=== PATIENT | male | born 1950 | race Caucasian/White ===

== ENCOUNTER 2016-10-30 07:31 | Inpatient (IN) | payer MEDICARE ==
[2016-10-30] MEDS ORDERED: SODIUM CHLORIDE 0.9% 1,000 ML IV ONE (08:00)
[2016-10-30] MEDS ORDERED: DIPH,PERTUS(ACELL)TETVAC-LF 0.5 ML VIAL IM ONE (08:04)
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
[2016-10-30 08:09] LABS: Basophils % (A) 0 %; CHCM 33.7; Eosinophils # (A) 0.1 k/uL (0-0.7); Eosinophils % (A) 0 %; HCT 40.6 % (39.0-53.0); HDW 2.44; HGB 13.4 gm/dL (13.0-17.5); Luc # (Auto) 0.26; Luc % (Auto) 2; Lymphocytes # (A) 1.8 k/uL (1.0-4.8); Lymphocytes % (A) 10 %; MCH 32.6 pg (25.0-35.0); MCHC 33.1 g/dL (31.0-37.0); MCV 98.5 fL (80.0-100.0); Mean Platelet Volume 7.2; Monocytes # (A) 0.9 k/uL (0-1.0); Monocytes % (A) 5 %; Neutrophils # (A) 14.2 k/uL (1.3-7.7); Neutrophils % (A) 82 %; RBC 4.12 m/uL (4.30-5.90); RDW 12.7 % (11.5-15.5); WBC 17.3 k/uL (3.8-10.6); WBC (Perox) 18.35
[2016-10-30 08:17] LABS: INR 1.1 (<1.1); Partial Thromboplastin Time 23.3 sec (22.0-30.0); Prothrombin Time 10.9 sec (9.0-12.0)
[2016-10-30 08:19] LABS: ALT 43 U/L (21-72); AST 49 U/L (17-59); Alkaline Phosphatase 74 U/L (38-126); Anion Gap 19 mmol/L; Blood Urea Nitrogen 24 mg/dL (9-20); Calcium 9.9 mg/dL (8.4-10.2); Carbon Dioxide 18 mmol/L (22-30); Chloride 98 mmol/L (98-107); Glucose 131 mg/dL (74-99); Magnesium 1.9 mg/dL (1.6-2.3); Non-African American GFR(MDRD) >60 (>60 ml/min/1.73 sqM); Potassium 4.3 mmol/L (3.5-5.1); Sodium 135 mmol/L (137-145); Total Bilirubin 0.7 mg/dL (0.2-1.3); Total Protein 8.5 g/dL (6.3-8.2)
[2016-10-30 08:29] LABS: Creatine Kinase 248 U/L (55-170)
[2016-10-30 08:42] LABS: Troponin I <0.012 ng/mL (0.000-0.034)
[2016-10-30 08:44] LABS: Creatine Kinase MB 2.5 ng/mL (0.0-2.4)
--- NOTE | 2016-10-30 08:47 | XR ---
EXAMINATION TYPE: XR chest 2V DATE OF EXAM: 10/30/2016 8:35 AM COMPARISON: Prior chest x-ray 09 October 2014 HISTORY: Altered mental status, difficulty breathing TECHNIQUE: Frontal and lateral views of the chest are obtained. FINDINGS: Intracardiac defibrillator leads are stable. Patchy basilar density is noted, suspect ther e are coronary artery calcifications. Cardiomediastinal silhouette, pulmonary vascularity and lexy ar e stable accounting for differences in technique. No evident pneumothorax or pleural effusion. Patien t is rotated and there are overlying cardiac leads. IMPRESSION: Rotated expiratory exam, basilar atelectasis, follow-up as indicated.
--- NOTE | 2016-10-30 08:57 | CT ---
EXAMINATION TYPE: CT brain wo con DATE OF EXAM: 10/30/2016 8:43 AM COMPARISON: Prior brain CT 29 April 2015 HISTORY: altered mental status CT DLP: 1041.8 mGycm Automated exposure control for dose reduction was used. FINDINGS: No interval change. Evidence of previous infarctions are noted bilaterally. No hemorrhage or hydrocep halus. Cerebral vascular calcifications are present. There is cortical atrophy. White matter demyelin ation again noted, suspect changes of Wallerian degeneration within the left joaquin. Postop changes are noted to the anterior maxillary sinus lawrence as on previous. Calvarium is intact. IMPRESSION: Evidence of previous bilateral cerebral vascular accidents. Age-related atrophy, chronic small vessel ischemic changes. Follow-up as indicated.
[2016-10-30] MEDS ORDERED: PHENYTOIN SODIUM INJ 1,000 MG in SODIUM CHLORIDE 0.9% 100 ML IVPB STA (09:41)
[2016-10-30] MEDS ORDERED: NALOXONE 0.4 MG/ML 1 ML VIAL IV PRN (09:42)
[2016-10-30] MEDS: HYDROcodone/APAP 5-325MG 1 EACH TAB PO PRN ×2 (13:06→18:58)
[2016-10-30] MEDS: SODIUM CHLORIDE 0.9% 1,000 ML IV SCH (13:08)
--- NOTE | 2016-10-30 13:51 | XR ---
Lumbar spine HISTORY: Low back pain 3 views of the lumbar spine Lumbar vertebral bodies show preserved height and alignment. Bone mineralization is mildly reduced. T here is a levoscoliosis centered at the mid lumbar spine. Multilevel spondylosis is present, there is associated loss of disc height especially at L4-5 and L5-S1. Sclerosis present in the posterior ione ents. There are overlying cardiac leads. Vascular calcifications present within the pelvis. IMPRESSION: Scoliosis, degenerative disc disease and facet arthropathy.
[2016-10-30] MEDS ORDERED: ONDANSETRON 4 MG/2 ML VIAL IVP PRN (14:23)
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
[2016-10-30] MEDS ORDERED: Magnesium Replacement Protocol 1 EACH MISC MISCELLANE PRN (15:08)
[2016-10-30] MEDS ORDERED: Potassium Replacement Protocol 1 EACH MISC MISCELLANE PRN (15:08)
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
[2016-10-30] MEDS: PHENYTOIN SODIUM EXTENDED 100 MG CAP PO SCH (18:58)
[2016-10-30] MEDS: CARVEDILOL 3.125 MG TAB PO SCH (18:59)
[2016-10-30] MEDS: HEPARIN SODIUM,PORCINE 5,000 UNIT/ML 1 ML VIAL SQ SCH (21:33)
[2016-10-30] MEDS: ALPRAZolam 0.25 MG TAB PO SCH (21:33)
[2016-10-30] MEDS: ATORVASTATIN 10 MG TAB PO SCH (21:33)
[2016-10-30 23:54] LABS: Appearance,Urine Clear (Clear); Bilirubin,Urine Negative (Negative); Glucose,Urine (UA) Negative (Negative); Ketones,Urine 1+ (Negative); Leukocyte Esterase,Urine Negative (Negative); Nitrite,Urine Negative (Negative); PH, Urine 5.5 (5.0-8.0); Protein,Urine Negative (Negative); Specific Gravity,Urine 1.012 (1.001-1.035); UA Billing (MACRO vs. MICRO) CHEM; Urobilinogen,Urine <2.0 mg/dL (<2.0)
[2016-10-31] MEDS: HYDROcodone/APAP 5-325MG 1 EACH TAB PO PRN ×4 (01:29→20:10)
[2016-10-31] MEDS: PHENYTOIN SODIUM EXTENDED 100 MG CAP PO SCH ×4 (01:29→20:12)
[2016-10-31 06:27] LABS: Basophils % (A) 0 %; CH 32.7; CHCM 33.9; Eosinophils % (A) 0 %; HCT 38.4 % (39.0-53.0); HDW 2.46; HGB 12.9 gm/dL (13.0-17.5); Luc # (Auto) 0.25; Luc % (Auto) 3; Lymphocytes # (A) 1.6 k/uL (1.0-4.8); Lymphocytes % (A) 16 %; MCH 32.6 pg (25.0-35.0); MCHC 33.6 g/dL (31.0-37.0); MCV 97.1 fL (80.0-100.0); Monocytes # (A) 0.9 k/uL (0-1.0); Monocytes % (A) 9 %; Neutrophils # (A) 7.3 k/uL (1.3-7.7); Neutrophils % (A) 72 %; RBC 3.96 m/uL (4.30-5.90); RDW 12.9 % (11.5-15.5); WBC 10.1 k/uL (3.8-10.6); WBC (Perox) 10.06
[2016-10-31 06:49] LABS: Anion Gap 13 mmol/L; Blood Urea Nitrogen 16 mg/dL (9-20); Calcium 9.8 mg/dL (8.4-10.2); Carbon Dioxide 24 mmol/L (22-30); Chloride 98 mmol/L (98-107); Glucose 99 mg/dL (74-99); Magnesium 1.6 mg/dL (1.6-2.3); Non-African American GFR(MDRD) >60 (>60 ml/min/1.73 sqM); Potassium 4.2 mmol/L (3.5-5.1); Sodium 135 mmol/L (137-145)
[2016-10-31] MEDS: CARVEDILOL 3.125 MG TAB PO SCH ×2 (06:55→16:42)
[2016-10-31] MEDS: HEPARIN SODIUM,PORCINE 5,000 UNIT/ML 1 ML VIAL SQ SCH ×2 (08:02→20:12)
[2016-10-31] MEDS: MULTIVITAMINS, THERA 1 EACH TAB PO SCH (08:04)
[2016-10-31] MEDS: CLOPIDOGREL 75 MG TAB PO SCH (08:04)
[2016-10-31] MEDS: LISINOPRIL 5 MG TAB PO SCH (08:05)
[2016-10-31] MEDS: ALPRAZolam 0.25 MG TAB PO SCH ×2 (08:05→20:10)
[2016-10-31] MEDS: SODIUM CHLORIDE 0.9% 1,000 ML IV SCH (09:32)
[2016-10-31] MEDS ORDERED: LACTULOSE 20 GM/30 ML CUP PO ONE (11:42)
[2016-10-31] MEDS ORDERED: DOCUSATE 100 MG CAP PO PRN (11:43)
--- NOTE | 2016-10-31 12:44 | P.PN ---
Subjective Principal diagnosis: Seizure episode Patient is doing fairly well today. He is complaining of constipation. No seizure activity since admission. Objective - Vital Signs Vital signs: Vital Signs Temp 98.9 F 10/31/16 08:00 Pulse 66 10/31/16 11:41 Resp 18 10/31/16 11:41 BP 113/65 10/31/16 11:41 Pulse Ox 96 10/31/16 11:41 Intake & Output 10/30/16 10/31/16 10/31/16 18:59 06:59 18:59 Intake Total 320 180 120 Output Total 300 Balance 320 180 -180 Weight 54.431 kg Intake: IV 180 Sodium Chloride 0.9% 1, 180 000 ml @ 20 mls/hr IV . Q24H [facility] Rx#:[id number] Intake, IV Titration 100 Amount Phenytoin Sodium Inj 1, 100 000 mg In Sodium Chloride 0.9% 100 ml @ 200 mls/hr IVPB ONCE STA Rx#: [id number] Oral 220 120 Output: Urine 300 Other: Voiding Method Urinal # Voids 1 0 1 - Exam General: The patient is awake and alert, in no distress Eye: there is normal conjunctiva bilaterally. Neck: The neck is supple, there is no JVD. Cardiovascular: Normal S1-S2, no S3-S4, no murmurs. Respiratory: Lungs clear to auscultation bilaterally Gastrointestinal: Abdomen is soft, nontender Musculoskeletal: There is no pedal edema. Neurological:. Speech is normal. Skin: Skin is warm and dry - Labs CBC & Chem 7: 10/31/16 06:12 10/31/16 06:12 Labs: Abnormal Lab Results - Last 24 Hours (Table) 10/30/16 10/31/16 10/31/16 Range/Units 23:50 06:12 06:12 RBC 3.96 L (4.30-5.90) m/uL Hgb 12.9 L (13.0-17.5) gm/dL Hct 38.4 L (39.0-53.0) % Sodium 135 L (137-145) mmol/L Urine Ketones 1+ H (Negative) Urine Opiates Screen Detected H (NotDetected) Ur Barbiturates Screen Detected H (NotDetected) U Benzodiazepines Scrn Detected H (NotDetected) Assessment and Plan Plan: 1. Seizure episode: Computed tomography scan of the brain showed chronic findings with no acute intracranial process. Patient was seen and evaluated by neurology. EEG ordered. Patient was started on phenytoin 3 times a day. We will continue seizure precautions. 2. History of CVA: With chronic bilateral changes noted on computed tomography scan of the brain and chronic expressive aphasia 3. Ischemic cardiomyopathy with chronic systolic dysfunction and normal ejection fraction of 25%, now compensated with no exacerbation 4. Paroxysmal internal carotid artery stenosis 5. Essential hypertension: Blood pressure well-controlled 6. Leukocytosis: Now resolved. No source of infection identified. May be reactive.
--- NOTE | 2016-10-31 12:49 | P.PN ---
Subjective Principal diagnosis: Patient is a pleasant 66-year-old male who is being followed by the neurology service for status epilepticus. Reportedly, patient had witnessed seizure at home. Seizures were described as tonic-clonic in nature. Reportedly seizures were continuous lasting up to 15 minutes each. Patient is very poor historian and there is no family or visitors that have been in to confirm history. Patient does state he has had seizure disorder in the past but is not on any antiepileptic drug currently. CT of the brain on admission showed evidence of previous bilateral cerebrovascular accidents. CT also shows age-related atrophy, and chronic small vessel ischemic disease. Nursing staff reports patient has not had any seizure activity since admission. Patient does complain of low back pain for which lumbar spine x-ray was done and reveals scoliosis, degenerative disc disease and facet arthropathy. I'm of my evaluation, patient is resting comfortably in bed and appears to be in no acute distress. Objective - Vital Signs Vital signs: Vital Signs Temp 98.9 F 10/31/16 08:00 Pulse 66 10/31/16 11:41 Resp 18 10/31/16 11:41 BP 113/65 10/31/16 11:41 Pulse Ox 96 10/31/16 11:41 Intake & Output 10/30/16 10/31/16 10/31/16 18:59 06:59 18:59 Intake Total 320 180 120 Output Total 300 Balance 320 180 -180 Weight 54.431 kg Intake: IV 180 Sodium Chloride 0.9% 1, 180 000 ml @ 20 mls/hr IV . Q24H [facility] Rx#:[id number] Intake, IV Titration 100 Amount Phenytoin Sodium Inj 1, 100 000 mg In Sodium Chloride 0.9% 100 ml @ 200 mls/hr IVPB ONCE STA Rx#: [id number] Oral 220 120 Output: Urine 300 Other: Voiding Method Urinal # Voids 1 0 1 - Exam PHYSICAL EXAM: GENERAL APPEARANCE: Patient is a thin male who appears to be in no acute distress. HEENT: Normocephalic, atraumatic, no facial asymmetry is seen. Neck is supple with no masses felt. CARDIOVASCULAR: Regular rate and rhythm. ABDOMEN: Nontender, nondistended. EXTREMITIES: Show no edema or clubbing. NEUROLOGICAL EXAM: Patient is awake, alert, and oriented 2. Patient is unclear of what year it is. Speech is slowed and garbled at times. Language is normal. Strength is full in all 4 extremities. Sensory exam to light touch is normal in all 4 extremities. No obvious facial asymmetry seen on cranial nerve testing. No seizures or tremors noted. - Labs CBC & Chem 7: 10/31/16 06:12 10/31/16 06:12 Labs: Abnormal Lab Results - Last 24 Hours (Table) 10/30/16 10/31/16 10/31/16 Range/Units 23:50 06:12 06:12 RBC 3.96 L (4.30-5.90) m/uL Hgb 12.9 L (13.0-17.5) gm/dL Hct 38.4 L (39.0-53.0) % Sodium 135 L (137-145) mmol/L Urine Ketones 1+ H (Negative) Urine Opiates Screen Detected H (NotDetected) Ur Barbiturates Screen Detected H (NotDetected) U Benzodiazepines Scrn Detected H (NotDetected) Assessment and Plan Plan: Impression: 1. Seizure disorder 2. Coronary artery disease 3. Chronic back pain 4. 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 5. Hypertension 6. History of memory difficulty Recommendations: It is believed patient had witnessed seizure activity. Patient was loaded with Dilantin in the emergency room and has had no further seizure activity since. It appears patient may be unable to have MRI with and without contrast due to metal hardware in the skull. I recommend continuing Dilantin at 100 mg 3 times a day. I will check a Dilantin level. EEG was ordered but has not been performed yet. Continue seizure precautions. Any neurological changes, I will order a stat CT. Continue neurological checks. I recommend a speech consult for cognitive evaluation. I will continue to follow with you. Further recommendations to follow. I performed an examination of the patient and discussed the management with the ENVELOPE MAKER. I have reviewed the ENVELOPE MAKER notes and agree with the findings and plan of care.
[2016-10-31] MEDS: ATORVASTATIN 10 MG TAB PO SCH (20:12)
[2016-11-01] MEDS: MULTIVITAMINS, THERA 1 EACH TAB PO SCH (09:58)
[2016-11-01] MEDS: CLOPIDOGREL 75 MG TAB PO SCH (09:58)
[2016-11-01] MEDS: CARVEDILOL 3.125 MG TAB PO SCH ×2 (09:58→16:23)
[2016-11-01] MEDS: SODIUM CHLORIDE 0.9% 1,000 ML IV SCH (09:58)
[2016-11-01] MEDS: HEPARIN SODIUM,PORCINE 5,000 UNIT/ML 1 ML VIAL SQ SCH ×2 (09:58→20:51)
[2016-11-01] MEDS: PHENYTOIN SODIUM EXTENDED 100 MG CAP PO SCH ×3 (09:58→20:50)
[2016-11-01] MEDS: LISINOPRIL 5 MG TAB PO SCH (09:58)
[2016-11-01] MEDS: HYDROcodone/APAP 5-325MG 1 EACH TAB PO PRN ×2 (10:02→18:49)
[2016-11-01] MEDS: ALPRAZolam 0.25 MG TAB PO SCH ×2 (10:03→20:50)
--- NOTE | 2016-11-01 10:59 | P.PN ---
Subjective Seizure episode Patient had EEG done this morning. Nursing reports no seizure activity through the night. Patient followed by neurology. They recommended a speech therapy consult. Patient lying in bed comfortably. Difficult to obtain review of systems due to his expressive aphasia. Objective - Vital Signs Vital signs: Vital Signs Temp 98.7 F 11/01/16 07:00 Pulse 77 11/01/16 07:00 Resp 20 11/01/16 07:00 BP 128/77 11/01/16 07:00 Pulse Ox 96 11/01/16 07:00 Intake & Output 10/31/16 11/01/16 11/01/16 18:59 06:59 18:59 Intake Total 970 200 Output Total 300 400 Balance 670 -200 Intake: IV 0 Sodium Chloride 0.9% 1, 0 000 ml @ 20 mls/hr IV . Q24H [facility] Rx#:[id number] Oral 970 200 Output: Urine 300 400 Other: Voiding Method Urinal # Voids 1 1 # Bowel Movements 0 0 - Exam Head normocephalic Neck supple Lungs clear to auscultation bilaterally no wheezing or crackles Heart regular rate and rhythm S1-S2, no rub or gallop Abdomen is soft nontender nondistended positive bowel sounds no hepatosplenomegaly Extremities no edema Neuro alert and orientated to 3. Expressive aphasia. Hand prescriptionist equal bilaterally. Lower extremity strength equal bilaterally. Patient does have some difficulty following simple commands. - Labs CBC & Chem 7: 10/31/16 06:12 10/31/16 06:12 Assessment and Plan Plan: 1. Seizure episode: Computed tomography scan of the brain showed evidence of previous bilateral CVA. Age-related atrophy, chronic small vessel ischemic changes. No acute intracranial process. Patient was seen and evaluated by neurology. EEG completed this morning. Results pending.. Patient was started on phenytoin 3 times a day. We will continue seizure precautions. 2. History of CVA: With chronic bilateral changes noted on computed tomography scan of the brain and chronic expressive aphasia 3. Ischemic cardiomyopathy with chronic systolic dysfunction and normal ejection fraction of 25%, now compensated with no exacerbation 4. History of internal carotid artery stenosis 5. Essential hypertension: Blood pressure well-controlled 6. Leukocytosis: Now resolved. No source of infection identified. May be reactive. 7. Constipation change Colace to 100 mg twice a day. Add MiraLAX and give 1 dose of lactulose Awaiting speech therapy and PT OT consult DVT prophylaxis subcu heparin
[2016-11-01] MEDS ORDERED: LACTULOSE 20 GM/30 ML CUP PO ONE (12:00)
[2016-11-01 12:03] LABS: Basophils % (A) 0 %; CH 33.7; CHCM 35.7; Eosinophils % (A) 0 %; HCT 41.7 % (39.0-53.0); HGB 14.5 gm/dL (13.0-17.5); Luc # (Auto) 0.35; Luc % (Auto) 3; Lymphocytes # (A) 1.8 k/uL (1.0-4.8); Lymphocytes % (A) 15 %; MCH 33.1 pg (25.0-35.0); MCHC 34.8 g/dL (31.0-37.0); Mean Platelet Volume 7.9; Monocytes # (A) 1.1 k/uL (0-1.0); Monocytes % (A) 9 %; Neutrophils # (A) 9.2 k/uL (1.3-7.7); Neutrophils % (A) 74 %; RBC 4.39 m/uL (4.30-5.90); RDW 12.6 % (11.5-15.5); WBC 12.4 k/uL (3.8-10.6); WBC (Perox) 12.37
[2016-11-01 12:06] LABS: Anion Gap 14 mmol/L; Blood Urea Nitrogen 20 mg/dL (9-20); Calcium 10.2 mg/dL (8.4-10.2); Carbon Dioxide 23 mmol/L (22-30); Chloride 101 mmol/L (98-107); Glucose 150 mg/dL (74-99); Magnesium 1.6 mg/dL (1.6-2.3); Non-African American GFR(MDRD) >60 (>60 ml/min/1.73 sqM); Potassium 4.3 mmol/L (3.5-5.1); Sodium 138 mmol/L (137-145)
--- NOTE | 2016-11-01 17:31 | P.PN ---
Subjective Principal diagnosis: Patient is a pleasant 66-year-old male who is being followed by the neurology service for status epilepticus. Reportedly, patient had witnessed seizure at home. Seizures were described as tonic-clonic in nature. Reportedly seizures were continuous lasting up to 15 minutes each. Patient is very poor historian and there are no family or visitors that have been in to confirm history. Patient does state he has had seizure disorder in the past but is not on any antiepileptic drug currently. CT of the brain on admission showed evidence of previous bilateral cerebrovascular accidents. CT also shows age-related atrophy, and chronic small vessel ischemic disease. Patient does have history of chronic expressive aphasia. Nursing staff reports patient has not had any seizure activity since admission. Patient does complain of low back pain for which lumbar spine x-ray was done and reveals scoliosis, degenerative disc disease and facet arthropathy. At the time of my evaluation, patient is resting comfortably in bed and appears to be in no acute distress. Objective - Vital Signs Vital signs: Vital Signs Temp 98.8 F 11/01/16 15:00 Pulse 84 11/01/16 15:00 Resp 19 11/01/16 15:00 BP 143/87 11/01/16 15:00 Pulse Ox 95 11/01/16 15:00 Intake & Output 10/31/16 11/01/16 11/01/16 18:59 06:59 18:59 Intake Total 970 200 Output Total 300 400 Balance 670 -200 Intake: IV 0 Sodium Chloride 0.9% 1, 0 000 ml @ 20 mls/hr IV . Q24H [facility] Rx#:[id number] Oral 970 200 Output: Urine 300 400 Other: Voiding Method Urinal # Voids 1 1 2 # Bowel Movements 0 0 - Exam PHYSICAL EXAM: GENERAL APPEARANCE: Patient is a thin male who appears to be in no acute distress. HEENT: Normocephalic, atraumatic, no facial asymmetry is seen. Neck is supple with no masses felt. CARDIOVASCULAR: Regular rate and rhythm. ABDOMEN: Nontender, nondistended. EXTREMITIES: Show no edema or clubbing. NEUROLOGICAL EXAM: Patient is awake, alert, and oriented 2. Patient is unclear of what year it is. Speech is slowed and garbled at times. This is chronic since head injury. Language is normal. Strength is full in all 4 extremities. Sensory exam to light touch is normal in all 4 extremities. No obvious facial asymmetry seen on cranial nerve testing. No seizures or tremors noted. - Labs CBC & Chem 7: 11/01/16 11:11 11/01/16 11:11 Labs: Abnormal Lab Results - Last 24 Hours (Table) 11/01/16 11/01/16 Range/Units 11:11 11:11 WBC 12.4 H (3.8-10.6) k/uL Plt Count 147 L (150-450) k/uL Neutrophils # 9.2 H (1.3-7.7) k/uL Monocytes # 1.1 H (0-1.0) k/uL Glucose 150 H (74-99) mg/dL Assessment and Plan Plan: Impression: 1. Seizure disorder 2. Coronary artery disease 3. Chronic back pain 4. 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 5. Hypertension 6. History of memory difficulty Recommendations: It is believed patient had witnessed seizure activity. Patient was loaded with Dilantin in the emergency room and has had no further seizure activity since. It appears patient may be unable to have MRI with and without contrast due to metal hardware in the skull. CT of the brain showed evidence of previous bilateral cerebrovascular accidents. Age-related atrophy, chronic small vessel ischemic changes. I recommend continuing Dilantin at 100 mg 3 times a day. Dilantin level is within normal limits. EEG was ordered and showed occasional sharp waves consistent with reduced seizure threshold. Continue seizure precautions. Any neurological changes, I will order a stat CT. Continue neurological checks. I recommend a speech consult for cognitive evaluation. Patient can follow up in the office in the outpatient setting for follow-up seizures as well as low back pain. Nursing staff reports patient is unsteady on his feet. Patient may benefit from short-term inpatient rehab. Patient is stable for discharge from a neurology standpoint. I will continue to follow with you on an as-needed basis. Please reconsult if any neurological changes. I performed an examination of the patient and discussed the management with the CABLE SWAGER. I have reviewed the CABLE SWAGER notes and agree with the findings and plan of care.
[2016-11-01] MEDS: DOCUSATE 100 MG CAP PO SCH (20:50)
[2016-11-01] MEDS: ATORVASTATIN 10 MG TAB PO SCH (20:51)
[2016-11-01] MEDS: POLYETHYLENE GLYCOL 3350 17 GM POWD.PACK PO SCH (20:51)
--- NOTE | 2016-11-01 23:18 | EEG ---
DATE OF SERVICE: 11/01/2016 REASON FOR TESTING: Seizures. DESCRIPTION OF THE PROCEDURE: This EEG was performed using a 21-channel digital electroencephalograph, following international 10-20 system. DESCRIPTION OF THE RECORDING: From the beginning of the tracing, and with the patient's eyes closed, the background rhythm was mostly consisting of 9 Hz alpha frequency in the posterior occipital leads. No obvious asymmetry is seen. Frequent movement and muscle artifacts are seen. Photic stimulation was performed with a minimal driving response seen. No pathological waves were elicited. Occasional sharp wave activity is noticed, more frequently in the right frontal temporal region. Hyperventilation was not performed. The patient remains awake throughout the tracing. No generalized epileptiform discharges were seen. His EKG lead showed a regular rate and rhythm. INTERPRETATION: This awake EEG is abnormal due to the presence of occasional sharp wave activity. This is consistent with a reduced seizure threshold. No generalized epileptiform discharges were seen. Clinical correlation is recommended.
[2016-11-02] MEDS: HEPARIN SODIUM,PORCINE 5,000 UNIT/ML 1 ML VIAL SQ SCH ×2 (08:54→22:11)
[2016-11-02] MEDS: CLOPIDOGREL 75 MG TAB PO SCH (08:54)
[2016-11-02] MEDS: CARVEDILOL 3.125 MG TAB PO SCH ×2 (08:54→17:08)
[2016-11-02] MEDS: PHENYTOIN SODIUM EXTENDED 100 MG CAP PO SCH ×3 (08:54→22:11)
[2016-11-02] MEDS: LISINOPRIL 5 MG TAB PO SCH (08:54)
[2016-11-02] MEDS: DOCUSATE 100 MG CAP PO SCH ×2 (08:55→22:11)
[2016-11-02] MEDS: MULTIVITAMINS, THERA 1 EACH TAB PO SCH (08:55)
[2016-11-02] MEDS: ALPRAZolam 0.25 MG TAB PO SCH ×2 (08:57→22:09)
[2016-11-02 09:11] LABS: Basophils # (A) 0.1 k/uL (0-0.2); Basophils % (A) 0 %; CH 33.7; CHCM 35.7; Eosinophils % (A) 0 %; HDW 2.58; HGB 14.6 gm/dL (13.0-17.5); Luc # (Auto) 0.41; Luc % (Auto) 3; Lymphocytes % (A) 15 %; MCH 33.1 pg (25.0-35.0); MCHC 34.8 g/dL (31.0-37.0); Mean Platelet Volume 7.6; Monocytes % (A) 7 %; Neutrophils # (A) 10.4 k/uL (1.3-7.7); Neutrophils % (A) 75 %; RBC 4.42 m/uL (4.30-5.90); RDW 12.5 % (11.5-15.5); WBC 13.9 k/uL (3.8-10.6); WBC (Perox) 13.28
[2016-11-02] MEDS: HYDROcodone/APAP 5-325MG 1 EACH TAB PO PRN ×3 (09:24→22:11)
[2016-11-02 09:43] LABS: Anion Gap 10 mmol/L; Blood Urea Nitrogen 27 mg/dL (9-20); Calcium 10.2 mg/dL (8.4-10.2); Carbon Dioxide 28 mmol/L (22-30); Chloride 101 mmol/L (98-107); Glucose 144 mg/dL (74-99); Magnesium 1.6 mg/dL (1.6-2.3); Non-African American GFR(MDRD) >60 (>60 ml/min/1.73 sqM); Potassium 3.9 mmol/L (3.5-5.1); Sodium 139 mmol/L (137-145)
[2016-11-02] MEDS: SODIUM CHLORIDE 0.9% 1,000 ML IV SCH (10:59)
[2016-11-02 13:26] VITALS: BMI 20.3
[2016-11-02 14:56] LABS: Amylase 71 U/L (30-110)
--- NOTE | 2016-11-02 15:41 | XR ---
2 view abdomen HISTORY: Abdominal pain 2 views of the abdomen submitted and correlated to prior exam October Lung bases are remarkable for some minimal atelectatic changes or scarring. Intracardiac defibrillato r leads are present. No pneumoperitoneum or bowel obstruction is evident. Degenerative disc changes i n the visualized spine, there is mild spinal curvature. There are vascular calcifications within the pelvis. IMPRESSION: Nonspecific findings described above. No abnormality evident to account for patient's sym ptoms.
[2016-11-02] MEDS ORDERED: RX INFO: IV CONTRAST WAS GIVEN 1 EACH MISC MISCELLANE PRN (17:39)
--- NOTE | 2016-11-02 17:39 | P.PN ---
Subjective Principal diagnosis: Seizure activity Patient is a 66-year-old male who had a witnessed seizure as outpatient, he was brought into emergency room and was admitted to medical floor he was evaluated by neurology he was started on IV Dilantin, level is therapeutic at this time. Patient has known history of stroke, he has expressive aphasia. Objective - Vital Signs Vital signs: Vital Signs Temp 99 F 11/02/16 15:00 Pulse 79 11/02/16 15:00 Resp 20 11/02/16 15:00 BP 115/74 11/02/16 15:00 Pulse Ox 93 L 11/02/16 15:00 Intake & Output 11/01/16 11/02/16 11/02/16 18:59 06:59 18:59 Weight 59 kg 59 kg Other: Voiding Method Urinal # Voids 2 1 1 - Exam In general patient is alert and oriented speech is difficult to understand HEENT without any acute abnormality Neck is supple no JVD no goiter no lymphadenopathy Chest is clear to auscultation no wheezing Cardiac exam reveals regular heart sounds no gallops no murmurs Abdomen is soft nontender no organomegaly Extremity exam reveals no edema no cyanosis or clubbing - Labs CBC & Chem 7: 11/02/16 08:14 11/02/16 08:14 Labs: Abnormal Lab Results - Last 24 Hours (Table) 11/02/16 11/02/16 Range/Units 08:14 08:14 WBC 13.9 H (3.8-10.6) k/uL Plt Count 149 L (150-450) k/uL Neutrophils # 10.4 H (1.3-7.7) k/uL BUN 27 H (9-20) mg/dL Glucose 144 H (74-99) mg/dL Assessment and Plan Plan: 1. Seizure episode: Computed tomography scan of the brain showed evidence of previous bilateral CVA. Age-related atrophy, chronic small vessel ischemic changes. No acute intracranial process. Patient was seen and evaluated by neurology. EEG completed this morning. Results pending.. Patient was started on phenytoin 3 times a day. We will continue seizure precautions. 2. History of CVA: With chronic bilateral changes noted on computed tomography scan of the brain and chronic expressive aphasia 3. Ischemic cardiomyopathy with chronic systolic dysfunction and normal ejection fraction of 25%, now compensated with no exacerbation 4. History of internal carotid artery stenosis 5. Essential hypertension: Blood pressure well-controlled 6. Leukocytosis: Now resolved. No source of infection identified. May be reactive. 7. Abdominal pain with Constipation change Colace to 100 mg twice a day. Add MiraLAX and give 1 dose of lactulose, at this time will check abdomen x-ray, will check amylase and lipase 8. Leukocytosis no clear site of infection may be reactive Will monitor closely
[2016-11-02] MEDS: IOHEXOL 350 MG/ML 25 ML BOTTLE (ORAL USE) PO PRN ×2 (18:35→19:55)
--- NOTE | 2016-11-02 21:02 | CT ---
EXAMINATION TYPE: CT abdomen pelvis w con DATE OF EXAM: 11/02/2016 8:46 PM COMPARISON: NONE HISTORY: Abdominal pain with constipation and leukocytosis. CT DLP: 426.90 mGycm Automated exposure control for dose reduction was used. TECHNIQUE: Helical acquisition of images was performed from the lung bases through the pelvis. CONTRAST: Performed with Oral Contrast and with IV Contrast, patient injected with 100 mL of Omnipaque 300. FINDINGS: There is patchy infiltrate and atelectasis at the left posterior lung base. There is no pleural effus ion. There is no pericardial effusion. Liver spleen pancreas gallbladder appear normal. Bile ducts are not dilated. There is no adrenal mass. Kidneys show satisfactory contrast opacification. There is no hydronephrosi s. There is no retroperitoneal adenopathy. Abdominal aorta is atheromatous. There are a few sigmoid d iverticula. Bladder distends smoothly. There are spondylotic changes in the lumbar spine. There is no sign of a pelvic mass. Appendix is not seen. There is no sign of appendicitis. IMPRESSION: THERE IS PATCHY INFILTRATE AND ATELECTASIS IN THE LEFT LOWER LOBE. THERE IS MINIMAL PERINEPHRIC EDEMA ON THE LEFT SIDE BUT NO EVIDENCE OF RENAL OBSTRUCTION. THERE IS NO RMAL CONTRAST OPACIFICATION OF THE RENAL CORTEX. THIS COULD RELATE TO ATYPICAL PYELONEPHRITIS. THERE IS NO RENAL MASS SEEN. THERE IS MILD SIGMOID DIVERTICULOSIS WITHOUT SIGN OF DIVERTICULITIS. ATHEROSCLEROTIC VASCULAR DISEASE. 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
[2016-11-02] MEDS: POLYETHYLENE GLYCOL 3350 17 GM POWD.PACK PO SCH (22:11)
[2016-11-02] MEDS: ATORVASTATIN 10 MG TAB PO SCH (22:11)
[2016-11-03] MEDS: HYDROcodone/APAP 5-325MG 1 EACH TAB PO PRN ×4 (06:01→23:21)
[2016-11-03 09:23] LABS: Basophils % (A) 0 %; CH 32.9; CHCM 33.9; Eosinophils % (A) 0 %; HCT 39.6 % (39.0-53.0); HDW 2.52; HGB 13.3 gm/dL (13.0-17.5); Luc # (Auto) 0.36; Luc % (Auto) 4; Lymphocytes # (A) 2.3 k/uL (1.0-4.8); Lymphocytes % (A) 22 %; MCH 32.9 pg (25.0-35.0); MCHC 33.7 g/dL (31.0-37.0); MCV 97.4 fL (80.0-100.0); Mean Platelet Volume 7.2; Monocytes # (A) 0.6 k/uL (0-1.0); Monocytes % (A) 5 %; Neutrophils # (A) 7.2 k/uL (1.3-7.7); Neutrophils % (A) 68 %; RBC 4.06 m/uL (4.30-5.90); RDW 12.6 % (11.5-15.5); WBC 10.5 k/uL (3.8-10.6); WBC (Perox) 10.62
[2016-11-03 09:39] LABS: ALT 38 U/L (21-72); AST 78 U/L (17-59); Alkaline Phosphatase 68 U/L (38-126); Anion Gap 13 mmol/L; Blood Urea Nitrogen 29 mg/dL (9-20); Calcium 9.6 mg/dL (8.4-10.2); Carbon Dioxide 24 mmol/L (22-30); Chloride 99 mmol/L (98-107); Glucose 174 mg/dL (74-99); Magnesium 1.4 mg/dL (1.6-2.3); Non-African American GFR(MDRD) >60 (>60 ml/min/1.73 sqM); Potassium 3.9 mmol/L (3.5-5.1); Sodium 136 mmol/L (137-145); Total Bilirubin 0.7 mg/dL (0.2-1.3); Total Protein 7.5 g/dL (6.3-8.2)
[2016-11-03] MEDS: ALPRAZolam 0.25 MG TAB PO SCH ×2 (09:48→21:57)
[2016-11-03] MEDS: PHENYTOIN SODIUM EXTENDED 100 MG CAP PO SCH ×3 (09:48→21:58)
[2016-11-03] MEDS: CARVEDILOL 3.125 MG TAB PO SCH ×2 (09:48→17:18)
[2016-11-03] MEDS: MULTIVITAMINS, THERA 1 EACH TAB PO SCH (09:49)
[2016-11-03] MEDS: HEPARIN SODIUM,PORCINE 5,000 UNIT/ML 1 ML VIAL SQ SCH ×2 (09:49→21:57)
[2016-11-03] MEDS: DOCUSATE 100 MG CAP PO SCH ×2 (09:49→21:57)
[2016-11-03] MEDS: CLOPIDOGREL 75 MG TAB PO SCH (09:49)
[2016-11-03] MEDS: LISINOPRIL 5 MG TAB PO SCH (09:49)
[2016-11-03] MEDS: SODIUM CHLORIDE 0.9% 1,000 ML IV SCH (09:56)
[2016-11-03] MEDS: PANTOPRAZOLE 40 MG TABLET PO SCH (17:18)
--- NOTE | 2016-11-03 18:40 | P.PN ---
Subjective Principal diagnosis: Seizure activity Patient is a 66-year-old male who had a witnessed seizure as outpatient, he was brought into emergency room and was admitted to medical floor he was evaluated by neurology he was started on IV Dilantin, level is therapeutic at this time. Patient has known history of stroke, he has expressive aphasia. Objective - Vital Signs Vital signs: Vital Signs Temp 98.8 F 11/03/16 15:00 Pulse 81 11/03/16 15:00 Resp 19 11/03/16 15:00 BP 96/62 11/03/16 15:00 Pulse Ox 96 11/03/16 15:00 Intake & Output 11/02/16 11/03/16 11/03/16 18:59 06:59 18:59 Output Total 700 175 Balance -700 -175 Weight 59 kg 60.5 kg Output: Urine 700 175 Other: Voiding Method Urinal # Voids 1 1 1 # Bowel Movements 1 - Exam In general patient is alert and oriented speech is difficult to understand HEENT without any acute abnormality Neck is supple no JVD no goiter no lymphadenopathy Chest is clear to auscultation no wheezing Cardiac exam reveals regular heart sounds no gallops no murmurs Abdomen is soft nontender no organomegaly Extremity exam reveals no edema no cyanosis or clubbing - Labs CBC & Chem 7: 11/03/16 08:44 11/03/16 08:44 Labs: Abnormal Lab Results - Last 24 Hours (Table) 11/03/16 11/03/16 Range/Units 08:44 08:44 RBC 4.06 L (4.30-5.90) m/uL Sodium 136 L (137-145) mmol/L BUN 29 H (9-20) mg/dL Glucose 174 H (74-99) mg/dL Magnesium 1.4 L (1.6-2.3) mg/dL AST 78 H (17-59) U/L Assessment and Plan Plan: 1. Seizure episode: Computed tomography scan of the brain showed evidence of previous bilateral CVA. Age-related atrophy, chronic small vessel ischemic changes. No acute intracranial process. Patient was seen and evaluated by neurology. EEG completed this morning. Results pending.. Patient was started on phenytoin 3 times a day. We will continue seizure precautions. 2. History of CVA: With chronic bilateral changes noted on computed tomography scan of the brain and chronic expressive aphasia 3. Ischemic cardiomyopathy with chronic systolic dysfunction and normal ejection fraction of 25%, now compensated with no exacerbation 4. History of internal carotid artery stenosis 5. Essential hypertension: Blood pressure well-controlled 6. Leukocytosis: Now resolved. No source of infection identified. May be reactive. 7. Abdominal pain with Constipation change Colace to 100 mg twice a day. Add MiraLAX and give 1 dose of lactulose, at this time will check abdomen x-ray, will check amylase and lipase, patient continues to have abdominal pain computed tomography scan of the abdomen and pelvis was done Will consult gastroenterology Protonix 40 mg twice daily was added 8. Leukocytosis no clear site of infection may be reactive Will monitor closely
--- NOTE | 2016-11-03 21:47 | CONS ---
DATE OF CONSULTATION: 11/03/2016 REASON FOR CONSULTATION: Abdominal pain. HISTORY OF PRESENT ILLNESS: The patient is a 66-year-old white male with a history of seizure disorder who was admitted to the hospital after having a witnessed seizure by his friend with whom he lives. He was brought into the emergency room and subsequently admitted to the hospital for further evaluation. He is presently being seen by Neurology, had a CT of the head done that was unremarkable. Since being in the hospital the patient has been complaining of abdominal pain, and hence we are consulted. He states the pain is mostly in the epigastric and periumbilical area for the last 2 months' duration. He states that the pain happens every time he takes his pills in the morning and sometimes the pain can last all day. He has some nausea but no emesis. Apparently in the hospital he threw up twice this morning. He denies any heartburn, reports no prior history of peptic ulcer disease or recent NSAID use, has normal bowel movements. No rectal bleeding or melena. He does not recall ever having an EGD or colonoscopy in the past. His past medical history significant for: 1. Coronary artery disease. 2. Congestive heart failure. 3. CVA 2 years ago. 4. Hypertension. 5. Hyperlipidemia. 6. Coronary artery disease. 7. Seizure disorder. 8. Degenerative joint disease. 9. Severe ischemic cardiomyopathy with an ejection fraction less than 20. PAST SURGICAL HISTORY: 1. AICD placement. 2. History of appendectomy. 3. Right knee surgery. Medications at home include: 1. Coreg. 2. Prinivil. 3. Zocor. 4. Multivitamin. 5. Nitrostat. 6. Xanax. ALLERGIES: NONE. SOCIAL HISTORY: Chronic smoker. No alcohol use. FAMILY HISTORY: Father and mother are . REVIEW OF SYSTEMS: CARDIOPULMONARY: No chest pain or shortness of breath. GENITOURINARY: No dysuria or hematuria. MUSCULOSKELETAL: Unremarkable. SKIN: Unremarkable. ENDOCRINE: Unremarkable. PSYCHIATRIC: Unremarkable. NEUROLOGY: History of seizure disorder. GI: As mentioned above. ENDOCRINE: Unremarkable. HEMATOLOGY: Unremarkable. CONSTITUTIONAL: No recent weight loss. No fevers, chills, night sweats. On physical examination, he appears comfortable in no apparent distress. Vital signs are stable. Blood pressure is 106/66, pulse rate 74, temperature 99.3. HEENT EXAMINATION: Unremarkable. Conjunctivae pink. Sclerae anicteric. Oral cavity with no lesions. NECK: No JVD or lymph node enlargement. Chest was clear to auscultation. HEART: Regular rate and rhythm. ABDOMEN: Soft. Slightly distended but it was very soft. There was mild diffuse tenderness but no rebound or rigidity. Bowel sounds are positive. No organomegaly. EXTREMITIES: No pedal edema. SKIN: No rashes. NEURO: Alert and oriented x3. No focal deficits. LABS: WBC 10.1, hemoglobin 12.9. Platelets are normal. Basic metabolic panel is within normal limits. Amylase and lipase are normal ALT, AST, bilirubin and alkaline phosphatase are normal. CT of the abdomen and pelvis done yesterday showed minimal perinephric edema on the left side but no evidence of renal obstruction; mild sigmoid diverticulosis but no evidence of diverticulitis; and arthritis of the lumbar spine. IMPRESSION: 1. Seizure disorder. At present Neurology is following the patient closely. 2. Chronic abdominal pain of 2 months' duration. He describes the pain diffusely all over the abdomen, mostly in the epigastric and periumbilical areas, worse with eating and certain foods. No recent NSAID use. No prior history of peptic ulcer disease. No significant change in his bowel habits, rectal bleeding or melena. CT of the abdomen was unremarkable. Possibly we are dealing with gastritis, peptic ulcer disease at this time. RECOMMENDATIONS: 1. Start him on Protonix. Start him on PPI one tablet twice daily. 2. If no symptomatic improvement in a couple of days, will consider an upper endoscopy during this hospital stay. 3. Anti-reflux measures. 4. Will follow him closely during his hospital stay. Thank you for this consultation.
[2016-11-03] MEDS: POLYETHYLENE GLYCOL 3350 17 GM POWD.PACK PO SCH (21:57)
[2016-11-03] MEDS: ATORVASTATIN 10 MG TAB PO SCH (21:57)
[2016-11-04] MEDS: HYDROcodone/APAP 5-325MG 1 EACH TAB PO PRN ×4 (05:28→23:12)
[2016-11-04] MEDS: PANTOPRAZOLE 40 MG TABLET PO SCH ×2 (08:38→18:10)
[2016-11-04] MEDS: CARVEDILOL 3.125 MG TAB PO SCH ×2 (08:38→18:10)
[2016-11-04] MEDS: DOCUSATE 100 MG CAP PO SCH ×2 (08:39→20:44)
[2016-11-04] MEDS: LISINOPRIL 5 MG TAB PO SCH (08:39)
[2016-11-04] MEDS: HEPARIN SODIUM,PORCINE 5,000 UNIT/ML 1 ML VIAL SQ SCH ×2 (08:39→20:43)
[2016-11-04] MEDS: PHENYTOIN SODIUM EXTENDED 100 MG CAP PO SCH ×3 (08:39→21:04)
[2016-11-04] MEDS: MULTIVITAMINS, THERA 1 EACH TAB PO SCH (08:39)
[2016-11-04] MEDS: CLOPIDOGREL 75 MG TAB PO SCH (08:39)
[2016-11-04] MEDS: SODIUM CHLORIDE 0.9% 1,000 ML IV SCH (08:40)
[2016-11-04] MEDS: ALPRAZolam 0.25 MG TAB PO SCH ×2 (08:53→20:43)
[2016-11-04 09:13] LABS: Basophils % (A) 0 %; CH 32.7; CHCM 32.9; Eosinophils # (A) 0.1 k/uL (0-0.7); Eosinophils % (A) 1 %; HCT 39.9 % (39.0-53.0); HDW 2.38; HGB 12.9 gm/dL (13.0-17.5); Luc # (Auto) 0.27; Luc % (Auto) 3; Lymphocytes # (A) 2.1 k/uL (1.0-4.8); Lymphocytes % (A) 23 %; MCH 32.2 pg (25.0-35.0); MCHC 32.3 g/dL (31.0-37.0); MCV 99.7 fL (80.0-100.0); Mean Platelet Volume 7.1; Monocytes # (A) 0.5 k/uL (0-1.0); Monocytes % (A) 6 %; Neutrophils # (A) 6.3 k/uL (1.3-7.7); Neutrophils % (A) 67 %; RDW 13.1 % (11.5-15.5); WBC 9.3 k/uL (3.8-10.6)
[2016-11-04 09:24] LABS: ALT 42 U/L (21-72); AST 75 U/L (17-59); Alkaline Phosphatase 67 U/L (38-126); Anion Gap 12 mmol/L; Blood Urea Nitrogen 31 mg/dL (9-20); Calcium 9.6 mg/dL (8.4-10.2); Carbon Dioxide 24 mmol/L (22-30); Chloride 102 mmol/L (98-107); Glucose 131 mg/dL (74-99); Magnesium 1.5 mg/dL (1.6-2.3); Non-African American GFR(MDRD) >60 (>60 ml/min/1.73 sqM); Potassium 3.8 mmol/L (3.5-5.1); Sodium 138 mmol/L (137-145); Total Bilirubin 0.6 mg/dL (0.2-1.3); Total Protein 7.8 g/dL (6.3-8.2)
--- NOTE | 2016-11-04 11:26 | P.PN ---
Subjective Principal diagnosis: Epigastric pain 66-year-old male with a history of seizure disorder admitted with seizure as well as epigastric pain 2 months. Patient states his pain increases with medications. no history of peptic ulcer disease. Denies hematemesis hematochezia melena. tolerated breakfast this morning with minimal abdominal discomfort. CT abdomen and pelvis with contrast history reported atelectasis patchy infiltrate left lower lobe. sigmoid diverticulosis. white count 9.3. Hemoglobin 12.9. BUN 31 creatinine 0.7. Objective - Vital Signs Vital signs: Vital Signs Temp 97.4 F L 11/04/16 07:00 Pulse 73 11/04/16 07:00 Resp 19 11/04/16 07:00 BP 130/74 11/04/16 07:00 Pulse Ox 95 11/04/16 07:00 Intake & Output 11/03/16 11/04/16 11/04/16 18:59 06:59 18:59 Output Total 175 150 Balance -175 -150 Weight 60 kg Output: Urine 175 150 Other: Voiding Method Toilet Urinal # Voids 1 200 # Bowel Movements 1 - Exam General appearance: The patient is alert, oriented, in no acute distress. HET: Head is normocephalic and atraumatic. Pupils are equal and reactive. Oropharynx is clear without lesions. Neck: Supple without lymphadenopathy. Trachea midline. Heart: S1 S2. Regular rate and rhythm. Lungs: No crackles or wheezes are heard. Abdomen: Soft, nontender, nondistended with bowel sounds. No peritoneal signs. No palpable organomegaly or masses. Extremities: Normal skin color and turgor. No cyanosis, rash, ulceration, clubbing, or edema. Radial and pedal pulses are 2/4 bilaterally. Neurological: No focal deficits. Strength and sensation are grossly intact. - Labs CBC & Chem 7: 11/04/16 08:52 11/04/16 08:52 Labs: Abnormal Lab Results - Last 24 Hours (Table) 11/04/16 11/04/16 Range/Units 08:52 08:52 RBC 4.00 L (4.30-5.90) m/uL Hgb 12.9 L (13.0-17.5) gm/dL Plt Count 135 L (150-450) k/uL BUN 31 H (9-20) mg/dL Glucose 131 H (74-99) mg/dL Magnesium 1.5 L (1.6-2.3) mg/dL AST 75 H (17-59) U/L Assessment and Plan (1) Epigastric abdominal pain Narrative/Plan: Epigastric pain x 2 months duration possible gastritis possible esophagitis possible peptic ulcer disease. Status: Acute (2) Status epilepticus Status: Acute Plan: 1. Protonix 40 mg twice daily. 2. EGD evaluation tomorrow afternoon with Dr. Robledo. The um rn has discussed the risks, benefits and alternative therapies for the above-mentioned procedure and for both sedation/analgesia as well as necessary blood product administration, if indicated, as they pertain to this patient. The patient has indicated understanding and acceptance of the risks and procedures discussed. Assessment and plan of care discussed with Meena Valdivia.
[2016-11-04] MEDS ORDERED: MAGNESIUM SULFATE-D5W PMX 1 GM in DEXTROSE/WATER 1 100ML.BAG IVPB ONE (12:01)
--- NOTE | 2016-11-04 12:05 | P.PN ---
Subjective Seizure episode Nursing reports no seizure activity through the night. Patient followed by neurology. Patient had been complaining of abdominal pain. Has been seen by GI service the planning to proceed with EGD tomorrow. Patient denies any chest pain or shortness of breath. Denies any vomiting. Did have bowel movement. Complaining of some epigastric abdominal pain with nausea. Objective - Vital Signs Vital signs: Vital Signs Temp 97.4 F L 11/04/16 07:00 Pulse 73 11/04/16 07:00 Resp 19 11/04/16 07:00 BP 130/74 11/04/16 07:00 Pulse Ox 95 11/04/16 07:00 Intake & Output 11/03/16 11/04/16 11/04/16 18:59 06:59 18:59 Output Total 175 150 Balance -175 -150 Weight 60 kg Output: Urine 175 150 Other: Voiding Method Toilet Urinal # Voids 1 200 # Bowel Movements 1 - Exam Head normocephalic Neck supple Lungs clear to auscultation bilaterally no wheezing or crackles Heart regular rate and rhythm S1-S2, no rub or gallop Abdomen epigastric tenderness Extremities no edema Neuro alert and orientated to 3. Expressive aphasia. - Labs CBC & Chem 7: 11/04/16 08:52 11/04/16 08:52 Labs: Abnormal Lab Results - Last 24 Hours (Table) 11/04/16 11/04/16 Range/Units 08:52 08:52 RBC 4.00 L (4.30-5.90) m/uL Hgb 12.9 L (13.0-17.5) gm/dL Plt Count 135 L (150-450) k/uL BUN 31 H (9-20) mg/dL Glucose 131 H (74-99) mg/dL Magnesium 1.5 L (1.6-2.3) mg/dL AST 75 H (17-59) U/L Assessment and Plan Plan: 1. Seizure episode: Computed tomography scan of the brain showed evidence of previous bilateral CVA. Age-related atrophy, chronic small vessel ischemic changes. No acute intracranial process. Patient was seen and evaluated by neurology. EEG completed . Patient was started on phenytoin 3 times a day. We will continue seizure precautions. 2. History of CVA: With chronic bilateral changes noted on computed tomography scan of the brain and chronic expressive aphasia 3. Ischemic cardiomyopathy with chronic systolic dysfunction and normal ejection fraction of 25%, now compensated with no exacerbation 4. History of internal carotid artery stenosis 5. Essential hypertension: Blood pressure well-controlled 6. Possible pneumonitis: Computed tomography scan abdomen has showed possible pneumonitis. Patient did have leukocytosis on admission. Continue Rocephin. Check chest x-ray. Also add incentive spirometer. 7. Constipation change Colace to 100 mg twice a day. Add MiraLAX and give 1 dose of lactulose 8. Epigastric abdominal pain: Continue Protonix. Patient scheduled for EGD tomorrow. GI service following. DVT prophylaxis subcu heparin
--- NOTE | 2016-11-04 14:46 | XR ---
EXAMINATION TYPE: XR chest 2V DATE OF EXAM: 11/04/2016 1:41 PM COMPARISON: Prior chest x-ray 30 October 2016 HISTORY: Pneumonitis TECHNIQUE: Frontal and lateral views of the chest are obtained. FINDINGS: Intracardiac defibrillator leads are stable, there are coronary artery calcifications and prominent lung volumes. Midthoracic vertebral body shows compression deformity as on prior exam. Ther e is no pneumothorax or pleural effusion. Patient is rotated. Posterior left fourth rib fracture note d and thought to be chronic. Patchy basilar density in the left may reflect atelectasis or scar. IMPRESSION: Coronary artery disease, correlate for COPD.
[2016-11-04] MEDS: POLYETHYLENE GLYCOL 3350 17 GM POWD.PACK PO SCH (20:44)
[2016-11-04] MEDS: ATORVASTATIN 10 MG TAB PO SCH (20:44)
[2016-11-05] MEDS: HYDROcodone/APAP 5-325MG 1 EACH TAB PO PRN ×4 (04:56→23:37)
[2016-11-05] MEDS: CLOPIDOGREL 75 MG TAB PO SCH (08:10)
[2016-11-05] MEDS: DOCUSATE 100 MG CAP PO SCH ×2 (08:10→21:12)
[2016-11-05] MEDS: CARVEDILOL 3.125 MG TAB PO SCH ×2 (08:10→17:27)
[2016-11-05] MEDS: ALPRAZolam 0.25 MG TAB PO SCH ×2 (08:10→21:11)
[2016-11-05] MEDS: PANTOPRAZOLE 40 MG TABLET PO SCH ×2 (08:10→17:27)
[2016-11-05] MEDS: MULTIVITAMINS, THERA 1 EACH TAB PO SCH (08:11)
[2016-11-05] MEDS: HEPARIN SODIUM,PORCINE 5,000 UNIT/ML 1 ML VIAL SQ SCH ×2 (08:11→21:11)
[2016-11-05] MEDS: LISINOPRIL 5 MG TAB PO SCH (08:11)
[2016-11-05] MEDS: PHENYTOIN SODIUM EXTENDED 100 MG CAP PO SCH ×3 (08:11→22:07)
[2016-11-05] MEDS: SODIUM CHLORIDE 0.9% 1,000 ML IV SCH (08:12)
[2016-11-05 09:12] LABS: Basophils % (A) 1 %; CH 32.6; CHCM 33.9; Eosinophils # (A) 0.1 k/uL (0-0.7); Eosinophils % (A) 1 %; HCT 36.6 % (39.0-53.0); HGB 12.6 gm/dL (13.0-17.5); Luc # (Auto) 0.34; Luc % (Auto) 4; Lymphocytes % (A) 24 %; MCH 33.1 pg (25.0-35.0); MCHC 34.3 g/dL (31.0-37.0); MCV 96.6 fL (80.0-100.0); Mean Platelet Volume 6.7; Monocytes # (A) 0.6 k/uL (0-1.0); Monocytes % (A) 7 %; Neutrophils # (A) 5.2 k/uL (1.3-7.7); Neutrophils % (A) 64 %; RBC 3.79 m/uL (4.30-5.90); RDW 12.4 % (11.5-15.5); WBC 8.2 k/uL (3.8-10.6); WBC (Perox) 8.17
[2016-11-05 09:26] LABS: ALT 56 U/L (21-72); AST 75 U/L (17-59); Alkaline Phosphatase 84 U/L (38-126); Anion Gap 9 mmol/L; Blood Urea Nitrogen 21 mg/dL (9-20); Carbon Dioxide 24 mmol/L (22-30); Chloride 102 mmol/L (98-107); Glucose 119 mg/dL (74-99); Magnesium 1.6 mg/dL (1.6-2.3); Non-African American GFR(MDRD) >60 (>60 ml/min/1.73 sqM); Potassium 3.8 mmol/L (3.5-5.1); Sodium 135 mmol/L (137-145); Total Bilirubin 0.5 mg/dL (0.2-1.3); Total Protein 7.2 g/dL (6.3-8.2)
--- NOTE | 2016-11-05 13:52 | P.PN ---
Subjective Principal diagnosis: Seizure activity Patient is a 66-year-old male who had a witnessed seizure as outpatient, he was brought into emergency room and was admitted to medical floor he was evaluated by neurology he was started on IV Dilantin, level is therapeutic at this time. Patient has known history of stroke, he has expressive aphasia. Patient is still complaining of abdominal pain abdomen ultrasound and abdomen computed tomography scan are not showing significant abnormality to account for patient's symptoms he was seen by gastroenterology and is scheduled for EGD this afternoon. Objective - Vital Signs Vital signs: Vital Signs Temp 98.3 F 11/05/16 07:00 Pulse 74 11/05/16 07:00 Resp 19 11/05/16 07:00 BP 128/71 11/05/16 07:00 Pulse Ox 97 11/05/16 07:00 Intake & Output 11/04/16 11/05/16 11/05/16 18:59 06:59 18:59 Output Total 300 Balance -300 Weight 59.5 kg Output: Urine 300 Other: Voiding Method Toilet Toilet Toilet Urinal Urinal Urinal # Voids 2 1 # Bowel Movements 1 1 - Exam In general patient is alert and oriented speech is difficult to understand HEENT without any acute abnormality Neck is supple no JVD no goiter no lymphadenopathy Chest is clear to auscultation no wheezing Cardiac exam reveals regular heart sounds no gallops no murmurs Abdomen is soft with mild diffuse tenderness no organomegaly Extremity exam reveals no edema no cyanosis or clubbing - Labs CBC & Chem 7: 11/05/16 08:53 11/05/16 08:53 Labs: Abnormal Lab Results - Last 24 Hours (Table) 11/05/16 11/05/16 Range/Units 08:53 08:53 RBC 3.79 L (4.30-5.90) m/uL Hgb 12.6 L (13.0-17.5) gm/dL Hct 36.6 L (39.0-53.0) % Plt Count 123 L (150-450) k/uL Sodium 135 L (137-145) mmol/L BUN 21 H (9-20) mg/dL Glucose 119 H (74-99) mg/dL AST 75 H (17-59) U/L Assessment and Plan Plan: 1. Seizure episode: Computed tomography scan of the brain showed evidence of previous bilateral CVA. Age-related atrophy, chronic small vessel ischemic changes. No acute intracranial process. Patient was seen and evaluated by neurology. EEG completed this morning. Results pending.. Patient was started on phenytoin 3 times a day. We will continue seizure precautions. 2. History of CVA: With chronic bilateral changes noted on computed tomography scan of the brain and chronic expressive aphasia 3. Ischemic cardiomyopathy with chronic systolic dysfunction and normal ejection fraction of 25%, now compensated with no exacerbation 4. History of internal carotid artery stenosis 5. Essential hypertension: Blood pressure well-controlled 6. Leukocytosis: Now resolved. No source of infection identified. May be reactive. 7. Abdominal pain with Constipation change Colace to 100 mg twice a day. Add MiraLAX and give 1 dose of lactulose, at this time will check abdomen x-ray, will check amylase and lipase, patient continues to have abdominal pain computed tomography scan of the abdomen and pelvis was done, Protonix 40 mg twice daily was added, patient was seen by gastroenterology and is scheduled for EGD this afternoon 8. Leukocytosis no clear site of infection may be reactive Will monitor closely
[2016-11-05] MEDS ORDERED: IV FLUID CONTINUATION 1,000 ML IV ONE (14:56)
[2016-11-05] MEDS ORDERED: PROPOFOL 10 MG/ML 20 ML VIAL IV ONE (15:16)
--- NOTE | 2016-11-05 15:52 | P.PCN ---
Date of Procedure: 11/05/16 Procedure(s) Performed: Procedure: Esophagogastroduodenoscopy Preoperative diagnosis: Unexplained epigastric pain. Postoperative diagnosis: Mild diffuse gastritis with no bleeding, ulcers, gastric outlet obstruction or other pathology. Preparation and sedation: Was provided by anesthesia. Brief clinical history: The patient is a 66-year-old male with history of seizure disorder who was admitted to the hospital after a witnessed seizure. The patient reported after admission symptoms consisting of abdominal pain mostly in the epigastric area that he has been experiencing for the last 2 months or so. This usually occurs after he takes his medications and could stay all day. Occasional nausea and vomiting but no bleeding or other symptoms. Computed tomography scan was not revealing. The patient was empirically started on PPI, however, because of his continued symptoms, this evaluation is scheduled to rule out peptic ulcer disease or other pathology. The details are summarized in the history and physical and dictated consultation. Procedure: With the patient on his left lateral decubitus position and after informed consent and adequate sedation, I passed the Olympus-GIF 160 video upper endoscope through the cricopharyngeus down the esophagus. GE junction was around 40 cm from the incisors and there was no definite hiatal hernia. The esophagus did not show any erosions, ulcers, strictures or Barker's esophagus. The endoscope was then passed into the stomach which was insufflated with air and inspected in detail including the retroflex view in the cardia. There was diffuse, mild, mottling and erythema but no ulcers, erosions or bleeding. Pyloric channel, duodenal bulb, post bulbar area and descending duodenum appeared within normal limits. No biopsies were indicated today. The endoscope was withdrawn and the patient appears to have tolerated the procedure well. Plan: The patient was reassured. Will allow regular diet and continue his PPI for now. Further plans based on his course. Will continue to follow with you closely.
[2016-11-05] MEDS: ATORVASTATIN 10 MG TAB PO SCH (21:11)
[2016-11-05] MEDS: POLYETHYLENE GLYCOL 3350 17 GM POWD.PACK PO SCH (21:12)
[2016-11-06] MEDS: HYDROcodone/APAP 5-325MG 1 EACH TAB PO PRN ×4 (05:29→23:03)
[2016-11-06] MEDS ORDERED: LACTATED RINGERS 1,000 ML IV SCH (07:24)
[2016-11-06] MEDS: HEPARIN SODIUM,PORCINE 5,000 UNIT/ML 1 ML VIAL SQ SCH ×2 (08:11→20:47)
[2016-11-06] MEDS: PANTOPRAZOLE 40 MG TABLET PO SCH ×2 (08:11→17:08)
[2016-11-06] MEDS: DOCUSATE 100 MG CAP PO SCH ×2 (08:12→20:47)
[2016-11-06] MEDS: PHENYTOIN SODIUM EXTENDED 100 MG CAP PO SCH ×3 (08:12→20:47)
[2016-11-06] MEDS: CARVEDILOL 3.125 MG TAB PO SCH ×2 (08:12→17:08)
[2016-11-06] MEDS: MULTIVITAMINS, THERA 1 EACH TAB PO SCH (08:12)
[2016-11-06] MEDS: CLOPIDOGREL 75 MG TAB PO SCH (08:12)
[2016-11-06] MEDS: LISINOPRIL 5 MG TAB PO SCH (08:12)
[2016-11-06] MEDS: ALPRAZolam 0.25 MG TAB PO SCH ×2 (08:19→20:40)
[2016-11-06 08:47] LABS: Basophils # (A) 0.1 k/uL (0-0.2); Basophils % (A) 1 %; CH 32.6; CHCM 32.5; Eosinophils # (A) 0.1 k/uL (0-0.7); Eosinophils % (A) 1 %; HDW 2.36; HGB 12.8 gm/dL (13.0-17.5); Luc # (Auto) 0.28; Luc % (Auto) 3; Lymphocytes # (A) 2.3 k/uL (1.0-4.8); Lymphocytes % (A) 25 %; MCH 32.1 pg (25.0-35.0); MCHC 31.9 g/dL (31.0-37.0); MCV 100.6 fL (80.0-100.0); Monocytes # (A) 0.6 k/uL (0-1.0); Monocytes % (A) 7 %; Neutrophils % (A) 64 %; RBC 3.98 m/uL (4.30-5.90); RDW 12.6 % (11.5-15.5); WBC 9.3 k/uL (3.8-10.6); WBC (Perox) 9.54
[2016-11-06 09:06] LABS: ALT 63 U/L (21-72); AST 68 U/L (17-59); Alkaline Phosphatase 106 U/L (38-126); Anion Gap 11 mmol/L; Blood Urea Nitrogen 17 mg/dL (9-20); Calcium 9.6 mg/dL (8.4-10.2); Carbon Dioxide 24 mmol/L (22-30); Chloride 103 mmol/L (98-107); Glucose 105 mg/dL (74-99); Non-African American GFR(MDRD) >60 (>60 ml/min/1.73 sqM); Potassium 4.2 mmol/L (3.5-5.1); Sodium 138 mmol/L (137-145); Total Bilirubin 0.6 mg/dL (0.2-1.3); Total Protein 7.7 g/dL (6.3-8.2)
[2016-11-06] MEDS: SODIUM CHLORIDE 0.9% 1,000 ML IV SCH (11:07)
--- NOTE | 2016-11-06 12:42 | P.PN ---
Subjective Principal diagnosis: Seizure activity Patient is a 66-year-old male who had a witnessed seizure as outpatient, he was brought into emergency room and was admitted to medical floor he was evaluated by neurology he was started on IV Dilantin, level is therapeutic at this time. Patient has known history of stroke, he has expressive aphasia. Patient is still complaining of abdominal pain abdomen ultrasound and abdomen computed tomography scan are not showing significant abnormality to account for patient's symptoms he was seen by gastroenterology and is scheduled for EGD this afternoon. Objective - Vital Signs Vital signs: Vital Signs Temp 96.5 F L 11/06/16 07:00 Pulse 94 11/06/16 07:00 Resp 16 11/06/16 08:00 BP 119/61 11/06/16 07:00 Pulse Ox 97 11/06/16 07:00 Intake & Output 11/05/16 11/06/16 11/06/16 18:59 06:59 18:59 Intake Total 25 Output Total 700 Balance 25 -700 Weight 60 kg Intake: IV 25 Output: Urine 700 Other: Voiding Method Toilet Toilet Urinal Urinal # Voids 3 1 1 # Bowel Movements 1 - Exam In general patient is alert and oriented speech is difficult to understand HEENT without any acute abnormality Neck is supple no JVD no goiter no lymphadenopathy Chest is clear to auscultation no wheezing Cardiac exam reveals regular heart sounds no gallops no murmurs Abdomen is soft with mild diffuse tenderness no organomegaly Extremity exam reveals no edema no cyanosis or clubbing - Labs CBC & Chem 7: 11/06/16 07:50 11/06/16 07:50 Labs: Abnormal Lab Results - Last 24 Hours (Table) 11/06/16 11/06/16 Range/Units 07:50 07:50 RBC 3.98 L (4.30-5.90) m/uL Hgb 12.8 L (13.0-17.5) gm/dL MCV 100.6 H (80.0-100.0) fL Plt Count 147 L (150-450) k/uL Glucose 105 H (74-99) mg/dL AST 68 H (17-59) U/L Assessment and Plan Plan: 1. Seizure episode: Computed tomography scan of the brain showed evidence of previous bilateral CVA. Age-related atrophy, chronic small vessel ischemic changes. No acute intracranial process. Patient was seen and evaluated by neurology. EEG completed this morning. Results pending.. Patient was started on phenytoin 3 times a day. We will continue seizure precautions. 2. History of CVA: With chronic bilateral changes noted on computed tomography scan of the brain and chronic expressive aphasia 3. Ischemic cardiomyopathy with chronic systolic dysfunction and normal ejection fraction of 25%, now compensated with no exacerbation 4. History of internal carotid artery stenosis 5. Essential hypertension: Blood pressure well-controlled 6. Leukocytosis: Now resolved. No source of infection identified. May be reactive. 7. Abdominal pain with Constipation change Colace to 100 mg twice a day. Add MiraLAX and give 1 dose of lactulose, at this time will check abdomen x-ray, will check amylase and lipase, patient continues to have abdominal pain computed tomography scan of the abdomen and pelvis was done, Protonix 40 mg twice daily was added, patient was seen by gastroenterology and had an EGD yesterday that showed gastritis, he is maintained on Protonix will continue
[2016-11-06] MEDS: ATORVASTATIN 10 MG TAB PO SCH (20:40)
[2016-11-06] MEDS: POLYETHYLENE GLYCOL 3350 17 GM POWD.PACK PO SCH (20:47)
[2016-11-07] MEDS: HYDROcodone/APAP 5-325MG 1 EACH TAB PO PRN ×4 (04:53→23:01)
[2016-11-07 07:44] VITALS: RESP 16
[2016-11-07] MEDS: CARVEDILOL 3.125 MG TAB PO SCH ×2 (08:51→17:02)
[2016-11-07] MEDS: PHENYTOIN SODIUM EXTENDED 100 MG CAP PO SCH ×3 (08:51→20:23)
[2016-11-07] MEDS: PANTOPRAZOLE 40 MG TABLET PO SCH ×2 (08:51→17:02)
[2016-11-07] MEDS: ALPRAZolam 0.25 MG TAB PO SCH ×2 (08:51→20:22)
[2016-11-07] MEDS: MULTIVITAMINS, THERA 1 EACH TAB PO SCH (08:51)
[2016-11-07] MEDS: LISINOPRIL 5 MG TAB PO SCH (08:51)
[2016-11-07] MEDS: HEPARIN SODIUM,PORCINE 5,000 UNIT/ML 1 ML VIAL SQ SCH ×2 (08:52→20:24)
[2016-11-07] MEDS: DOCUSATE 100 MG CAP PO SCH ×2 (08:52→20:23)
[2016-11-07] MEDS: CLOPIDOGREL 75 MG TAB PO SCH (08:52)
[2016-11-07 08:58] LABS: Basophils # (A) 0.1 k/uL (0-0.2); Basophils % (A) 1 %; CH 32.8; CHCM 33.3; Eosinophils # (A) 0.1 k/uL (0-0.7); Eosinophils % (A) 1 %; HCT 37.6 % (39.0-53.0); HDW 2.33; HGB 12.3 gm/dL (13.0-17.5); Luc # (Auto) 0.39; Luc % (Auto) 4; Lymphocytes # (A) 2.3 k/uL (1.0-4.8); Lymphocytes % (A) 23 %; MCH 32.5 pg (25.0-35.0); MCHC 32.9 g/dL (31.0-37.0); MCV 98.8 fL (80.0-100.0); Monocytes # (A) 0.7 k/uL (0-1.0); Monocytes % (A) 7 %; Neutrophils # (A) 6.4 k/uL (1.3-7.7); Neutrophils % (A) 65 %; RDW 12.8 % (11.5-15.5); WBC 9.9 k/uL (3.8-10.6); WBC (Perox) 10.87
[2016-11-07 09:11] LABS: ALT 64 U/L (21-72); AST 59 U/L (17-59); Alkaline Phosphatase 103 U/L (38-126); Anion Gap 10 mmol/L; Blood Urea Nitrogen 22 mg/dL (9-20); Calcium 9.4 mg/dL (8.4-10.2); Carbon Dioxide 25 mmol/L (22-30); Chloride 101 mmol/L (98-107); Glucose 106 mg/dL (74-99); Non-African American GFR(MDRD) >60 (>60 ml/min/1.73 sqM); Potassium 4.1 mmol/L (3.5-5.1); Sodium 136 mmol/L (137-145); Total Bilirubin 0.5 mg/dL (0.2-1.3); Total Protein 7.4 g/dL (6.3-8.2)
[2016-11-07] MEDS: SODIUM CHLORIDE 0.9% 1,000 ML IV SCH (11:01)
--- NOTE | 2016-11-07 12:35 | P.PN ---
Subjective Principal diagnosis: Seizure activity Patient is a 66-year-old male who had a witnessed seizure as outpatient, he was brought into emergency room and was admitted to medical floor he was evaluated by neurology he was started on IV Dilantin, level is therapeutic at this time. Patient has known history of stroke, he has expressive aphasia. Patient is still complaining of abdominal pain abdomen ultrasound and abdomen computed tomography scan are not showing significant abnormality to account for patient's symptoms he was seen by gastroenterology and is scheduled for EGD this afternoon. Objective - Vital Signs Vital signs: Vital Signs Temp 96.6 F L 11/07/16 07:00 Pulse 80 11/07/16 07:00 Resp 16 11/07/16 08:00 BP 137/76 11/07/16 07:00 Pulse Ox 96 11/07/16 07:00 Intake & Output 11/06/16 11/07/16 11/07/16 18:59 06:59 18:59 Intake Total 300 Output Total 125 Balance 300 -125 Weight 62 kg Intake: Oral 300 Output: Urine 125 Other: Voiding Method Toilet Toilet Urinal Urinal # Voids 1 3 1 # Bowel Movements 1 1 - Exam In general patient is alert and oriented speech is difficult to understand HEENT without any acute abnormality Neck is supple no JVD no goiter no lymphadenopathy Chest is clear to auscultation no wheezing Cardiac exam reveals regular heart sounds no gallops no murmurs Abdomen is soft with mild diffuse tenderness no organomegaly Extremity exam reveals no edema no cyanosis or clubbing - Labs CBC & Chem 7: 11/07/16 07:52 11/07/16 07:52 Labs: Abnormal Lab Results - Last 24 Hours (Table) 11/07/16 11/07/16 Range/Units 07:52 07:52 RBC 3.80 L (4.30-5.90) m/uL Hgb 12.3 L (13.0-17.5) gm/dL Hct 37.6 L (39.0-53.0) % Sodium 136 L (137-145) mmol/L BUN 22 H (9-20) mg/dL Glucose 106 H (74-99) mg/dL Assessment and Plan Plan: 1. Seizure episode: Computed tomography scan of the brain showed evidence of previous bilateral CVA. Age-related atrophy, chronic small vessel ischemic changes. No acute intracranial process. Patient was seen and evaluated by neurology. EEG completed this morning. Results pending.. Patient was started on phenytoin 3 times a day. We will continue seizure precautions. 2. History of CVA: With chronic bilateral changes noted on computed tomography scan of the brain and chronic expressive aphasia 3. Ischemic cardiomyopathy with chronic systolic dysfunction and normal ejection fraction of 25%, now compensated with no exacerbation 4. History of internal carotid artery stenosis 5. Essential hypertension: Blood pressure well-controlled 6. Leukocytosis: Now resolved. No source of infection identified. May be reactive. 7. Abdominal pain with Constipation change Colace to 100 mg twice a day. Add MiraLAX and give 1 dose of lactulose, at this time will check abdomen x-ray, will check amylase and lipase, patient continues to have abdominal pain computed tomography scan of the abdomen and pelvis was done, Protonix 40 mg twice daily was added, patient was seen by gastroenterology and had an EGD yesterday that showed gastritis, he is maintained on Protonix will continue Continue was current management possible discharge tomorrow, will reassess patient needs for 24 hour care
[2016-11-07] MEDS: ATORVASTATIN 10 MG TAB PO SCH (20:23)
[2016-11-07] MEDS: POLYETHYLENE GLYCOL 3350 17 GM POWD.PACK PO SCH (20:24)
[2016-11-08] MEDS: HYDROcodone/APAP 5-325MG 1 EACH TAB PO PRN ×2 (04:59→11:12)
[2016-11-08 07:25] VITALS: BP 120/70; PULSE 76; TEMP 96.7
[2016-11-08] MEDS: CARVEDILOL 3.125 MG TAB PO SCH (08:24)
[2016-11-08] MEDS: ALPRAZolam 0.25 MG TAB PO SCH (08:24)
[2016-11-08] MEDS: PANTOPRAZOLE 40 MG TABLET PO SCH (08:24)
[2016-11-08] MEDS: HEPARIN SODIUM,PORCINE 5,000 UNIT/ML 1 ML VIAL SQ SCH (08:25)
[2016-11-08] MEDS: DOCUSATE 100 MG CAP PO SCH (08:25)
[2016-11-08] MEDS: CLOPIDOGREL 75 MG TAB PO SCH (08:25)
[2016-11-08] MEDS: LISINOPRIL 5 MG TAB PO SCH (08:25)
[2016-11-08] MEDS: SODIUM CHLORIDE 0.9% 1,000 ML IV SCH (08:26)
[2016-11-08] MEDS: MULTIVITAMINS, THERA 1 EACH TAB PO SCH (08:26)
[2016-11-08] MEDS: PHENYTOIN SODIUM EXTENDED 100 MG CAP PO SCH (08:26)
[2016-11-08 08:49] LABS: Basophils # (A) 0.1 k/uL (0-0.2); Basophils % (A) 1 %; CH 32.6; CHCM 32.8; Eosinophils # (A) 0.1 k/uL (0-0.7); Eosinophils % (A) 1 %; HCT 38.5 % (39.0-53.0); HDW 2.33; HGB 12.4 gm/dL (13.0-17.5); Luc # (Auto) 0.28; Luc % (Auto) 3; Lymphocytes # (A) 2.2 k/uL (1.0-4.8); Lymphocytes % (A) 25 %; MCH 32.3 pg (25.0-35.0); MCHC 32.3 g/dL (31.0-37.0); Mean Platelet Volume 6.7; Monocytes # (A) 0.5 k/uL (0-1.0); Monocytes % (A) 6 %; Neutrophils # (A) 5.6 k/uL (1.3-7.7); Neutrophils % (A) 64 %; RBC 3.85 m/uL (4.30-5.90); RDW 12.8 % (11.5-15.5); WBC 8.7 k/uL (3.8-10.6); WBC (Perox) 8.96
[2016-11-08 09:03] LABS: ALT 60 U/L (21-72); AST 53 U/L (17-59); Alkaline Phosphatase 106 U/L (38-126); Anion Gap 12 mmol/L; Blood Urea Nitrogen 23 mg/dL (9-20); Calcium 9.4 mg/dL (8.4-10.2); Carbon Dioxide 23 mmol/L (22-30); Chloride 101 mmol/L (98-107); Glucose 135 mg/dL (74-99); Non-African American GFR(MDRD) >60 (>60 ml/min/1.73 sqM); Potassium 4.1 mmol/L (3.5-5.1); Sodium 136 mmol/L (137-145); Total Bilirubin 0.5 mg/dL (0.2-1.3); Total Protein 7.5 g/dL (6.3-8.2)
--- NOTE | 2016-11-08 12:32 | P.DS ---
Providers Date of admission: 10/30/16 09:42 Expected date of discharge: 11/08/16 Attending physician: Berta Mirza Consults: Dr. Neville Robledo Primary care physician: Reyes Eugene [facility] Course: Discharge diagnosis 1. Seizure disorder: Computed tomography scan of the brain showed evidence of previous bilateral CVA. Age-related atrophy, chronic small vessel ischemic changes. No acute intracranial process. Patient was seen and evaluated by neurology. EEG is abnormal due to presence of occasional sharp wave activity. This is consistent with a reduced seizure threshold. . Patient was started on phenytoin 3 times a day by neurology. Follow-up with neurology outpatient 2. History of CVA: With chronic bilateral changes noted on computed tomography scan of the brain and chronic expressive aphasia 3. Ischemic cardiomyopathy with chronic systolic dysfunction and normal ejection fraction of 25%, now compensated with no exacerbation 4. History of internal carotid artery stenosis 5. Essential hypertension: Blood pressure well-controlled 6. Leukocytosis: Now resolved. Possibly related to pneumonitis. Patient did complete 6 days of Rocephin. Patient had no significant cough. 7. Abdominal pain likely related to gastritis as well as constipation. Now improved. Had EGD during this admission. Hospital course Patient is a 66-year-old male who had a witnessed seizure as outpatient, he was brought into emergency room and was admitted to medical floor he was evaluated by neurology he was started on IV Dilantin, level is therapeutic at this time. Patient had EEG completed is abnormal due to presence of occasional sharp wave activity. This is consistent with a reduced seizure threshold. Computed tomography scan of the brain showed evidence of previous bilateral CVA. Age- related atrophy, chronic small vessel ischemic changes. No acute intracranial process. His rash over to oral Dilantin 100 mg 3 times a day. He's had no further seizure activity. He'll follow-up with neurology in the outpatient setting. Also during this admission he had complained of abdominal pain. There were concerns of constipation. This did improve with stool softeners and laxatives. He had a computed tomography scan of the abdomen that did not reveal any significant abdominal abnormality. There was a patchy infiltrate and atelectasis in the left lower lobe. He was started on Rocephin. And he completed antibiotic treatment for a possible pneumonia. Patient really did not have any significant cough. Patient also had an EGD completed which had revealed mild diffuse gastritis. And he was started on Protonix. His abdominal discomfort did show some improvement. He tolerated advancement of diet. Patient will continue the Protonix for his gastritis and mild abdominal discomfort. He'll continue with the Dilantin for his new seizure diagnosis. And will have him follow up with neurology in the outpatient setting. Patient be discharged to [facility] for further rehabilitation. Dr. Mirza we'll follow him at [facility]. Patient is medically stable for discharge. Please refer to chart for any further details. Patient Condition at Discharge: Stable Plan - Discharge Summary New Discharge Prescriptions: ALPRAZolam [Xanax] 0.25 mg PO QAM #30 tab ALPRAZolam [Xanax] 0.5 mg PO HS #30 tab HYDROcodone/APAP 5-325MG [[place] 5-325] 1 each PO Q6HR PRN #40 tab PRN Reason: Pain Discharge Medication List Carvedilol [Coreg] 3.125 mg PO BID 07/02/14 [History] Lisinopril [Prinivil] 5 mg PO DAILY 07/02/14 [History] Simvastatin [Zocor] 20 mg PO HS 07/02/14 [History] Multivitamins, Thera [Multivitamin (formulary)] 1 tab PO DAILY 04/28/15 [History ] Nitroglycerin Sl Tabs [Nitrostat] 0.4 mg SUBLINGUAL Q5M PRN 04/28/15 [History] Clopidogrel [Plavix] 75 mg PO DAILY #90 tab 05/01/15 [Rx] ALPRAZolam [Xanax] 0.25 mg PO QAM #30 tab 11/08/16 [Rx] ALPRAZolam [Xanax] 0.5 mg PO HS #30 tab 11/08/16 [Rx] Docusate [Colace] 100 mg PO BID cap 11/08/16 [Rx] HYDROcodone/APAP 5-325MG [[place] 5-325] 1 each PO Q6HR PRN #40 tab 11/08/16 [Rx] Pantoprazole [Protonix] 40 mg PO AC-BID tablet. 11/08/16 [Rx] Phenytoin Sodium Extended [Dilantin] 100 mg PO TID #0 cap 11/08/16 [Rx] Polyethylene Glycol 3350 [Miralax] 17 gm PO HS powd.pack 11/08/16 [Rx] Follow up Appointment(s)/Referral(s): Magui Lozada MD [STAFF PHYSICIAN] - 1 Week Reyes Knight MD [Primary Care Provider] - 1 Week Activity/Diet/Wound Care/Special Instructions: Diet: cardiac Activity: as tolerated Okay to discharge to [facility]. Dr. Mirza to follow at [facility] Discharge Disposition: TRANSFER TO SNF/ECF
== END 2016-11-08 14:10 | DRG 101 ==
LOC: EC 07:31 → 6SEL 09:42 → 4MS4W 10-31 12:56
PROVIDERS: ADMIT Internal Medicine; ATTEND Internal Medicine
PROC: 0DJ08ZZ Inspection of Upper Intestinal Tract, Via Natural or Artificial Opening Endoscopic (ICD-10-PCS; principal; 2016-11-05 14:25)
DX: G40.909 Epilepsy, unspecified, not intractable, without status epilepticus (principal); I11.0 Hypertensive heart disease with heart failure; I50.9 Heart failure, unspecified; E78.5 Hyperlipidemia, unspecified; D72.829 Elevated white blood cell count, unspecified; F17.210 Nicotine dependence, cigarettes, uncomplicated; G89.29 Other chronic pain; I25.10 Atherosclerotic heart disease of native coronary artery without angina pectoris; I25.2 Old myocardial infarction; I25.5 Ischemic cardiomyopathy; I69.320 Aphasia following cerebral infarction; I73.9 Peripheral vascular disease, unspecified; K29.70 Gastritis, unspecified, without bleeding; K57.30 Diverticulosis of large intestine without perforation or abscess without bleeding; K59.00 Constipation, unspecified; M19.90 Unspecified osteoarthritis, unspecified site; M41.9 Scoliosis, unspecified; M46.90 Unspecified inflammatory spondylopathy, site unspecified; M51.36 Other intervertebral disc degeneration, lumbar region; Z79.02 Long term (current) use of antithrombotics/antiplatelets; Z79.899 Other long term (current) drug therapy; Z95.810 Presence of automatic (implantable) cardiac defibrillator
CPT/HCPCS: 36415; 43235; 70450; 71020; 72100; 74020; 74177; 80048; 80053; 80185; 80306; 81003; 82150; 82550; 82553; 83690; 83735; 84484; 85025; 85610; 85730; 90471; 90715; 93005; 95816; 96360; 96361; 99291

== ENCOUNTER 2016-11-22 12:39 | Emergency (ER) | payer MEDICARE ==
[2016-11-22 13:00] VITALS: RESP 18
[2016-11-22] MEDS ORDERED: NITROGLYCERIN OINT 1 INCH/GM PACKET TOPICAL STA (13:05)
[2016-11-22] MEDS ORDERED: ASPIRIN 81 MG CHEW PO STA (13:05)
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
[2016-11-22 13:21] LABS: Basophils % (A) 1 %; CH 33.6; Eosinophils # (A) 0.1 k/uL (0-0.7); Eosinophils % (A) 1 %; HDW 2.51; Luc # (Auto) 0.25; Luc % (Auto) 4; Lymphocytes # (A) 1.9 k/uL (1.0-4.8); Lymphocytes % (A) 31 %; MCH 33.9 pg (25.0-35.0); MCHC 34.2 g/dL (31.0-37.0); MCV 99.2 fL (80.0-100.0); Mean Platelet Volume 6.6; Monocytes # (A) 0.5 k/uL (0-1.0); Monocytes % (A) 8 %; Neutrophils # (A) 3.5 k/uL (1.3-7.7); Neutrophils % (A) 56 %; RBC 3.83 m/uL (4.30-5.90); RDW 13.6 % (11.5-15.5); WBC 6.2 k/uL (3.8-10.6); WBC (Perox) 6.09
--- NOTE | 2016-11-22 13:21 | XR ---
EXAMINATION TYPE: XR chest 2V DATE OF EXAM: 11/22/2016 1:14 PM COMPARISON: 11/04/2016 TECHNIQUE: PA and lateral views submitted. HISTORY: Chest pain FINDINGS: Cardiac device is seen. Hyperinflation suggests COPD. Severe compression deformity midthoracic spine is noted and appears chronic. No pleural effusion or pneumothorax. IMPRESSION: 1. Correlate for COPD.
[2016-11-22 13:29] LABS: Partial Thromboplastin Time 22.7 sec (22.0-30.0); Prothrombin Time 10.5 sec (9.0-12.0)
[2016-11-22 13:31] LABS: ALT 65 U/L (21-72); AST 38 U/L (17-59); Alkaline Phosphatase 154 U/L (38-126); Anion Gap 12 mmol/L; Blood Urea Nitrogen 18 mg/dL (9-20); Calcium 9.2 mg/dL (8.4-10.2); Carbon Dioxide 24 mmol/L (22-30); Chloride 104 mmol/L (98-107); Glucose 94 mg/dL (74-99); Magnesium 1.6 mg/dL (1.6-2.3); Non-African American GFR(MDRD) >60 (>60 ml/min/1.73 sqM); Sodium 140 mmol/L (137-145); Total Bilirubin 0.4 mg/dL (0.2-1.3); Total Protein 7.2 g/dL (6.3-8.2)
[2016-11-22 13:37] LABS: Creatine Kinase 43 U/L (55-170)
[2016-11-22 13:51] LABS: Creatine Kinase MB 1.1 ng/mL (0.0-2.4); Troponin I <0.012 ng/mL (0.000-0.034)
[2016-11-22 14:22] VITALS: BP 105/64; PULSE 66; TEMP 97.9
== END 2016-11-22 14:22 | disposition home or self-care (01) ==
LOC: EC 12:39
DX: R07.89 Other chest pain (principal); I25.10 Atherosclerotic heart disease of native coronary artery without angina pectoris; I11.0 Hypertensive heart disease with heart failure; I50.9 Heart failure, unspecified; E78.5 Hyperlipidemia, unspecified; I25.2 Old myocardial infarction; Z87.891 Personal history of nicotine dependence; Z79.899 Other long term (current) drug therapy; Z95.818 Presence of other cardiac implants and grafts
CPT/HCPCS: 36415; 71020; 80053; 82550; 82553; 83735; 84484; 85025; 85610; 85730; 93005; 99285

== ENCOUNTER 2018-03-23 18:39 | Observation (INO) | payer MEDICARE ==
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
[2018-03-23 19:14] LABS: Basophils % (A) 0 %; Eosinophils # (A) 0.2 k/uL (0-0.7); Eosinophils % (A) 3 %; HCT 39.9 % (39.0-53.0); Lymphocytes # (A) 2.5 k/uL (1.0-4.8); Lymphocytes % (A) 30 %; MCH 31.3 pg (25.0-35.0); MCHC 32.6 g/dL (31.0-37.0); Mean Platelet Volume 7.2; Monocytes # (A) 0.6 k/uL (0-1.0); Monocytes % (A) 8 %; Neutrophils # (A) 4.6 k/uL (1.3-7.7); Neutrophils % (A) 57 %; Platelet Count 117 k/uL (150-450); RBC 4.16 m/uL (4.30-5.90); RDW 13.1 % (11.5-15.5); WBC 8.1 k/uL (3.8-10.6)
[2018-03-23 19:22] LABS: Anion Gap 12 mmol/L; Blood Urea Nitrogen 26 mg/dL (9-20); Calcium 9.2 mg/dL (8.4-10.2); Carbon Dioxide 22 mmol/L (22-30); Chloride 103 mmol/L (98-107); Glucose 114 mg/dL (74-99); Magnesium 1.7 mg/dL (1.6-2.3); Potassium 4.3 mmol/L (3.5-5.1); Sodium 137 mmol/L (137-145)
--- NOTE | 2018-03-23 19:51 | XR ---
EXAMINATION TYPE: XR soft tissue neck - 2 views DATE OF EXAM: 03/23/2018 COMPARISON: NONE HISTORY: Choked on pork chop, unable to breathe normally TECHNIQUE: Soft tissue technique AP and lateral views FINDINGS: The airways negative as seen. No radiopaque foreign bodies. No extraluminal gas collection. Bilateral carotid calcifications are incidentally noted, greater on the left. Cardiac pacemaker. No other incidental findings. IMPRESSION: Negative examination.
[2018-03-23] MEDS ORDERED: NALOXONE 0.4 MG/ML 1 ML VIAL IV PRN (23:19)
[2018-03-24] MEDS ORDERED: NITROGLYCERIN SL TABS 0.4 MG TAB SUBLINGUAL PRN (01:33)
[2018-03-24] MEDS: ALPRAZolam 0.25 MG TAB PO SCH ×3 (01:49→19:37)
[2018-03-24] MEDS: ASPIRIN 325 MG TAB PO SCH (10:58)
[2018-03-24] MEDS: LISINOPRIL 5 MG TAB PO SCH (10:59)
[2018-03-24] MEDS: MULTIVITAMINS, THERA 1 EACH TAB PO SCH (10:59)
[2018-03-24] MEDS: CLOPIDOGREL 75 MG TAB PO SCH (10:59)
[2018-03-24] MEDS: CARVEDILOL 3.125 MG TAB PO SCH ×2 (10:59→18:18)
[2018-03-24] MEDS: NICOTINE 7MG/24HR PATCH TRANSDERM SCH (11:00)
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
[2018-03-24 14:08] VITALS: BMI 21.1
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
[2018-03-24] MEDS: SODIUM CHLORIDE 0.9% 1,000 ML IV SCH (18:22)
[2018-03-24] MEDS: FAMOTIDINE 20 MG TAB PO SCH (18:23)
[2018-03-24] MEDS ORDERED: ATORVASTATIN 10 MG TAB PO SCH (21:00)
[2018-03-25] MEDS: SODIUM CHLORIDE 0.9% 1,000 ML IV SCH (05:05)
[2018-03-25 07:10] LABS: Basophils % (A) 0 %; Eosinophils # (A) 0.1 k/uL (0-0.7); Eosinophils % (A) 1 %; HCT 34.2 % (39.0-53.0); HGB 11.4 gm/dL (13.0-17.5); Lymphocytes # (A) 1.5 k/uL (1.0-4.8); Lymphocytes % (A) 23 %; MCH 31.7 pg (25.0-35.0); MCHC 33.4 g/dL (31.0-37.0); Mean Platelet Volume 7.5; Monocytes # (A) 0.5 k/uL (0-1.0); Monocytes % (A) 7 %; Neutrophils # (A) 4.1 k/uL (1.3-7.7); Neutrophils % (A) 65 %; Platelet Count 109 k/uL (150-450); RDW 12.9 % (11.5-15.5); WBC 6.4 k/uL (3.8-10.6)
[2018-03-25 07:29] LABS: ALT 34 U/L (21-72); AST 26 U/L (17-59); Albumin 3.1 g/dL (3.5-5.0); Alkaline Phosphatase 62 U/L (38-126); Anion Gap 6 mmol/L; Blood Urea Nitrogen 23 mg/dL (9-20); Calcium 8.6 mg/dL (8.4-10.2); Carbon Dioxide 24 mmol/L (22-30); Chloride 111 mmol/L (98-107); Glucose 87 mg/dL (74-99); Potassium 3.9 mmol/L (3.5-5.1); Sodium 141 mmol/L (137-145); Total Bilirubin 0.2 mg/dL (0.2-1.3)
[2018-03-25] MEDS: MULTIVITAMINS, THERA 1 EACH TAB PO SCH (08:09)
[2018-03-25] MEDS: ALPRAZolam 0.25 MG TAB PO SCH (08:09)
[2018-03-25] MEDS: ASPIRIN 325 MG TAB PO SCH (08:09)
[2018-03-25] MEDS: CLOPIDOGREL 75 MG TAB PO SCH (08:09)
[2018-03-25] MEDS: CARVEDILOL 3.125 MG TAB PO SCH (08:10)
[2018-03-25] MEDS: NICOTINE 7MG/24HR PATCH TRANSDERM SCH (08:10)
[2018-03-25] MEDS: FAMOTIDINE 20 MG TAB PO SCH (08:10)
[2018-03-25] MEDS: LISINOPRIL 5 MG TAB PO SCH (12:34)
--- NOTE | 2018-03-25 16:04 | P.DS ---
Providers Date of admission: 03/23/18 23:24 Expected date of discharge: 03/25/18 Attending physician: Reyes Knight Consults: 03/23/18 21:20 Consult Physician Routine Consulting Provider: Mayte Ross Consult Reason/Comments: esophageal foreign body Do you want consulting provider notified?: Yes Primary care physician: Reyes Eugene [facility] Course: Diagnosis on discharge 1. Dysphagia with choking on a piece of pork chop. Patient was able to tolerate bedside swallow evaluation and evaluation by speech therapy. Diet advanced to dysphagia level III: Chopped diet. Patient evaluated by GI service. There is no plan for EGD at this time. Patient's symptoms have resolved. If patient tolerates diet plan for discharge home tomorrow. Patient had EGD October 2016 no evidence of esophageal strictures 2. History of CVA and expressive aphasia 3. History of closed head injury 4. History of seizures continue Keppra 5. Nicotine dependence continue nicotine patch 6. Generalized anxiety disorder continue Xanax 7. Concerns about possible bedbugs and poor living conditions social work consulted Hospital course This is a 67-year-old male with a known history of CVA with expressive aphasia, hseizure disorder, cardiomyopathy with EF 25%, hypertension, coronary artery disease with cardiac stents and myocardial infarction, closed head injury, generalized anxiety disorder. He presents to the emergency room after a choking episode. He had been home eating with friends and began choking on a piece of pork chop. He started to have severe coughing fit. EMS was called. Patient was transferred to the emergency department. Per ER report in Route patient felt that the piece of food had passed. Soft tissue neck x-ray negative. GI service was consulted. Patient's symptoms have improved. At this time they were not planning for EGD. Patient was evaluated by speech therapy underwent swallow evaluation there is no sign of aspiration. They recommended dysphagia level III chopped diet. If patient tolerates diet plans discharge home tomorrow. Patient was evaluated by gastroenterology no plans for EGD at this time he was evaluated by speech pathology diet was adjusted to chopped diet patient was doing well he was unable to swallow without difficulty he was discharged home on 03/25/2018 he will follow-up in the office within one week Plan - Discharge Summary New Discharge Prescriptions: New Famotidine [Pepcid] 20 mg PO DAILY tab Continue Simvastatin [Zocor] 20 mg PO HS Lisinopril [Prinivil] 5 mg PO DAILY Nitroglycerin Sl Tabs [Nitrostat] 0.4 mg SUBLINGUAL Q5M PRN PRN Reason: Angina Multivitamins, Thera [Multivitamin (formulary)] 1 tab PO DAILY Clopidogrel [Plavix] 75 mg PO DAILY #90 tab levETIRAcetam [Keppra] 750 mg PO Q12HR tab Nicotine 7Mg/24Hr Patch [Habitrol] 1 patch TRANSDERM DAILY patch ALPRAZolam [Xanax] 0.5 mg PO HS #30 tab ALPRAZolam [Xanax] 0.25 mg PO QAM #30 tab Carvedilol [Coreg] 3.125 mg PO BID Aspirin 325 mg PO DAILY Discharge Medication List Lisinopril [Prinivil] 5 mg PO DAILY 07/02/14 [History] Simvastatin [Zocor] 20 mg PO HS 07/02/14 [History] Multivitamins, Thera [Multivitamin (formulary)] 1 tab PO DAILY 04/28/15 [History ] Nitroglycerin Sl Tabs [Nitrostat] 0.4 mg SUBLINGUAL Q5M PRN 04/28/15 [History] Clopidogrel [Plavix] 75 mg PO DAILY #90 tab 05/01/15 [Rx] ALPRAZolam [Xanax] 0.25 mg PO QAM #30 tab 05/12/17 [Rx] ALPRAZolam [Xanax] 0.5 mg PO HS #30 tab 05/12/17 [Rx] Nicotine 7Mg/24Hr Patch [Habitrol] 1 patch TRANSDERM DAILY patch 05/12/17 [Rx] levETIRAcetam [Keppra] 750 mg PO Q12HR tab 05/12/17 [Rx] Aspirin 325 mg PO DAILY 03/24/18 [History] Carvedilol [Coreg] 3.125 mg PO BID 03/24/18 [History] Famotidine [Pepcid] 20 mg PO DAILY tab 03/25/18 [Rx] Follow up Appointment(s)/Referral(s): Reyes Knight MD [Primary Care Provider] - 1-2 days Patient Instructions/Handouts: Chronic Dysphagia ([place])
[2018-03-25 16:08] VITALS: BP 112/68; PULSE 52; RESP 16; TEMP 97.7
== END 2018-03-25 16:50 | disposition home or self-care (01) ==
LOC: EC 18:39 → 3OBS 23:24
PROVIDERS: ADMIT Internal Medicine; ATTEND Internal Medicine
DX: T18.128A Food in esophagus causing other injury, initial encounter (principal); X58.XXXA Exposure to other specified factors, initial encounter; Y93.89 Activity, other specified; Y92.009 Unspecified place in unspecified non-institutional (private) residence as the place of occurrence of the external cause; I69.322 Dysarthria following cerebral infarction; I69.320 Aphasia following cerebral infarction; F41.1 Generalized anxiety disorder; G40.909 Epilepsy, unspecified, not intractable, without status epilepticus; I25.10 Atherosclerotic heart disease of native coronary artery without angina pectoris; R32 Unspecified urinary incontinence; R41.3 Other amnesia; I25.2 Old myocardial infarction; I50.9 Heart failure, unspecified; I11.0 Hypertensive heart disease with heart failure; E78.5 Hyperlipidemia, unspecified; M19.90 Unspecified osteoarthritis, unspecified site; I73.9 Peripheral vascular disease, unspecified; I25.5 Ischemic cardiomyopathy; F17.210 Nicotine dependence, cigarettes, uncomplicated; Z95.810 Presence of automatic (implantable) cardiac defibrillator; Z87.828 Personal history of other (healed) physical injury and trauma; Z95.5 Presence of coronary angioplasty implant and graft; Z86.19 Personal history of other infectious and parasitic diseases; Z87.01 Personal history of pneumonia (recurrent); Z84.1 Family history of disorders of kidney and ureter; Z79.02 Long term (current) use of antithrombotics/antiplatelets; Z79.899 Other long term (current) drug therapy; Z79.82 Long term (current) use of aspirin
CPT/HCPCS: 99285 ×2; 36415; 93005; 92610; 80053; 80048; 83605; 83735; 84484; 85025 ×2; 70360; G0378 ×3; S4990 ×2

== ENCOUNTER 2019-02-13 12:21 | Inpatient (IN) | payer MEDICARE ==
[2019-02-13 12:44] LABS: Glucose,Whole Blood 86 mg/dL (75-99)
[2019-02-13] MEDS ORDERED: SODIUM CHLORIDE 0.9% 1,000 ML IV STA (12:44)
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
[2019-02-13 13:32] LABS: ALT 17 U/L (21-72); AST 36 U/L (17-59); African American GFR (CKD) >90 (>60 ml/min/1.73 sqM); Albumin 4.7 g/dL (3.5-5.0); Alcohol <10 mg/dL; Alkaline Phosphatase 62 U/L (38-126); Anion Gap 10 mmol/L; Blood Urea Nitrogen 31 mg/dL (9-20); Calcium 10.1 mg/dL (8.4-10.2); Carbon Dioxide 25 mmol/L (22-30); Chloride 107 mmol/L (98-107); Glucose 82 mg/dL (74-99); Lactic Acid, Venous 1.7 mmol/L (0.7-2.0); Magnesium 1.6 mg/dL (1.6-2.3); Potassium 4.2 mmol/L (3.5-5.1); Sodium 142 mmol/L (137-145); Total Bilirubin 0.8 mg/dL (0.2-1.3); Total Protein 8.4 g/dL (6.3-8.2)
[2019-02-13 13:34] LABS: Basophils % (A) 1 %; Eosinophils # (A) 0.2 k/uL (0-0.7); Eosinophils % (A) 3 %; HCT 41.3 % (39.0-53.0); HGB 13.6 gm/dL (13.0-17.5); Lymphocytes # (A) 2.1 k/uL (1.0-4.8); Lymphocytes % (A) 31 %; MCHC 32.9 g/dL (31.0-37.0); MCV 97.2 fL (80.0-100.0); Mean Platelet Volume 7.5; Monocytes # (A) 0.5 k/uL (0-1.0); Monocytes % (A) 8 %; Neutrophils # (A) 3.7 k/uL (1.3-7.7); Neutrophils % (A) 55 %; Platelet Count 146 k/uL (150-450); RBC 4.25 m/uL (4.30-5.90); RDW 14.2 % (11.5-15.5); WBC 6.7 k/uL (3.8-10.6)
[2019-02-13 13:35] LABS: INR 1.1 (<1.2); Prothrombin Time 11.4 sec (9.0-12.0)
--- NOTE | 2019-02-13 14:10 | XR ---
EXAMINATION TYPE: XR chest 1V portable DATE OF EXAM: 02/13/2019 COMPARISON: 05/05/2017 HISTORY: Pain TECHNIQUE: Single frontal view of the chest is obtained. FINDINGS: There is no focal air space opacity, pleural effusion, or pneumothorax seen. The cardiac silhouette size is within normal limits. The osseous structures are intact. Cardiac device is noted . Atherosclerotic change aorta and hyperinflation suggestive COPD. Chronic rib deformities are involv ing the left upper rib cage. IMPRESSION: 1. COPD.
--- NOTE | 2019-02-13 14:11 | XR ---
EXAMINATION TYPE: XR pelvis AP view DATE OF EXAM: 02/13/2019 COMPARISON: NONE HISTORY: Pain The osseous structures are intact and the joint spaces are preserved. No acute fracture is seen. Vi sualized bowel gas pattern is nonspecific. Hypertrophic and degenerative change spine. Arthropathy o f the hips. IMPRESSION: 1. No acute fracture.
--- NOTE | 2019-02-13 14:28 | CT ---
EXAMINATION TYPE: CT brain cspine wo con DATE OF EXAM: 02/13/2019 COMPARISON: Prior CT brain and cervical spine 05/05/2017 HISTORY: Weakness and pain CT DLP: 1285.7 mGycm Automated exposure control for dose reduction was used. TECHNIQUE: CT scan of the head and cervical spine are performed without contrast. FINDINGS: There is no acute intracranial hemorrhage, mass effect, or midline shift identified. Ther e is been interval development of low attenuation along the inferior left temporal occipital region w ith loss of alexander-white differentiation. Cerebral vascular calcifications are again seen. There is aga in noted cortical atrophy. There are areas of encephalomalacia as on prior involving the posterior oc cipital lobe on the right, the left frontal lobe. The globes are intact and the visualized sinuses ar e clear. Cervical spine is visualized in its entirety from C1 through upper thoracic levels and demonstrates s atisfactory alignment without evidence of acute fracture or dislocation. Prevertebral soft tissue ap pears within normal limits. The C1-C2 articulation is unremarkable. IMPRESSION: 1. There is no acute fracture or dislocation evident in the cervical spine. 2. Subacute infarct. Underlying chronic small vessel ischemia with areas of multiple prior infarction .
[2019-02-13] MEDS ORDERED: NALOXONE 0.4 MG/ML 1 ML VIAL IV PRN (18:58)
[2019-02-13] MEDS: SODIUM CHLORIDE 0.9% 1,000 ML IV SCH (19:09)
[2019-02-13] MEDS ORDERED: ACETAMINOPHEN TAB 325 MG TAB PO STA (20:08)
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
[2019-02-13] MEDS: ATORVASTATIN 10 MG TAB PO SCH (22:44)
[2019-02-13] MEDS: ALPRAZolam 0.5 MG TAB PO SCH (22:44)
[2019-02-13] MEDS: CARVEDILOL 3.125 MG TAB PO SCH (22:44)
[2019-02-14] MEDS: CLOPIDOGREL 75 MG TAB PO SCH (07:36)
[2019-02-14] MEDS: LISINOPRIL 5 MG TAB PO SCH (07:36)
[2019-02-14] MEDS: CARVEDILOL 3.125 MG TAB PO SCH ×2 (07:36→17:28)
[2019-02-14] MEDS: ALPRAZolam 0.25 MG TAB PO SCH ×2 (07:37→09:28)
[2019-02-14 09:34] LABS: Basophils % (A) 0 %; Eosinophils # (A) 0.2 k/uL (0-0.7); Eosinophils % (A) 3 %; HCT 40.7 % (39.0-53.0); HGB 13.1 gm/dL (13.0-17.5); Lymphocytes # (A) 1.5 k/uL (1.0-4.8); Lymphocytes % (A) 24 %; MCH 31.1 pg (25.0-35.0); MCHC 32.1 g/dL (31.0-37.0); MCV 96.8 fL (80.0-100.0); Mean Platelet Volume 7.1; Monocytes # (A) 0.4 k/uL (0-1.0); Monocytes % (A) 6 %; Neutrophils # (A) 4.1 k/uL (1.3-7.7); Neutrophils % (A) 64 %; Platelet Count 130 k/uL (150-450); RBC 4.21 m/uL (4.30-5.90); RDW 12.9 % (11.5-15.5); WBC 6.4 k/uL (3.8-10.6)
[2019-02-14 09:46] LABS: ALT 20 U/L (21-72); AST 29 U/L (17-59); African American GFR (CKD) >90 (>60 ml/min/1.73 sqM); Albumin 4.1 g/dL (3.5-5.0); Alkaline Phosphatase 58 U/L (38-126); Anion Gap 9 mmol/L; Blood Urea Nitrogen 24 mg/dL (9-20); Calcium 9.2 mg/dL (8.4-10.2); Carbon Dioxide 25 mmol/L (22-30); Chloride 108 mmol/L (98-107); Glucose 113 mg/dL (74-99); Sodium 142 mmol/L (137-145); Total Bilirubin 0.6 mg/dL (0.2-1.3); Total Protein 7.5 g/dL (6.3-8.2)
--- NOTE | 2019-02-14 10:03 | EEG ---
ELECTROENCEPHALOGRAM REPORT DATE OF SERVICE: 02/14/2019 CLINICAL PROBLEM: History of stroke and seizure disorder, brought in by EMS after a witnessed fall. EEG was requested to rule out epileptiform activity. MEDICATIONS: Levetiracetam, clopidogrel, Coreg, atorvastatin, Xanax, Tylenol, lisinopril. TYPE OF RECORDING: Bedside tracing using the 10-20 international electrode placement system. No sedation was given prior to the beginning of this recording. FINDINGS: The background tracing is seen with a symmetric posterior alpha rhythm of 8-9 hertz that attenuates on eye opening and returns upon eye closure. Photic stimulation elicits a symmetric driving response. Hyperventilation is not performed in this recording. Definitive sleep architecture is not seen. There is no background asymmetry, ictal, or interictal patterns appreciated. IMPRESSION: This is a normal awake electroencephalogram without background asymmetry or epileptiform discharges. Clinical correlation is advised. JOSE ALFREDO / SANTOS: [id number] / MTDD
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
--- NOTE | 2019-02-14 12:37 | CT ---
EXAMINATION TYPE: CT angio head neck DATE OF EXAM: 02/14/2019 COMPARISON: None HISTORY: 68-year-old male unclear speech, possible CVA TECHNIQUE: Contiguous axial scanning of the head and neck performed with IV Contrast, patient injecte d with 15 mL of Isovue 370. Coronal/sagittal MIP reconstructions performed. 3-D reconstructions gener ated on a dedicated independent workstation. CT DLP: 243.0 mGycm Automated exposure control for dose reduction was used. FINDINGS: NECK: Left-sided pacemaker generator. Mild upper lung emphysema. Moderate atherosclerotic arch calcifications. Conventional arch vessel branching anatomy. The right common carotid artery is patent. Mild atherosclerotic change at the right carotid bifurcation. The right internal carotid artery remains patent. Scattered mild atherosclerotic change up or left common carotid artery. There is moderate to severe atherosclerotic change with circumferential plaque and thrombus narrowing the proximal carotid bulb down to 2.3 mm. The upper cervical ICA has a caliber of 3.5 mm. Tortuous upper left cervical ICA. The right vertebral artery is dominant. Moderate focal atherosclerotic narrowing at the origin of the diminutive left vertebral artery. Heterogeneously enhancing nodule right thyroid lobe measuring 1.6 cm. HEAD: Segmental moderate to severe narrowing of the V4 segment left vertebral artery. The basilar artery is patent. Mild atherosclerotic calcifications within the carotid siphons. Patent posterior circulations are otherwise patent. No aneurysmal change is seen. IMPRESSION: NECK: 1. Prominent atherosclerotic change at the left bifurcation resulting in well over 50% narrowing of t he left carotid bulb but calculated at only 40% by NASCET criteria. 2. Moderate atherosclerotic narrowing at the origin of the nondominant left vertebral artery. HEAD: 1. The nondominant left vertebral artery shows moderate to severe segmental narrowing of the V4, intr acranial segment. 2. Otherwise, no large vessel intracranial arterial occlusion or aneurysmal change is seen.
--- NOTE | 2019-02-14 12:43 | ECHOF ---
Referral Reason:cva MEASUREMENTS -------- HEIGHT: 157.5 cm WEIGHT: 44.9 kg BP: 94/60 RVIDd: 1.9 cm (< 3.3) IVSd: 1.2 cm (0.6 - 1.1) LVIDd: 4.5 cm (3.9 - 5.3) LVPWd: 1.3 cm (0.6 - 1.1) IVSs: 1.1 cm LVIDs: 4.1 cm LVPWs: 1.7 cm LA Diam: 3.0 cm (2.7 - 3.8) LAESV Index (A-L): 38.79 ml/m Ao Diam: 3.4 cm (2.0 - 3.7) AV Cusp: 2.3 cm (1.5 - 2.6) MV EXCURSION: 13.341 mm (> 18.000) MV EF SLOPE: 64 mm/s (70 - 150) EPSS: 1.9 cm MV E Abdirahman: 0.37 m/s MV DecT: 541 ms MV A Abdirahman: 0.57 m/s MV E/A Ratio: 0.65 RAP: 5.00 mmHg RVSP: 23.58 mmHg FINDINGS -------- Resting bradycardia (HR<60bpm). This was a technically adequate study. The left ventricle is mildly dilated. There is mild concentric left ventricular hypertrophy. Over all left ventricular systolic function is severely impaired with, an EF between 20 - 25 %. Global h ypokinesis The right ventricle is normal in size. LA is moderately dilated 34-39 ml/m2 The right atrium is normal in size. Interatrial and interventricular septum intact. There is mild aortic valve sclerosis. Trace to mild aortic regurgitation. The mitral valve is normal. Mild tricuspid regurgitation present. Right ventricular systolic pressure is normal at < 35 mmHg. Trace/mild (physiologic) pulmonic regurgitation. The aortic root size is normal. Normal inferior vena cava with normal inspiratory collapse consistent with estimated right atrial pre ssure of 5 mmHg. There is no pericardial effusion. CONCLUSIONS -------- 1. Resting bradycardia (HR<60bpm). 2. This was a technically adequate study. 3. The left ventricle is mildly dilated. 4. There is mild concentric left ventricular hypertrophy. 5. Overall left ventricular systolic function is severely impaired with, an EF between 20 - 25 %. 6. Global hypokinesis 7. The right ventricle is normal in size. 8. LA is moderately dilated 34-39 ml/m2 9. The right atrium is normal in size. 10. Interatrial and interventricular septum intact. 11. There is mild aortic valve sclerosis. 12. Trace to mild aortic regurgitation. 13. The mitral valve is normal. 14. Mild tricuspid regurgitation present. 15. Right ventricular systolic pressure is normal at < 35 mmHg. 16. Trace/mild (physiologic) pulmonic regurgitation. 17. The aortic root size is normal. 18. Normal inferior vena cava with normal inspiratory collapse consistent with estimated right atrial pressure of 5 mmHg. 19. There is no pericardial effusion. MEDICAL OFFICE PROFESSIONAL INSTRUCTOR: Lizbeth Hendricks RDCS
[2019-02-14] MEDS: NICOTINE 21MG/24HR PATCH TRANSDERM SCH (17:28)
[2019-02-14] MEDS: SODIUM CHLORIDE 0.9% 1,000 ML IV SCH (17:29)
--- NOTE | 2019-02-14 18:15 | P.PN ---
Subjective Progress Note Date: 02/14/19 Principal diagnosis: Fall CVA Seizure disorder No seizure. No acute events O/N. CTA. TTE. EEG. Patient has no new neuro c/o. Objective - Vital Signs Vital signs: Vital Signs Temp 97.5 F L 02/14/19 13:42 Pulse 54 L 02/14/19 13:42 Resp 16 02/14/19 13:42 BP 124/80 02/14/19 13:42 Pulse Ox 100 02/14/19 13:42 Intake & Output 02/13/19 02/14/19 02/14/19 18:59 06:59 18:59 Intake Total 1259 640 Balance 1259 640 Weight 45.042 kg 45.042 kg Intake: IV 160 Sodium Chloride 0.9% 1, 160 000 ml @ 20 mls/hr IV . Q24H JULIANA Rx#:[id number] Intake, IV Titration 1159 Amount Sodium Chloride 0.9% 1, 160 000 ml @ 20 mls/hr IV . Q24H JULIANA Rx#:[id number] Sodium Chloride 0.9% 1, 999 000 ml @ 999 mls/hr IV . Q1H1M STA Rx#:[id number] Oral 100 480 Other: # Voids 1 3 # Bowel Movements 0 - Exam Gen NAD Pleasant and cooperative MS A+Ox2 Expressive aphasia but able to follow all commands CN II-XII grossly intact no nystagmus Motor Normal bulk/tone No pronator drift No tremors Strength 5/5 sym throughout Sens Intact to LT x4 No neglect Coord No dysmetria on FTN bilaterally DTRs 2+/4 sym throughout Gait Deferred NIHSS 1b19.2=3 - Labs CBC & Chem 7: 02/14/19 09:02 02/14/19 09:02 Labs: Abnormal Lab Results - Last 24 Hours (Table) 02/14/19 02/14/19 Range/Units 09:02 09:02 RBC 4.21 L (4.30-5.90) m/uL Plt Count 130 L (150-450) k/uL Chloride 108 H (98-107) mmol/L BUN 24 H (9-20) mg/dL Glucose 113 H (74-99) mg/dL ALT 20 L (21-72) U/L - Imaging and Cardiology CT Head wo cont 02/13/19. There is interval development of low attenuation along the inferior left temporal occipital area with loss of alexander right differentiation. There is again noted cortical atrophy and areas of encephalomalacia in the posterior occipital lobe on the right and frontal lobe on the left. No ICH. CT C-spine wo cont 02/13/19. No acute fracture in the cervical spine. CTA Head/Neck 02/14/19. There is moderate to severe atherosclerotic change with circumferential plaque and thrombus narrowing the proximal carotid bulbs down to 2.3 mm. Upper cervical ICA has a caliber with 3.5 mm. Tortuous appearing upper left cervical ICA. Moderate focal atherosclerotic stenosis at the origin of the left vertebral artery. In summary there is over 50% stenosis of the left carotid bulb on the left. There is no intra-or extracranial large vessel occlusion or other stenosis. TTE 02/14/19. Left ventricle mildly dilated. Mild concentric left ventricular hypertrophy. Ejection fraction between 20-25% with global hypokinesis. The r ight ventricle was normal in size. Left atrium is moderately dilated. Interatrial and intrventricular septum are intact. I have reviewed neuroimages myself. Assessment and Plan Assessment: Multiple CVAs in bilateral anterior and posterior circulations, with concerns of cardioembolic phenomenon Seizure disorder Plan: -Cannot obtain MRI due to AICD -CTA Head/Neck shows some LICA stenosis, but at 50% management is medical. Pat ient already on clopidogrel and statin -TTE shows unchanged EF 20-25% with global hypokinesis -Given the appearance of his bilateral anterior and posterior circulation strokes with concerns for proximal embolic phenomenon, would recommend cardiology consult for an opinion to see if there is a role in anticoagulation with his cardiac picture. Also, he has moderate left atrial enlargement, and PAF should be ruled out -Continue clopidogrel 75mg/day -Fasting lipids in am goal LDL <70. Continue atorvastatin 10mg po qhs -LEV level sent and pending -EEG unrevealing -PT/OT/SP -DVT prophylaxis Thank you again for this consultation. Please call with ?. Time with Patient: Less than 30 (Time spent in direct patient care, greater than 50% of which was spent in [id number] counseling and coordination of care: 25 minutes)
[2019-02-14 18:25] LABS: Appearance,Urine Cloudy (Clear); Bacteria,Urine Occasional /hpf; Bilirubin,Urine Negative (Negative); Blood,Urine Negative (Negative); Color,Urine Yellow; Glucose,Urine (UA) Negative (Negative); Ketones,Urine Negative (Negative); Leukocyte Esterase,Urine Moderate (Negative); Nitrite,Urine Negative (Negative); PH, Urine 6.5 (5.0-8.0); Protein,Urine Negative (Negative); RBC,Urine 2 /hpf (0-5); Specific Gravity,Urine 1.038 (1.001-1.035); Squamous Epithelial Cell,Urine <1 /hpf (0-4); Urobilinogen,Urine <2.0 mg/dL (<2.0)
[2019-02-14] MEDS: ATORVASTATIN 10 MG TAB PO SCH (20:37)
[2019-02-14] MEDS: ACETAMINOPHEN TAB 325 MG TAB PO PRN (20:38)
[2019-02-14] MEDS: ALPRAZolam 0.5 MG TAB PO SCH (20:38)
[2019-02-14] MEDS: HEPARIN SODIUM,PORCINE 5,000 UNIT/ML 1 ML VIAL SQ SCH (20:38)
[2019-02-15] MEDS: ACETAMINOPHEN TAB 325 MG TAB PO PRN ×3 (04:42→20:06)
[2019-02-15] MEDS: CLOPIDOGREL 75 MG TAB PO SCH (07:22)
[2019-02-15] MEDS: LISINOPRIL 5 MG TAB PO SCH (07:22)
[2019-02-15] MEDS: CARVEDILOL 3.125 MG TAB PO SCH (07:23)
[2019-02-15] MEDS: FAMOTIDINE 20 MG TAB PO SCH (07:23)
[2019-02-15] MEDS: HEPARIN SODIUM,PORCINE 5,000 UNIT/ML 1 ML VIAL SQ SCH ×2 (07:23→20:05)
[2019-02-15] MEDS: NICOTINE 21MG/24HR PATCH TRANSDERM SCH (07:23)
[2019-02-15] MEDS: ALPRAZolam 0.25 MG TAB PO SCH (07:23)
[2019-02-15 09:09] LABS: Basophils % (A) 0 %; Eosinophils # (A) 0.1 k/uL (0-0.7); Eosinophils % (A) 2 %; HCT 42.8 % (39.0-53.0); HGB 13.4 gm/dL (13.0-17.5); Lymphocytes # (A) 1.3 k/uL (1.0-4.8); Lymphocytes % (A) 28 %; MCH 31.2 pg (25.0-35.0); MCHC 31.4 g/dL (31.0-37.0); MCV 99.3 fL (80.0-100.0); Mean Platelet Volume 7.7; Monocytes # (A) 0.3 k/uL (0-1.0); Monocytes % (A) 6 %; Neutrophils # (A) 2.9 k/uL (1.3-7.7); Neutrophils % (A) 61 %; Platelet Count 136 k/uL (150-450); RBC 4.31 m/uL (4.30-5.90); RDW 13.5 % (11.5-15.5); WBC 4.8 k/uL (3.8-10.6)
[2019-02-15 09:20] LABS: ALT 15 U/L (21-72); AST 35 U/L (17-59); African American GFR (CKD) >90 (>60 ml/min/1.73 sqM); Albumin 4.2 g/dL (3.5-5.0); Alkaline Phosphatase 46 U/L (38-126); Anion Gap 9 mmol/L; Blood Urea Nitrogen 22 mg/dL (9-20); Calcium 9.4 mg/dL (8.4-10.2); Carbon Dioxide 26 mmol/L (22-30); Chloride 106 mmol/L (98-107); Cholesterol 204 mg/dL (<200); Glucose 103 mg/dL (74-99); HDL Cholesterol 35 mg/dL (40-60); LDL Cholesterol,Calculated 152 mg/dL (0-99); Sodium 141 mmol/L (137-145); Total Bilirubin 0.7 mg/dL (0.2-1.3); Total Protein 7.6 g/dL (6.3-8.2); Triglycerides 84 mg/dL (<150)
[2019-02-15 09:31] LABS: Potassium 4.4 mmol/L (3.5-5.1)
--- NOTE | 2019-02-15 10:13 | P.PN ---
Subjective Progress Note Date: 02/15/19 This is a 68-year-old male patient who presented with complaints of fall and slurred speech. Patient is a poor historian. According to ER report patient was crossing the street when a bystander witnessed him fall to his knees. Patient was brought to the ER for further evaluation. Patient does have a significant past medical history for CVA, seizure disorder, heart failure, previous IV drug abuser, coronary artery disease, hyperlipidemia, hypertension, myocardial infections, osteoporosis, pneumonia, AICD and ex-smoker. CT of head and cervical spine completed showing no acute fracture or dislocation evident in the cervical spine. Showed subacute infarct. Underlying chronic small vessel ischemia with areas multiple prior infarction. Pelvis x-ray completed showing no acute fracture. Chest x-ray completed using COPD. EKG completed showing normal sinus rhythm, left axis. Incomplete left bundle branch block. This time patient is resting comfortably in bed. Difficult to obtain history of ovarian due to patient's known baseline of slurred speech per PCP. At this time patient denies any chest pain or shortness of breath. Patient denies nausea vomiting or diarrhea. Patient denies any urinary burning or frequency. Neurology services have been consulted. On 02/15/2019 patient is currently resting comfortably in bed. Patient is awake and alert. UA positive for urinary tract infection patient started on Rocephin urine culture ordered. Neurology recommending cardiology consult to address possible embolic phenomenon causing strokes. At this time patient is complaining of bilateral knee discomfort. X-rays will be ordered. Patient denies chest pain or shortness breath. Patient denies nausea vomiting diarrhea. Social work is on consult possible guardianship in process Objective - Vital Signs Vital signs: Vital Signs Temp 97.7 F 02/15/19 04:40 Pulse 68 02/15/19 04:40 Resp 16 02/15/19 04:40 BP 127/85 02/15/19 04:40 Pulse Ox 98 02/15/19 04:40 Intake & Output 02/14/19 02/15/19 02/15/19 18:59 06:59 18:59 Intake Total 1180 Balance 1180 Weight 45.042 kg Intake: IV 160 Sodium Chloride 0.9% 1, 160 000 ml @ 20 mls/hr IV . Q24H JULIANA Rx#:[id number] Oral 1020 Other: # Voids 2 1 # Bowel Movements 0 - Exam Head normocephalic Neck supple Lungs clear to auscultation bilaterally no wheezing or crackles Heart regular rate and rhythm S1-S2, no rub or gallop Abdomen is soft nontender nondistended positive bowel sounds no hepatosplenomegaly Extremities no edema Neuro slurred speech. Poor historian. Alert and oriented 2. Able to follow commands - Labs CBC & Chem 7: 02/15/19 08:25 02/15/19 08:25 Labs: Abnormal Lab Results - Last 24 Hours (Table) 02/13/19 02/15/19 02/15/19 Range/Units 17:54 08:25 08:25 Plt Count 136 L (150-450) k/uL BUN 22 H (9-20) mg/dL Glucose 103 H (74-99) mg/dL ALT 15 L (21-72) U/L Cholesterol 204 H (<200) mg/dL LDL Cholesterol, Calc 152 H (0-99) mg/dL HDL Cholesterol 35 L (40-60) mg/dL Ur Specific [place] 1.038 H (1.001-1.035) Ur Leukocyte Esterase Moderate H (Negative) Urine WBC 31 H (0-5) /hpf Urine Bacteria Occasional H (None) /hpf Microbiology - Last 24 Hours (Table) 02/13/19 17:54 Urine Culture - Preliminary Urine,Voided Assessment and Plan Assessment: 1. Fall with altered mental status related to multiple CVAs in bilateral anterior and posterior circulations. Head and cervical spine CT completed showing no acute fracture-dislocation evident in the cervical spine. Subacute infarct. Underlying chronic small vessel ischemia with areas multiple prior infarction. Neurology services have been consulted. MRI cannot be obtained due to AICD. CTA completed showing the nondominant left retrievable artery shows moderate to severe segmental narrowing of the V4 intracranial segment otherwise no large vessel intracranial arterial occlusion or aneurysmal changes seen. 2-D echo completed showing an EF between 20 and 25%. EKG completed showing normal awake EEG without background asymmetry or epileptiform discharges. Neurology recommending cardiology consult for concerns of cardioembolic phenomenon. 2. History of previous CVA with residual expressive aphasia. Maintain on Plavix 3. History of coronary artery disease 4. History of closed head injury 5. History of seizures. Continue Keppra Keppra level ordered 6. Generalized anxiety disorder continue Xanax 7. History of a AICD for cardiomyopathy 8. History of previous IV drug abuse 9. History of hepatitis B 10. History of hyperlipidemia maintained on statin 11. History of essential hypertension 12. History of closed head injury 13. Urinary tract infection. Patient started on Rocephin urine culture ordered 14. Bilateral knee pain. X-ray of bilateral knees ordered DVT prophylaxis heparin. GI prophylaxis Pepcid Cardiology and neurology services consulted Social work consult placed for DC planning. Patient may require guardianship to be obtained. Possible ECF at discharge I performed an examination of the patient and discussed their management with the Nurse Practitioner. I have reviewed the Nurse Practitioner's notes and agree with the documented findings and plan of care
--- NOTE | 2019-02-15 10:26 | P.PN ---
Subjective Progress Note Date: 02/15/19 Principal diagnosis: Fall CVA Seizure disorder No seizure. No acute events O/N. c/o bilateral knee pain pointing at surgical scars. Patient has no new neuro c/o. Objective - Vital Signs Vital signs: Vital Signs Temp 97.7 F 02/15/19 04:40 Pulse 68 02/15/19 04:40 Resp 16 02/15/19 04:40 BP 127/85 02/15/19 04:40 Pulse Ox 98 02/15/19 04:40 Intake & Output 02/14/19 02/15/19 02/15/19 18:59 06:59 18:59 Intake Total 1180 Balance 1180 Weight 45.042 kg Intake: IV 160 Sodium Chloride 0.9% 1, 160 000 ml @ 20 mls/hr IV . Q24H JULIANA Rx#:[id number] Oral 1020 Other: # Voids 2 1 # Bowel Movements 0 - Exam Gen NAD Pleasant and cooperative MS A+Ox2 Expressive aphasia but able to follow all commands CN II-XII grossly intact no nystagmus Motor Normal bulk/tone No pronator drift No tremors Strength 5/5 sym throughout Sens Intact to LT x4 No neglect Coord No dysmetria on FTN bilaterally DTRs 2+/4 sym throughout Gait Deferred NIHSS 1b19.2=3 - Labs CBC & Chem 7: 02/15/19 08:25 02/15/19 08:25 Labs: Abnormal Lab Results - Last 24 Hours (Table) 02/13/19 02/15/19 02/15/19 Range/Units 17:54 08:25 08:25 Plt Count 136 L (150-450) k/uL BUN 22 H (9-20) mg/dL Glucose 103 H (74-99) mg/dL ALT 15 L (21-72) U/L Cholesterol 204 H (<200) mg/dL LDL Cholesterol, Calc 152 H (0-99) mg/dL HDL Cholesterol 35 L (40-60) mg/dL Ur Specific [employer] 1.038 H (1.001-1.035) Ur Leukocyte Esterase Moderate H (Negative) Urine WBC 31 H (0-5) /hpf Urine Bacteria Occasional H (None) /hpf Microbiology - Last 24 Hours (Table) 02/13/19 17:54 Urine Culture - Preliminary Urine,Voided LEV 20.8 Assessment and Plan Assessment: Multiple CVAs in bilateral anterior and posterior circulations, with concerns of cardioembolic phenomenon Seizure disorder Plan: -Cannot obtain MRI due to AICD -CTA Head/Neck shows some LICA stenosis, but at 50% management is medical. Patient already on clopidogrel and statin -TTE shows unchanged EF 20-25% with global hypokinesis -Given the appearance of his bilateral anterior and posterior circulation strokes with concerns for proximal embolic phenomenon, would recommend cardiology consult for an opinion to see if there is a role in anticoagulation with his cardiac picture. Also, he has moderate left atrial enlargement, and PAF should be ruled out -Continue clopidogrel 75mg/day -LDL 152 goal <70. Increase atorvastatin to 40mg po qhs -LEV level within reference range. Continue 750mg po q12h. He has not had any seizure in-house. EEG also unrevealing -PT/OT/SP -DVT prophylaxis Thank you again for this consultation. Please call with ?. Time with Patient: Less than 30 (Time spent in direct patient care, greater than 50% of which was spent in [id number] counseling and coordination of care: 25 minutes)
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
--- NOTE | 2019-02-15 13:59 | XR ---
Bilateral knees HISTORY: Bilateral knee pain 3 views of each knee submitted on a total 6 images There is marked remodeling of the joint spaces bilaterally. Joint space loss greatest in the lateral compartment of the left knee as well as the patellofemoral joints. Alignment is maintained. Bone mine ralization thought to be normal. There is marginal spurring tricompartmentally. There are possibly sm all joint effusions. Vascular calcifications are noted incidentally. Hypertrophic changes are extensi ve patellofemoral joints. Question chondrocalcinosis. IMPRESSION: Consider crystal deposition arthropathy, osteoarthritis.
[2019-02-15] MEDS: CARVEDILOL 6.25 MG TAB PO SCH (17:10)
[2019-02-15] MEDS: ATORVASTATIN 80 MG TAB PO SCH (20:05)
[2019-02-15] MEDS: ALPRAZolam 0.5 MG TAB PO SCH (20:05)
[2019-02-15] MEDS: SODIUM CHLORIDE 0.9% 1,000 ML IV SCH (20:06)
[2019-02-15] MEDS ORDERED: ATORVASTATIN 40 MG TAB PO SCH (21:00)
[2019-02-16] MEDS: ACETAMINOPHEN TAB 325 MG TAB PO PRN ×3 (04:47→15:50)
[2019-02-16] MEDS: NICOTINE 21MG/24HR PATCH TRANSDERM SCH (07:18)
[2019-02-16] MEDS: LISINOPRIL 5 MG TAB PO SCH (07:19)
[2019-02-16] MEDS: CLOPIDOGREL 75 MG TAB PO SCH (07:19)
[2019-02-16] MEDS: ASPIRIN 81 MG PO SCH (07:19)
[2019-02-16] MEDS: HEPARIN SODIUM,PORCINE 5,000 UNIT/ML 1 ML VIAL SQ SCH ×2 (07:20→20:19)
[2019-02-16] MEDS: FAMOTIDINE 20 MG TAB PO SCH (07:20)
[2019-02-16] MEDS: CARVEDILOL 6.25 MG TAB PO SCH ×2 (07:20→17:13)
[2019-02-16] MEDS: ALPRAZolam 0.25 MG TAB PO SCH (08:24)
[2019-02-16 08:43] LABS: Basophils % (A) 1 %; Eosinophils # (A) 0.1 k/uL (0-0.7); Eosinophils % (A) 2 %; HCT 43.8 % (39.0-53.0); HGB 14.1 gm/dL (13.0-17.5); Lymphocytes # (A) 1.9 k/uL (1.0-4.8); Lymphocytes % (A) 28 %; MCH 31.6 pg (25.0-35.0); MCHC 32.2 g/dL (31.0-37.0); MCV 98.3 fL (80.0-100.0); Mean Platelet Volume 7.4; Monocytes # (A) 0.5 k/uL (0-1.0); Monocytes % (A) 7 %; Neutrophils # (A) 4.2 k/uL (1.3-7.7); Neutrophils % (A) 61 %; Platelet Count 152 k/uL (150-450); RBC 4.46 m/uL (4.30-5.90); RDW 13.1 % (11.5-15.5); WBC 6.9 k/uL (3.8-10.6)
[2019-02-16 08:55] LABS: ALT 17 U/L (21-72); AST 30 U/L (17-59); African American GFR (CKD) >90 (>60 ml/min/1.73 sqM); Albumin 4.5 g/dL (3.5-5.0); Alkaline Phosphatase 61 U/L (38-126); Anion Gap 10 mmol/L; Blood Urea Nitrogen 29 mg/dL (9-20); Calcium 10.2 mg/dL (8.4-10.2); Carbon Dioxide 27 mmol/L (22-30); Chloride 105 mmol/L (98-107); Glucose 96 mg/dL (74-99); Potassium 4.4 mmol/L (3.5-5.1); Sodium 142 mmol/L (137-145); Total Bilirubin 0.4 mg/dL (0.2-1.3); Total Protein 8.1 g/dL (6.3-8.2)
--- NOTE | 2019-02-16 08:55 | P.PN ---
Subjective Progress Note Date: 02/16/19 Principal diagnosis: Fall CVA Seizure disorder No seizure. No acute events O/N. Cardiology consult. Main complaint is bilateral knee pain pointing at surgical scars. Patient has no new neuro c/o. Objective - Vital Signs Vital signs: Vital Signs Temp 97.8 F 02/16/19 04:38 Pulse 63 02/16/19 04:38 Resp 18 02/16/19 04:38 BP 108/64 02/16/19 04:38 Pulse Ox 100 02/16/19 04:38 Intake & Output 02/15/19 02/16/19 02/16/19 18:59 06:59 18:59 Intake Total 240 Balance 240 Intake: Oral 240 Other: Voiding Method Urinal # Voids 2 1 # Bowel Movements 0 - Exam Gen NAD Pleasant and cooperative MS A+Ox2 Expressive aphasia but able to follow all commands CN II-XII grossly intact no nystagmus Motor Normal bulk/tone No pronator drift No tremors Strength 5/5 sym throughout Sens Intact to LT x4 No neglect Coord No dysmetria on FTN bilaterally DTRs 2+/4 sym throughout Gait Deferred NIHSS 1b19.2=3 - Labs CBC & Chem 7: 02/16/19 08:05 02/15/19 08:25 Labs: Abnormal Lab Results - Last 24 Hours (Table) 02/15/19 02/15/19 Range/Units 08:25 08:25 Plt Count 136 L (150-450) k/uL BUN 22 H (9-20) mg/dL Glucose 103 H (74-99) mg/dL ALT 15 L (21-72) U/L Cholesterol 204 H (<200) mg/dL LDL Cholesterol, Calc 152 H (0-99) mg/dL HDL Cholesterol 35 L (40-60) mg/dL Microbiology - Last 24 Hours (Table) 02/13/19 17:54 Urine Culture - Preliminary Urine,Voided Gram Neg Bacilli Assessment and Plan Assessment: Multiple CVAs in bilateral anterior and posterior circulations, with concerns of cardioembolic phenomenon Seizure disorder Plan: -Cannot obtain MRI due to AICD -CTA Head/Neck shows some LICA stenosis, but at 50% management is medical. Patient already on DAPT and statin -TTE shows unchanged EF 20-25% with global hypokinesis -Cardiology input appreciated; they will interrogate AICD to see if he has had PAF -LDL 152 goal <70. Atorvastatin increased to 80mg po qhs -LEV level within reference range. Continue 750mg po q12h. He has not had any seizure in-house. EEG also unrevealing -PT/OT/SP -DVT prophylaxis -Stable for discharge from acute neuro standpoint. Patient should follow up with outpatient neurology in 1-2 weeks after discharge for CVA and seizure disorder. No further inpatient neuro recs at this time. Will revisit prn. Please call with new ?. Thank you again for this consultation. Time with Patient: Less than 30 (Time spent in direct patient care, greater than 50% of which was spent in [id number] counseling and coordination of care: 25 minutes)
--- NOTE | 2019-02-16 09:26 | P.PN ---
Progress Note - Text Device interrogation indicates no episodes of VT, VF or a-fib. No shocks delivered and 4.2 years of battery life remaining.
--- NOTE | 2019-02-16 18:51 | P.PN ---
Subjective Progress Note Date: 02/16/19 Patient was seen and examined at the bedside. Patient was resting comfortably and only endorsed knee pain but otherwise denied any active complaints. He denied chest pain, shortness of breath, nausea, vomiting, fever, or chills. Objective - Vital Signs Vital signs: Vital Signs Temp 97.9 F 02/16/19 12:33 Pulse 60 02/16/19 17:12 Resp 16 02/16/19 12:33 BP 103/70 02/16/19 17:12 Pulse Ox 97 02/16/19 12:33 Intake & Output 02/15/19 02/16/19 02/16/19 18:59 06:59 18:59 Intake Total 240 480 Balance 240 480 Intake: Oral 240 480 Other: Voiding Method Urinal # Voids 2 1 2 # Bowel Movements 0 - Exam General: Non-toxic, in no acute distress, appears stated age, normal weight HEENT: NC/AT, anicteric sclerae, moist conjunctiva, no lid-lag, PERRLA Cardiovascular: S1/S2 wnl, no murmurs, rubs, or gallops Lungs: Clear to auscultation, normal respiratory effort, no accessory muscle use Abdominal: Soft, non-tender, non-distended, no guarding, rebound, or rigidity Skin: Warm, dry Extremities: No edema or contractures Psychiatric: Alert and oriented to person and place only, appropriate affect Neuro: CN II-XII grossly intact, no focal deficits noted - Labs CBC & Chem 7: 02/16/19 08:05 02/16/19 08:05 Labs: Abnormal Lab Results - Last 24 Hours (Table) 02/16/19 Range/Units 08:05 BUN 29 H (9-20) mg/dL ALT 17 L (21-72) U/L Microbiology - Last 24 Hours (Table) 02/13/19 17:54 Urine Culture - Preliminary Urine,Voided Gram Neg Bacilli Assessment and Plan Plan: Fall and altered mental status possibly secondary to multiple CVAs -CT head showing subacute infarcts -Neurology recommendations appreciated -Cardiology consulted for possible cardioembolic source -Device interrogation performed, no A. fib, V. fib, or V. tach episodes noted Poor social situation -dry dip worker attempting to obtain guardianship Coronary artery disease -Continue with home meds Urinary tract infection -Continue with ceftriaxone -Monitor urine cultures Seizure disorder -Continue with home meds Hypertension -Continue with home meds
[2019-02-16] MEDS: ATORVASTATIN 80 MG TAB PO SCH (20:16)
[2019-02-16] MEDS: ALPRAZolam 0.5 MG TAB PO SCH (20:19)
[2019-02-16] MEDS: SODIUM CHLORIDE 0.9% 1,000 ML IV SCH (20:19)
[2019-02-17 06:41] LABS: Basophils % (A) 1 %; Eosinophils # (A) 0.1 k/uL (0-0.7); Eosinophils % (A) 2 %; HGB 12.7 gm/dL (13.0-17.5); Lymphocytes # (A) 1.4 k/uL (1.0-4.8); Lymphocytes % (A) 24 %; MCH 31.5 pg (25.0-35.0); MCHC 32.5 g/dL (31.0-37.0); MCV 96.9 fL (80.0-100.0); Mean Platelet Volume 7.2; Monocytes # (A) 0.4 k/uL (0-1.0); Monocytes % (A) 7 %; Neutrophils # (A) 3.7 k/uL (1.3-7.7); Neutrophils % (A) 64 %; Platelet Count 142 k/uL (150-450); RBC 4.03 m/uL (4.30-5.90); RDW 13.1 % (11.5-15.5); WBC 5.8 k/uL (3.8-10.6)
[2019-02-17 07:01] LABS: ALT 23 U/L (21-72); AST 34 U/L (17-59); African American GFR (CKD) >90 (>60 ml/min/1.73 sqM); Albumin 3.9 g/dL (3.5-5.0); Alkaline Phosphatase 48 U/L (38-126); Anion Gap 8 mmol/L; Blood Urea Nitrogen 36 mg/dL (9-20); Carbon Dioxide 27 mmol/L (22-30); Chloride 105 mmol/L (98-107); Glucose 94 mg/dL (74-99); Potassium 4.4 mmol/L (3.5-5.1); Sodium 140 mmol/L (137-145); Total Bilirubin 0.3 mg/dL (0.2-1.3)
[2019-02-17] MEDS: NICOTINE 21MG/24HR PATCH TRANSDERM SCH (09:42)
[2019-02-17] MEDS: ALPRAZolam 0.25 MG TAB PO SCH (09:43)
[2019-02-17] MEDS: FAMOTIDINE 20 MG TAB PO SCH (09:43)
[2019-02-17] MEDS: CLOPIDOGREL 75 MG TAB PO SCH (09:43)
[2019-02-17] MEDS: ASPIRIN 81 MG PO SCH (09:43)
[2019-02-17] MEDS: ACETAMINOPHEN TAB 325 MG TAB PO PRN ×3 (09:43→21:32)
[2019-02-17] MEDS: HEPARIN SODIUM,PORCINE 5,000 UNIT/ML 1 ML VIAL SQ SCH ×2 (09:44→21:25)
[2019-02-17] MEDS: LISINOPRIL 5 MG TAB PO SCH (09:46)
[2019-02-17] MEDS: CARVEDILOL 6.25 MG TAB PO SCH ×2 (09:46→17:11)
--- NOTE | 2019-02-17 12:22 | P.PN ---
Subjective Progress Note Date: 02/17/19 The patient is a 68-year-old male with a PMH of CVA w/ residual expressive aphasia, seizure disorder, systolic CHF (EF25%) s/p AICD, HTN, CAD w/ hx of [place] (multiple stents), IVDA, and HLD presented to the ED after he had a fall in the street witnessed by a bystander. The patient was brought to the ED for further evaluation. The patient had an extensive evaluation in the ED with CT head showing a subacute infarct with underlying chronic small vessel ischemia and areas of multiple prior infarctions. Chest x-ray showing findings consistent with COPD. A pelvic x-ray revealed no acute fractures. Neurology was consulted for subacute CVA versus seizure. EEG was also performed and was negative for epileptiform activity. Echocardiogram revealed an LVEF of 20-25%. Cardiology was consulted and recommended an interrogation of the patient's AICD which revealed no episodes of VT, VF, or A. fib. The patient previously had a state appointed guardian which was then relinquished and the patient was supposedly staying with some friends, who the medical team and the manager of case management have been unable to get in touch with. casualty claim adjuster are now attempting to provide guardianship for this patient. Neurology further recommended increasing the patient's Lipitor to 80 mg to reach LDL goal. The patient continues to be on dual antiplatelet therapy. Patient was seen and examined at the bedside. He is a poor historian though points to his knees when asked if he has any pain. He otherwise denied any additional complaints and is asking when he may be discharged home. He denied fever, chills, chest pain, shortness of breath. Objective - Vital Signs Vital signs: Vital Signs Temp 97.8 F 02/17/19 04:44 Pulse 70 02/17/19 09:48 Resp 16 02/17/19 04:44 BP 117/75 02/17/19 09:48 Pulse Ox 98 02/17/19 04:44 Intake & Output 02/16/19 02/17/19 02/17/19 18:59 06:59 18:59 Intake Total 480 760 Balance 480 760 Intake: Intake, IV Titration 80 Amount Sodium Chloride 0.9% 1, 80 000 ml @ 20 mls/hr IV . Q24H [facility] Rx#:[id number] Oral 480 680 Other: Voiding Method Urinal Urinal # Voids 2 1 - Exam General: Non-toxic, in no acute distress, appears stated age, normal weight HEENT: NC/AT, anicteric sclerae, moist conjunctiva, no lid-lag, PERRLA Cardiovascular: S1/S2 wnl, no murmurs, rubs, or gallops Lungs: Clear to auscultation, normal respiratory effort, no accessory muscle use Abdominal: Soft, non-tender, non-distended, no guarding, rebound, or rigidity Skin: Warm, dry Extremities: No edema or contractures Psychiatric: Alert and oriented to person and place only, appropriate affect Neuro: CN II-XII grossly intact, no focal deficits noted, expressive aphasia - Labs CBC & Chem 7: 02/17/19 06:20 02/17/19 06:20 Labs: Abnormal Lab Results - Last 24 Hours (Table) 02/17/19 02/17/19 Range/Units 06:20 06:20 RBC 4.03 L (4.30-5.90) m/uL Hgb 12.7 L (13.0-17.5) gm/dL Plt Count 142 L (150-450) k/uL BUN 36 H (9-20) mg/dL Microbiology - Last 24 Hours (Table) 02/13/19 17:54 Urine Culture - Final Urine,Voided Klebsiella pneumoniae Assessment and Plan Plan: Fall and altered mental status possibly secondary to multiple CVAs -CT head showing subacute infarcts -Neurology recommendations appreciated -Cardiology consulted for possible cardioembolic source -Device interrogation performed, no A. fib, V. fib, or V. tach episodes noted -C/w Aspirin and Plavix -Lipitor increased to 80 mg qhs by Neurology Urinary tract infection -Continue with ceftriaxone -Monitor urine cultures Poor social situation -oven worker attempting to obtain guardianship Chronic systolic CHF, not in acute exacerbation -Continue with home meds Seizure disorder -Continue with home meds Hypertension -Continue with home meds HLD -C/w Lipitor 80 mg qhs DVT prophylaxis -Heparin Discussed with: Patient Anticipated discharge date: 2-[address]: Unclear A total of 35 minutes was spent on the care of this complex patient more than 50% of the time was spent in counseling and care coordination.
[2019-02-17] MEDS: ATORVASTATIN 80 MG TAB PO SCH (21:25)
[2019-02-17] MEDS: ALPRAZolam 0.5 MG TAB PO SCH (21:25)
[2019-02-17] MEDS: SODIUM CHLORIDE 0.9% 1,000 ML IV SCH (21:26)
[2019-02-18] MEDS: ACETAMINOPHEN TAB 325 MG TAB PO PRN ×2 (03:29→16:46)
[2019-02-18] MEDS: NICOTINE 21MG/24HR PATCH TRANSDERM SCH (07:36)
[2019-02-18] MEDS: LISINOPRIL 5 MG TAB PO SCH (07:36)
[2019-02-18] MEDS: HEPARIN SODIUM,PORCINE 5,000 UNIT/ML 1 ML VIAL SQ SCH ×2 (07:36→20:40)
[2019-02-18] MEDS: ALPRAZolam 0.25 MG TAB PO SCH (07:36)
[2019-02-18] MEDS: ASPIRIN 81 MG PO SCH (07:36)
[2019-02-18] MEDS: CLOPIDOGREL 75 MG TAB PO SCH (07:37)
[2019-02-18] MEDS: FAMOTIDINE 20 MG TAB PO SCH (07:37)
[2019-02-18] MEDS: CARVEDILOL 6.25 MG TAB PO SCH ×2 (09:16→16:47)
--- NOTE | 2019-02-18 10:29 | P.PN ---
Subjective Progress Note Date: 02/18/19 The patient is a 68-year-old male with a PMH of CVA w/ residual expressive aphasia, seizure disorder, systolic CHF (EF25%) s/p AICD, HTN, CAD w/ hx of [place] (multiple stents), IVDA, and HLD presented to the ED after he had a fall in the street witnessed by a bystander. The patient was brought to the ED for further evaluation. The patient had an extensive evaluation in the ED with CT head showing a subacute infarct with underlying chronic small vessel ischemia and areas of multiple prior infarctions. Chest x-ray showing findings consistent with COPD. A pelvic x-ray revealed no acute fractures. Neurology was consulted for subacute CVA versus seizure. EEG was also performed and was negative for epileptiform activity. Echocardiogram revealed an LVEF of 20-25%. Cardiology was consulted and recommended an interrogation of the patient's AICD which revealed no episodes of VT, VF, or A. fib. The patient previously had a state appointed guardian which was then relinquished and the patient was supposedly staying with some friends, who the medical team and the family preservation caseworker have been unable to get in touch with. dropper tank storage are now attempting to provide guardianship for this patient. Neurology further recommended increasing the patient's Lipitor to 80 mg to reach LDL goal. The patient continues to be on dual antiplatelet therapy. Patient was seen and examined at the bedside. The patient notes he is feeling better today. He noted some bilateral knee pain though denied any additional complaints. He denied chest pain, shortness of breath, nausea, vomiting. Objective - Vital Signs Vital signs: Vital Signs Temp 97.7 F 02/18/19 05:00 Pulse 69 02/18/19 07:34 Resp 16 02/18/19 05:00 BP 111/70 02/18/19 07:34 Pulse Ox 95 02/18/19 07:34 Intake & Output 02/17/19 02/18/19 02/18/19 18:59 06:59 18:59 Intake Total 810 1190 Output Total 400 Balance 810 790 Intake: IV 160 Sodium Chloride 0.9% 1, 160 000 ml @ 20 mls/hr IV . Q24H [facility] Rx#:[id number] Intake, IV Titration 210 Amount Sodium Chloride 0.9% 1, 160 000 ml @ 20 mls/hr IV . Q24H [facility] Rx#:[id number] cefTRIAXone 1 gm In 50 Sodium Chloride 0.9% 50 ml @ 100 mls/hr IVPB Q24HR [facility] Rx#:[id number] Oral 600 1030 Output: Urine 400 Other: Voiding Method Urinal Urinal Urinal # Voids 2 1 - Exam General: Non-toxic, in no acute distress, appears stated age, normal weight HEENT: NC/AT, anicteric sclerae, moist conjunctiva, no lid-lag, PERRLA Cardiovascular: S1/S2 wnl, no murmurs, rubs, or gallops Lungs: Clear to auscultation, normal respiratory effort, no accessory muscle use Abdominal: Soft, non-tender, non-distended, no guarding, rebound, or rigidity Skin: Warm, dry Extremities: No edema or contractures, chronic arthritic changes of the knees bilaterally Psychiatric: Alert and oriented to person and place only, appropriate affect Neuro: CN II-XII grossly intact, no focal deficits noted, expressive aphasia - Labs CBC & Chem 7: 02/17/19 06:20 02/17/19 06:20 Assessment and Plan Plan: Urinary tract infection -Urine cultures reviewed -Patient growing Klebsiella resistant to Macrobid -Switch patient to Bactrim Fall likely secondary to CVA -CT head showing subacute infarcts -Neurology recommendations appreciated -Device interrogation performed, no A. fib, V. fib, or V. tach episodes noted -C/w Aspirin and Plavix -Lipitor increased to 80 mg qhs by Neurology Dementia -Patient previously had a family member sinus tachycardia which was then r elinquished, the patient then subsequently had a state appointed guardian which also ended. -fruit or nut crops farm manager working on having a new guardian assigned for the patient Chronic systolic CHF, not in acute exacerbation -Continue with home meds Seizure disorder -Continue with home meds Hypertension -Continue with home meds HLD -C/w Lipitor 80 mg qhs DVT prophylaxis -Heparin Discussed with: Patient Anticipated discharge date: 02/19/[address]: Unclear A total of 30 minutes was spent on the care of this complex patient more than 50% of the time was spent in counseling and care coordination.
[2019-02-18] MEDS: SODIUM CHLORIDE 0.9% 1,000 ML IV SCH (20:30)
[2019-02-18] MEDS: ALPRAZolam 0.5 MG TAB PO SCH (20:40)
[2019-02-18] MEDS: ATORVASTATIN 80 MG TAB PO SCH (20:40)
[2019-02-18] MEDS: SULFAMETHOX-TMP 800-160MG 1 EACH TAB PO SCH (20:40)
[2019-02-19] MEDS: ACETAMINOPHEN TAB 325 MG TAB PO PRN ×2 (06:12→14:55)
[2019-02-19] MEDS: CARVEDILOL 6.25 MG TAB PO SCH ×2 (06:48→18:07)
[2019-02-19] MEDS: LISINOPRIL 5 MG TAB PO SCH (06:49)
[2019-02-19] MEDS: ASPIRIN 81 MG PO SCH (07:02)
[2019-02-19] MEDS: FAMOTIDINE 20 MG TAB PO SCH (07:02)
[2019-02-19] MEDS: CLOPIDOGREL 75 MG TAB PO SCH (07:02)
[2019-02-19] MEDS: NICOTINE 21MG/24HR PATCH TRANSDERM SCH (07:02)
[2019-02-19] MEDS: HEPARIN SODIUM,PORCINE 5,000 UNIT/ML 1 ML VIAL SQ SCH (07:03)
[2019-02-19] MEDS: SULFAMETHOX-TMP 800-160MG 1 EACH TAB PO SCH (07:03)
[2019-02-19] MEDS: ALPRAZolam 0.25 MG TAB PO SCH (08:25)
--- NOTE | 2019-02-19 15:59 | P.PN ---
Subjective Progress Note Date: 02/19/19 The patient is a 68-year-old male with a PMH of CVA w/ residual expressive aphasia, seizure disorder, systolic CHF (EF25%) s/p AICD, HTN, CAD w/ hx of [place] (multiple stents), IVDA, and HLD presented to the ED after he had a fall in the street witnessed by a bystander. The patient was brought to the ED for further evaluation. The patient had an extensive evaluation in the ED with CT head showing a subacute infarct with underlying chronic small vessel ischemia and areas of multiple prior infarctions. Chest x-ray showing findings consistent with COPD. A pelvic x-ray revealed no acute fractures. Neurology was consulted for subacute CVA versus seizure. EEG was also performed and was negative for epileptiform activity. Neurology further recommended increasing the patient's Lipitor to 80 mg to reach LDL goal. The patient continues to be on dual antiplatelet therapy. Echocardiogram revealed an LVEF of 20-25%. Cardiology was consulted and recommended an interrogation of the patient's AICD which revealed no episodes of VT, VF, or A. fib. The patient previously had a state appointed guardian which was then relinquished and the patient was supposedly staying with some friends, who the medical team and the egg caser have been unable to get in touch with. The egg caser petitioned to have a guardian assigned to the patient, which was completed on 02/19/2019. The guardians will now review of chart and make recommendations for placement. Patient was seen and examined at the bedside on 02/19/19. The patient was in good spirits and denied active complaints. Denied chest pain, SOB, nausea, or vomiting. Objective - Vital Signs Vital signs: Vital Signs Temp 97.9 F 02/19/19 12:55 Pulse 63 02/19/19 12:55 Resp 16 02/19/19 12:55 BP 98/65 02/19/19 12:55 Pulse Ox 96 02/19/19 12:55 Intake & Output 02/18/19 02/19/19 02/19/19 18:59 06:59 18:59 Intake Total 1410 1180 Balance 1410 1180 Weight 54.5 kg 54.5 kg Intake: Intake, IV Titration 210 Amount Sodium Chloride 0.9% 1, 160 000 ml @ 20 mls/hr IV . Q24H REPLACED BY [facility] Rx#:[id number] cefTRIAXone 1 gm In 50 Sodium Chloride 0.9% 50 ml @ 100 mls/hr IVPB Q24HR REPLACED BY [facility] Rx#:[id number] Oral 1200 1180 Other: Voiding Method Urinal Urinal Urinal # Voids 2 2 - Exam General: Non-toxic, in no acute distress, appears stated age, normal weight HEENT: NC/AT, anicteric sclerae, moist conjunctiva, no lid-lag, PERRLA Cardiovascular: S1/S2 wnl, no murmurs, rubs, or gallops Lungs: Clear to auscultation, normal respiratory effort, no accessory muscle use Abdominal: Soft, non-tender, non-distended, no guarding, rebound, or rigidity Skin: Warm, dry Extremities: No edema or contractures, chronic arthritic changes of the knees bilaterally Psychiatric: Alert and oriented to person and place only, appropriate affect Neuro: CN II-XII grossly intact, no focal deficits noted, expressive aphasia - Labs CBC & Chem 7: 02/17/19 06:20 02/17/19 06:20 Assessment and Plan Plan: Urinary tract infection -Urine cultures reviewed -Patient growing Klebsiella resistant to Macrobid -C/w Bactrim Fall likely secondary to CVA -CT head showing subacute infarcts -Neurology recommendations appreciated -Device interrogation performed, no A. fib, V. fib, or V. tach episodes noted -C/w Aspirin and Plavix -Lipitor increased to 80 mg qhs by Neurology Dementia -Patient previously had a family member sinus tachycardia which was then relinquished, the patient then subsequently had a state appointed guardian which also ended. -New guardian assigned. Awaiting recommendations. Chronic systolic CHF, not in acute exacerbation -Continue with home meds Seizure disorder -Continue with home meds Hypertension -Continue with home meds HLD -C/w Lipitor 80 mg qhs DVT prophylaxis -Heparin Discussed with: Patient Anticipated discharge date: 02/20/[address]: Unclear A total of 30 minutes was spent on the care of this complex patient more than 50% of the time was spent in counseling and care coordination.
[2019-02-20] MEDS: ALPRAZolam 0.5 MG TAB PO SCH ×2 (00:04→20:53)
[2019-02-20] MEDS: ATORVASTATIN 80 MG TAB PO SCH ×2 (00:05→20:53)
[2019-02-20] MEDS: SULFAMETHOX-TMP 800-160MG 1 EACH TAB PO SCH ×3 (00:05→20:54)
[2019-02-20] MEDS: HEPARIN SODIUM,PORCINE 5,000 UNIT/ML 1 ML VIAL SQ SCH ×3 (00:08→20:53)
[2019-02-20] MEDS: SODIUM CHLORIDE 0.9% 1,000 ML IV SCH (00:09)
[2019-02-20] MEDS: NICOTINE 21MG/24HR PATCH TRANSDERM SCH (08:07)
[2019-02-20] MEDS: ALPRAZolam 0.25 MG TAB PO SCH (08:07)
[2019-02-20] MEDS: ASPIRIN 81 MG PO SCH (08:07)
[2019-02-20] MEDS: FAMOTIDINE 20 MG TAB PO SCH (08:07)
[2019-02-20] MEDS: CARVEDILOL 6.25 MG TAB PO SCH ×2 (08:07→16:44)
[2019-02-20] MEDS: LISINOPRIL 5 MG TAB PO SCH (08:07)
[2019-02-20] MEDS: CLOPIDOGREL 75 MG TAB PO SCH (08:07)
[2019-02-20] MEDS: ACETAMINOPHEN TAB 325 MG TAB PO PRN ×3 (08:12→21:36)
--- NOTE | 2019-02-20 16:51 | P.PN ---
Subjective Progress Note Date: 02/20/19 Patient was seen and examined. No acute events overnight. Patient denies any chest pain, shortness of breath or palpitations. No nausea or vomiting. No fever or chills. No complaints today. Objective - Vital Signs Vital signs: Vital Signs Temp 97.4 F L 02/20/19 11:51 Pulse 62 02/20/19 11:51 Resp 16 02/20/19 11:51 BP 107/61 02/20/19 11:51 Pulse Ox 96 02/20/19 11:51 Intake & Output 02/19/19 02/20/19 02/20/19 18:59 06:59 18:59 Intake Total 70 Output Total 300 600 Balance -300 -530 Weight 54.5 kg 52 kg Intake: Intake, IV Titration 70 Amount Sodium Chloride 0.9% 1, 70 000 ml @ 20 mls/hr IV . Q24H [facility] Rx#:[id number] Output: Urine 300 600 Other: Voiding Method Urinal # Voids 2 - Exam General: [non toxic], [no distress], [appears at stated age] Derm: [warm], [dry] Head: [atraumatic], [normocephalic], [symmetric] Eyes: [EOMI], [no lid lag], [anicteric sclera] Mouth: [no lip lesion], [mucus membranes moist] Cardiovascular: [S1S2 reg], [no murmur] Lungs: [CTA bilateral], [no rhonchi, no rales] , [no accessory muscle use] Abdominal: [soft], [ nontender to palpation], [no guarding], [no appreciable organomegaly] Ext: [no gross muscle atrophy], [no edema], [no contractures] Neuro: [no focal neuro deficits] Psych: [Alert], [oriented], [appropriate affect] - Labs CBC & Chem 7: 02/17/19 06:20 02/17/19 06:20 Assessment and Plan Assessment: Urinary tract infection - Klebsiella +. Continue Macrobid. Fall likely secondary to CVA -CT head showing subacute infarcts -Neurology recommendations appreciated -Device interrogation performed, no A. fib, V. fib, or V. tach episodes noted -C/w Aspirin and Plavix -Lipitor increased to 80 mg qhs by Neurology Dementia -Patient previously had a family member sinus tachycardia which was then relinquished, the patient then subsequently had a state appointed guardian which also ended. -New guardian assigned. Awaiting recommendations. Chronic systolic CHF, not in acute exacerbation -Continue with home meds Seizure disorder -Continue with home meds Hypertension -Continue with home meds HLD -C/w Lipitor 80 mg qhs DVT prophylaxis -Heparin Awaiting recommendation from guardian regarding placement. Patient is cleared from a medical perspective.
[2019-02-21] MEDS: SODIUM CHLORIDE 0.9% 1,000 ML IV SCH ×2 (02:45→18:06)
[2019-02-21] MEDS: CARVEDILOL 6.25 MG TAB PO SCH ×2 (08:28→17:07)
[2019-02-21] MEDS: SULFAMETHOX-TMP 800-160MG 1 EACH TAB PO SCH ×2 (08:28→21:40)
[2019-02-21] MEDS: ALPRAZolam 0.25 MG TAB PO SCH (08:28)
[2019-02-21] MEDS: CLOPIDOGREL 75 MG TAB PO SCH (08:28)
[2019-02-21] MEDS: FAMOTIDINE 20 MG TAB PO SCH (08:28)
[2019-02-21] MEDS: NICOTINE 21MG/24HR PATCH TRANSDERM SCH (08:28)
[2019-02-21] MEDS: ASPIRIN 81 MG PO SCH (08:28)
[2019-02-21] MEDS: LISINOPRIL 5 MG TAB PO SCH (08:28)
[2019-02-21] MEDS: HEPARIN SODIUM,PORCINE 5,000 UNIT/ML 1 ML VIAL SQ SCH ×2 (08:28→21:38)
[2019-02-21] MEDS: ACETAMINOPHEN TAB 325 MG TAB PO PRN ×3 (08:33→21:39)
--- NOTE | 2019-02-21 12:12 | P.PN ---
Subjective Progress Note Date: 02/21/19 Principal diagnosis: Placement Patient was seen and examined. No acute events overnight. Patient has no complaints this morning. He denies any chest pain, shortness of breath or palpitations. Objective - Vital Signs Vital signs: Vital Signs Temp 97.7 F 02/21/19 12:06 Pulse 58 L 02/21/19 12:06 Resp 17 02/21/19 12:06 BP 89/57 02/21/19 12:06 Pulse Ox 96 02/21/19 12:06 Intake & Output 02/20/19 02/21/19 02/21/19 18:59 06:59 18:59 Intake Total 70 234 Output Total 400 Balance -330 234 Weight 52 kg Intake: IV 70 Sodium Chloride 0.9% 1, 70 000 ml @ 20 mls/hr IV . Q24H [facility] Rx#:[id number] Oral 234 Output: Urine 400 Other: Voiding Method Urinal Urinal - Exam General: [non toxic], [no distress], [appears at stated age] Derm: [warm], [dry] Head: [atraumatic], [normocephalic], [symmetric] Cardiovascular: [S1S2 reg], [no murmur] Lungs: [CTA bilateral], [no rhonchi, no rales] , [no accessory muscle use] Abdominal: [soft], [ nontender to palpation], [no guarding], [no appreciable organomegaly] Ext: [no gross muscle atrophy], [no edema], [no contractures] Neuro: [no focal neuro deficits] - Labs CBC & Chem 7: 02/17/19 06:20 02/17/19 06:20 Assessment and Plan Assessment: Urinary tract infection - Klebsiella +. Continue Macrobid. Fall likely secondary to CVA -CT head showing subacute infarcts -Neurology recommendations appreciated -Device interrogation performed, no A. fib, V. fib, or V. tach episodes noted -C/w Aspirin and Plavix -Lipitor increased to 80 mg qhs by Neurology Dementia -Patient previously had a family member sinus tachycardia which was then relinquished, the patient then subsequently had a state appointed guardian which also ended. -New guardian assigned. Awaiting recommendations. Chronic systolic CHF, not in acute exacerbation -Continue with home meds Seizure disorder -Continue with home meds Hypertension -Continue with home meds HLD -C/w Lipitor 80 mg qhs DVT prophylaxis -Heparin Awaiting recommendation from guardian regarding placement. Patient is cleared from a medical perspective.
[2019-02-21] MEDS: ALPRAZolam 0.5 MG TAB PO SCH (21:40)
[2019-02-21] MEDS: ATORVASTATIN 80 MG TAB PO SCH (21:40)
[2019-02-22] MEDS: ACETAMINOPHEN TAB 325 MG TAB PO PRN ×3 (03:53→20:19)
[2019-02-22] MEDS: CARVEDILOL 6.25 MG TAB PO SCH ×2 (09:17→17:01)
[2019-02-22] MEDS: ASPIRIN 81 MG PO SCH (09:17)
[2019-02-22] MEDS: CLOPIDOGREL 75 MG TAB PO SCH (09:17)
[2019-02-22] MEDS: NICOTINE 21MG/24HR PATCH TRANSDERM SCH (09:17)
[2019-02-22] MEDS: FAMOTIDINE 20 MG TAB PO SCH (09:17)
[2019-02-22] MEDS: HEPARIN SODIUM,PORCINE 5,000 UNIT/ML 1 ML VIAL SQ SCH ×2 (09:18→20:20)
[2019-02-22] MEDS: SULFAMETHOX-TMP 800-160MG 1 EACH TAB PO SCH ×2 (09:18→20:20)
[2019-02-22] MEDS: LISINOPRIL 5 MG TAB PO SCH (09:18)
[2019-02-22] MEDS: ALPRAZolam 0.25 MG TAB PO SCH (11:20)
--- NOTE | 2019-02-22 13:12 | P.PN ---
Subjective Progress Note Date: 02/22/19 Principal diagnosis: Placement Patient seen and examined. No acute events overnight. Patient complains of loneliness. He denies any chest pain, shortness breath or palpitations. No nausea or vomiting. No fever or chills. Objective - Vital Signs Vital signs: Vital Signs Temp 97.1 F L 02/22/19 11:40 Pulse 71 02/22/19 11:40 Resp 17 02/22/19 11:40 BP 100/68 02/22/19 11:40 Pulse Ox 97 02/22/19 11:40 Intake & Output 02/21/19 02/22/19 02/22/19 18:59 06:59 18:59 Intake Total 2865 940 Output Total 200 325 Balance 2665 615 Weight 52.5 kg Intake: IV 100 Sodium Chloride 0.9% 1, 100 000 ml @ 20 mls/hr IV . Q24H [facility] Rx#:[id number] Intake, IV Titration 240 Amount Sodium Chloride 0.9% 1, 240 000 ml @ 20 mls/hr IV . Q24H [facility] Rx#:[id number] Oral 2625 840 Output: Urine 200 325 Other: Voiding Method Urinal Urinal # Voids 4 1 - Exam General: [non toxic], [no distress], [appears at stated age] Derm: [warm], [dry] Head: [atraumatic], [normocephalic], [symmetric] Cardiovascular: [S1S2 reg], [no murmur] Lungs: [CTA bilateral], [no rhonchi, no rales] , [no accessory muscle use] Abdominal: [soft], [ nontender to palpation], [no guarding], [no appreciable organomegaly] Ext: [no gross muscle atrophy], [no edema], [no contractures] Neuro: [no focal neuro deficits] - Labs CBC & Chem 7: 02/17/19 06:20 02/17/19 06:20 Assessment and Plan Assessment: Urinary tract infection - Klebsiella +. Continue Macrobid. Fall likely secondary to CVA -CT head showing subacute infarcts -Neurology recommendations appreciated -Device interrogation performed, no A. fib, V. fib, or V. tach episodes noted -C/w Aspirin and Plavix -Lipitor increased to 80 mg qhs by Neurology Dementia -Patient previously had a family member sinus tachycardia which was then relinquished, the patient then subsequently had a state appointed guardian which also ended. -New guardian assigned. Awaiting recommendations. Chronic systolic CHF, not in acute exacerbation -Continue with home meds Seizure disorder -Continue with home meds Hypertension -Continue with home meds HLD -C/w Lipitor 80 mg qhs DVT prophylaxis -Heparin Awaiting recommendation from guardian regarding placement. Patient is cleared from a medical perspective.
[2019-02-22] MEDS: SODIUM CHLORIDE 0.9% 1,000 ML IV SCH (17:00)
[2019-02-22] MEDS: ATORVASTATIN 80 MG TAB PO SCH (20:19)
[2019-02-22] MEDS: ALPRAZolam 0.5 MG TAB PO SCH (20:20)
[2019-02-23] MEDS: CARVEDILOL 6.25 MG TAB PO SCH ×2 (08:50→17:54)
[2019-02-23] MEDS: LISINOPRIL 5 MG TAB PO SCH (08:50)
[2019-02-23] MEDS: FAMOTIDINE 20 MG TAB PO SCH (08:50)
[2019-02-23] MEDS: CLOPIDOGREL 75 MG TAB PO SCH (08:50)
[2019-02-23] MEDS: HEPARIN SODIUM,PORCINE 5,000 UNIT/ML 1 ML VIAL SQ SCH ×2 (08:51→20:17)
[2019-02-23] MEDS: ASPIRIN 81 MG PO SCH (08:51)
[2019-02-23] MEDS: ALPRAZolam 0.25 MG TAB PO SCH (08:51)
[2019-02-23] MEDS: SULFAMETHOX-TMP 800-160MG 1 EACH TAB PO SCH (08:52)
[2019-02-23] MEDS: NICOTINE 21MG/24HR PATCH TRANSDERM SCH (08:52)
[2019-02-23] MEDS: ACETAMINOPHEN TAB 325 MG TAB PO PRN ×2 (08:53→15:48)
--- NOTE | 2019-02-23 14:05 | P.PN ---
Subjective Progress Note Date: 02/23/19 Principal diagnosis: Placement Patient was seen and examined. No acute events overnight. Patient complains of chronic knee pain, right greater than left. He denies any chest pain, shortness of breath or palpitations. No nausea or vomiting. No fever or chills. Objective - Vital Signs Vital signs: Vital Signs Temp 97.0 F L 02/23/19 11:27 Pulse 60 02/23/19 11:27 Resp 18 02/23/19 11:27 BP 99/56 02/23/19 11:27 Pulse Ox 95 02/23/19 11:27 Intake & Output 02/22/19 02/23/19 02/23/19 18:59 06:59 18:59 Intake Total 474 237 Balance 474 237 Weight 52.8 kg 52.8 kg Intake: Oral 474 237 Other: Voiding Method Toilet Toilet Toilet Urinal Urinal Urinal # Voids 1 2 - Exam General: [non toxic], [no distress], [appears at stated age] Derm: [warm], [dry] Head: [atraumatic], [normocephalic], [symmetric] Cardiovascular: [S1S2 reg], [no murmur] Lungs: [CTA bilateral], [no rhonchi, no rales] , [no accessory muscle use] Abdominal: [soft], [ nontender to palpation], [no guarding], [no appreciable organomegaly] Ext: [no gross muscle atrophy], [no edema], [no contractures] Neuro: [no focal neuro deficits] - Labs CBC & Chem 7: 02/17/19 06:20 02/17/19 06:20 Assessment and Plan Assessment: UTI Fall secondary to CVA Dementia Chronic systolic CHF Seizure disorder Hypertension Hyperlipidemia Urine culture positive for Klebsiella. Receive 5 days of Bactrim. Plans: DC Bactrim. Head CT shows subacute infarct. CTA head and neck shows 50% narrowing of the left carotid. Echocardiogram shows EF 20-25% with global hypokinesis. Device interrogated by cardiology, no arrhythmias found. Plans: Continue aspirin, Plavix and Lipitor. Follow neurology recommendations. Probably vascular dementia as seen on head CT. Plans: Guardian to decide where patient to be discharged. Social work following. Plans: Continue Keppra Plans: Continue Coreg, lisinopril. Monitor vitals, adjust medications as necessary. Plans: Continue Lipitor. Patient awaiting recommendation from guardian regarding placement. Patient is cleared from medical perspective.
[2019-02-23] MEDS: ALPRAZolam 0.5 MG TAB PO SCH (20:17)
[2019-02-23] MEDS: ATORVASTATIN 80 MG TAB PO SCH (20:17)
[2019-02-23] MEDS: SODIUM CHLORIDE 0.9% 1,000 ML IV SCH (20:36)
[2019-02-24] MEDS: ACETAMINOPHEN TAB 325 MG TAB PO PRN ×4 (00:13→21:21)
[2019-02-24] MEDS: FAMOTIDINE 20 MG TAB PO SCH (09:02)
[2019-02-24] MEDS: ASPIRIN 81 MG PO SCH (09:02)
[2019-02-24] MEDS: HEPARIN SODIUM,PORCINE 5,000 UNIT/ML 1 ML VIAL SQ SCH ×2 (09:02→21:21)
[2019-02-24] MEDS: ALPRAZolam 0.25 MG TAB PO SCH (09:02)
[2019-02-24] MEDS: CLOPIDOGREL 75 MG TAB PO SCH (09:02)
[2019-02-24] MEDS: CARVEDILOL 6.25 MG TAB PO SCH ×2 (09:03→18:19)
[2019-02-24] MEDS: LISINOPRIL 5 MG TAB PO SCH (09:03)
[2019-02-24] MEDS: NICOTINE 21MG/24HR PATCH TRANSDERM SCH (09:05)
--- NOTE | 2019-02-24 10:14 | P.PN ---
Subjective Progress Note Date: 02/24/19 Principal diagnosis: placement Patient was seen and examined. No acute events overnight. Patient reports some burning with urination today. Last bowel movement was yesterday.got upset during the interview and said "let me ". Unable to voice his concerns effectively. He denies any chest pain, shortness of breath or palpitations. Objective - Vital Signs Vital signs: Vital Signs Temp 97.8 F 02/24/19 04:47 Pulse 57 L 02/24/19 04:47 Resp 18 02/24/19 04:47 BP 90/56 02/24/19 04:47 Pulse Ox 98 02/24/19 04:47 Intake & Output 02/23/19 02/24/19 02/24/19 18:59 06:59 18:59 Intake Total 240 600 711 Output Total 300 Balance -60 600 711 Weight 52.8 kg 52 kg Intake: Oral 240 600 711 Output: Urine 300 Other: Voiding Method Toilet Toilet Urinal Urinal - Exam General: [non toxic], [no distress], [appears at stated age] Derm: [warm], [dry] Head: [atraumatic], [normocephalic], [symmetric] Cardiovascular: [S1S2 reg], [no murmur] Lungs: [CTA bilateral], [no rhonchi, no rales] , [no accessory muscle use] Abdominal: [soft], [ nontender to palpation], [no guarding], [no appreciable organomegaly] Ext: [no gross muscle atrophy], [no edema], [no contractures] Neuro: [no focal neuro deficits] - Labs CBC & Chem 7: 02/17/19 06:20 02/17/19 06:20 Assessment and Plan Assessment: UTI Fall secondary to CVA Dementia Depression Chronic systolic CHF Seizure disorder Hypertension Hyperlipidemia Urine culture positive for Klebsiella. Receive 5 days of Bactrim. Plans: DC Bactrim. Head CT shows subacute infarct. CTA head and neck shows 50% narrowing of the left carotid. Echocardiogram shows EF 20-25% with global hypokinesis. Device interrogated by cardiology, no arrhythmias found. Plans: Continue aspirin, Plavix and Lipitor. Follow neurology recommendations. Probably vascular dementia as seen on head CT. Ammonia negative. UTI treated. Plans: Guardian to decide where patient to be discharged. Social work following. Patient states "let me " during today's interview. No clear plans. Plans: Follow Psychiatry consultation. Plans: Continue Keppra Plans: Continue Coreg, lisinopril. Monitor vitals, adjust medications as necessary. Plans: Continue Lipitor. Patient awaiting recommendation from guardian regarding placement.
[2019-02-24] MEDS: SODIUM CHLORIDE 0.9% 1,000 ML IV SCH (18:20)
[2019-02-24] MEDS: ALPRAZolam 0.5 MG TAB PO SCH (21:21)
[2019-02-24] MEDS: ATORVASTATIN 80 MG TAB PO SCH (21:21)
[2019-02-25 07:13] LABS: Basophils % (A) 1 %; Eosinophils # (A) 0.1 k/uL (0-0.7); Eosinophils % (A) 1 %; HCT 44.4 % (39.0-53.0); Lymphocytes # (A) 1.9 k/uL (1.0-4.8); Lymphocytes % (A) 28 %; MCH 31.4 pg (25.0-35.0); MCHC 31.5 g/dL (31.0-37.0); MCV 99.6 fL (80.0-100.0); Mean Platelet Volume 8.2; Monocytes # (A) 0.7 k/uL (0-1.0); Monocytes % (A) 10 %; Neutrophils # (A) 3.8 k/uL (1.3-7.7); Neutrophils % (A) 57 %; Platelet Count 148 k/uL (150-450); RBC 4.46 m/uL (4.30-5.90); RDW 14.7 % (11.5-15.5); WBC 6.7 k/uL (3.8-10.6)
[2019-02-25] MEDS: ACETAMINOPHEN TAB 325 MG TAB PO PRN ×2 (08:34→16:06)
[2019-02-25] MEDS: ALPRAZolam 0.25 MG TAB PO SCH (08:35)
[2019-02-25] MEDS: FAMOTIDINE 20 MG TAB PO SCH (08:35)
[2019-02-25] MEDS: CLOPIDOGREL 75 MG TAB PO SCH (08:35)
[2019-02-25] MEDS: CARVEDILOL 6.25 MG TAB PO SCH ×2 (08:36→16:10)
[2019-02-25] MEDS: ASPIRIN 81 MG PO SCH (08:36)
[2019-02-25] MEDS: HEPARIN SODIUM,PORCINE 5,000 UNIT/ML 1 ML VIAL SQ SCH ×2 (08:37→20:35)
[2019-02-25] MEDS: NICOTINE 21MG/24HR PATCH TRANSDERM SCH (08:37)
[2019-02-25 08:41] LABS: Calcium 10.1 mg/dL (8.4-10.2); Potassium 5.6 mmol/L (3.5-5.1)
[2019-02-25] MEDS: LISINOPRIL 5 MG TAB PO SCH (11:18)
[2019-02-25] MEDS ORDERED: SODIUM POLYSTYRENE SULFONATE 15 GM/60 ML BOTTLE PO ONE (13:15)
--- NOTE | 2019-02-25 13:24 | P.PN ---
Subjective Progress Note Date: 02/25/19 Principal diagnosis: Placement Patient was seen and examined. No acute events overnight. Objective - Vital Signs Vital signs: Vital Signs Temp 96.1 F L 02/25/19 05:00 Pulse 62 02/25/19 08:48 Resp 16 02/25/19 05:00 BP 109/68 02/25/19 08:48 Pulse Ox 97 02/25/19 05:00 Intake & Output 02/24/19 02/25/19 02/25/19 18:59 06:59 18:59 Intake Total 4051 960 Output Total 600 Balance 3451 960 Weight 51.5 kg Intake: Oral 4051 960 Output: Urine 600 Other: Voiding Method Toilet Toilet Urinal Urinal # Voids 4 2 - Exam General: [non toxic], [no distress], [appears at stated age] Derm: [warm], [dry] Head: [atraumatic], [normocephalic], [symmetric] Cardiovascular: [S1S2 reg], [no murmur] Lungs: [CTA bilateral], [no rhonchi, no rales] , [no accessory muscle use] Abdominal: [soft], [ nontender to palpation], [no guarding], [no appreciable organomegaly] Ext: [no gross muscle atrophy], [no edema], [no contractures] Neuro: [no focal neuro deficits] - Labs CBC & Chem 7: 02/25/19 06:48 02/25/19 08:10 Labs: Abnormal Lab Results - Last 24 Hours (Table) 02/25/19 02/25/19 Range/Units 06:48 08:10 Plt Count 148 L (150-450) k/uL Potassium 5.6 H (3.5-5.1) mmol/L BUN 71 H (9-20) mg/dL Creatinine 1.49 H (0.66-1.25) mg/dL Assessment and Plan Assessment: Hyperkalemia Acute kidney injury UTI Fall secondary to CVA Dementia Depression Chronic systolic CHF Seizure disorder Hypertension Hyperlipidemia Potassium 5.6. Likely due to kidney injury. Plans: Kayexalate one-time dose. Follow EKG. Repeat BMP tomorrow. DC lisinopril. BUN 71, creatinine 1.49. Likely secondary to dehydration. Plans: Increase hydration to normal saline 80 mL per hour. Avoid nephrotoxins. DC lisinopril. Follow BMP tomorrow. Urine culture positive for Klebsiella. Receive 5 days of Bactrim. Plans: DC Bactrim. Head CT shows subacute infarct. CTA head and neck shows 50% narrowing of the left carotid. Echocardiogram shows EF 20-25% with global hypokinesis. Device interrogated by cardiology, no arrhythmias found. Plans: Continue aspirin, Pl avix and Lipitor. Follow neurology recommendations. Probably vascular dementia as seen on head CT. Ammonia negative. UTI treated. Plans: Guardian to decide where patient to be discharged. Social work following. Patient states "let me " during today's interview. No clear plans. Plans: Follow Psychiatry consultation. Stable. Plans: Continue beta paddy. Stop lisinopril for now. Appears euv olemic. Plans: Continue Keppra Plans: Continue Coreg. Monitor vitals, adjust medications as necessary. Plans: Continue Lipitor. Patient awaiting recommendation from guardian regarding placement.
[2019-02-25] MEDS: SODIUM CHLORIDE 0.9% 1,000 ML IV SCH ×2 (17:41→18:00)
[2019-02-25] MEDS: ATORVASTATIN 80 MG TAB PO SCH (20:35)
[2019-02-25] MEDS: ALPRAZolam 0.5 MG TAB PO SCH (20:35)
--- NOTE | 2019-02-26 01:00 | CONS ---
CONSULTATION DATE OF SERVICE: 02/25/2019. IDENTIFYING DATA: This is a 68-year-old male patient. HISTORY OF PRESENT ILLNESS: Mr. Chu is admitted to the medical floor at [facility] with complaints of fall and slurred speech. Per chart history, patient was crossing the street and fell to his knees. Says he was brought here by EMS related to falling down. He is admitted with fall and altered mental status. Psychiatry was consulted regarding a statement that he made about letting him . It is noted that among his impressions are UTI and dementia. Is currently being awaited regarding recommendations from his guardian regarding placement issues. The patient states "I want to ." He states that he has felt this way for 11 days and says it is a long story. He does admit to feeling depressed. PSYCHIATRIC HISTORY: Denies any history of trying to hurt himself. He is not seeing a psychiatrist it sounds. He does initially seem to relate that he was treated for depression and denies. He made reference to using heroin for depression. PSYCHIATRIC FAMILY HISTORY: None known at this time. PAST MEDICAL HISTORY: CVA, seizure disorder, coronary artery disease, hyperlipidemia, hypertension, CA, osteoarthritis, pneumonia, heart failure. CURRENT MEDICATIONS: Tylenol p.r.n., Xanax, aspirin, Lipitor, Coreg, and Plavix, Pepcid, heparin, Keppra, Narcan, Habitrol patch. DRUG AND ALCOHOL HISTORY: Patient does give a history of heroin addiction. Last use was 7 years ago. Denies alcohol use. SOCIAL HISTORY: It is not clear regarding his current living setting. MENTAL STATUS EXAM: He is alert, overall cooperative. Describes his mood as "bogus". He is oriented to place and month and date. Regarding thoughts of suicide, he states that he does have thoughts of suicide, relays that he does not feel safe and seems to change his mind several times regarding his safety. When asked regarding any specific suicidal plan, he states that he does not know. Regarding hallucinations, he says he seems to relate some visual hallucinations then, but it is difficult to understand what he is perhaps seeing. He does seem to relate some auditory hallucinations of laughing. IMPRESSIONS: Dementia by history with some evidence of depression and psychosis like symptoms. Rule out delirium with accompanying psychosis symptoms. PLAN/RECOMMENDATIONS: Psychiatry to follow up to monitor regarding thoughts of suicide and also monitor for any psychosis symptoms that may be accompanying dementia/delirium. Would recommend one- to-one sitter at this time due to patient verbalizing thoughts of suicide. He seems to change his response to the issue of medications such as an antidepressants to help with depression, but eventually does relate that he does not want medication for depression at this time. Continue to monitor his status. Continue to assess the need for inpatient psychiatric stabilization after medical stabilization, which may be most appropriate. [facility]. Psychiatry to follow up. Continue to treat possible causes of delirium. Thank you for this consultation. MMODL / IJN: [id number] /
[2019-02-26] MEDS: CLOPIDOGREL 75 MG TAB PO SCH (07:41)
[2019-02-26] MEDS: ASPIRIN 81 MG PO SCH (07:41)
[2019-02-26] MEDS: FAMOTIDINE 20 MG TAB PO SCH (07:41)
[2019-02-26] MEDS: ALPRAZolam 0.25 MG TAB PO SCH (07:41)
[2019-02-26] MEDS: HEPARIN SODIUM,PORCINE 5,000 UNIT/ML 1 ML VIAL SQ SCH ×2 (07:42→20:09)
[2019-02-26] MEDS: NICOTINE 21MG/24HR PATCH TRANSDERM SCH (07:42)
[2019-02-26] MEDS: CARVEDILOL 6.25 MG TAB PO SCH ×2 (07:45→18:06)
[2019-02-26] MEDS: SODIUM CHLORIDE 0.9% 1,000 ML IV SCH ×2 (07:49→18:08)
[2019-02-26] MEDS: ACETAMINOPHEN TAB 325 MG TAB PO PRN (07:52)
[2019-02-26 09:01] LABS: Basophils % (A) 1 %; Eosinophils # (A) 0.1 k/uL (0-0.7); Eosinophils % (A) 2 %; HCT 43.5 % (39.0-53.0); HGB 14.2 gm/dL (13.0-17.5); Lymphocytes # (A) 1.6 k/uL (1.0-4.8); Lymphocytes % (A) 25 %; MCH 32.3 pg (25.0-35.0); MCHC 32.7 g/dL (31.0-37.0); MCV 98.9 fL (80.0-100.0); Mean Platelet Volume 7.4; Monocytes # (A) 0.4 k/uL (0-1.0); Monocytes % (A) 7 %; Neutrophils # (A) 4.1 k/uL (1.3-7.7); Neutrophils % (A) 64 %; Platelet Count 146 k/uL (150-450); RDW 13.3 % (11.5-15.5); WBC 6.4 k/uL (3.8-10.6)
[2019-02-26 09:10] LABS: Calcium 9.7 mg/dL (8.4-10.2); Potassium 4.6 mmol/L (3.5-5.1)
--- NOTE | 2019-02-26 10:19 | P.PN ---
Subjective Progress Note Date: 02/26/19 This is a 68-year-old male patient who presented with complaints of fall and slurred speech. Patient is a poor historian. According to ER report patient was crossing the street when a bystander witnessed him fall to his knees. Patient was brought to the ER for further evaluation. Patient does have a significant past medical history for CVA, seizure disorder, heart failure, previous IV drug abuser, coronary artery disease, hyperlipidemia, hypertension, myocardial infections, osteoporosis, pneumonia, AICD and ex-smoker. CT of head and cervical spine completed showing no acute fracture or dislocation evident in the cervical spine. Showed subacute infarct. Underlying chronic small vessel ischemia with areas multiple prior infarction. Pelvis x-ray completed showing no acute fracture. Chest x-ray completed using COPD. EKG completed showing normal sinus rhythm, left axis. Incomplete left bundle branch block. This time patient is resting comfortably in bed. Difficult to obtain history of ovarian due to patient's known baseline of slurred speech per PCP. At this time patient denies any chest pain or shortness of breath. Patient denies nausea vomiting or diarrhea. Patient denies any urinary burning or frequency. Neurology services have been consulted. On 02/15/2019 patient is currently resting comfortably in bed. Patient is awake and alert. UA positive for urinary tract infection patient started on Rocephin urine culture ordered. Neurology recommending cardiology consult to address possible embolic phenomenon causing strokes. At this time patient is complaining of bilateral knee discomfort. X-rays will be ordered. Patient denies chest pain or shortness breath. Patient denies nausea vomiting diarrhea. Social work is on consult possible guardianship in [facility] 02/16-02/25 On 02/26/2019 patient is currently resting comfortably in bed. auxiliary equipment operator is at bedside. Patient is being followed by site due to suicidal ideation. C reatinine did improve to 1.08 and bun 47. Potassium 4.6 at this time patient denies chest pain or shortness of breath. Patient denies nausea vomiting or diarrhea. Patient denies any urinary burning or frequency Objective - Vital Signs Vital signs: Vital Signs Temp 98 F 02/26/19 07:40 Pulse 75 02/26/19 07:40 Resp 17 02/26/19 07:40 BP 138/87 02/26/19 07:40 Pulse Ox 99 08/12/19 07:40 Intake & Output 02/25/19 02/26/19 02/26/19 18:59 06:59 18:59 Intake Total 2871 920 Output Total 600 Balance 2271 920 Weight 51.5 kg Intake: IV 920 Sodium Chloride 0.9% 1, 920 000 ml @ 80 mls/hr IV . [id number] [id number] Rx#:[id number] Oral 2871 Output: Urine 600 Other: Voiding Method Toilet Toilet Urinal Urinal # Voids 4 - Exam Head normocephalic Neck supple Lungs clear to auscultation bilaterally no wheezing or crackles Heart regular rate and rhythm S1-S2, no rub or gallop Abdomen is soft nontender nondistended positive bowel sounds no hepatosplenomegaly Extremities no edema Neuro slurred speech. Poor historian. Alert and oriented 2. Able to follow commands - Labs CBC & Chem 7: 02/26/19 08:48 02/26/19 08:15 Labs: Abnormal Lab Results - Last 24 Hours (Table) 02/26/19 02/26/19 Range/Units 08:15 08:48 Plt Count 146 L (150-450) k/uL BUN 47 H (9-20) mg/dL Glucose 120 H (74-99) mg/dL Assessment and Plan Assessment: 1. Fall with altered mental status related to multiple CVAs in bilateral anterior and posterior circulations. Head and cervical spine CT completed showing no acute fracture-dislocation evident in the cervical spine. Subacute infarct. Underlying chronic small vessel ischemia with areas multiple prior infarction. Neurology services have been consulted. MRI cannot be obtained due to AICD. CTA completed showing the nondominant left retrievable artery shows moderate to severe segmental narrowing of the V4 intracranial segment otherwise no large vessel intracranial arterial occlusion or aneurysmal changes seen. 2-D echo completed showing an EF between 20 and 25%. EKG completed showing normal awake EEG without background asymmetry or epileptiform discharges. Per neurology probably vascular dementia seen on head CT. Patient has been cleared for discharge from neurology standpoint. Patient to follow-up with neurology services 1-2 weeks after discharge 2. History of previous CVA with residual expressive aphasia. Maintain on Plavix 3. History of coronary artery disease 4. History of closed head injury 5. History of seizures. Continue Keppra Keppra level ordered 6. Generalized anxiety disorder continue Xanax 7. History of a AICD for cardiomyopathy. Per cardiology device. Gated no arrhythmias found continue aspirin and Plavix and Lipitor 8. History of previous IV drug abuse 9. History of hepatitis B 10. History of hyperlipidemia maintained on statin 11. History of essential hypertension 12. History of closed head injury 13. Urinary tract infection. Urine culture was positive for Klebsiella. Patient pleaded treatment with 5 days of Bactrim 14. Bilateral knee pain. X-ray of bilateral knees ordered 15. Chronic systolic congestive heart failure. 2-D echo completed showing an EF of 20-25% with global hypokinesis 16. Depression with Suicidal ideation. Psychiatry services have been consulted 17. Acute kidney injury. Initial creatinine elevated at 1.49 has improved lisinopril DC'd 18. Hyperkalemia. Potassium 5.6. Patient did receive Kayexalate repeat potassium 4.6 DVT prophylaxis heparin. GI prophylaxis Pepcid Social work following for legal guardianship and placement upon discharge I performed an examination of the patient and discussed their management with the Nurse Practitioner. I have reviewed the Nurse Practitioner's notes and agree with the documented findings and plan of care
[2019-02-26] MEDS: ATORVASTATIN 80 MG TAB PO SCH (20:09)
[2019-02-26] MEDS: ALPRAZolam 0.5 MG TAB PO SCH (20:09)
[2019-02-27] MEDS: CARVEDILOL 6.25 MG TAB PO SCH ×2 (07:43→17:18)
[2019-02-27] MEDS: CLOPIDOGREL 75 MG TAB PO SCH (07:43)
[2019-02-27] MEDS: ALPRAZolam 0.25 MG TAB PO SCH (07:43)
[2019-02-27] MEDS: FAMOTIDINE 20 MG TAB PO SCH (07:43)
[2019-02-27] MEDS: SODIUM CHLORIDE 0.9% 1,000 ML IV SCH (07:44)
[2019-02-27] MEDS: ASPIRIN 81 MG PO SCH (07:44)
[2019-02-27] MEDS: HEPARIN SODIUM,PORCINE 5,000 UNIT/ML 1 ML VIAL SQ SCH ×2 (07:44→20:15)
[2019-02-27] MEDS: NICOTINE 21MG/24HR PATCH TRANSDERM SCH (07:44)
[2019-02-27] MEDS: ACETAMINOPHEN TAB 325 MG TAB PO PRN ×2 (07:45→15:25)
[2019-02-27 09:00] LABS: Basophils % (A) 0 %; Eosinophils # (A) 0.1 k/uL (0-0.7); Eosinophils % (A) 1 %; HCT 38.4 % (39.0-53.0); HGB 12.3 gm/dL (13.0-17.5); Lymphocytes # (A) 1.5 k/uL (1.0-4.8); Lymphocytes % (A) 24 %; MCH 31.7 pg (25.0-35.0); MCHC 32.1 g/dL (31.0-37.0); MCV 98.6 fL (80.0-100.0); Mean Platelet Volume 7.3; Monocytes # (A) 0.6 k/uL (0-1.0); Monocytes % (A) 9 %; Neutrophils # (A) 3.9 k/uL (1.3-7.7); Neutrophils % (A) 62 %; Platelet Count 135 k/uL (150-450); RDW 13.4 % (11.5-15.5); WBC 6.2 k/uL (3.8-10.6)
[2019-02-27 09:19] LABS: ALT 74 U/L (21-72); AST 54 U/L (17-59); African American GFR (CKD) >90 (>60 ml/min/1.73 sqM); Albumin 4.1 g/dL (3.5-5.0); Alkaline Phosphatase 65 U/L (38-126); Anion Gap 10 mmol/L; Blood Urea Nitrogen 30 mg/dL (9-20); Calcium 9.2 mg/dL (8.4-10.2); Carbon Dioxide 23 mmol/L (22-30); Chloride 104 mmol/L (98-107); Glucose 87 mg/dL (74-99); Potassium 4.5 mmol/L (3.5-5.1); Sodium 137 mmol/L (137-145); Total Bilirubin 0.5 mg/dL (0.2-1.3); Total Protein 7.4 g/dL (6.3-8.2)
--- NOTE | 2019-02-27 12:49 | P.PN ---
Subjective Progress Note Date: 02/27/19 This is a 68-year-old male patient who presented with complaints of fall and slurred speech. Patient is a poor historian. According to ER report patient was crossing the street when a bystander witnessed him fall to his knees. Patient was brought to the ER for further evaluation. Patient does have a significant past medical history for CVA, seizure disorder, heart failure, previous IV drug abuser, coronary artery disease, hyperlipidemia, hypertension, myocardial infections, osteoporosis, pneumonia, AICD and ex-smoker. CT of head and cervical spine completed showing no acute fracture or dislocation evident in the cervical spine. Showed subacute infarct. Underlying chronic small vessel ischemia with areas multiple prior infarction. Pelvis x-ray completed showing no acute fracture. Chest x-ray completed using COPD. EKG completed showing normal sinus rhythm, left axis. Incomplete left bundle branch block. This time patient is resting comfortably in bed. Difficult to obtain history of ovarian due to patient's known baseline of slurred speech per PCP. At this time patient denies any chest pain or shortness of breath. Patient denies nausea vomiting or diarrhea. Patient denies any urinary burning or frequency. Neurology services have been consulted. On 02/15/2019 patient is currently resting comfortably in bed. Patient is awake and alert. UA positive for urinary tract infection patient started on Rocephin urine culture ordered. Neurology recommending cardiology consult to address possible embolic phenomenon causing strokes. At this time patient is complaining of bilateral knee discomfort. X-rays will be ordered. Patient denies chest pain or shortness breath. Patient denies nausea vomiting diarrhea. Social work is on consult possible guardianship in [facility] 02/16-02/25 On 02/26/2019 patient is currently resting comfortably in bed. cat sitter is at bedside. Patient is being followed by site due to suicidal ideation. C reatinine did improve to 1.08 and bun 47. Potassium 4.6 at this time patient denies chest pain or shortness of breath. Patient denies nausea vomiting or diarrhea. Patient denies any urinary burning or frequency On 02/27/2019 patient is resting comfortably in bed. cat sitter remains at bedside. Discussed case with home health care social worker Latrice. Per home health care social worker awaiting legal guardian to find placement for patient. Also awaiting psych to evaluate for possible inpatient psychiatry services. This time patient denies chest pain or shortness of breath. Patient denies nausea vomiting or diarrhea. Patient denies any urinary burning or frequency. Objective - Vital Signs Vital signs: Vital Signs Temp 97.9 F 02/27/19 04:50 Pulse 68 02/27/19 04:50 Resp 18 02/27/19 04:50 BP 114/59 02/27/19 04:50 Pulse Ox 99 02/27/19 04:50 Intake & Output 02/26/19 02/27/19 02/27/19 18:59 06:59 18:59 Intake Total 960 Balance 960 Weight 52.5 kg Intake: Oral 960 Other: # Voids 2 2 - Exam Head normocephalic Neck supple Lungs clear to auscultation bilaterally no wheezing or crackles Heart regular rate and rhythm S1-S2, no rub or gallop Abdomen is soft nontender nondistended positive bowel sounds no hepatosplenomegaly Extremities no edema Neuro slurred speech. Poor historian. Alert and oriented 2. Able to follow commands - Labs CBC & Chem 7: 02/27/19 08:05 02/27/19 08:05 Labs: Abnormal Lab Results - Last 24 Hours (Table) 02/27/19 02/27/19 Range/Units 08:05 08:05 RBC 3.90 L (4.30-5.90) m/uL Hgb 12.3 L (13.0-17.5) gm/dL Hct 38.4 L (39.0-53.0) % Plt Count 135 L (150-450) k/uL BUN 30 H (9-20) mg/dL ALT 74 H (21-72) U/L Assessment and Plan Assessment: 1. Fall with altered mental status related to multiple CVAs in bilateral anterior and posterior circulations. Head and cervical spine CT completed showing no acute fracture-dislocation evident in the cervical spine. Subacute infarct. Underlying chronic small vessel ischemia with areas multiple prior infarction. Neurology services have been consulted. MRI cannot be obtained due to AICD. CTA completed showing the nondominant left retrievable artery shows moderate to severe segmental narrowing of the V4 intracranial segment otherwise no large vessel intracranial arterial occlusion or aneurysmal changes seen. 2-D echo completed showing an EF between 20 and 25%. EKG completed showing normal awake EEG without background asymmetry or epileptiform discharges. Per neurology probably vascular dementia seen on head CT. Patient has been cleared for discharge from neurology standpoint. Patient to follow-up with neurology services 1-2 weeks after discharge 2. History of previous CVA with residual expressive aphasia. Maintain on Plavix 3. History of coronary artery disease 4. History of closed head injury 5. History of seizures. Continue Keppra Keppra level ordered 6. Generalized anxiety disorder continue Xanax 7. History of a AICD for cardiomyopathy. Per cardiology device. Gated no arrh ythmias found continue aspirin and Plavix and Lipitor 8. History of previous IV drug abuse 9. History of hepatitis B 10. History of hyperlipidemia maintained on statin 11. History of essential hypertension 12. History of closed head injury 13. Urinary tract infection. Urine culture was positive for Klebsiella. Patient pleaded treatment with 5 days of Bactrim 14. Bilateral knee pain. X-ray of bilateral knees ordered 15. Chronic systolic congestive heart failure. 2-D echo completed showing an EF of 20-25% with global hypokinesis 16. Depression with Suicidal ideation. Psychiatry services have been consulted 17. Acute kidney injury. Initial creatinine elevated at 1.49 has improved lisinopril DC'd. Creatinine improving to 0.85 bun 30 18. Hyperkalemia. Potassium 5.6. Patient did receive Kayexalate repeat potassium 4.6 DVT prophylaxis heparin. GI prophylaxis Pepcid Social work following for legal guardianship and placement upon discharge I performed an examination of the patient and discussed their management with the Nurse Practitioner. I have reviewed the Nurse Practitioner's notes and agree with the documented findings and plan of care
--- NOTE | 2019-02-27 14:44 | CONS ---
DATE OF SERVICE: 02/27/2019 CONSULTATION PURPOSE FOR CONSULTATION: Evaluate for altered mental status and statements about suicide. INTERVAL HISTORY: The patient was seen in consultation on 02/25/[address] Casey who documented that the patient had made some statements regarding dying and possibly suicide as noted in the consultation. His responses were variable and it was not clear the extent of concern about depression risk for self-harm. Nursing reports that the patient has been doing fairly well. There is a question about some issues of dementia. However, the patient seems to be quite aware of his treatment issues. The nurse gave as an example that he spontaneously asked about when his heparin treatment was due, the patient has an odd way of communicating some of the time. He will respond in very vague terms and is not always clear what he is saying, though then at other times he can be very direct and clear, not only in his thoughts, but speech production as well. When I talked to him today, his only concern was that he thinks he is getting too many medications. He was reporting no problems with thoughts of harming himself. It was difficult to get reliable information about family and his home situation. It is noted that the patient is described as having "slurred speech." As Dr. Knight documented, some issues of slurred speech have been part of his baseline as reported by his PCP and it is also noted that sometimes he can articulate quite clearly with no speech difficulties at all. MENTAL STATUS: Patient was lying in bed. He gave fair eye contact. As noted above, sometimes he would talk slowly in a soft almost mumbled voice, at other times he expressed himself more clearly. There were a few times where he spoke in an absolutely clear voice. For the most part he stayed on track with the conversation, though there were times where it seemed as if he might be somewhat distracted by some tangential thoughts. His affect was somewhat constricted. His mood quiet. He did not appear to be distressed. On cognitive exam, he was oriented x3 and alert. He knew his current circumstances and recent memory appeared to be intact. ASSESSMENT: It does not appear that the patient is at risk for self-harm. I recommend discontinuing one-on-one monitoring. From a psychiatric standpoint, it does not appear that he is in need of any significant intervention. He is prescribed Xanax p.r.n. I will discontinue Xanax. Xanax may aggravate memory issues, speech problems and have other negative cognitive affects. I will prescribe Zyprexa 2.5 mg 3 times a day p.r.n. for the patient if he does have anxiety or agitation, I would wonder whether he would be appropriate for a rehabilitation referral. MMDARIUS / IJN: [id number] / PATTY
[2019-02-27] MEDS: ATORVASTATIN 80 MG TAB PO SCH (20:15)
[2019-02-27] MEDS: OLANZapine 2.5 MG TAB PO PRN (20:15)
[2019-02-28] MEDS: HEPARIN SODIUM,PORCINE 5,000 UNIT/ML 1 ML VIAL SQ SCH ×2 (08:07→20:46)
[2019-02-28] MEDS: NICOTINE 21MG/24HR PATCH TRANSDERM SCH (08:07)
[2019-02-28] MEDS: FAMOTIDINE 20 MG TAB PO SCH (08:07)
[2019-02-28] MEDS: ASPIRIN 81 MG PO SCH (08:08)
[2019-02-28] MEDS: CLOPIDOGREL 75 MG TAB PO SCH (08:08)
[2019-02-28] MEDS: CARVEDILOL 6.25 MG TAB PO SCH ×2 (08:08→16:50)
[2019-02-28] MEDS: ACETAMINOPHEN TAB 325 MG TAB PO PRN ×2 (08:12→20:50)
[2019-02-28 09:26] LABS: Basophils % (A) 1 %; Eosinophils # (A) 0.1 k/uL (0-0.7); Eosinophils % (A) 1 %; HCT 37.7 % (39.0-53.0); HGB 12.3 gm/dL (13.0-17.5); Lymphocytes # (A) 1.4 k/uL (1.0-4.8); Lymphocytes % (A) 19 %; MCH 31.7 pg (25.0-35.0); MCHC 32.5 g/dL (31.0-37.0); MCV 97.4 fL (80.0-100.0); Mean Platelet Volume 7.1; Monocytes # (A) 0.7 k/uL (0-1.0); Monocytes % (A) 9 %; Neutrophils # (A) 5.1 k/uL (1.3-7.7); Neutrophils % (A) 68 %; Platelet Count 142 k/uL (150-450); RBC 3.87 m/uL (4.30-5.90); RDW 13.2 % (11.5-15.5); WBC 7.4 k/uL (3.8-10.6)
[2019-02-28 09:40] LABS: ALT 66 U/L (21-72); AST 56 U/L (17-59); African American GFR (CKD) >90 (>60 ml/min/1.73 sqM); Albumin 4.2 g/dL (3.5-5.0); Alkaline Phosphatase 68 U/L (38-126); Anion Gap 12 mmol/L; Blood Urea Nitrogen 26 mg/dL (9-20); Calcium 9.6 mg/dL (8.4-10.2); Carbon Dioxide 23 mmol/L (22-30); Chloride 103 mmol/L (98-107); Glucose 107 mg/dL (74-99); Potassium 4.3 mmol/L (3.5-5.1); Sodium 138 mmol/L (137-145); Total Bilirubin 0.5 mg/dL (0.2-1.3); Total Protein 7.6 g/dL (6.3-8.2)
--- NOTE | 2019-02-28 11:52 | P.PN ---
Subjective Progress Note Date: 02/28/19 This is a 68-year-old male patient who presented with complaints of fall and slurred speech. Patient is a poor historian. According to ER report patient was crossing the street when a bystander witnessed him fall to his knees. Patient was brought to the ER for further evaluation. Patient does have a significant past medical history for CVA, seizure disorder, heart failure, previous IV drug abuser, coronary artery disease, hyperlipidemia, hypertension, myocardial infections, osteoporosis, pneumonia, AICD and ex-smoker. CT of head and cervical spine completed showing no acute fracture or dislocation evident in the cervical spine. Showed subacute infarct. Underlying chronic small vessel ischemia with areas multiple prior infarction. Pelvis x-ray completed showing no acute fracture. Chest x-ray completed using COPD. EKG completed showing normal sinus rhythm, left axis. Incomplete left bundle branch block. This time patient is resting comfortably in bed. Difficult to obtain history of ovarian due to patient's known baseline of slurred speech per PCP. At this time patient denies any chest pain or shortness of breath. Patient denies nausea vomiting or diarrhea. Patient denies any urinary burning or frequency. Neurology services have been consulted. On 02/15/2019 patient is currently resting comfortably in bed. Patient is awake and alert. UA positive for urinary tract infection patient started on Rocephin urine culture ordered. Neurology recommending cardiology consult to address possible embolic phenomenon causing strokes. At this time patient is complaining of bilateral knee discomfort. X-rays will be ordered. Patient denies chest pain or shortness breath. Patient denies nausea vomiting diarrhea. Social work is on consult possible guardianship in [facility] 02/16-02/25 On 02/26/2019 patient is currently resting comfortably in bed. antichecking iron worker is at bedside. Patient is being followed by site due to suicidal ideation. C reatinine did improve to 1.08 and bun 47. Potassium 4.6 at this time patient denies chest pain or shortness of breath. Patient denies nausea vomiting or diarrhea. Patient denies any urinary burning or frequency On 02/27/2019 patient is resting comfortably in bed. antichecking iron worker remains at bedside. Discussed case with social organization professor Latrice. Per social organization professor awaiting legal guardian to find placement for patient. Also awaiting psych to evaluate for possible inpatient psychiatry services. This time patient denies chest pain or shortness of breath. Patient denies nausea vomiting or diarrhea. Patient denies any urinary burning or frequency. On 02/28/2019 patient was reevaluated by psychiatry services. Suicide precautions removed. Patient has been cleared by psych. Awaiting social work and [facility] for placement for discharge. Patient denies any chest pain or shortness of breath. Patient denies nausea vomiting or diarrhea. Patient denies any urinary burning or frequency. Objective - Vital Signs Vital signs: Vital Signs Temp 98.4 F 02/28/19 04:35 Pulse 70 02/28/19 04:35 Resp 18 02/28/19 08:00 BP 116/74 02/28/19 04:35 Pulse Ox 96 02/28/19 04:35 Intake & Output 02/27/19 02/28/19 02/28/19 18:59 06:59 18:59 Intake Total 300 Output Total 350 Balance -50 Weight 52.5 kg Intake: Oral 300 Output: Urine 350 Other: Voiding Method Toilet Toilet Urinal Urinal # Voids 2 1 - Exam Head normocephalic Neck supple Lungs clear to auscultation bilaterally no wheezing or crackles Heart regular rate and rhythm S1-S2, no rub or gallop Abdomen is soft nontender nondistended positive bowel sounds no h epatosplenomegaly Extremities no edema Neuro slurred speech. Poor historian. Alert and oriented 2. Able to follow commands - Labs CBC & Chem 7: 02/28/19 09:00 02/28/19 09:00 Labs: Abnormal Lab Results - Last 24 Hours (Table) 02/28/19 02/28/19 Range/Units 09:00 09:00 RBC 3.87 L (4.30-5.90) m/uL Hgb 12.3 L (13.0-17.5) gm/dL Hct 37.7 L (39.0-53.0) % Plt Count 142 L (150-450) k/uL BUN 26 H (9-20) mg/dL Glucose 107 H (74-99) mg/dL Assessment and Plan Assessment: 1. Fall with altered mental status related to multiple CVAs in bilateral anterior and posterior circulations. Head and cervical spine CT completed showing no acute fracture-dislocation evident in the cervical spine. Subacute infarct. Underlying chronic small vessel ischemia with areas multiple prior infarction. Neurology services have been consulted. MRI cannot be obtained due to AICD. CTA completed showing the nondominant left retrievable artery shows moderate to severe segmental narrowing of the V4 intracranial segment otherwise no large vessel intracranial arterial occlusion or aneurysmal changes seen. 2-D echo completed showing an EF between 20 and 25%. EKG completed showing normal awake EEG without background asymmetry or epileptiform discharges. Per neurology probably vascular dementia seen on head CT. Patient has been cleared for discharge from neurology standpoint. Patient to follow-up with neurology services 1-2 weeks after discharge 2. History of previous CVA with residual expressive aphasia. Maintain on Plavix 3. History of coronary artery disease 4. History of closed head injury 5. History of seizures. Continue Keppra Keppra level ordered 6. Generalized anxiety disorder continue Xanax 7. History of a AICD for cardiomyopathy. Per cardiology device. Gated no arrhythmias found continue aspirin and Plavix and Lipitor 8. History of previous IV drug abuse 9. History of hepatitis B 10. History of hyperlipidemia maintained on statin 11. History of essential hypertension 12. History of closed head injury 13. Urinary tract infection. Urine culture was positive for Klebsiella. Patient pleaded treatment with 5 days of Bactrim 14. Bilateral knee pain. X-ray of bilateral knees ordered 15. Chronic systolic congestive heart failure. 2-D echo completed showing an EF of 20-25% with global hypokinesis 16. Depression with Suicidal ideation. Per psychiatry patient is no longer a risk to himself patient has been taken out of suicide precautions. Patient has been cleared for discharge from psychiatry 17. Acute kidney injury. Initial creatinine elevated at 1.49 has improved lisinopril DC'd. Creatinine improving to 0.85 bun 30 18. Hyperkalemia. Potassium 5.6. Patient did receive Kayexalate repeat potassium 4.6 DVT prophylaxis heparin. GI prophylaxis Pepcid Social work following for legal guardianship and placement upon discharge I performed an examination of the patient and discussed their management with the Nurse Practitioner. I have reviewed the Nurse Practitioner's notes and agree with the documented findings and plan of care
[2019-02-28] MEDS: ATORVASTATIN 80 MG TAB PO SCH (20:46)
[2019-02-28] MEDS: OLANZapine 2.5 MG TAB PO PRN (20:51)
[2019-03-01] MEDS: ASPIRIN 81 MG PO SCH (09:13)
[2019-03-01] MEDS: FAMOTIDINE 20 MG TAB PO SCH (09:13)
[2019-03-01] MEDS: CARVEDILOL 6.25 MG TAB PO SCH ×2 (09:13→17:44)
[2019-03-01] MEDS: CLOPIDOGREL 75 MG TAB PO SCH (09:14)
[2019-03-01] MEDS: NICOTINE 21MG/24HR PATCH TRANSDERM SCH (09:14)
[2019-03-01] MEDS: HEPARIN SODIUM,PORCINE 5,000 UNIT/ML 1 ML VIAL SQ SCH ×3 (09:14→20:17)
[2019-03-01 09:48] LABS: Basophils % (A) 0 %; Eosinophils # (A) 0.1 k/uL (0-0.7); Eosinophils % (A) 1 %; HCT 40.5 % (39.0-53.0); HGB 13.4 gm/dL (13.0-17.5); Lymphocytes # (A) 1.6 k/uL (1.0-4.8); Lymphocytes % (A) 15 %; MCHC 33.1 g/dL (31.0-37.0); MCV 96.8 fL (80.0-100.0); Mean Platelet Volume 7.1; Monocytes # (A) 0.7 k/uL (0-1.0); Monocytes % (A) 6 %; Neutrophils # (A) 8.1 k/uL (1.3-7.7); Neutrophils % (A) 75 %; Platelet Count 150 k/uL (150-450); RBC 4.18 m/uL (4.30-5.90); RDW 12.8 % (11.5-15.5); WBC 10.7 k/uL (3.8-10.6)
[2019-03-01 10:01] LABS: ALT 79 U/L (21-72); AST 64 U/L (17-59); African American GFR (CKD) >90 (>60 ml/min/1.73 sqM); Albumin 4.6 g/dL (3.5-5.0); Alkaline Phosphatase 66 U/L (38-126); Anion Gap 13 mmol/L; Blood Urea Nitrogen 30 mg/dL (9-20); Calcium 10.2 mg/dL (8.4-10.2); Carbon Dioxide 26 mmol/L (22-30); Chloride 100 mmol/L (98-107); Glucose 121 mg/dL (74-99); Potassium 4.1 mmol/L (3.5-5.1); Sodium 139 mmol/L (137-145); Total Bilirubin 0.4 mg/dL (0.2-1.3); Total Protein 8.1 g/dL (6.3-8.2)
--- NOTE | 2019-03-01 11:27 | P.PN ---
Subjective Progress Note Date: 03/01/19 This is a 68-year-old male patient who presented with complaints of fall and slurred speech. Patient is a poor historian. According to ER report patient was crossing the street when a bystander witnessed him fall to his knees. Patient was brought to the ER for further evaluation. Patient does have a significant past medical history for CVA, seizure disorder, heart failure, previous IV drug abuser, coronary artery disease, hyperlipidemia, hypertension, myocardial infections, osteoporosis, pneumonia, AICD and ex-smoker. CT of head and cervical spine completed showing no acute fracture or dislocation evident in the cervical spine. Showed subacute infarct. Underlying chronic small vessel ischemia with areas multiple prior infarction. Pelvis x-ray completed showing no acute fracture. Chest x-ray completed using COPD. EKG completed showing normal sinus rhythm, left axis. Incomplete left bundle branch block. This time patient is resting comfortably in bed. Difficult to obtain history of ovarian due to patient's known baseline of slurred speech per PCP. At this time patient denies any chest pain or shortness of breath. Patient denies nausea vomiting or diarrhea. Patient denies any urinary burning or frequency. Neurology services have been consulted. On 02/15/2019 patient is currently resting comfortably in bed. Patient is awake and alert. UA positive for urinary tract infection patient started on Rocephin urine culture ordered. Neurology recommending cardiology consult to address possible embolic phenomenon causing strokes. At this time patient is complaining of bilateral knee discomfort. X-rays will be ordered. Patient denies chest pain or shortness breath. Patient denies nausea vomiting diarrhea. Social work is on consult possible guardianship in [facility] 02/16-02/25 On 02/26/2019 patient is currently resting comfortably in bed. assisted sales representative is at bedside. Patient is being followed by site due to suicidal ideation. C reatinine did improve to 1.08 and bun 47. Potassium 4.6 at this time patient denies chest pain or shortness of breath. Patient denies nausea vomiting or diarrhea. Patient denies any urinary burning or frequency On 02/27/2019 patient is resting comfortably in bed. assisted sales representative remains at bedside. Discussed case with elementary school social worker Latrice. Per elementary school social worker awaiting legal guardian to find placement for patient. Also awaiting psych to evaluate for possible inpatient psychiatry services. This time patient denies chest pain or shortness of breath. Patient denies nausea vomiting or diarrhea. Patient denies any urinary burning or frequency. On 02/28/2019 patient was reevaluated by psychiatry services. Suicide precautions removed. Patient has been cleared by psych. Awaiting social work and [facility]PO[facility] for placement for discharge. Patient denies any chest pain or shortness of breath. Patient denies nausea vomiting or diarrhea. Patient denies any urinary burning or frequency. On 03/01/2019 patient is currently resting comfortably in bed cuff case with elementary school social worker still awaiting placement at [facility] facility per legal guardian. Patient denies chest pain or shortness of breath. Patient denies nausea vomiting or diarrhea. Patient denies any urinary burning or frequency. Objective - Vital Signs Vital signs: Vital Signs Temp 97.6 F 03/01/19 05:00 Pulse 72 03/01/19 05:00 Resp 15 03/01/19 05:00 BP 125/81 03/01/19 05:00 Pulse Ox 98 03/01/19 05:00 Intake & Output 02/28/19 03/01/19 03/01/19 18:59 06:59 18:59 Intake Total 220 Output Total 450 Balance -230 Weight 52.5 kg 52 kg Intake: Oral 220 Output: Urine 450 Other: Voiding Method Toilet Toilet Urinal Urinal # Voids 3 - Exam Head normocephalic Neck supple Lungs clear to auscultation bilaterally no wheezing or crackles Heart regular rate and rhythm S1-S2, no rub or gallop Abdomen is soft nontender nondistended positive bowel sounds no hepatosplenomegaly Extremities no edema Neuro slurred speech. Poor historian. Alert and oriented 2. Able to follow commands - Labs CBC & Chem 7: 03/01/19 09:16 03/01/19 09:16 Labs: Abnormal Lab Results - Last 24 Hours (Table) 03/01/19 03/01/19 Range/Units 09:16 09:16 WBC 10.7 H (3.8-10.6) k/uL RBC 4.18 L (4.30-5.90) m/uL Neutrophils # 8.1 H (1.3-7.7) k/uL BUN 30 H (9-20) mg/dL Glucose 121 H (74-99) mg/dL AST 64 H (17-59) U/L ALT 79 H (21-72) U/L Assessment and Plan Assessment: 1. Fall with altered mental status related to multiple CVAs in bilateral anterior and posterior circulations. Head and cervical spine CT completed showing no acute fracture-dislocation evident in the cervical spine. Subacute infarct. Underlying chronic small vessel ischemia with areas multiple prior infarction. Neurology services have been consulted. MRI cannot be obtained due to AICD. CTA completed showing the nondominant left retrievable artery shows moderate to severe segmental narrowing of the V4 intracranial segment otherwise no large vessel intracranial arterial occlusion or aneurysmal changes seen. 2-D echo completed showing an EF between 20 and 25%. EKG completed showing normal awake EEG without background asymmetry or epileptiform discharges. Per neurology probably vascular dementia seen on head CT. Patient has been cleared for discharge from neurology standpoint. Patient to follow-up with neurology services 1-2 weeks after discharge 2. History of previous CVA with residual expressive aphasia. Maintain on Plavix 3. History of coronary artery disease 4. History of closed head injury 5. History of seizures. Continue Keppra Keppra level ordered 6. Generalized anxiety disorder continue Xanax 7. History of a AICD for cardiomyopathy. Per cardiology device. Gated no arrhythmias found continue aspirin and Plavix and Lipitor 8. History of previous IV drug abuse 9. History of hepatitis B 10. History of hyperlipidemia maintained on statin 11. History of essential hypertension 12. History of closed head injury 13. Urinary tract infection. Urine culture was positive for Klebsiella. Patient pleaded treatment with 5 days of Bactrim 14. Bilateral knee pain. X-ray of bilateral knees completed consideration for crystal deposition arthroplasty, osteoarthritis 15. Chronic systolic congestive heart failure. 2-D echo completed showing an EF of 20-25% with global hypokinesis 16. Depression with Suicidal ideation. Per psychiatry patient is no longer a risk to himself patient has been taken out of suicide precautions. Patient has been cleared for discharge from psychiatry 17. Acute kidney injury. Initial creatinine elevated at 1.49 has improved lisinopril DC'd. Creatinine improving to 0.85 bun 30 18. Hyperkalemia. Potassium 5.6. Patient did receive Kayexalate repeat potassium 4.6 DVT prophylaxis heparin. GI prophylaxis Pepcid Awaiting the [facility] placement per legal guardian. Discussed with elementary school social worker Latrice I performed an examination of the patient and discussed their management with the Nurse Practitioner. I have reviewed the Nurse Practitioner's notes and agree with the documented findings and plan of care
[2019-03-01] MEDS: ACETAMINOPHEN TAB 325 MG TAB PO PRN (11:33)
[2019-03-01] MEDS: ATORVASTATIN 80 MG TAB PO SCH (20:11)
[2019-03-02] MEDS: CLOPIDOGREL 75 MG TAB PO SCH (09:15)
[2019-03-02] MEDS: CARVEDILOL 6.25 MG TAB PO SCH ×2 (09:15→17:08)
[2019-03-02] MEDS: ACETAMINOPHEN TAB 325 MG TAB PO PRN (09:15)
[2019-03-02] MEDS: FAMOTIDINE 20 MG TAB PO SCH (09:15)
[2019-03-02] MEDS: HEPARIN SODIUM,PORCINE 5,000 UNIT/ML 1 ML VIAL SQ SCH ×2 (09:15→22:04)
[2019-03-02] MEDS: ASPIRIN 81 MG PO SCH (09:15)
[2019-03-02] MEDS: NICOTINE 21MG/24HR PATCH TRANSDERM SCH (09:16)
--- NOTE | 2019-03-02 09:48 | P.PN ---
Subjective Progress Note Date: 03/02/19 This is a 68-year-old male patient who presented with complaints of fall and slurred speech. Patient is a poor historian. According to ER report patient was crossing the street when a bystander witnessed him fall to his knees. Patient was brought to the ER for further evaluation. Patient does have a significant past medical history for CVA, seizure disorder, heart failure, previous IV drug abuser, coronary artery disease, hyperlipidemia, hypertension, myocardial infections, osteoporosis, pneumonia, AICD and ex-smoker. CT of head and cervical spine completed showing no acute fracture or dislocation evident in the cervical spine. Showed subacute infarct. Underlying chronic small vessel ischemia with areas multiple prior infarction. Pelvis x-ray completed showing no acute fracture. Chest x-ray completed using COPD. EKG completed showing normal sinus rhythm, left axis. Incomplete left bundle branch block. This time patient is resting comfortably in bed. Difficult to obtain history of ovarian due to patient's known baseline of slurred speech per PCP. At this time patient denies any chest pain or shortness of breath. Patient denies nausea vomiting or diarrhea. Patient denies any urinary burning or frequency. Neurology services have been consulted. On 02/15/2019 patient is currently resting comfortably in bed. Patient is awake and alert. UA positive for urinary tract infection patient started on Rocephin urine culture ordered. Neurology recommending cardiology consult to address possible embolic phenomenon causing strokes. At this time patient is complaining of bilateral knee discomfort. X-rays will be ordered. Patient denies chest pain or shortness breath. Patient denies nausea vomiting diarrhea. Social work is on consult possible guardianship in [facility] 02/16-02/25 On 02/26/2019 patient is currently resting comfortably in bed. assembler ping pong table is at bedside. Patient is being followed by site due to suicidal ideation. C reatinine did improve to 1.08 and bun 47. Potassium 4.6 at this time patient denies chest pain or shortness of breath. Patient denies nausea vomiting or diarrhea. Patient denies any urinary burning or frequency On 02/27/2019 patient is resting comfortably in bed. assembler ping pong table remains at bedside. Discussed case with oncology social worker Latrice. Per oncology social worker awaiting legal guardian to find placement for patient. Also awaiting psych to evaluate for possible inpatient psychiatry services. This time patient denies chest pain or shortness of breath. Patient denies nausea vomiting or diarrhea. Patient denies any urinary burning or frequency. On 02/28/2019 patient was reevaluated by psychiatry services. Suicide precautions removed. Patient has been cleared by psych. Awaiting social work and DPO[facility] for placement for discharge. Patient denies any chest pain or shortness of breath. Patient denies nausea vomiting or diarrhea. Patient denies any urinary burning or frequency. On 03/01/2019 patient is currently resting comfortably in bed cuff case with oncology social worker still awaiting placement at [facility] facility per legal guardian. Patient denies chest pain or shortness of breath. Patient denies nausea vomiting or diarrhea. Patient denies any urinary burning or frequency. On 03/02/2019 patient is currently resting comfortably in bed. Patient denies any chest pain or shortness of breath. Patient denies nausea vomiting diarrhea. Patient denies any urinary burning or frequency. Awaiting [facility] placement per legal guardian Objective - Vital Signs Vital signs: Vital Signs Temp 98.2 F 03/02/19 05:00 Pulse 66 03/02/19 05:00 Resp 18 03/02/19 05:00 BP 124/81 03/02/19 05:00 Pulse Ox 96 03/02/19 05:00 Intake & Output 03/01/19 03/02/19 03/02/19 18:59 06:59 18:59 Intake Total 700 Balance 700 Weight 50 kg Intake: Oral 700 Other: Voiding Method Toilet Urinal # Voids 3 1 - Exam Head normocephalic Neck supple Lungs clear to auscultation bilaterally no wheezing or crackles Heart regular rate and rhythm S1-S2, no rub or gallop Abdomen is soft nontender nondistended positive bowel sounds no hepatospleno megaly Extremities no edema Neuro slurred speech. Poor historian. Alert and oriented 2. Able to follow commands - Labs CBC & Chem 7: 03/01/19 09:16 03/01/19 09:16 Labs: Abnormal Lab Results - Last 24 Hours (Table) 03/01/19 03/01/19 Range/Units 09:16 09:16 WBC 10.7 H (3.8-10.6) k/uL RBC 4.18 L (4.30-5.90) m/uL Neutrophils # 8.1 H (1.3-7.7) k/uL BUN 30 H (9-20) mg/dL Glucose 121 H (74-99) mg/dL AST 64 H (17-59) U/L ALT 79 H (21-72) U/L Assessment and Plan Assessment: 1. Fall with altered mental status related to multiple CVAs in bilateral anterior and posterior circulations. Head and cervical spine CT completed showing no acute fracture-dislocation evident in the cervical spine. Subacute infarct. Underlying chronic small vessel ischemia with areas multiple prior infarction. Neurology services have been consulted. MRI cannot be obtained due to AICD. CTA completed showing the nondominant left retrievable artery shows moderate to severe segmental narrowing of the V4 intracranial segment otherwise no large vessel intracranial arterial occlusion or aneurysmal changes seen. 2-D echo completed showing an EF between 20 and 25%. EKG completed showing normal awake EEG without background asymmetry or epileptiform discharges. Per neurology probably vascular dementia seen on head CT. Patient has been cleared for discharge from neurology standpoint. Patient to follow-up with neurology services 1-2 weeks after discharge 2. History of previous CVA with residual expressive aphasia. Maintain on Plavix 3. History of coronary artery disease 4. History of closed head injury 5. History of seizures. Continue Keppra Keppra level ordered 6. Generalized anxiety disorder continue Xanax 7. History of a AICD for cardiomyopathy. Per cardiology device. no arrhythmias found continue aspirin and Plavix and Lipitor 8. History of previous IV drug abuse 9. History of hepatitis B 10. History of hyperlipidemia maintained on statin 11. History of essential hypertension 12. History of closed head injury 13. Urinary tract infection. Urine culture was positive for Klebsiella. Patient pleaded treatment with 5 days of Bactrim 14. Bilateral knee pain. X-ray of bilateral knees completed consideration for crystal deposition arthroplasty, osteoarthritis 15. Chronic systolic congestive heart failure. 2-D echo completed showing an EF of 20-25% with global hypokinesis 16. Depression with Suicidal ideation. Per psychiatry patient is no longer a risk to himself patient has been taken out of suicide precautions. Patient has been cleared for discharge from psychiatry 17. Acute kidney injury. Initial creatinine elevated at 1.49 has improved lisinopril DC'd. Creatinine improving to 0.85 bun 30 18. Hyperkalemia. Potassium 5.6. Patient did receive Kayexalate repeat potassium 4.6 DVT prophylaxis heparin. GI prophylaxis Pepcid Awaiting the [facility] placement per legal guardian. Discussed with oncology social worker Latrice I performed an examination of the patient and discussed their management with the Nurse Practitioner. I have reviewed the Nurse Practitioner's notes and agree with the documented findings and plan of care
[2019-03-02 10:19] LABS: Basophils % (A) 0 %; Eosinophils # (A) 0.1 k/uL (0-0.7); Eosinophils % (A) 1 %; HCT 38.5 % (39.0-53.0); HGB 13.1 gm/dL (13.0-17.5); Lymphocytes # (A) 1.7 k/uL (1.0-4.8); Lymphocytes % (A) 16 %; MCH 32.4 pg (25.0-35.0); MCHC 34.1 g/dL (31.0-37.0); MCV 95.1 fL (80.0-100.0); Mean Platelet Volume 7.3; Monocytes # (A) 0.8 k/uL (0-1.0); Monocytes % (A) 8 %; Neutrophils # (A) 7.8 k/uL (1.3-7.7); Neutrophils % (A) 74 %; Platelet Count 165 k/uL (150-450); RBC 4.05 m/uL (4.30-5.90); RDW 14.8 % (11.5-15.5); WBC 10.7 k/uL (3.8-10.6)
[2019-03-02 11:23] LABS: ALT 81 U/L (21-72); AST 63 U/L (17-59); African American GFR (CKD) >90 (>60 ml/min/1.73 sqM); Albumin 4.5 g/dL (3.5-5.0); Alkaline Phosphatase 66 U/L (38-126); Anion Gap 13 mmol/L; Blood Urea Nitrogen 36 mg/dL (9-20); Calcium 10.2 mg/dL (8.4-10.2); Carbon Dioxide 26 mmol/L (22-30); Chloride 100 mmol/L (98-107); Glucose 114 mg/dL (74-99); Potassium 4.5 mmol/L (3.5-5.1); Sodium 139 mmol/L (137-145); Total Bilirubin 0.4 mg/dL (0.2-1.3); Uric Acid 5.8 mg/dL (3.5-8.5)
[2019-03-02] MEDS: ATORVASTATIN 10 MG TAB PO SCH (22:04)
[2019-03-03] MEDS: CLOPIDOGREL 75 MG TAB PO SCH (07:17)
[2019-03-03] MEDS: FAMOTIDINE 20 MG TAB PO SCH (07:17)
[2019-03-03] MEDS: CARVEDILOL 6.25 MG TAB PO SCH ×2 (07:17→17:13)
[2019-03-03] MEDS: HEPARIN SODIUM,PORCINE 5,000 UNIT/ML 1 ML VIAL SQ SCH ×2 (07:17→20:29)
[2019-03-03] MEDS: ASPIRIN 81 MG PO SCH (07:17)
[2019-03-03] MEDS: NICOTINE 21MG/24HR PATCH TRANSDERM SCH (07:18)
[2019-03-03 08:10] LABS: Basophils # (A) 0.1 k/uL (0-0.2); Basophils % (A) 1 %; Eosinophils # (A) 0.1 k/uL (0-0.7); Eosinophils % (A) 1 %; HCT 41.5 % (39.0-53.0); HGB 13.9 gm/dL (13.0-17.5); Lymphocytes # (A) 2.3 k/uL (1.0-4.8); Lymphocytes % (A) 24 %; MCH 32.7 pg (25.0-35.0); MCHC 33.6 g/dL (31.0-37.0); MCV 97.6 fL (80.0-100.0); Mean Platelet Volume 7.3; Monocytes # (A) 0.6 k/uL (0-1.0); Monocytes % (A) 6 %; Neutrophils # (A) 6.3 k/uL (1.3-7.7); Neutrophils % (A) 65 %; Platelet Count 178 k/uL (150-450); RBC 4.25 m/uL (4.30-5.90); RDW 14.3 % (11.5-15.5); WBC 9.6 k/uL (3.8-10.6)
[2019-03-03 08:27] LABS: ALT 78 U/L (21-72); AST 67 U/L (17-59); African American GFR (CKD) >90 (>60 ml/min/1.73 sqM); Albumin 4.9 g/dL (3.5-5.0); Alkaline Phosphatase 73 U/L (38-126); Anion Gap 14 mmol/L; Blood Urea Nitrogen 47 mg/dL (9-20); Calcium 10.8 mg/dL (8.4-10.2); Carbon Dioxide 28 mmol/L (22-30); Chloride 99 mmol/L (98-107); Glucose 122 mg/dL (74-99); Potassium 4.5 mmol/L (3.5-5.1); Sodium 141 mmol/L (137-145); Total Bilirubin 0.4 mg/dL (0.2-1.3); Total Protein 8.7 g/dL (6.3-8.2)
--- NOTE | 2019-03-03 13:02 | P.PN ---
Subjective Progress Note Date: 03/03/19 This is a 68-year-old male patient who presented with complaints of fall and slurred speech. Patient is a poor historian. According to ER report patient was crossing the street when a bystander witnessed him fall to his knees. Patient was brought to the ER for further evaluation. Patient does have a significant past medical history for CVA, seizure disorder, heart failure, previous IV drug abuser, coronary artery disease, hyperlipidemia, hypertension, myocardial infections, osteoporosis, pneumonia, AICD and ex-smoker. CT of head and cervical spine completed showing no acute fracture or dislocation evident in the cervical spine. Showed subacute infarct. Underlying chronic small vessel ischemia with areas multiple prior infarction. Pelvis x-ray completed showing no acute fracture. Chest x-ray completed using COPD. EKG completed showing normal sinus rhythm, left axis. Incomplete left bundle branch block. This time patient is resting comfortably in bed. Difficult to obtain history of ovarian due to patient's known baseline of slurred speech per PCP. At this time patient denies any chest pain or shortness of breath. Patient denies nausea vomiting or diarrhea. Patient denies any urinary burning or frequency. Neurology services have been consulted. On 02/15/2019 patient is currently resting comfortably in bed. Patient is awake and alert. UA positive for urinary tract infection patient started on Rocephin urine culture ordered. Neurology recommending cardiology consult to address possible embolic phenomenon causing strokes. At this time patient is complaining of bilateral knee discomfort. X-rays will be ordered. Patient denies chest pain or shortness breath. Patient denies nausea vomiting diarrhea. Social work is on consult possible guardianship in [facility] 02/16-02/25 On 02/26/2019 patient is currently resting comfortably in bed. airplane engineer is at bedside. Patient is being followed by site due to suicidal ideation. C reatinine did improve to 1.08 and bun 47. Potassium 4.6 at this time patient denies chest pain or shortness of breath. Patient denies nausea vomiting or diarrhea. Patient denies any urinary burning or frequency On 02/27/2019 patient is resting comfortably in bed. airplane engineer remains at bedside. Discussed case with social services technician Latrice. Per social services technician awaiting legal guardian to find placement for patient. Also awaiting psych to evaluate for possible inpatient psychiatry services. This time patient denies chest pain or shortness of breath. Patient denies nausea vomiting or diarrhea. Patient denies any urinary burning or frequency. On 02/28/2019 patient was reevaluated by psychiatry services. Suicide precautions removed. Patient has been cleared by psych. Awaiting social work and DPOAE for placement for discharge. Patient denies any chest pain or shortness of breath. Patient denies nausea vomiting or diarrhea. Patient denies any urinary burning or frequency. On 03/01/2019 patient is currently resting comfortably in bed cuff case with social services technician still awaiting placement at [facility] facility per legal guardian. Patient denies chest pain or shortness of breath. Patient denies nausea vomiting or diarrhea. Patient denies any urinary burning or frequency. On 03/02/2019 patient is currently resting comfortably in bed. Patient denies any chest pain or shortness of breath. Patient denies nausea vomiting diarrhea. Patient denies any urinary burning or frequency. Awaiting [facility] placement per legal guardian On 03/03/2019 patient was seen and examined on the medical floor he is laying comfortably in bed he denies any complaints, he is eating well, there is no evidence of pain or discomfort no agitation speech is difficult to understand. Objective - Vital Signs Vital signs: Vital Signs Temp 98.1 F 03/03/19 05:00 Pulse 72 03/03/19 05:00 Resp 16 03/03/19 05:00 BP 115/75 03/03/19 05:00 Pulse Ox 95 03/03/19 05:00 Intake & Output 03/02/19 03/03/19 03/03/19 18:59 06:59 18:59 Intake Total 320 Balance 320 Weight 49.5 kg Intake: Oral 320 Other: # Voids 2 1 - Exam In general patient is alert responsive, speech is different to understand, which is chronic Head normocephalic and atraumatic Neck supple no JVD no goiter Lungs clear to auscultation bilaterally no wheezing or crackles Heart regular rate and rhythm S1-S2, no rub or gallop Abdomen is soft nontender nondistended positive bowel sounds no hepatosplenomegaly Extremities no edema no cyanosis or clubbing Neuro No acute neurological deficit Able to follow commands - Labs CBC & Chem 7: 03/03/19 07:32 03/03/19 07:32 Labs: Abnormal Lab Results - Last 24 Hours (Table) 03/03/19 03/03/19 Range/Units 07:32 07:32 RBC 4.25 L (4.30-5.90) m/uL BUN 47 H (9-20) mg/dL Glucose 122 H (74-99) mg/dL Calcium 10.8 H (8.4-10.2) mg/dL AST 67 H (17-59) U/L ALT 78 H (21-72) U/L Total Protein 8.7 H (6.3-8.2) g/dL Assessment and Plan Plan: 1. Fall with altered mental status related to multiple CVAs in bilateral anterior and posterior circulations. Head and cervical spine CT completed showing no acute fracture-dislocation evident in the cervical spine. Subacute infarct. Underlying chronic small vessel ischemia with areas multiple prior infarction. Neurology services have been consulted. MRI cannot be obtained due to AICD. CTA completed showing the nondominant left retrievable artery shows moderate to severe segmental narrowing of the V4 intracranial segment otherwise no large vessel intracranial arterial occlusion or aneurysmal changes seen. 2-D echo completed showing an EF between 20 and 25%. EKG completed showing normal awake EEG without background asymmetry or epileptiform discharges. Per neurology probably vascular dementia seen on head CT. Patient has been cleared for discharge from neurology standpoint. Patient to follow-up with neurology services 1-2 weeks after discharge 2. History of previous CVA with residual expressive aphasia. Maintain on Plavix 3. History of coronary artery disease 4. History of closed head injury 5. History of seizures. Continue Keppra Keppra level ordered 6. Generalized anxiety disorder continue Xanax 7. History of a AICD for cardiomyopathy. Per cardiology device. no arrhythmias found continue aspirin and Plavix and Lipitor 8. History of previous IV drug abuse 9. History of hepatitis B 10. History of hyperlipidemia maintained on statin 11. History of essential hypertension 12. History of closed head injury 13. Urinary tract infection. Urine culture was positive for Klebsiella. Patient pleaded treatment with 5 days of Bactrim 14. Bilateral knee pain. X-ray of bilateral knees completed consideration for crystal deposition arthroplasty, osteoarthritis 15. Chronic systolic congestive heart failure. 2-D echo completed showing an EF of 20-25% with global hypokinesis 16. Depression with Suicidal ideation. Per psychiatry patient is no longer a risk to himself patient has been taken out of suicide precautions. Patient has been cleared for discharge from psychiatry 17. Acute kidney injury. Initial creatinine elevated at 1.49 has improved lisinopril DC'd. Creatinine improving to 0.85 bun 30 18. Hyperkalemia. Potassium 5.6. Patient did receive Kayexalate repeat potassium 4.6 DVT prophylaxis heparin. GI prophylaxis Pepcid Awaiting the [facility] placement per legal guardian. Discussed with social services technician Latrice
[2019-03-03] MEDS: ATORVASTATIN 10 MG TAB PO SCH (20:29)
[2019-03-04] MEDS: NICOTINE 21MG/24HR PATCH TRANSDERM SCH (07:16)
[2019-03-04] MEDS: FAMOTIDINE 20 MG TAB PO SCH (07:17)
[2019-03-04] MEDS: CARVEDILOL 6.25 MG TAB PO SCH ×2 (07:17→17:19)
[2019-03-04] MEDS: ASPIRIN 81 MG PO SCH (07:17)
[2019-03-04] MEDS: CLOPIDOGREL 75 MG TAB PO SCH (07:17)
[2019-03-04] MEDS: HEPARIN SODIUM,PORCINE 5,000 UNIT/ML 1 ML VIAL SQ SCH ×2 (07:18→20:03)
[2019-03-04 08:14] LABS: Basophils # (A) 0.1 k/uL (0-0.2); Basophils % (A) 1 %; Eosinophils # (A) 0.1 k/uL (0-0.7); Eosinophils % (A) 1 %; HCT 40.1 % (39.0-53.0); HGB 13.2 gm/dL (13.0-17.5); Lymphocytes # (A) 2.1 k/uL (1.0-4.8); Lymphocytes % (A) 24 %; MCH 31.7 pg (25.0-35.0); MCHC 32.9 g/dL (31.0-37.0); MCV 96.3 fL (80.0-100.0); Mean Platelet Volume 7.4; Monocytes # (A) 0.6 k/uL (0-1.0); Monocytes % (A) 7 %; Neutrophils # (A) 5.7 k/uL (1.3-7.7); Neutrophils % (A) 65 %; Platelet Count 171 k/uL (150-450); RBC 4.16 m/uL (4.30-5.90); RDW 14.5 % (11.5-15.5); WBC 8.8 k/uL (3.8-10.6)
[2019-03-04 08:48] LABS: ALT 72 U/L (21-72); AST 63 U/L (17-59); African American GFR (CKD) >90 (>60 ml/min/1.73 sqM); Albumin 4.5 g/dL (3.5-5.0); Alkaline Phosphatase 69 U/L (38-126); Anion Gap 13 mmol/L; Blood Urea Nitrogen 45 mg/dL (9-20); Calcium 10.3 mg/dL (8.4-10.2); Carbon Dioxide 27 mmol/L (22-30); Chloride 103 mmol/L (98-107); Glucose 112 mg/dL (74-99); Potassium 4.4 mmol/L (3.5-5.1); Sodium 143 mmol/L (137-145); Total Bilirubin 0.4 mg/dL (0.2-1.3); Total Protein 8.2 g/dL (6.3-8.2)
--- NOTE | 2019-03-04 13:56 | P.PN ---
Subjective Progress Note Date: 03/04/19 This is a 68-year-old male patient who presented with complaints of fall and slurred speech. Patient is a poor historian. According to ER report patient was crossing the street when a bystander witnessed him fall to his knees. Patient was brought to the ER for further evaluation. Patient does have a significant past medical history for CVA, seizure disorder, heart failure, previous IV drug abuser, coronary artery disease, hyperlipidemia, hypertension, myocardial infections, osteoporosis, pneumonia, AICD and ex-smoker. CT of head and cervical spine completed showing no acute fracture or dislocation evident in the cervical spine. Showed subacute infarct. Underlying chronic small vessel ischemia with areas multiple prior infarction. Pelvis x-ray completed showing no acute fracture. Chest x-ray completed using COPD. EKG completed showing normal sinus rhythm, left axis. Incomplete left bundle branch block. This time patient is resting comfortably in bed. Difficult to obtain history of ovarian due to patient's known baseline of slurred speech per PCP. At this time patient denies any chest pain or shortness of breath. Patient denies nausea vomiting or diarrhea. Patient denies any urinary burning or frequency. Neurology services have been consulted. On 02/15/2019 patient is currently resting comfortably in bed. Patient is awake and alert. UA positive for urinary tract infection patient started on Rocephin urine culture ordered. Neurology recommending cardiology consult to address possible embolic phenomenon causing strokes. At this time patient is complaining of bilateral knee discomfort. X-rays will be ordered. Patient denies chest pain or shortness breath. Patient denies nausea vomiting diarrhea. Social work is on consult possible guardianship in [facility] 02/16-02/25 On 02/26/2019 patient is currently resting comfortably in bed. detective chief is at bedside. Patient is being followed by site due to suicidal ideation. C reatinine did improve to 1.08 and bun 47. Potassium 4.6 at this time patient denies chest pain or shortness of breath. Patient denies nausea vomiting or diarrhea. Patient denies any urinary burning or frequency On 02/27/2019 patient is resting comfortably in bed. detective chief remains at bedside. Discussed case with oncology social work Latrice. Per oncology social work awaiting legal guardian to find placement for patient. Also awaiting psych to evaluate for possible inpatient psychiatry services. This time patient denies chest pain or shortness of breath. Patient denies nausea vomiting or diarrhea. Patient denies any urinary burning or frequency. On 02/28/2019 patient was reevaluated by psychiatry services. Suicide precautions removed. Patient has been cleared by psych. Awaiting social work and DPO[facility] for placement for discharge. Patient denies any chest pain or shortness of breath. Patient denies nausea vomiting or diarrhea. Patient denies any urinary burning or frequency. On 03/01/2019 patient is currently resting comfortably in bed cuff case with oncology social work still awaiting placement at [facility] facility per legal guardian. Patient denies chest pain or shortness of breath. Patient denies nausea vomiting or diarrhea. Patient denies any urinary burning or frequency. On 03/02/2019 patient is currently resting comfortably in bed. Patient denies any chest pain or shortness of breath. Patient denies nausea vomiting diarrhea. Patient denies any urinary burning or frequency. Awaiting [facility] placement per legal guardian On 03/03/2019 patient was seen and examined on the medical floor he is laying comfortably in bed he denies any complaints, he is eating well, there is no evidence of pain or discomfort no agitation speech is difficult to understand. On 03/04/2019 patient was seen and examined on the medical floor he is alert responsive in no apparent distress he denies any pain he denies any nausea or vomiting he is tolerating regular diet well there is no fever or chills no headache or dizziness no chest pain no shortness of breath no cough and no urinary symptoms Objective - Vital Signs Vital signs: Vital Signs Temp 98.0 F 03/04/19 04:26 Pulse 63 03/04/19 04:26 Resp 14 03/04/19 04:26 BP 123/82 03/04/19 04:26 Pulse Ox 97 03/04/19 04:26 Intake & Output 03/03/19 03/04/19 03/04/19 18:59 06:59 18:59 Intake Total 520 Balance 520 Weight 50.5 kg 50.5 kg Intake: Oral 520 Other: # Voids 2 1 - Exam In general patient is alert responsive, speech is different to understand, which is chronic Head normocephalic and atraumatic Neck supple no JVD no goiter Lungs clear to auscultation bilaterally no wheezing or crackles Heart regular rate and rhythm S1-S2, no rub or gallop Abdomen is soft nontender nondistended positive bowel sounds no hepatosplenomegaly Extremities no edema no cyanosis or clubbing Neuro No acute neurological deficit Able to follow commands - Labs CBC & Chem 7: 03/04/19 07:37 03/04/19 07:37 Labs: Abnormal Lab Results - Last 24 Hours (Table) 03/04/19 03/04/19 Range/Units 07:37 07:37 RBC 4.16 L (4.30-5.90) m/uL BUN 45 H (9-20) mg/dL Glucose 112 H (74-99) mg/dL Calcium 10.3 H (8.4-10.2) mg/dL AST 63 H (17-59) U/L Assessment and Plan Plan: 1. Fall with altered mental status related to multiple CVAs in bilateral anter ior and posterior circulations. Head and cervical spine CT completed showing no acute fracture-dislocation evident in the cervical spine. Subacute infarct. Underlying chronic small vessel ischemia with areas multiple prior infarction. Neurology services have been consulted. MRI cannot be obtained due to AICD. CTA completed showing the nondominant left retrievable artery shows moderate to severe segmental narrowing of the V4 intracranial segment otherwise no large vessel intracranial arterial occlusion or aneurysmal changes seen. 2-D echo completed showing an EF between 20 and 25%. EKG completed showing normal awake EEG without background asymmetry or epileptiform discharges. Per neurology probably vascular dementia seen on head CT. Patient has been cleared for discharge from neurology standpoint. Patient to follow-up with neurology services 1-2 weeks after discharge 2. History of previous CVA with residual expressive aphasia. Maintain on Plavix 3. History of coronary artery disease 4. History of closed head injury 5. History of seizures. Continue Keppra Keppra level ordered 6. Generalized anxiety disorder continue Xanax 7. History of a AICD for cardiomyopathy. Per cardiology device. no arrhythmias found continue aspirin and Plavix and Lipitor 8. History of previous IV drug abuse 9. History of hepatitis B 10. History of hyperlipidemia maintained on statin 11. History of essential hypertension 12. History of closed head injury 13. Urinary tract infection. Urine culture was positive for Klebsiella. Patient pleaded treatment with 5 days of Bactrim 14. Bilateral knee pain. X-ray of bilateral knees completed consideration for crystal deposition arthroplasty, osteoarthritis 15. Chronic systolic congestive heart failure. 2-D echo completed showing an EF of 20-25% with global hypokinesis 16. Depression with Suicidal ideation. Per psychiatry patient is no longer a risk to himself patient has been taken out of suicide precautions. Patient has been cleared for discharge from psychiatry 17. Acute kidney injury. Initial creatinine elevated at 1.49 has improved lisinopril DC'd. Creatinine improving to 0.85 bun 30 18. Hyperkalemia. Potassium 5.6. Patient did receive Kayexalate repeat potassium 4.6 DVT prophylaxis heparin. GI prophylaxis Pepcid Awaiting the [facility] placement per legal guardian. Discussed with oncology social work Latrice
[2019-03-04] MEDS: ATORVASTATIN 10 MG TAB PO SCH (20:03)
[2019-03-05] MEDS: HEPARIN SODIUM,PORCINE 5,000 UNIT/ML 1 ML VIAL SQ SCH ×2 (07:38→20:01)
[2019-03-05] MEDS: CLOPIDOGREL 75 MG TAB PO SCH (07:39)
[2019-03-05] MEDS: NICOTINE 21MG/24HR PATCH TRANSDERM SCH (07:39)
[2019-03-05] MEDS: ASPIRIN 81 MG PO SCH (07:39)
[2019-03-05] MEDS: CARVEDILOL 6.25 MG TAB PO SCH ×2 (07:39→16:49)
[2019-03-05] MEDS: FAMOTIDINE 20 MG TAB PO SCH (07:39)
--- NOTE | 2019-03-05 10:32 | P.PN ---
Subjective Progress Note Date: 03/05/19 This is a 68-year-old male patient who presented with complaints of fall and slurred speech. Patient is a poor historian. According to ER report patient was crossing the street when a bystander witnessed him fall to his knees. Patient was brought to the ER for further evaluation. Patient does have a significant past medical history for CVA, seizure disorder, heart failure, previous IV drug abuser, coronary artery disease, hyperlipidemia, hypertension, myocardial infections, osteoporosis, pneumonia, AICD and ex-smoker. CT of head and cervical spine completed showing no acute fracture or dislocation evident in the cervical spine. Showed subacute infarct. Underlying chronic small vessel ischemia with areas multiple prior infarction. Pelvis x-ray completed showing no acute fracture. Chest x-ray completed using COPD. EKG completed showing normal sinus rhythm, left axis. Incomplete left bundle branch block. This time patient is resting comfortably in bed. Difficult to obtain history of ovarian due to patient's known baseline of slurred speech per PCP. At this time patient denies any chest pain or shortness of breath. Patient denies nausea vomiting or diarrhea. Patient denies any urinary burning or frequency. Neurology services have been consulted. On 02/15/2019 patient is currently resting comfortably in bed. Patient is awake and alert. UA positive for urinary tract infection patient started on Rocephin urine culture ordered. Neurology recommending cardiology consult to address possible embolic phenomenon causing strokes. At this time patient is complaining of bilateral knee discomfort. X-rays will be ordered. Patient denies chest pain or shortness breath. Patient denies nausea vomiting diarrhea. Social work is on consult possible guardianship in [facility] 02/16-02/25 On 02/26/2019 patient is currently resting comfortably in bed. full time babysitter is at bedside. Patient is being followed by site due to suicidal ideation. C reatinine did improve to 1.08 and bun 47. Potassium 4.6 at this time patient denies chest pain or shortness of breath. Patient denies nausea vomiting or diarrhea. Patient denies any urinary burning or frequency On 02/27/2019 patient is resting comfortably in bed. full time babysitter remains at bedside. Discussed case with addiction social worker Latrice. Per addiction social worker awaiting legal guardian to find placement for patient. Also awaiting psych to evaluate for possible inpatient psychiatry services. This time patient denies chest pain or shortness of breath. Patient denies nausea vomiting or diarrhea. Patient denies any urinary burning or frequency. On 02/28/2019 patient was reevaluated by psychiatry services. Suicide precautions removed. Patient has been cleared by psych. Awaiting social work and DPO[facility] for placement for discharge. Patient denies any chest pain or shortness of breath. Patient denies nausea vomiting or diarrhea. Patient denies any urinary burning or frequency. On 03/01/2019 patient is currently resting comfortably in bed cuff case with addiction social worker still awaiting placement at [facility] facility per legal guardian. Patient denies chest pain or shortness of breath. Patient denies nausea vomiting or diarrhea. Patient denies any urinary burning or frequency. On 03/02/2019 patient is currently resting comfortably in bed. Patient denies any chest pain or shortness of breath. Patient denies nausea vomiting diarrhea. Patient denies any urinary burning or frequency. Awaiting [facility] placement per legal guardian On 03/03/2019 patient was seen and examined on the medical floor he is laying comfortably in bed he denies any complaints, he is eating well, there is no evidence of pain or discomfort no agitation speech is difficult to understand. On 03/04/2019 patient was seen and examined on the medical floor he is alert responsive in no apparent distress he denies any pain he denies any nausea or vomiting he is tolerating regular diet well there is no fever or chills no headache or dizziness no chest pain no shortness of breath no cough and no urinary symptoms On 03/05/2019 patient is alert and oriented resting comfortably in bed. Patient denies any chest pain or shortness of breath. Patient denies nausea vomiting or diarrhea. Patient denies any urinary burning or frequency. Objective - Vital Signs Vital signs: Vital Signs Temp 98.3 F 03/05/19 04:30 Pulse 65 03/05/19 04:30 Resp 20 03/05/19 04:30 BP 123/77 03/05/19 04:30 Pulse Ox 98 03/05/19 04:30 Intake & Output 03/04/19 03/05/19 03/05/19 18:59 06:59 18:59 Intake Total 201 231 Balance 201 231 Weight 50.5 kg 50.5 kg Intake: Oral 201 231 Other: Voiding Method Toilet Urinal # Voids 3 1 2 # Bowel Movements 1 - Exam Head normocephalic Neck supple Lungs clear to auscultation bilaterally no wheezing or crackles Heart regular rate and rhythm S1-S2, no rub or gallop Abdomen is soft nontender nondistended positive bowel sounds no hepatosplenomegaly Extremities no edema Neuro slurred speech. Poor historian. Alert and oriented 2. Able to follow commands - Labs CBC & Chem 7: 03/04/19 07:37 03/04/19 07:37 Assessment and Plan Assessment: 1. Fall with altered mental status related to multiple CVAs in bilateral anterior and posterior circulations. Head and cervical spine CT completed showing no acute fracture-dislocation evident in the cervical spine. Subacute infarct. Underlying chronic small vessel ischemia with areas multiple prior infarction. Neurology services have been consulted. MRI cannot be obtained due to AICD. CTA completed showing the nondominant left retrievable artery shows moderate to severe segmental narrowing of the V4 intracranial segment otherwise no large vessel intracranial arterial occlusion or aneurysmal changes seen. 2-D echo completed showing an EF between 20 and 25%. EKG completed showing normal awake EEG without background asymmetry or epileptiform discharges. Per neurology probably vascular dementia seen on head CT. Patient has been cleared for discharge from neurology standpoint. Patient to follow-up with neurology services 1-2 weeks after discharge 2. History of previous CVA with residual expressive aphasia. Maintained on Plavix 3. History of coronary artery disease 4. History of closed head injury 5. History of seizures. Continue Keppra. 6. Generalized anxiety disorder continue Xanax 7. History of a AICD for cardiomyopathy. Per cardiology device interrogated no arrhythmias found continue aspirin and Plavix and Lipitor 8. History of previous IV drug abuse 9. History of hepatitis B 10. History of hyperlipidemia maintained on statin 11. History of essential hypertension 12. History of closed head injury 13. Urinary tract infection. Urine culture was positive for Klebsiella. Patient pleaded treatment with 5 days of Bactrim 14. Bilateral knee pain. X-ray of bilateral knees completed consideration for crystal deposition arthroplasty, osteoarthritis. Uric acid level 5.8 15. Chronic systolic congestive heart failure. 2-D echo completed showing an EF of 20-25% with global hypokinesis 16. Depression with Suicidal ideation. Per psychiatry patient is no longer a risk to himself patient has been taken out of suicide precautions. Patient has been cleared for discharge from psychiatry 17. Acute kidney injury. Initial creatinine elevated at 1.49 has improved lisinopril DC'd. Creatinine improving to 0.85 bun 30 18. Hyperkalemia. Potassium 5.6. Patient did receive Kayexalate repeat potassium 4.6 19. Elevated liver enzymes. Lipitor decreased to 10 mg daily. Liver enzymes are trending down DVT prophylaxis heparin. GI prophylaxis Pepcid Awaiting the [facility] placement per legal guardian. Discussed with addiction social worker Latrice I performed an examination of the patient and discussed their management with the Nurse Practitioner. I have reviewed the Nurse Practitioner's notes and agree with the documented findings and plan of care
[2019-03-05] MEDS: ATORVASTATIN 10 MG TAB PO SCH (20:01)
[2019-03-06] MEDS: ASPIRIN 81 MG PO SCH (07:06)
[2019-03-06] MEDS: FAMOTIDINE 20 MG TAB PO SCH (07:06)
[2019-03-06] MEDS: CLOPIDOGREL 75 MG TAB PO SCH (07:06)
[2019-03-06] MEDS: CARVEDILOL 6.25 MG TAB PO SCH ×2 (07:06→17:02)
[2019-03-06] MEDS: NICOTINE 21MG/24HR PATCH TRANSDERM SCH (07:06)
[2019-03-06] MEDS: HEPARIN SODIUM,PORCINE 5,000 UNIT/ML 1 ML VIAL SQ SCH ×2 (07:07→19:58)
--- NOTE | 2019-03-06 09:55 | P.PN ---
Subjective Progress Note Date: 03/06/19 This is a 68-year-old male patient who presented with complaints of fall and slurred speech. Patient is a poor historian. According to ER report patient was crossing the street when a bystander witnessed him fall to his knees. Patient was brought to the ER for further evaluation. Patient does have a significant past medical history for CVA, seizure disorder, heart failure, previous IV drug abuser, coronary artery disease, hyperlipidemia, hypertension, myocardial infections, osteoporosis, pneumonia, AICD and ex-smoker. CT of head and cervical spine completed showing no acute fracture or dislocation evident in the cervical spine. Showed subacute infarct. Underlying chronic small vessel ischemia with areas multiple prior infarction. Pelvis x-ray completed showing no acute fracture. Chest x-ray completed using COPD. EKG completed showing normal sinus rhythm, left axis. Incomplete left bundle branch block. This time patient is resting comfortably in bed. Difficult to obtain history of ovarian due to patient's known baseline of slurred speech per PCP. At this time patient denies any chest pain or shortness of breath. Patient denies nausea vomiting or diarrhea. Patient denies any urinary burning or frequency. Neurology services have been consulted. On 02/15/2019 patient is currently resting comfortably in bed. Patient is awake and alert. UA positive for urinary tract infection patient started on Rocephin urine culture ordered. Neurology recommending cardiology consult to address possible embolic phenomenon causing strokes. At this time patient is complaining of bilateral knee discomfort. X-rays will be ordered. Patient denies chest pain or shortness breath. Patient denies nausea vomiting diarrhea. Social work is on consult possible guardianship in [facility] 02/16-02/25 On 02/26/2019 patient is currently resting comfortably in bed. aircraft cleaner is at bedside. Patient is being followed by site due to suicidal ideation. C reatinine did improve to 1.08 and bun 47. Potassium 4.6 at this time patient denies chest pain or shortness of breath. Patient denies nausea vomiting or diarrhea. Patient denies any urinary burning or frequency On 02/27/2019 patient is resting comfortably in bed. aircraft cleaner remains at bedside. Discussed case with social work msw Latrice. Per social work msw awaiting legal guardian to find placement for patient. Also awaiting psych to evaluate for possible inpatient psychiatry services. This time patient denies chest pain or shortness of breath. Patient denies nausea vomiting or diarrhea. Patient denies any urinary burning or frequency. On 02/28/2019 patient was reevaluated by psychiatry services. Suicide precautions removed. Patient has been cleared by psych. Awaiting social work and DPOAE for placement for discharge. Patient denies any chest pain or shortness of breath. Patient denies nausea vomiting or diarrhea. Patient denies any urinary burning or frequency. On 03/01/2019 patient is currently resting comfortably in bed cuff case with social work msw still awaiting placement at [facility] facility per legal guardian. Patient denies chest pain or shortness of breath. Patient denies nausea vomiting or diarrhea. Patient denies any urinary burning or frequency. On 03/02/2019 patient is currently resting comfortably in bed. Patient denies any chest pain or shortness of breath. Patient denies nausea vomiting diarrhea. Patient denies any urinary burning or frequency. Awaiting [facility] placement per legal guardian On 03/03/2019 patient was seen and examined on the medical floor he is laying comfortably in bed he denies any complaints, he is eating well, there is no evidence of pain or discomfort no agitation speech is difficult to understand. On 03/04/2019 patient was seen and examined on the medical floor he is alert responsive in no apparent distress he denies any pain he denies any nausea or vomiting he is tolerating regular diet well there is no fever or chills no headache or dizziness no chest pain no shortness of breath no cough and no urinary symptoms On 03/05/2019 patient is alert and oriented resting comfortably in bed. Patient denies any chest pain or shortness of breath. Patient denies nausea vomiting or diarrhea. Patient denies any urinary burning or frequency. On 03/06/2019 patient is resting comfortably in bed with no complaints. Still awaiting legal guardian placement at [facility] facility. Patient denies chest pain or shortness breath. Patient denies nausea vomiting or diarrhea. Patient denies any urinary burning or frequency. Objective - Vital Signs Vital signs: Vital Signs Temp 97.5 F L 03/06/19 05:00 Pulse 66 03/06/19 05:00 Resp 18 03/06/19 05:00 BP 114/76 03/06/19 05:00 Pulse Ox 94 L 03/06/19 05:00 Intake & Output 03/05/19 03/06/19 03/06/19 18:59 06:59 18:59 Intake Total 562 0 Output Total 450 Balance 112 0 Weight 50 kg Intake: Oral 562 0 Output: Urine 450 Other: Voiding Method Toilet Urinal # Voids 2 2 # Bowel Movements 1 - Exam Head normocephalic Neck supple Lungs clear to auscultation bilaterally no wheezing or crackles Heart regular rate and rhythm S1-S2, no rub or gallop Abdomen is soft nontender nondistended positive bowel sounds no hepatosplenomegaly Extremities no edema Neuro slurred speech. Poor historian. Alert and oriented 2. Able to follow commands - Labs CBC & Chem 7: 03/04/19 07:37 03/04/19 07:37 Assessment and Plan Assessment: 1. Fall with altered mental status related to multiple CVAs in bilateral ant erior and posterior circulations. Head and cervical spine CT completed showing no acute fracture-dislocation evident in the cervical spine. Subacute infarct. Underlying chronic small vessel ischemia with areas multiple prior infarction. Neurology services have been consulted. MRI cannot be obtained due to AICD. CTA completed showing the nondominant left retrievable artery shows moderate to severe segmental narrowing of the V4 intracranial segment otherwise no large vessel intracranial arterial occlusion or aneurysmal changes seen. 2-D echo completed showing an EF between 20 and 25%. EKG completed showing normal awake EEG without background asymmetry or epileptiform discharges. Per neurology probably vascular dementia seen on head CT. Patient has been cleared for discharge from neurology standpoint. Patient to follow-up with neurology services 1-2 weeks after discharge 2. History of previous CVA with residual expressive aphasia. Maintained on Plavix 3. History of coronary artery disease 4. History of closed head injury 5. History of seizures. Continue Keppra. 6. Generalized anxiety disorder continue Xanax 7. History of a AICD for cardiomyopathy. Per cardiology device interrogated no arrhythmias found continue aspirin and Plavix and Lipitor 8. History of previous IV drug abuse 9. History of hepatitis B 10. History of hyperlipidemia maintained on statin 11. History of essential hypertension 12. History of closed head injury 13. Urinary tract infection. Urine culture was positive for Klebsiella. Patient pleaded treatment with 5 days of Bactrim 14. Bilateral knee pain. X-ray of bilateral knees completed consideration for crystal deposition arthroplasty, osteoarthritis. Uric acid level 5.8 15. Chronic systolic congestive heart failure. 2-D echo completed showing an EF of 20-25% with global hypokinesis 16. Depression with Suicidal ideation. Per psychiatry patient is no longer a risk to himself patient has been taken out of suicide precautions. Patient has been cleared for discharge from psychiatry 17. Acute kidney injury. Initial creatinine elevated at 1.49 has improved lisinopril DC'd. Creatinine improving to 0.85 bun 30 18. Hyperkalemia. Potassium 5.6. Patient did receive Kayexalate repeat potassium 4.6 19. Elevated liver enzymes. Lipitor decreased to 10 mg daily. Liver enzymes are trending down DVT prophylaxis heparin. GI prophylaxis Pepcid Discussed case with Latrice social work msw possible emergent [facility] placement in the works. I performed an examination of the patient and discussed their management with the Nurse Practitioner. I have reviewed the Nurse Practitioner's notes and agree with the documented findings and plan of care
[2019-03-06] MEDS: ATORVASTATIN 10 MG TAB PO SCH (19:57)
[2019-03-07] MEDS: ASPIRIN 81 MG PO SCH (07:23)
[2019-03-07] MEDS: NICOTINE 21MG/24HR PATCH TRANSDERM SCH (07:23)
[2019-03-07] MEDS: CARVEDILOL 6.25 MG TAB PO SCH ×2 (07:24→16:53)
[2019-03-07] MEDS: CLOPIDOGREL 75 MG TAB PO SCH (07:24)
[2019-03-07] MEDS: FAMOTIDINE 20 MG TAB PO SCH (07:24)
[2019-03-07] MEDS: HEPARIN SODIUM,PORCINE 5,000 UNIT/ML 1 ML VIAL SQ SCH ×2 (07:29→21:44)
[2019-03-07 08:05] LABS: Basophils % (A) 1 %; Eosinophils # (A) 0.1 k/uL (0-0.7); Eosinophils % (A) 1 %; HCT 38.4 % (39.0-53.0); HGB 12.7 gm/dL (13.0-17.5); Lymphocytes % (A) 23 %; MCH 32.1 pg (25.0-35.0); MCHC 33.2 g/dL (31.0-37.0); MCV 96.9 fL (80.0-100.0); Mean Platelet Volume 7.2; Monocytes # (A) 0.7 k/uL (0-1.0); Monocytes % (A) 8 %; Neutrophils # (A) 5.6 k/uL (1.3-7.7); Neutrophils % (A) 65 %; Platelet Count 163 k/uL (150-450); RBC 3.96 m/uL (4.30-5.90); RDW 13.9 % (11.5-15.5); WBC 8.7 k/uL (3.8-10.6)
[2019-03-07 08:08] LABS: ALT 73 U/L (21-72); AST 57 U/L (17-59); African American GFR (CKD) >90 (>60 ml/min/1.73 sqM); Albumin 4.3 g/dL (3.5-5.0); Alkaline Phosphatase 63 U/L (38-126); Anion Gap 11 mmol/L; Blood Urea Nitrogen 41 mg/dL (9-20); Calcium 10.2 mg/dL (8.4-10.2); Carbon Dioxide 28 mmol/L (22-30); Chloride 105 mmol/L (98-107); Glucose 101 mg/dL (74-99); Potassium 3.9 mmol/L (3.5-5.1); Sodium 144 mmol/L (137-145); Total Bilirubin 0.5 mg/dL (0.2-1.3); Total Protein 7.7 g/dL (6.3-8.2)
--- NOTE | 2019-03-07 09:42 | P.PN ---
Subjective Progress Note Date: 03/07/19 This is a 68-year-old male patient who presented with complaints of fall and slurred speech. Patient is a poor historian. According to ER report patient was crossing the street when a bystander witnessed him fall to his knees. Patient was brought to the ER for further evaluation. Patient does have a significant past medical history for CVA, seizure disorder, heart failure, previous IV drug abuser, coronary artery disease, hyperlipidemia, hypertension, myocardial infections, osteoporosis, pneumonia, AICD and ex-smoker. CT of head and cervical spine completed showing no acute fracture or dislocation evident in the cervical spine. Showed subacute infarct. Underlying chronic small vessel ischemia with areas multiple prior infarction. Pelvis x-ray completed showing no acute fracture. Chest x-ray completed using COPD. EKG completed showing normal sinus rhythm, left axis. Incomplete left bundle branch block. This time patient is resting comfortably in bed. Difficult to obtain history of ovarian due to patient's known baseline of slurred speech per PCP. At this time patient denies any chest pain or shortness of breath. Patient denies nausea vomiting or diarrhea. Patient denies any urinary burning or frequency. Neurology services have been consulted. On 02/15/2019 patient is currently resting comfortably in bed. Patient is awake and alert. UA positive for urinary tract infection patient started on Rocephin urine culture ordered. Neurology recommending cardiology consult to address possible embolic phenomenon causing strokes. At this time patient is complaining of bilateral knee discomfort. X-rays will be ordered. Patient denies chest pain or shortness breath. Patient denies nausea vomiting diarrhea. Social work is on consult possible guardianship in [facility] Cover[facility] 02/16-02/25 On 02/26/2019 patient is currently resting comfortably in bed. soda dispenser is at bedside. Patient is being followed by site due to suicidal ideation. C reatinine did improve to 1.08 and bun 47. Potassium 4.6 at this time patient denies chest pain or shortness of breath. Patient denies nausea vomiting or diarrhea. Patient denies any urinary burning or frequency On 02/27/2019 patient is resting comfortably in bed. soda dispenser remains at bedside. Discussed case with social and political studies professor Latrice. Per social and political studies professor awaiting legal guardian to find placement for patient. Also awaiting psych to evaluate for possible inpatient psychiatry services. This time patient denies chest pain or shortness of breath. Patient denies nausea vomiting or diarrhea. Patient denies any urinary burning or frequency. On 02/28/2019 patient was reevaluated by psychiatry services. Suicide precautions removed. Patient has been cleared by psych. Awaiting social work and [facility] for placement for discharge. Patient denies any chest pain or shortness of breath. Patient denies nausea vomiting or diarrhea. Patient denies any urinary burning or frequency. On 03/01/2019 patient is currently resting comfortably in bed cuff case with social and political studies professor still awaiting placement at [facility] facility per legal guardian. Patient denies chest pain or shortness of breath. Patient denies nausea vomiting or diarrhea. Patient denies any urinary burning or frequency. On 03/02/2019 patient is currently resting comfortably in bed. Patient denies any chest pain or shortness of breath. Patient denies nausea vomiting diarrhea. Patient denies any urinary burning or frequency. Awaiting [facility] placement per legal guardian On 03/03/2019 patient was seen and examined on the medical floor he is laying comfortably in bed he denies any complaints, he is eating well, there is no evidence of pain or discomfort no agitation speech is difficult to understand. On 03/04/2019 patient was seen and examined on the medical floor he is alert responsive in no apparent distress he denies any pain he denies any nausea or vomiting he is tolerating regular diet well there is no fever or chills no headache or dizziness no chest pain no shortness of breath no cough and no urinary symptoms On 03/05/2019 patient is alert and oriented resting comfortably in bed. Patient denies any chest pain or shortness of breath. Patient denies nausea vomiting or diarrhea. Patient denies any urinary burning or frequency. On 03/06/2019 patient is resting comfortably in bed with no complaints. Still awaiting legal guardian placement at [facility] facility. Patient denies chest pain or shortness breath. Patient denies nausea vomiting or diarrhea. Patient denies any urinary burning or frequency. On 03/07/2019 patient stated that he wanted to kill himself history to nursing staff. Patient has been placed on suicide precautions. Patient also refusing to shower or take his medication. Psychiatry services have been consulted. Patient denies any specific complaints. Patient reports that he is concerned about potential side effects from his medications. Educate patient on the importance of taking heart medication in order to prevent stroke and other negative implications. Awaiting psych consult Objective - Vital Signs Vital signs: Vital Signs Temp 98.2 F 03/07/19 05:20 Pulse 63 03/07/19 05:20 Resp 20 03/07/19 05:20 BP 119/77 03/07/19 05:20 Pulse Ox 96 03/07/19 05:20 Intake & Output 03/06/19 03/07/19 03/07/19 18:59 06:59 18:59 Intake Total 300 Balance 300 Weight 50.5 kg Intake: Oral 300 Other: # Voids 3 2 - Exam Head normocephalic Neck supple Lungs clear to auscultation bilaterally no wheezing or crackles Heart regular rate and rhythm S1-S2, no rub or gallop Abdomen is soft nontender nondistended positive bowel sounds no hepatosplenomegaly Extremities no edema Neuro slurred speech. Poor historian. Alert and oriented 2. Able to follow commands - Labs CBC & Chem 7: 03/07/19 07:18 03/07/19 07:18 Labs: Abnormal Lab Results - Last 24 Hours (Table) 03/07/19 03/07/19 Range/Units 07:18 07:18 RBC 3.96 L (4.30-5.90) m/uL Hgb 12.7 L (13.0-17.5) gm/dL Hct 38.4 L (39.0-53.0) % BUN 41 H (9-20) mg/dL Glucose 101 H (74-99) mg/dL ALT 73 H (21-72) U/L Assessment and Plan Assessment: 1. Fall with altered mental status related to multiple CVAs in bilateral anterior and posterior circulations. Head and cervical spine CT completed showing no acute fracture-dislocation evident in the cervical spine. Subacute infarct. Underlying chronic small vessel ischemia with areas multiple prior infarction. Neurology services have been consulted. MRI cannot be obtained due to AICD. CTA completed showing the nondominant left retrievable artery shows moderate to severe segmental narrowing of the V4 intracranial segment otherwise no large vessel intracranial arterial occlusion or aneurysmal changes seen. 2-D echo completed showing an EF between 20 and 25%. EKG completed showing normal awake EEG without background asymmetry or epileptiform discharges. Per neurology probably vascular dementia seen on head CT. Patient has been cleared for discharge from neurology standpoint. Patient to follow-up with neurology services 1-2 weeks after discharge 2. History of previous CVA with residual expressive aphasia. Maintained on Plavix 3. History of coronary artery disease 4. History of closed head injury 5. History of seizures. Continue Keppra. 6. Generalized anxiety disorder continue Xanax 7. History of a AICD for cardiomyopathy. Per cardiology device interrogated no arrhythmias found continue aspirin and Plavix and Lipitor 8. History of previous IV drug abuse 9. History of hepatitis B 10. History of hyperlipidemia maintained on statin 11. History of essential hypertension 12. History of closed head injury 13. Urinary tract infection. Urine culture was positive for Klebsiella. Patient pleaded treatment with 5 days of Bactrim 14. Bilateral knee pain. X-ray of bilateral knees completed consideration for crystal deposition arthroplasty, osteoarthritis. Uric acid level 5.8 15. Chronic systolic congestive heart failure. 2-D echo completed showing an EF of 20-25% with global hypokinesis 16. Depression with Suicidal ideation. Psychiatry services have been reconsulted. Patient is in suicide precautions 17. Acute kidney injury. Initial creatinine elevated at 1.49 has improved lisinopril DC'd. Creatinine improving to 0.85 bun 30 18. Hyperkalemia. Potassium 5.6. Patient did receive Kayexalate repeat potassium 4.6 19. Elevated liver enzymes. Lipitor decreased to 10 mg daily. Liver enzymes are trending down DVT prophylaxis heparin. GI prophylaxis Pepcid Discussed case with Latrice social and political studies professor possible emergent AFC placement in the works. I performed an examination of the patient and discussed their management with the Nurse Practitioner. I have reviewed the Nurse Practitioner's notes and agree with the documented findings and plan of care
--- NOTE | 2019-03-07 14:44 | P.CN ---
Psychiatric Consult - . 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 The threat was made yesterday to the RN on staff and as per EMR patient refused to shower and take medications. Delivery Associate spoke with RN outside of patient's room prior to entering and the report was that he did see this throughout yesterday however not today and did not specifically mention a plan. RN also mentioned that patient has been cooperative today took a shower and taking his medications and no behavioral disturbances today. Delivery Associate spoke with patient at the bedside who appeared to be calm and somewhat cooperative. Patient did follow most commands however was very suggestible during interview and was difficult to understand due to disorganized speech. Patient agreed with most questions that the policy writer sales asked and also stated "I don't know for most answers". When asked about patient's mood he states "I don't know". Patient denied any changes in his mood and denied any suicidal ideations intent or plan either now or previously. Patient also denied any homicidal ideations intent or plan. Patient did complain of pain and feeling irritable at times. Patient was alert and oriented to person only, thought it was 11/12/1919 and did not know the location where he was in. Patient denies any auditory, visual hallucinations and denies any paranoia or delusions. Patient demonstrates poor insight and judgment which appear to be chronic. 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 Patient was previously placed on Zyprexa 2.5 mg twice a day when necessary for anxiety. Patient denies being admitted to a psych hospital in the past. He denies any suicide attempts in the past.. PAST MEDICAL HISTORY: Seizure disorder, CVA, heart failure, IV drug user, CAD, HL P, hypertension, closed head injury.. ALLERGIES: No known drug allergies. CHEMICAL DEPENDENCY HISTORY: Was unable to elicit this information from the patient however patient does have a documented history of IVDA.. FAMILY PSYCHIATRIC HISTORY: Denies. FAMILY CHEMICAL DEPENDENCY HISTORY: Unable to assess. SOCIAL HISTORY: Unable to assess. MENTAL STATUS EXAM: General Appearance: Patient appears to be older than stated age, is alert and oriented 1 to person only. Patient appears to be in no acute distress. Behavior: Patient is calmly lying down in his bed no agitation. Speech: Patient's speech is mostly noncoherent and illogical at times. Mood/Affect: Patient reports their mood is "ok", affect is congruent and constricted Suicidality/Homicidality: Patient denies having any suicidal or homicidal ideation intent or plan. Perceptions: Patient denies any auditory or visual hallucinations. Though content/process: There is no evidence of any delusional thought content. Patient has disorganized thoughts however does follow commands. Memory and concentration: AOX1 to person only and thinks that it is 11/12/1919, patient cannot spell "world" backwards. 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 Mood disorder unspecified PLAN: -At this time patient patient does NOT meet criteria for inpatient psychiatric admission. -Patient DOES NOT have decision making capacity at this time and is unable to reason through and communicate/appreciate the risks, benefits and alternatives to treatment. -Delirium precautions recommended with patient including - avoiding use of narcotics and GRADING MACHINE OPERATOR sedatives, limit anticholinergic medications when possible, frequent re-orientation, minimize use of restraints, open window shades during the day and close them at night -Would recommend the following medication changes/additions: I have ordered Zyprexa 1.25 mg twice a day standing dose for mood/irritability/aggressiveness. We'll consider titrating up if needed. -Okay to discontinue sitter at this time as patient is not an imminent threat of harm to himself -Guardian currently looking at placement possibly add an AFC home -Will continue to follow along Thank you for the consult 03/07/19 14:31
[2019-03-07] MEDS: OLANZapine 2.5 MG TAB PO SCH ×2 (14:49→21:44)
[2019-03-07] MEDS: ATORVASTATIN 10 MG TAB PO SCH (21:43)
[2019-03-08] MEDS: CARVEDILOL 6.25 MG TAB PO SCH ×2 (08:18→16:22)
[2019-03-08] MEDS: NICOTINE 21MG/24HR PATCH TRANSDERM SCH (08:18)
[2019-03-08] MEDS: ASPIRIN 81 MG PO SCH (08:18)
[2019-03-08] MEDS: HEPARIN SODIUM,PORCINE 5,000 UNIT/ML 1 ML VIAL SQ SCH ×2 (08:18→23:21)
[2019-03-08] MEDS: FAMOTIDINE 20 MG TAB PO SCH (08:18)
[2019-03-08] MEDS: CLOPIDOGREL 75 MG TAB PO SCH (08:18)
[2019-03-08] MEDS: OLANZapine 2.5 MG TAB PO SCH ×2 (08:26→23:21)
--- NOTE | 2019-03-08 08:50 | P.PN ---
Progress Note - Text Progress Note Date: 03/08/19 Interval History: Patient was seen this morning, lying in bed about to receive his medications. Patient appeared to be somewhat cooperative and directable with the junior copywriter and agreed to speak to him at bedside. Patient continues to have mainly incoherent speech and tangential, often illogical. Patient continues to be suggestible with his responses and states "I don't know" to most questions asked or answers inappropriately. As per nursing who agreed to speak to the junior copywriter outside patient's room, states that patient had no behavioral issues last night and took his medication with no adverse events. At this time patient does not endorse any suicidal or homical ideations, intent or plan. Patient denies any auditory, visual hallucinations and denies any paranoia or delusions. Patient denies any side effects from the medications. MENTAL STATUS EXAM: General Appearance: Patient appears to be older than stated age, is alert and oriented 1 to person only. Patient appears to be in no acute distress. Behavior: Patient is calmly lying down in his bed no agitation with his covers up to his neck. Patient was directable and calm. Speech: Patient's speech is mostly noncoherent and illogical at times. Mood/Affect: Patient reports their mood is "fine", affect is congruent and constricted Suicidality/Homicidality: Patient denies having any suicidal or homicidal ideation intent or plan. Perceptions: Patient denies any auditory or visual hallucinations. Though content/process: There is no evidence of any delusional thought content. Patient has disorganized thoughts however does follow commands. Memory and concentration: AOX1 to person only, patient cannot spell "world" back wards. 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 Mood disorder unspecified PLAN: -At this time patient continues to NOT meet criteria for inpatient psychiatric admission. -Patient DOES NOT have decision making capacity at this time and is unable to reason through and communicate/appreciate the risks, benefits and alternatives to treatment. -Delirium precautions recommended with patient including - avoiding use of narcotics and SUPERVISOR TYPE PHOTOGRAPHY sedatives, limit anticholinergic medications when possible, frequent re-orientation, minimize use of restraints, open window shades during the day and close them at night -Medications : Continue with Zyprexa 1.25 mg twice a day standing dose for mood/irritability/aggressiveness. Can titrate up to 2.5 mg daily at bedtime if patient becomes more irritable/aggressive at nighttime. -Guardian looking at placement possibly add an AFC home -Will sign off at this time. For any further questions please contact the [facility].
--- NOTE | 2019-03-08 09:41 | P.PN ---
Subjective Progress Note Date: 03/08/19 This is a 68-year-old male patient who presented with complaints of fall and slurred speech. Patient is a poor historian. According to ER report patient was crossing the street when a bystander witnessed him fall to his knees. Patient was brought to the ER for further evaluation. Patient does have a significant past medical history for CVA, seizure disorder, heart failure, previous IV drug abuser, coronary artery disease, hyperlipidemia, hypertension, myocardial infections, osteoporosis, pneumonia, AICD and ex-smoker. CT of head and cervical spine completed showing no acute fracture or dislocation evident in the cervical spine. Showed subacute infarct. Underlying chronic small vessel ischemia with areas multiple prior infarction. Pelvis x-ray completed showing no acute fracture. Chest x-ray completed using COPD. EKG completed showing normal sinus rhythm, left axis. Incomplete left bundle branch block. This time patient is resting comfortably in bed. Difficult to obtain history of ovarian due to patient's known baseline of slurred speech per PCP. At this time patient denies any chest pain or shortness of breath. Patient denies nausea vomiting or diarrhea. Patient denies any urinary burning or frequency. Neurology services have been consulted. On 02/15/2019 patient is currently resting comfortably in bed. Patient is awake and alert. UA positive for urinary tract infection patient started on Rocephin urine culture ordered. Neurology recommending cardiology consult to address possible embolic phenomenon causing strokes. At this time patient is complaining of bilateral knee discomfort. X-rays will be ordered. Patient denies chest pain or shortness breath. Patient denies nausea vomiting diarrhea. Social work is on consult possible guardianship in [facility] 02/16-02/25 On 02/26/2019 patient is currently resting comfortably in bed. optical lab technician is at bedside. Patient is being followed by site due to suicidal ideation. C reatinine did improve to 1.08 and bun 47. Potassium 4.6 at this time patient denies chest pain or shortness of breath. Patient denies nausea vomiting or diarrhea. Patient denies any urinary burning or frequency On 02/27/2019 patient is resting comfortably in bed. optical lab technician remains at bedside. Discussed case with social worker masters Latrice. Per social worker masters awaiting legal guardian to find placement for patient. Also awaiting psych to evaluate for possible inpatient psychiatry services. This time patient denies chest pain or shortness of breath. Patient denies nausea vomiting or diarrhea. Patient denies any urinary burning or frequency. On 02/28/2019 patient was reevaluated by psychiatry services. Suicide precautions removed. Patient has been cleared by psych. Awaiting social work and [facility] for placement for discharge. Patient denies any chest pain or shortness of breath. Patient denies nausea vomiting or diarrhea. Patient denies any urinary burning or frequency. On 03/01/2019 patient is currently resting comfortably in bed cuff case with social worker masters still awaiting placement at [facility] facility per legal guardian. Patient denies chest pain or shortness of breath. Patient denies nausea vomiting or diarrhea. Patient denies any urinary burning or frequency. On 03/02/2019 patient is currently resting comfortably in bed. Patient denies any chest pain or shortness of breath. Patient denies nausea vomiting diarrhea. Patient denies any urinary burning or frequency. Awaiting [facility] placement per legal guardian On 03/03/2019 patient was seen and examined on the medical floor he is laying comfortably in bed he denies any complaints, he is eating well, there is no evidence of pain or discomfort no agitation speech is difficult to understand. On 03/04/2019 patient was seen and examined on the medical floor he is alert responsive in no apparent distress he denies any pain he denies any nausea or vomiting he is tolerating regular diet well there is no fever or chills no headache or dizziness no chest pain no shortness of breath no cough and no urinary symptoms On 03/05/2019 patient is alert and oriented resting comfortably in bed. Patient denies any chest pain or shortness of breath. Patient denies nausea vomiting or diarrhea. Patient denies any urinary burning or frequency. On 03/06/2019 patient is resting comfortably in bed with no complaints. Still awaiting legal guardian placement at [facility] facility. Patient denies chest pain or shortness breath. Patient denies nausea vomiting or diarrhea. Patient denies any urinary burning or frequency. On 03/07/2019 patient stated that he wanted to kill himself history to nursing staff. Patient has been placed on suicide precautions. Patient also refusing to shower or take his medication. Psychiatry services have been consulted. Patient denies any specific complaints. Patient reports that he is concerned about potential side effects from his medications. Educate patient on the importance of taking heart medication in order to prevent stroke and other negative implications. Awaiting psych consult On 03/08/2019 patient was evaluated by psychiatry services, suicide precautions have been DC'd. Patient does not meet criteria for inpatient psych. Still awaiting placement for [facility] facility per legal guardian. This time patient denies any specific complaints. Objective - Vital Signs Vital signs: Vital Signs Temp 97.2 F L 03/08/19 04:10 Pulse 70 03/08/19 04:10 Resp 16 03/08/19 04:10 BP 131/80 03/08/19 04:10 Pulse Ox 97 03/08/19 04:10 Intake & Output 03/07/19 03/08/19 03/08/19 18:59 06:59 18:59 Intake Total 540 Balance 540 Weight 51 kg Intake: Oral 540 Other: # Voids 4 3 # Bowel Movements 3 - Exam Head normocephalic Neck supple Lungs clear to auscultation bilaterally no wheezing or crackles Heart regular rate and rhythm S1-S2, no rub or gallop Abdomen is soft nontender nondistended positive bowel sounds no hepatosplenomegaly Extremities no edema Neuro slurred speech. Poor historian. Alert and oriented 2. Able to follow commands - Labs CBC & Chem 7: 03/07/19 07:18 03/07/19 07:18 Assessment and Plan Assessment: 1. Fall with altered mental status related to multiple CVAs in bilateral anterior and posterior circulations. Head and cervical spine CT completed showing no acute fracture-dislocation evident in the cervical spine. Subacute infarct. Underlying chronic small vessel ischemia with areas multiple prior infarction. Neurology services have been consulted. MRI cannot be obtained due to AICD. CTA completed showing the nondominant left retrievable artery shows moderate to severe segmental narrowing of the V4 intracranial segment otherwise no large vessel intracranial arterial occlusion or aneurysmal changes seen. 2-D echo completed showing an EF between 20 and 25%. EKG completed showing normal awake EEG without background asymmetry or epileptiform discharges. Per neurology probably vascular dementia seen on head CT. Patient has been cleared for discharge from neurology standpoint. Patient to follow-up with neurology services 1-2 weeks after discharge 2. History of previous CVA with residual expressive aphasia. Maintained on Plavix 3. History of coronary artery disease 4. History of closed head injury 5. History of seizures. Continue Keppra. 6. Generalized anxiety disorder continue Xanax 7. History of a AICD for cardiomyopathy. Per cardiology device interrogated no arrhythmias found continue aspirin and Plavix and Lipitor 8. History of previous IV drug abuse 9. History of hepatitis B 10. History of hyperlipidemia maintained on statin 11. History of essential hypertension 12. History of closed head injury 13. Urinary tract infection. Urine culture was positive for Klebsiella. Patient pleaded treatment with 5 days of Bactrim 14. Bilateral knee pain. X-ray of bilateral knees completed consideration for crystal deposition arthroplasty, osteoarthritis. Uric acid level 5.8 15. Chronic systolic congestive heart failure. 2-D echo completed showing an EF of 20-25% with global hypokinesis 16. Depression with Suicidal ideation. Patient was reevaluated by psychiatry services suicide precautions DC'd. Patient does not meet criteria for inpatient psych 17. Acute kidney injury. Initial creatinine elevated at 1.49 has improved lisinopril DC'd. Creatinine improving to 0.85 bun 30 18. Hyperkalemia. Potassium 5.6. Patient did receive Kayexalate repeat potassium 4.6 19. Elevated liver enzymes. Lipitor decreased to 10 mg daily. Liver enzymes are trending down DVT prophylaxis heparin. GI prophylaxis Pepcid Discussed case with Latrice social worker masters possible emergent [facility] placement in the works. I performed an examination of the patient and discussed their management with the Nurse Practitioner. I have reviewed the Nurse Practitioner's notes and agree with the documented findings and plan of care
[2019-03-08] MEDS: ATORVASTATIN 10 MG TAB PO SCH (23:21)
[2019-03-09] MEDS: NICOTINE 21MG/24HR PATCH TRANSDERM SCH (08:15)
[2019-03-09] MEDS: ASPIRIN 81 MG PO SCH (08:15)
[2019-03-09] MEDS: FAMOTIDINE 20 MG TAB PO SCH (08:15)
[2019-03-09] MEDS: CLOPIDOGREL 75 MG TAB PO SCH (08:15)
[2019-03-09] MEDS: OLANZapine 2.5 MG TAB PO SCH ×2 (08:16→20:23)
[2019-03-09] MEDS: HEPARIN SODIUM,PORCINE 5,000 UNIT/ML 1 ML VIAL SQ SCH ×2 (08:18→20:24)
[2019-03-09] MEDS: CARVEDILOL 6.25 MG TAB PO SCH ×2 (08:18→17:35)
--- NOTE | 2019-03-09 13:44 | P.DS ---
Providers Date of admission: 02/14/19 12:05 Expected date of discharge: 03/09/19 Attending physician: Reyes Lockwoodjar Consults: 02/13/19 18:59 Consult Physician Routine Consulting Provider: Dang Foster Consult Reason/Comments: altered mental status Do you want consulting provider notified?: Yes 02/15/19 08:36 Consult Physician Routine Consulting Provider: Sho Cotto Consult Reason/Comments: r/o proximal embolic phenomenen. r/o PAF Do you want consulting provider notified?: Yes 02/24/19 10:09 Consult Physician Routine Consulting Provider: Silvano Howell Consult Reason/Comments: Possible depression Do you want consulting provider notified?: Yes 03/06/19 15:00 Consult Physician Routine Consulting Provider: Silvano Howell Consult Reason/Comments: suicide comments Do you want consulting provider notified?: Yes Primary care physician: [facility] Hospital Course: Discharge diagnosis 1. Fall with altered mental status related to multiple CVAs in bilateral anterior and posterior circulations. Head and cervical spine CT completed showing no acute fracture-dislocation evident in the cervical spine. Subacute infarct. Underlying chronic small vessel ischemia with areas multiple prior infarction. Neurology services have been consulted. MRI cannot be obtained due to AICD. CTA completed showing the nondominant left retrievable artery shows moderate to severe segmental narrowing of the V4 intracranial segment otherwise no large vessel intracranial arterial occlusion or aneurysmal changes seen. 2-D echo completed showing an EF between 20 and 25%. EKG completed showing normal awake EEG without background asymmetry or epileptiform discharges. Per neurology probably vascular dementia seen on head CT. Patient has been cleared for discharge from neurology standpoint. Patient to follow-up with neurology services 1-2 weeks after discharge 2. History of previous CVA with residual expressive aphasia. Maintained on Pl avix 3. History of coronary artery disease 4. History of closed head injury 5. History of seizures. Continue Keppra. 6. Generalized anxiety disorder continue Xanax 7. History of a AICD for cardiomyopathy. Per cardiology device interrogated no arrhythmias found continue aspirin and Plavix and Lipitor 8. History of previous IV drug abuse 9. History of hepatitis B 10. History of hyperlipidemia maintained on statin 11. History of essential hypertension 12. History of closed head injury 13. Urinary tract infection. Urine culture was positive for Klebsiella. Patient pleaded treatment with 5 days of Bactrim 14. Bilateral knee pain. X-ray of bilateral knees completed consideration for crystal deposition arthroplasty, osteoarthritis. Uric acid level 5.8 15. Chronic systolic congestive heart failure. 2-D echo completed showing an EF of 20-25% with global hypokinesis 16. Depression with Suicidal ideation. Patient was reevaluated by psychiatry services suicide precautions DC'd. Patient does not meet criteria for inpatient psych 17. Acute kidney injury. Initial creatinine elevated at 1.49 has improved lisinopril DC'd. Creatinine improving to 0.85 bun 30 18. Hyperkalemia. Potassium 5.6. Patient did receive Kayexalate repeat potassium 4.6 19. Elevated liver enzymes. Lipitor decreased to 10 mg daily. Liver enzymes are trending down 20. Anemia of chronic disease. Hospital course This is a 68-year-old male patient who presented with complaints of fall and slurred speech. Patient is a poor historian. According to ER report patient was crossing the street when a bystander witnessed him fall to his knees. Patient was brought to the ER for further evaluation. Patient does have a significant past medical history for CVA, seizure disorder, heart failure, previous IV drug abuser, coronary artery disease, hyperlipidemia, hypertension, myocardial infections, osteoporosis, pneumonia, AICD and ex-smoker. CT of head and cervical spine completed showing no acute fracture or dislocation evident in the cervical spine. Showed subacute infarct. Underlying chronic small vessel ischemia with areas multiple prior infarction. Pelvis x-ray completed showing no acute fracture. Chest x-ray completed using COPD. EKG completed showing normal sinus rhythm, left axis. Incomplete left bundle branch block. This time patient is resting comfortably in bed. Difficult to obtain history of ovarian due to patient's known baseline of slurred speech per PCP. At this time patient denies any chest pain or shortness of breath. Patient denies nausea vomiting or diarrhea. Patient denies any urinary burning or frequency. Neurology services have been consulted. On 02/15/2019 patient is currently resting comfortably in bed. Patient is awake and alert. UA positive for urinary tract infection patient started on Rocephin urine culture ordered. Neurology recommending cardiology consult to address possible embolic phenomenon causing strokes. At this time patient is complaining of bilateral knee discomfort. X-rays will be ordered. Patient denies chest pain or shortness breath. Patient denies nausea vomiting diarrhea. Social work is on consult possible guardianship in [facility] 02/16-02/25 On 02/26/2019 patient is currently resting comfortably in bed. principal law clerk is at bedside. Patient is being followed by site due to suicidal ideation. Creatinine did improve to 1.08 and bun 47. Potassium 4.6 at this time patient denies chest pain or shortness of breath. Patient denies nausea vomiting or diarrhea. Patient denies any urinary burning or frequency On 02/27/2019 patient is resting comfortably in bed. principal law clerk remains at bedside. Discussed case with sr. social media & mobile manager Latrice. Per sr. social media & mobile manager awaiting legal guardian to find placement for patient. Also awaiting psych to evaluate for possible inpatient psychiatry services. This time patient denies chest pain or shortness of breath. Patient denies nausea vomiting or diarrhea. Patient denies any urinary burning or frequency. On 02/28/2019 patient was reevaluated by psychiatry services. Suicide pre cautions removed. Patient has been cleared by psych. Awaiting social work and [facility]PO[facility] for placement for discharge. Patient denies any chest pain or shortness of breath. Patient denies nausea vomiting or diarrhea. Patient denies any urinary burning or frequency. On 03/01/2019 patient is currently resting comfortably in bed cuff case with sr. social media & mobile manager still awaiting placement at [facility] facility per legal guardian. Patient denies chest pain or shortness of breath. Patient denies nausea vomiting or diarrhea. Patient denies any urinary burning or frequency. On 03/02/2019 patient is currently resting comfortably in bed. Patient denies any chest pain or shortness of breath. Patient denies nausea vomiting diarrhea. Patient denies any urinary burning or frequency. Awaiting [facility] placement per legal guardian On 03/03/2019 patient was seen and examined on the medical floor he is laying comfortably in bed he denies any complaints, he is eating well, there is no evidence of pain or discomfort no agitation speech is difficult to understand. On 03/04/2019 patient was seen and examined on the medical floor he is alert responsive in no apparent distress he denies any pain he denies any nausea or vomiting he is tolerating regular diet well there is no fever or chills no headache or dizziness no chest pain no shortness of breath no cough and no urinary symptoms On 03/05/2019 patient is alert and oriented resting comfortably in bed. Patient denies any chest pain or shortness of breath. Patient denies nausea vomiting or diarrhea. Patient denies any urinary burning or frequency. On 03/06/2019 patient is resting comfortably in bed with no complaints. Still awaiting legal guardian placement at [facility] facility. Patient denies chest pain or shortness breath. Patient denies nausea vomiting or diarrhea. Patient denies any urinary burning or frequency. On 03/07/2019 patient stated that he wanted to kill himself history to nursing staff. Patient has been placed on suicide precautions. Patient also refusing to shower or take his medication. Psychiatry services have been consulted. Patient denies any specific complaints. Patient reports that he is concerned about potential side effects from his medications. Educate patient on the importance of taking heart medication in order to prevent stroke and other negative implications. Awaiting psych consult On 03/08/2019 patient was evaluated by psychiatry services, suicide precautions have been DC'd. Patient does not meet criteria for inpatient psych. Still awaiting placement for [facility] facility per legal guardian. This time patient denies any specific complaints. On 03/09/2019 patient is medically cleared for discharge. Patient has been cleared by psychiatry services. Awaiting [facility] placement per legal guardian. At this time patient denies any chest pain or shortness of breath. Patient denies nausea vomiting or diarrhea. Patient denies any urinary burning or frequency. I performed an examination of the patient and discussed their management with the Nurse Practitioner. I have reviewed the Nurse Practitioner's notes and agree with the documented findings and plan of care Patient Condition at Discharge: Stable Plan - Discharge Summary New Discharge Prescriptions: No Action Simvastatin [Zocor] 20 mg PO HS Lisinopril [Prinivil] 5 mg PO DAILY Clopidogrel [Plavix] 75 mg PO DAILY #90 tab levETIRAcetam [Keppra] 750 mg PO Q12HR tab ALPRAZolam [Xanax] 0.5 mg PO HS #30 tab ALPRAZolam [Xanax] 0.25 mg PO QAM #30 tab Carvedilol [Coreg] 3.125 mg PO BID Discharge Medication List Lisinopril [Prinivil] 5 mg PO DAILY 07/02/14 [History] Simvastatin [Zocor] 20 mg PO HS 07/02/14 [History] Clopidogrel [Plavix] 75 mg PO DAILY #90 tab 05/01/15 [Rx] ALPRAZolam [Xanax] 0.25 mg PO QAM #30 tab 05/12/17 [Rx] ALPRAZolam [Xanax] 0.5 mg PO HS #30 tab 05/12/17 [Rx] levETIRAcetam [Keppra] 750 mg PO Q12HR tab 05/12/17 [Rx] Carvedilol [Coreg] 3.125 mg PO BID 03/24/18 [History] Follow up Appointment(s)/Referral(s): Reyes Knight MD [Primary Care Provider] - 1-2 days Duglas Ross MD [STAFF PHYSICIAN] - 2 Weeks (make appt prior to d/c) Patient Instructions/Handouts: Encephalopathy (GEN)
[2019-03-09] MEDS: ATORVASTATIN 10 MG TAB PO SCH (20:24)
--- NOTE | 2019-03-10 08:39 | P.PN ---
Subjective Progress Note Date: 03/10/19 This is a 68-year-old male patient who presented with complaints of fall and slurred speech. Patient is a poor historian. According to ER report patient was crossing the street when a bystander witnessed him fall to his knees. Patient was brought to the ER for further evaluation. Patient does have a significant past medical history for CVA, seizure disorder, heart failure, previous IV drug abuser, coronary artery disease, hyperlipidemia, hypertension, myocardial infections, osteoporosis, pneumonia, AICD and ex-smoker. CT of head and cervical spine completed showing no acute fracture or dislocation evident in the cervical spine. Showed subacute infarct. Underlying chronic small vessel ischemia with areas multiple prior infarction. Pelvis x-ray completed showing no acute fracture. Chest x-ray completed using COPD. EKG completed showing normal sinus rhythm, left axis. Incomplete left bundle branch block. This time patient is resting comfortably in bed. Difficult to obtain history of ovarian due to patient's known baseline of slurred speech per PCP. At this time patient denies any chest pain or shortness of breath. Patient denies nausea vomiting or diarrhea. Patient denies any urinary burning or frequency. Neurology services have been consulted. On 02/15/2019 patient is currently resting comfortably in bed. Patient is awake and alert. UA positive for urinary tract infection patient started on Rocephin urine culture ordered. Neurology recommending cardiology consult to address possible embolic phenomenon causing strokes. At this time patient is complaining of bilateral knee discomfort. X-rays will be ordered. Patient denies chest pain or shortness breath. Patient denies nausea vomiting diarrhea. Social work is on consult possible guardianship in [facility] 02/16-02/25 On 02/26/2019 patient is currently resting comfortably in bed. quality assurance auditor is at bedside. Patient is being followed by site due to suicidal ideation. C reatinine did improve to 1.08 and bun 47. Potassium 4.6 at this time patient denies chest pain or shortness of breath. Patient denies nausea vomiting or diarrhea. Patient denies any urinary burning or frequency On 02/27/2019 patient is resting comfortably in bed. quality assurance auditor remains at bedside. Discussed case with social media intern Latrice. Per social media intern awaiting legal guardian to find placement for patient. Also awaiting psych to evaluate for possible inpatient psychiatry services. This time patient denies chest pain or shortness of breath. Patient denies nausea vomiting or diarrhea. Patient denies any urinary burning or frequency. On 02/28/2019 patient was reevaluated by psychiatry services. Suicide precautions removed. Patient has been cleared by psych. Awaiting social work and DPOAE for placement for discharge. Patient denies any chest pain or shortness of breath. Patient denies nausea vomiting or diarrhea. Patient denies any urinary burning or frequency. On 03/01/2019 patient is currently resting comfortably in bed cuff case with social media intern still awaiting placement at [facility] facility per legal guardian. Patient denies chest pain or shortness of breath. Patient denies nausea vomiting or diarrhea. Patient denies any urinary burning or frequency. On 03/02/2019 patient is currently resting comfortably in bed. Patient denies any chest pain or shortness of breath. Patient denies nausea vomiting diarrhea. Patient denies any urinary burning or frequency. Awaiting [facility] placement per legal guardian On 03/03/2019 patient was seen and examined on the medical floor he is laying comfortably in bed he denies any complaints, he is eating well, there is no evidence of pain or discomfort no agitation speech is difficult to understand. On 03/04/2019 patient was seen and examined on the medical floor he is alert responsive in no apparent distress he denies any pain he denies any nausea or vomiting he is tolerating regular diet well there is no fever or chills no headache or dizziness no chest pain no shortness of breath no cough and no urinary symptoms. On 03/05/2019 patient is alert and oriented resting comfortably in bed. Patient denies any chest pain or shortness of breath. Patient denies nausea vomiting or diarrhea. Patient denies any urinary burning or frequency. On 03/06/2019 patient is resting comfortably in bed with no complaints. Still awaiting legal guardian placement at [facility] facility. Patient denies chest pain or shortness breath. Patient denies nausea vomiting or diarrhea. Patient denies any urinary burning or frequency. On 03/07/2019 patient stated that he wanted to kill himself history to nursing staff. Patient has been placed on suicide precautions. Patient also refusing to shower or take his medication. Psychiatry services have been consulted. Patient denies any specific complaints. Patient reports that he is concerned about potential side effects from his medications. Educate patient on the impor tance of taking heart medication in order to prevent stroke and other negative implications. Awaiting psych consult On 03/08/2019 patient was evaluated by psychiatry services, suicide precautions have been DC'd. Patient does not meet criteria for inpatient psych. Still awaiting placement for [facility] facility per legal guardian. This time patient denies any specific complaints. On 03/09/2019 patient is medically stable and cleared for discharge discharge summary was done awaiting resolution of social issue to transfer patient to an [facility]. On 03/10/2019 patient was seen and examined on the medical floor he is alert confused in no apparent distress, social media intern and power of regulatory attorney are still working on finding a discharge destination for patient he remains medically stable. Objective - Vital Signs Vital signs: Vital Signs Temp 97.9 F 03/10/19 05:43 Pulse 60 03/10/19 05:43 Resp 15 03/10/19 05:43 BP 123/82 03/10/19 05:43 Pulse Ox 99 03/10/19 05:43 Intake & Output 03/09/19 03/10/19 03/10/19 18:59 06:59 18:59 Weight 51 kg 51 kg Other: Voiding Method Toilet Urinal # Voids 1 2 - Exam In general patient is alert responsive, speech is different to understand, which is chronic Head normocephalic and atraumatic Neck supple no JVD no goiter Lungs clear to auscultation bilaterally no wheezing or crackles Heart regular rate and rhythm S1-S2, no rub or gallop Abdomen is soft nontender nondistended positive bowel sounds no hepatos plenomegaly Extremities no edema no cyanosis or clubbing Neuro No acute neurological deficit Able to follow commands - Labs CBC & Chem 7: 03/07/19 07:18 03/07/19 07:18 Assessment and Plan Plan: 1. Fall with altered mental status related to multiple CVAs in bilateral anterior and posterior circulations. Head and cervical spine CT completed showing no acute fracture-dislocation evident in the cervical spine. Subacute infarct. Underlying chronic small vessel ischemia with areas multiple prior infarction. Neurology services have been consulted. MRI cannot be obtained due to AICD. CTA completed showing the nondominant left retrievable artery shows moderate to severe segmental narrowing of the V4 intracranial segment otherwise no large vessel intracranial arterial occlusion or aneurysmal changes seen. 2-D echo completed showing an EF between 20 and 25%. EKG completed showing normal awake EEG without background asymmetry or epileptiform discharges. Per neurology probably vascular dementia seen on head CT. Patient has been cleared for discharge from neurology standpoint. Patient to follow-up with neurology services 1-2 weeks after discharge 2. History of previous CVA with residual expressive aphasia. Maintained on Plavix 3. History of coronary artery disease 4. History of closed head injury 5. History of seizures. Continue Keppra. 6. Generalized anxiety disorder continue Xanax 7. History of a AICD for cardiomyopathy. Per cardiology device interrogated no arrhythmias found continue aspirin and Plavix and Lipitor 8. History of previous IV drug abuse 9. History of hepatitis B 10. History of hyperlipidemia maintained on statin 11. History of essential hypertension 12. History of closed head injury 13. Urinary tract infection. Urine culture was positive for Klebsiella. Patient pleaded treatment with 5 days of Bactrim 14. Bilateral knee pain. X-ray of bilateral knees completed consideration for crystal deposition arthroplasty, osteoarthritis. Uric acid level 5.8 15. Chronic systolic congestive heart failure. 2-D echo completed showing an EF of 20-25% with global hypokinesis 16. Depression with Suicidal ideation. Patient was reevaluated by psychiatry services suicide precautions DC'd. Patient does not meet criteria for inpatient psych 17. Acute kidney injury. Initial creatinine elevated at 1.49 has improved lisinopril DC'd. Creatinine improving to 0.85 bun 30 18. Hyperkalemia. Potassium 5.6. Patient did receive Kayexalate repeat potassium 4.6 19. Elevated liver enzymes. Lipitor decreased to 10 mg daily. Liver enzymes are trending down DVT prophylaxis heparin. GI prophylaxis Pepcid Discussed case with Latrice social media intern possible emergent [facility] placement in the works
[2019-03-10] MEDS: CLOPIDOGREL 75 MG TAB PO SCH (08:44)
[2019-03-10] MEDS: OLANZapine 2.5 MG TAB PO SCH ×3 (08:44→20:27)
[2019-03-10] MEDS: FAMOTIDINE 20 MG TAB PO SCH (08:44)
[2019-03-10] MEDS: NICOTINE 21MG/24HR PATCH TRANSDERM SCH (08:44)
[2019-03-10] MEDS: ASPIRIN 81 MG PO SCH (08:44)
[2019-03-10] MEDS: CARVEDILOL 6.25 MG TAB PO SCH ×2 (08:45→17:35)
[2019-03-10] MEDS: HEPARIN SODIUM,PORCINE 5,000 UNIT/ML 1 ML VIAL SQ SCH ×2 (08:45→20:27)
[2019-03-10] MEDS: ACETAMINOPHEN TAB 325 MG TAB PO PRN (14:57)
[2019-03-10] MEDS: ATORVASTATIN 10 MG TAB PO SCH (20:27)
[2019-03-11] MEDS: FAMOTIDINE 20 MG TAB PO SCH (07:23)
[2019-03-11] MEDS: HEPARIN SODIUM,PORCINE 5,000 UNIT/ML 1 ML VIAL SQ SCH ×2 (07:23→22:26)
[2019-03-11] MEDS: CLOPIDOGREL 75 MG TAB PO SCH (07:23)
[2019-03-11] MEDS: ASPIRIN 81 MG PO SCH (07:23)
[2019-03-11] MEDS: NICOTINE 21MG/24HR PATCH TRANSDERM SCH (07:23)
[2019-03-11] MEDS: OLANZapine 2.5 MG TAB PO SCH ×2 (07:23→21:37)
[2019-03-11] MEDS: CARVEDILOL 6.25 MG TAB PO SCH ×2 (07:23→16:38)
--- NOTE | 2019-03-11 15:14 | P.PN ---
Subjective Progress Note Date: 03/11/19 This is a 68-year-old male patient who presented with complaints of fall and slurred speech. Patient is a poor historian. According to ER report patient was crossing the street when a bystander witnessed him fall to his knees. Patient was brought to the ER for further evaluation. Patient does have a significant past medical history for CVA, seizure disorder, heart failure, previous IV drug abuser, coronary artery disease, hyperlipidemia, hypertension, myocardial infections, osteoporosis, pneumonia, AICD and ex-smoker. CT of head and cervical spine completed showing no acute fracture or dislocation evident in the cervical spine. Showed subacute infarct. Underlying chronic small vessel ischemia with areas multiple prior infarction. Pelvis x-ray completed showing no acute fracture. Chest x-ray completed using COPD. EKG completed showing normal sinus rhythm, left axis. Incomplete left bundle branch block. This time patient is resting comfortably in bed. Difficult to obtain history of ovarian due to patient's known baseline of slurred speech per PCP. At this time patient denies any chest pain or shortness of breath. Patient denies nausea vomiting or diarrhea. Patient denies any urinary burning or frequency. Neurology services have been consulted. On 02/15/2019 patient is currently resting comfortably in bed. Patient is awake and alert. UA positive for urinary tract infection patient started on Rocephin urine culture ordered. Neurology recommending cardiology consult to address possible embolic phenomenon causing strokes. At this time patient is complaining of bilateral knee discomfort. X-rays will be ordered. Patient denies chest pain or shortness breath. Patient denies nausea vomiting diarrhea. Social work is on consult possible guardianship in [facility] 02/16-02/25 On 02/26/2019 patient is currently resting comfortably in bed. manager gift is at bedside. Patient is being followed by site due to suicidal ideation. C reatinine did improve to 1.08 and bun 47. Potassium 4.6 at this time patient denies chest pain or shortness of breath. Patient denies nausea vomiting or diarrhea. Patient denies any urinary burning or frequency On 02/27/2019 patient is resting comfortably in bed. manager gift remains at bedside. Discussed case with social services director Latrice. Per social services director awaiting legal guardian to find placement for patient. Also awaiting psych to evaluate for possible inpatient psychiatry services. This time patient denies chest pain or shortness of breath. Patient denies nausea vomiting or diarrhea. Patient denies any urinary burning or frequency. On 02/28/2019 patient was reevaluated by psychiatry services. Suicide precautions removed. Patient has been cleared by psych. Awaiting social work and DPOAE for placement for discharge. Patient denies any chest pain or shortness of breath. Patient denies nausea vomiting or diarrhea. Patient denies any urinary burning or frequency. On 03/01/2019 patient is currently resting comfortably in bed cuff case with social services director still awaiting placement at [facility] facility per legal guardian. Patient denies chest pain or shortness of breath. Patient denies nausea vomiting or diarrhea. Patient denies any urinary burning or frequency. On 03/02/2019 patient is currently resting comfortably in bed. Patient denies any chest pain or shortness of breath. Patient denies nausea vomiting diarrhea. Patient denies any urinary burning or frequency. Awaiting [facility] placement per legal guardian On 03/03/2019 patient was seen and examined on the medical floor he is laying comfortably in bed he denies any complaints, he is eating well, there is no evidence of pain or discomfort no agitation speech is difficult to understand. On 03/04/2019 patient was seen and examined on the medical floor he is alert responsive in no apparent distress he denies any pain he denies any nausea or vomiting he is tolerating regular diet well there is no fever or chills no headache or dizziness no chest pain no shortness of breath no cough and no urinary symptoms. On 03/05/2019 patient is alert and oriented resting comfortably in bed. Patient denies any chest pain or shortness of breath. Patient denies nausea vomiting or diarrhea. Patient denies any urinary burning or frequency. On 03/06/2019 patient is resting comfortably in bed with no complaints. Still awaiting legal guardian placement at [facility] facility. Patient denies chest pain or shortness breath. Patient denies nausea vomiting or diarrhea. Patient denies any urinary burning or frequency. On 03/07/2019 patient stated that he wanted to kill himself history to nursing staff. Patient has been placed on suicide precautions. Patient also refusing to shower or take his medication. Psychiatry services have been consulted. Patient denies any specific complaints. Patient reports that he is concerned about potential side effects from his medications. Educate patient on the impor tance of taking heart medication in order to prevent stroke and other negative implications. Awaiting psych consult On 03/08/2019 patient was evaluated by psychiatry services, suicide precautions have been DC'd. Patient does not meet criteria for inpatient psych. Still awaiting placement for [facility] facility per legal guardian. This time patient denies any specific complaints. On 03/09/2019 patient is medically stable and cleared for discharge discharge summary was done awaiting resolution of social issue to transfer patient to an A[facility]. On 03/10/2019 patient was seen and examined on the medical floor he is alert confused in no apparent distress, social services director and power of real estate associate attorney are still working on finding a discharge destination for patient he remains medically stable. On 03/11/2019 patient was seen and examined there is no complaints at this time no change in condition Objective - Vital Signs Vital signs: Vital Signs Temp 98.8 F 03/11/19 13:00 Pulse 64 03/11/19 13:00 Resp 20 03/11/19 13:00 BP 104/63 03/11/19 13:00 Pulse Ox 98 03/11/19 13:00 Intake & Output 03/10/19 03/11/19 03/11/19 18:59 06:59 18:59 Intake Total 1031 150 400 Output Total 450 Balance 581 150 400 Weight 51 kg 51 kg Intake: Oral 1031 150 400 Output: Urine 450 Other: Voiding Method Toilet # Voids 1 2 2 - Exam In general patient is alert responsive, speech is different to understand, which is chronic Head normocephalic and atraumatic Neck supple no JVD no goiter Lungs clear to auscultation bilaterally no wheezing or crackles Heart regular rate and rhythm S1-S2, no rub or gallop Abdomen is soft nontender nondistended positive bowel sounds no hepatosplenomegaly Extremities no edema no cyanosis or clubbing Neuro No acute neurological deficit Able to follow commands - Labs CBC & Chem 7: 03/07/19 07:18 03/07/19 07:18 Assessment and Plan Plan: 1. Fall with altered mental status related to multiple CVAs in bilateral anterior and posterior circulations. Head and cervical spine CT completed showing no acute fracture-dislocation evident in the cervical spine. Subacute infarct. Underlying chronic small vessel ischemia with areas multiple prior infarction. Neurology services have been consulted. MRI cannot be obtained due to AICD. CTA completed showing the nondominant left retrievable artery shows moderate to severe segmental narrowing of the V4 intracranial segment otherwise no large vessel intracranial arterial occlusion or aneurysmal changes seen. 2-D echo completed showing an EF between 20 and 25%. EKG completed showing normal awake EEG without background asymmetry or epileptiform discharges. Per neurology probably vascular dementia seen on head CT. Patient has been cleared for discharge from neurology standpoint. Patient to follow-up with neurology services 1-2 weeks after discharge 2. History of previous CVA with residual expressive aphasia. Maintained on Plavix 3. History of coronary artery disease 4. History of closed head injury 5. History of seizures. Continue Keppra. 6. Generalized anxiety disorder continue Xanax 7. History of a AICD for cardiomyopathy. Per cardiology device interrogated no arrhythmias found continue aspirin and Plavix and Lipitor 8. History of previous IV drug abuse 9. History of hepatitis B 10. History of hyperlipidemia maintained on statin 11. History of essential hypertension 12. History of closed head injury 13. Urinary tract infection. Urine culture was positive for Klebsiella. Patient pleaded treatment with 5 days of Bactrim 14. Bilateral knee pain. X-ray of bilateral knees completed consideration for crystal deposition arthroplasty, osteoarthritis. Uric acid level 5.8 15. Chronic systolic congestive heart failure. 2-D echo completed showing an EF of 20-25% with global hypokinesis 16. Depression with Suicidal ideation. Patient was reevaluated by psychiatry services suicide precautions DC'd. Patient does not meet criteria for inpatient psych 17. Acute kidney injury. Initial creatinine elevated at 1.49 has improved lisinopril DC'd. Creatinine improving to 0.85 bun 30 18. Hyperkalemia. Potassium 5.6. Patient did receive Kayexalate repeat potassium 4.6 19. Elevated liver enzymes. Lipitor decreased to 10 mg daily. Liver enzymes are trending down DVT prophylaxis heparin. GI prophylaxis Pepcid Discussed case with Latrice social services director possible emergent AFC placement in the works
[2019-03-11] MEDS: ATORVASTATIN 10 MG TAB PO SCH (21:37)
[2019-03-12] MEDS: CARVEDILOL 6.25 MG TAB PO SCH ×2 (07:50→16:25)
[2019-03-12] MEDS: ASPIRIN 81 MG PO SCH (07:51)
[2019-03-12] MEDS: HEPARIN SODIUM,PORCINE 5,000 UNIT/ML 1 ML VIAL SQ SCH ×2 (07:51→21:48)
[2019-03-12] MEDS: OLANZapine 2.5 MG TAB PO SCH ×2 (07:51→21:47)
[2019-03-12] MEDS: FAMOTIDINE 20 MG TAB PO SCH (07:51)
[2019-03-12] MEDS: NICOTINE 21MG/24HR PATCH TRANSDERM SCH (07:51)
[2019-03-12] MEDS: CLOPIDOGREL 75 MG TAB PO SCH (07:51)
--- NOTE | 2019-03-12 10:05 | P.PN ---
Subjective Progress Note Date: 03/12/19 This is a 68-year-old male patient who presented with complaints of fall and slurred speech. Patient is a poor historian. According to ER report patient was crossing the street when a bystander witnessed him fall to his knees. Patient was brought to the ER for further evaluation. Patient does have a significant past medical history for CVA, seizure disorder, heart failure, previous IV drug abuser, coronary artery disease, hyperlipidemia, hypertension, myocardial infections, osteoporosis, pneumonia, AICD and ex-smoker. CT of head and cervical spine completed showing no acute fracture or dislocation evident in the cervical spine. Showed subacute infarct. Underlying chronic small vessel ischemia with areas multiple prior infarction. Pelvis x-ray completed showing no acute fracture. Chest x-ray completed using COPD. EKG completed showing normal sinus rhythm, left axis. Incomplete left bundle branch block. This time patient is resting comfortably in bed. Difficult to obtain history of ovarian due to patient's known baseline of slurred speech per PCP. At this time patient denies any chest pain or shortness of breath. Patient denies nausea vomiting or diarrhea. Patient denies any urinary burning or frequency. Neurology services have been consulted. On 02/15/2019 patient is currently resting comfortably in bed. Patient is awake and alert. UA positive for urinary tract infection patient started on Rocephin urine culture ordered. Neurology recommending cardiology consult to address possible embolic phenomenon causing strokes. At this time patient is complaining of bilateral knee discomfort. X-rays will be ordered. Patient denies chest pain or shortness breath. Patient denies nausea vomiting diarrhea. Social work is on consult possible guardianship in [facility] 02/16-02/25 On 02/26/2019 patient is currently resting comfortably in bed. community representative is at bedside. Patient is being followed by site due to suicidal ideation. C reatinine did improve to 1.08 and bun 47. Potassium 4.6 at this time patient denies chest pain or shortness of breath. Patient denies nausea vomiting or diarrhea. Patient denies any urinary burning or frequency On 02/27/2019 patient is resting comfortably in bed. community representative remains at bedside. Discussed case with delinquency prevention social worker Latrice. Per delinquency prevention social worker awaiting legal guardian to find placement for patient. Also awaiting psych to evaluate for possible inpatient psychiatry services. This time patient denies chest pain or shortness of breath. Patient denies nausea vomiting or diarrhea. Patient denies any urinary burning or frequency. On 02/28/2019 patient was reevaluated by psychiatry services. Suicide precautions removed. Patient has been cleared by psych. Awaiting social work and [facility]PO[facility] for placement for discharge. Patient denies any chest pain or shortness of breath. Patient denies nausea vomiting or diarrhea. Patient denies any urinary burning or frequency. On 03/01/2019 patient is currently resting comfortably in bed cuff case with delinquency prevention social worker still awaiting placement at [facility] facility per legal guardian. Patient denies chest pain or shortness of breath. Patient denies nausea vomiting or diarrhea. Patient denies any urinary burning or frequency. On 03/02/2019 patient is currently resting comfortably in bed. Patient denies any chest pain or shortness of breath. Patient denies nausea vomiting diarrhea. Patient denies any urinary burning or frequency. Awaiting [facility] placement per legal guardian On 03/03/2019 patient was seen and examined on the medical floor he is laying comfortably in bed he denies any complaints, he is eating well, there is no evidence of pain or discomfort no agitation speech is difficult to understand. On 03/04/2019 patient was seen and examined on the medical floor he is alert responsive in no apparent distress he denies any pain he denies any nausea or vomiting he is tolerating regular diet well there is no fever or chills no headache or dizziness no chest pain no shortness of breath no cough and no urinary symptoms On 03/05/2019 patient is alert and oriented resting comfortably in bed. Patient denies any chest pain or shortness of breath. Patient denies nausea vomiting or diarrhea. Patient denies any urinary burning or frequency. On 03/06/2019 patient is resting comfortably in bed with no complaints. Still awaiting legal guardian placement at [facility] facility. Patient denies chest pain or shortness breath. Patient denies nausea vomiting or diarrhea. Patient denies any urinary burning or frequency. On 03/07/2019 patient stated that he wanted to kill himself history to nursing staff. Patient has been placed on suicide precautions. Patient also refusing to shower or take his medication. Psychiatry services have been consulted. Patient denies any specific complaints. Patient reports that he is concerned about potential side effects from his medications. Educate patient on the importance of taking heart medication in order to prevent stroke and other negative implications. Awaiting psych consult On 03/08/2019 patient was evaluated by psychiatry services, suicide precautions have been DC'd. Patient does not meet criteria for inpatient psych. Still awaiting placement for [facility] facility per legal guardian. This time patient denies any specific complaints. On 03/10/2019 patient was seen and examined on the medical floor he is alert confused in no apparent distress, delinquency prevention social worker and power of patent prosecution attorney are still working on finding a discharge destination for patient he remains medically stable. On 03/11/2019 patient was seen and examined there is no complaints at this time no change in condition On 03/12/2019 patient is resting comfortably in bed with no complaints. No change in condition patient remained stable for discharge awaiting placement per social work and legal guardian Objective - Vital Signs Vital signs: Vital Signs Temp 97.9 F 03/12/19 05:00 Pulse 59 L 03/12/19 05:00 Resp 18 03/12/19 05:00 BP 92/60 03/12/19 05:00 Pulse Ox 96 03/12/19 05:00 Intake & Output 03/11/19 03/12/19 03/12/19 18:59 06:59 18:59 Intake Total 400 0 Balance 400 0 Weight 51.1 kg Intake: IV 0 Sodium Chloride 0.9% 1, 0 000 ml @ 80 mls/hr IV . [id number] [facility] Rx#:[id number] Oral 400 Other: Voiding Method Toilet # Voids 0 2 - Exam Head normocephalic Neck supple Lungs clear to auscultation bilaterally no wheezing or crackles Heart regular rate and rhythm S1-S2, no rub or gallop Abdomen is soft nontender nondistended positive bowel sounds no hepatosplenomegaly Extremities no edema Neuro slurred speech. Poor historian. Alert and oriented 2. Able to follow commands - Labs CBC & Chem 7: 03/07/19 07:18 03/07/19 07:18 Assessment and Plan Assessment: 1. Fall with altered mental status related to multiple CVAs in bilateral anterior and posterior circulations. Head and cervical spine CT completed showing no acute fracture-dislocation evident in the cervical spine. Subacute infarct. Underlying chronic small vessel ischemia with areas multiple prior infarction. Neurology services have been consulted. MRI cannot be obtained due to AICD. CTA completed showing the nondominant left retrievable artery shows moderate to severe segmental narrowing of the V4 intracranial segment otherwise no large vessel intracranial arterial occlusion or aneurysmal changes seen. 2-D echo completed showing an EF between 20 and 25%. EKG completed showing normal awake EEG without background asymmetry or epileptiform discharges. Per neurology probably vascular dementia seen on head CT. Patient has been cleared for discharge from neurology standpoint. Patient to follow-up with neurology services 1-2 weeks after discharge 2. History of previous CVA with residual expressive aphasia. Maintained on Plavix 3. History of coronary artery disease 4. History of closed head injury 5. History of seizures. Continue Keppra. 6. Generalized anxiety disorder continue Xanax 7. History of a AICD for cardiomyopathy. Per cardiology device interrogated no arrhythmias found continue aspirin and Plavix and Lipitor 8. History of previous IV drug abuse 9. History of hepatitis B 10. History of hyperlipidemia maintained on statin 11. History of essential hypertension 12. History of closed head injury 13. Urinary tract infection. Urine culture was positive for Klebsiella. Pat ient pleaded treatment with 5 days of Bactrim 14. Bilateral knee pain. X-ray of bilateral knees completed consideration for crystal deposition arthroplasty, osteoarthritis. Uric acid level 5.8 15. Chronic systolic congestive heart failure. 2-D echo completed showing an EF of 20-25% with global hypokinesis 16. Depression with Suicidal ideation. Patient was reevaluated by psychiatry services suicide precautions DC'd. Patient does not meet criteria for inpatient psych 17. Acute kidney injury. Initial creatinine elevated at 1.49 has improved lisinopril DC'd. Creatinine improving to 0.85 bun 30 18. Hyperkalemia. Potassium 5.6. Patient did receive Kayexalate repeat potassium 4.6 19. Elevated liver enzymes. Lipitor decreased to 10 mg daily. Liver enzymes are trending down DVT prophylaxis heparin. GI prophylaxis Pepcid Discussed case with Latrice delinquency prevention social worker possible emergent [facility] placement in the works. I performed an examination of the patient and discussed their management with the Nurse Practitioner. I have reviewed the Nurse Practitioner's notes and agree with the documented findings and plan of care
[2019-03-12] MEDS: ATORVASTATIN 10 MG TAB PO SCH (21:47)
[2019-03-13] MEDS: CARVEDILOL 6.25 MG TAB PO SCH ×2 (08:02→17:16)
[2019-03-13] MEDS: ASPIRIN 81 MG PO SCH (08:03)
[2019-03-13] MEDS: CLOPIDOGREL 75 MG TAB PO SCH (08:03)
[2019-03-13] MEDS: FAMOTIDINE 20 MG TAB PO SCH (08:03)
[2019-03-13] MEDS: NICOTINE 21MG/24HR PATCH TRANSDERM SCH (08:03)
[2019-03-13] MEDS: HEPARIN SODIUM,PORCINE 5,000 UNIT/ML 1 ML VIAL SQ SCH ×2 (08:04→21:53)
[2019-03-13] MEDS: OLANZapine 2.5 MG TAB PO SCH ×2 (08:04→20:58)
[2019-03-13 10:48] LABS: Basophils % (A) 1 %; Eosinophils # (A) 0.1 k/uL (0-0.7); Eosinophils % (A) 2 %; HCT 39.2 % (39.0-53.0); HGB 13.1 gm/dL (13.0-17.5); Lymphocytes # (A) 1.7 k/uL (1.0-4.8); Lymphocytes % (A) 26 %; MCH 32.3 pg (25.0-35.0); MCHC 33.4 g/dL (31.0-37.0); MCV 96.9 fL (80.0-100.0); Mean Platelet Volume 8.6; Monocytes # (A) 0.5 k/uL (0-1.0); Monocytes % (A) 8 %; Neutrophils % (A) 60 %; Platelet Count 124 k/uL (150-450); RBC 4.05 m/uL (4.30-5.90); RDW 13.3 % (11.5-15.5); WBC 6.6 k/uL (3.8-10.6)
[2019-03-13 11:03] LABS: ALT 68 U/L (21-72); AST 51 U/L (17-59); African American GFR (CKD) >90 (>60 ml/min/1.73 sqM); Albumin 4.1 g/dL (3.5-5.0); Alkaline Phosphatase 59 U/L (38-126); Anion Gap 8 mmol/L; Blood Urea Nitrogen 37 mg/dL (9-20); Carbon Dioxide 31 mmol/L (22-30); Chloride 104 mmol/L (98-107); Glucose 98 mg/dL (74-99); Potassium 4.1 mmol/L (3.5-5.1); Sodium 143 mmol/L (137-145); Total Bilirubin 0.5 mg/dL (0.2-1.3); Total Protein 7.5 g/dL (6.3-8.2)
--- NOTE | 2019-03-13 11:07 | P.PN ---
Subjective Progress Note Date: 03/13/19 This is a 68-year-old male patient who presented with complaints of fall and slurred speech. Patient is a poor historian. According to ER report patient was crossing the street when a bystander witnessed him fall to his knees. Patient was brought to the ER for further evaluation. Patient does have a significant past medical history for CVA, seizure disorder, heart failure, previous IV drug abuser, coronary artery disease, hyperlipidemia, hypertension, myocardial infections, osteoporosis, pneumonia, AICD and ex-smoker. CT of head and cervical spine completed showing no acute fracture or dislocation evident in the cervical spine. Showed subacute infarct. Underlying chronic small vessel ischemia with areas multiple prior infarction. Pelvis x-ray completed showing no acute fracture. Chest x-ray completed using COPD. EKG completed showing normal sinus rhythm, left axis. Incomplete left bundle branch block. This time patient is resting comfortably in bed. Difficult to obtain history of ovarian due to patient's known baseline of slurred speech per PCP. At this time patient denies any chest pain or shortness of breath. Patient denies nausea vomiting or diarrhea. Patient denies any urinary burning or frequency. Neurology services have been consulted. On 02/15/2019 patient is currently resting comfortably in bed. Patient is awake and alert. UA positive for urinary tract infection patient started on Rocephin urine culture ordered. Neurology recommending cardiology consult to address possible embolic phenomenon causing strokes. At this time patient is complaining of bilateral knee discomfort. X-rays will be ordered. Patient denies chest pain or shortness breath. Patient denies nausea vomiting diarrhea. Social work is on consult possible guardianship in [facility] 02/16-02/25 On 02/26/2019 patient is currently resting comfortably in bed. afterschool babysitter is at bedside. Patient is being followed by site due to suicidal ideation. C reatinine did improve to 1.08 and bun 47. Potassium 4.6 at this time patient denies chest pain or shortness of breath. Patient denies nausea vomiting or diarrhea. Patient denies any urinary burning or frequency On 02/27/2019 patient is resting comfortably in bed. afterschool babysitter remains at bedside. Discussed case with social science professor Latrice. Per social science professor awaiting legal guardian to find placement for patient. Also awaiting psych to evaluate for possible inpatient psychiatry services. This time patient denies chest pain or shortness of breath. Patient denies nausea vomiting or diarrhea. Patient denies any urinary burning or frequency. On 02/28/2019 patient was reevaluated by psychiatry services. Suicide precautions removed. Patient has been cleared by psych. Awaiting social work and [facility]PO[facility] for placement for discharge. Patient denies any chest pain or shortness of breath. Patient denies nausea vomiting or diarrhea. Patient denies any urinary burning or frequency. On 03/01/2019 patient is currently resting comfortably in bed cuff case with social science professor still awaiting placement at [facility] facility per legal guardian. Patient denies chest pain or shortness of breath. Patient denies nausea vomiting or diarrhea. Patient denies any urinary burning or frequency. On 03/02/2019 patient is currently resting comfortably in bed. Patient denies any chest pain or shortness of breath. Patient denies nausea vomiting diarrhea. Patient denies any urinary burning or frequency. Awaiting [facility] placement per legal guardian On 03/03/2019 patient was seen and examined on the medical floor he is laying comfortably in bed he denies any complaints, he is eating well, there is no evidence of pain or discomfort no agitation speech is difficult to understand. On 03/04/2019 patient was seen and examined on the medical floor he is alert responsive in no apparent distress he denies any pain he denies any nausea or vomiting he is tolerating regular diet well there is no fever or chills no headache or dizziness no chest pain no shortness of breath no cough and no urinary symptoms On 03/05/2019 patient is alert and oriented resting comfortably in bed. Patient denies any chest pain or shortness of breath. Patient denies nausea vomiting or diarrhea. Patient denies any urinary burning or frequency. On 03/06/2019 patient is resting comfortably in bed with no complaints. Still awaiting legal guardian placement at [facility] facility. Patient denies chest pain or shortness breath. Patient denies nausea vomiting or diarrhea. Patient denies any urinary burning or frequency. On 03/07/2019 patient stated that he wanted to kill himself history to nursing staff. Patient has been placed on suicide precautions. Patient also refusing to shower or take his medication. Psychiatry services have been consulted. Patient denies any specific complaints. Patient reports that he is concerned about potential side effects from his medications. Educate patient on the importance of taking heart medication in order to prevent stroke and other negative implications. Awaiting psych consult On 03/08/2019 patient was evaluated by psychiatry services, suicide precautions have been DC'd. Patient does not meet criteria for inpatient psych. Still awaiting placement for [facility] facility per legal guardian. This time patient denies any specific complaints. On 03/10/2019 patient was seen and examined on the medical floor he is alert confused in no apparent distress, social science professor and power of compliance attorney are still working on finding a discharge destination for patient he remains medically stable. On 03/11/2019 patient was seen and examined there is no complaints at this time no change in condition On 03/12/2019 patient is resting comfortably in bed with no complaints. No change in condition patient remained stable for discharge awaiting placement per social work and legal guardian On 03/13/2019 patient resting comfortably in bed. No changes to patient condition. Patient is medically cleared for discharge awaiting placement. Labs reviewed from today. No changes Objective - Vital Signs Vital signs: Vital Signs Temp 97.9 F 03/13/19 04:15 Pulse 61 03/13/19 04:15 Resp 18 03/13/19 04:15 BP 115/72 03/13/19 04:15 Pulse Ox 98 03/13/19 04:15 Intake & Output 03/12/19 03/13/19 03/13/19 18:59 06:59 18:59 Weight 52 kg Other: Voiding Method Toilet # Voids 1 3 - Exam Head normocephalic Neck supple Lungs clear to auscultation bilaterally no wheezing or crackles Heart regular rate and rhythm S1-S2, no rub or gallop Abdomen is soft nontender nondistended positive bowel sounds no hepatosplenomegaly Extremities no edema Neuro slurred speech. Poor historian. Alert and oriented 2. Able to follow commands - Labs CBC & Chem 7: 03/13/19 10:33 03/13/19 10:33 Labs: Abnormal Lab Results - Last 24 Hours (Table) 03/13/19 03/13/19 Range/Units 10:33 10:33 RBC 4.05 L (4.30-5.90) m/uL Plt Count 124 L (150-450) k/uL Carbon Dioxide 31 H (22-30) mmol/L BUN 37 H (9-20) mg/dL Assessment and Plan Assessment: 1. Fall with altered mental status related to multiple CVAs in bilateral anterior and posterior circulations. Head and cervical spine CT completed showing no acute fracture-dislocation evident in the cervical spine. Subacute infarct. Underlying chronic small vessel ischemia with areas multiple prior infarction. Neurology services have been consulted. MRI cannot be obtained due to AICD. CTA completed showing the nondominant left retrievable artery shows moderate to severe segmental narrowing of the V4 intracranial segment otherwise no large vessel intracranial arterial occlusion or aneurysmal changes seen. 2-D echo completed showing an EF between 20 and 25%. EKG completed showing normal awake EEG without background asymmetry or epileptiform discharges. Per neurology probably vascular dementia seen on head CT. Patient has been cleared for discharge from neurology standpoint. Patient to follow-up with neurology services 1-2 weeks after discharge 2. History of previous CVA with residual expressive aphasia. Maintained on Plavix 3. History of coronary artery disease 4. History of closed head injury 5. History of seizures. Continue Keppra. 6. Generalized anxiety disorder continue Xanax 7. History of a AICD for cardiomyopathy. Per cardiology device interrogated no arrhythmias found continue aspirin and Plavix and Lipitor 8. History of previous IV drug abuse 9. History of hepatitis B 10. History of hyperlipidemia maintained on statin 11. History of essential hypertension 12. History of closed head injury 13. Urinary tract infection. Urine culture was positive for Klebsiella. Patient pleaded treatment with 5 days of Bactrim 14. Bilateral knee pain. X-ray of bilateral knees completed consideration for crystal deposition arthroplasty, osteoarthritis. Uric acid level 5.8 15. Chronic systolic congestive heart failure. 2-D echo completed showing an EF of 20-25% with global hypokinesis 16. Depression with Suicidal ideation. Patient was reevaluated by psychiatry services suicide precautions DC'd. Patient does not meet criteria for inpatient psych 17. Acute kidney injury. Initial creatinine elevated at 1.49 has improved lisinopril DC'd. Creatinine improving to 0.85 bun 30 18. Hyperkalemia. Potassium 5.6. Patient did receive Kayexalate repeat potassium 4.6 19. Elevated liver enzymes. Lipitor decreased to 10 mg daily. Liver enzymes are trending down DVT prophylaxis heparin. GI prophylaxis Pepcid Discussed case with Latrice social science professor possible emergent [facility] placement in the works. I performed an examination of the patient and discussed their management with the Nurse Practitioner. I have reviewed the Nurse Practitioner's notes and agree with the documented findings and plan of care
[2019-03-13] MEDS: ATORVASTATIN 10 MG TAB PO SCH (21:01)
[2019-03-14] MEDS: CLOPIDOGREL 75 MG TAB PO SCH (07:27)
[2019-03-14] MEDS: ASPIRIN 81 MG PO SCH (07:27)
[2019-03-14] MEDS: NICOTINE 21MG/24HR PATCH TRANSDERM SCH (07:27)
[2019-03-14] MEDS: CARVEDILOL 6.25 MG TAB PO SCH ×2 (07:28→16:34)
[2019-03-14] MEDS: OLANZapine 2.5 MG TAB PO SCH ×2 (07:28→21:53)
[2019-03-14] MEDS: HEPARIN SODIUM,PORCINE 5,000 UNIT/ML 1 ML VIAL SQ SCH ×2 (07:28→21:58)
[2019-03-14] MEDS: FAMOTIDINE 20 MG TAB PO SCH (07:28)
--- NOTE | 2019-03-14 15:27 | P.PN ---
Subjective Progress Note Date: 03/14/19 This is a 68-year-old male patient who presented with complaints of fall and slurred speech. Patient is a poor historian. According to ER report patient was crossing the street when a bystander witnessed him fall to his knees. Patient was brought to the ER for further evaluation. Patient does have a significant past medical history for CVA, seizure disorder, heart failure, previous IV drug abuser, coronary artery disease, hyperlipidemia, hypertension, myocardial infections, osteoporosis, pneumonia, AICD and ex-smoker. CT of head and cervical spine completed showing no acute fracture or dislocation evident in the cervical spine. Showed subacute infarct. Underlying chronic small vessel ischemia with areas multiple prior infarction. Pelvis x-ray completed showing no acute fracture. Chest x-ray completed using COPD. EKG completed showing normal sinus rhythm, left axis. Incomplete left bundle branch block. This time patient is resting comfortably in bed. Difficult to obtain history of ovarian due to patient's known baseline of slurred speech per PCP. At this time patient denies any chest pain or shortness of breath. Patient denies nausea vomiting or diarrhea. Patient denies any urinary burning or frequency. Neurology services have been consulted. On 02/15/2019 patient is currently resting comfortably in bed. Patient is awake and alert. UA positive for urinary tract infection patient started on Rocephin urine culture ordered. Neurology recommending cardiology consult to address possible embolic phenomenon causing strokes. At this time patient is complaining of bilateral knee discomfort. X-rays will be ordered. Patient denies chest pain or shortness breath. Patient denies nausea vomiting diarrhea. Social work is on consult possible guardianship in [facility] 02/16-02/25 On 02/26/2019 patient is currently resting comfortably in bed. advertising consultant is at bedside. Patient is being followed by site due to suicidal ideation. C reatinine did improve to 1.08 and bun 47. Potassium 4.6 at this time patient denies chest pain or shortness of breath. Patient denies nausea vomiting or diarrhea. Patient denies any urinary burning or frequency On 02/27/2019 patient is resting comfortably in bed. advertising consultant remains at bedside. Discussed case with social media sr strategy manager Latrice. Per social media sr strategy manager awaiting legal guardian to find placement for patient. Also awaiting psych to evaluate for possible inpatient psychiatry services. This time patient denies chest pain or shortness of breath. Patient denies nausea vomiting or diarrhea. Patient denies any urinary burning or frequency. On 02/28/2019 patient was reevaluated by psychiatry services. Suicide precautions removed. Patient has been cleared by psych. Awaiting social work and DPOAE for placement for discharge. Patient denies any chest pain or shortness of breath. Patient denies nausea vomiting or diarrhea. Patient denies any urinary burning or frequency. On 03/01/2019 patient is currently resting comfortably in bed cuff case with social media sr strategy manager still awaiting placement at [facility] facility per legal guardian. Patient denies chest pain or shortness of breath. Patient denies nausea vomiting or diarrhea. Patient denies any urinary burning or frequency. On 03/02/2019 patient is currently resting comfortably in bed. Patient denies any chest pain or shortness of breath. Patient denies nausea vomiting diarrhea. Patient denies any urinary burning or frequency. Awaiting [facility] placement per legal guardian On 03/03/2019 patient was seen and examined on the medical floor he is laying comfortably in bed he denies any complaints, he is eating well, there is no evidence of pain or discomfort no agitation speech is difficult to understand. On 03/04/2019 patient was seen and examined on the medical floor he is alert responsive in no apparent distress he denies any pain he denies any nausea or vomiting he is tolerating regular diet well there is no fever or chills no headache or dizziness no chest pain no shortness of breath no cough and no urinary symptoms On 03/05/2019 patient is alert and oriented resting comfortably in bed. Patient denies any chest pain or shortness of breath. Patient denies nausea vomiting or diarrhea. Patient denies any urinary burning or frequency. On 03/06/2019 patient is resting comfortably in bed with no complaints. Still awaiting legal guardian placement at [facility] facility. Patient denies chest pain or shortness breath. Patient denies nausea vomiting or diarrhea. Patient denies any urinary burning or frequency. On 03/07/2019 patient stated that he wanted to kill himself history to nursing staff. Patient has been placed on suicide precautions. Patient also refusing to shower or take his medication. Psychiatry services have been consulted. Patient denies any specific complaints. Patient reports that he is concerned about potential side effects from his medications. Educate patient on the importance of taking heart medication in order to prevent stroke and other negative implications. Awaiting psych consult On 03/08/2019 patient was evaluated by psychiatry services, suicide precautions have been DC'd. Patient does not meet criteria for inpatient psych. Still awaiting placement for [facility] facility per legal guardian. This time patient denies any specific complaints. On 03/10/2019 patient was seen and examined on the medical floor he is alert confused in no apparent distress, social media sr strategy manager and power of finance attorney are still working on finding a discharge destination for patient he remains medically stable. On 03/11/2019 patient was seen and examined there is no complaints at this time no change in condition On 03/12/2019 patient is resting comfortably in bed with no complaints. No change in condition patient remained stable for discharge awaiting placement per social work and legal guardian On 03/13/2019 patient resting comfortably in bed. No changes to patient condition. Patient is medically cleared for discharge awaiting placement. Labs reviewed from today. No changes On 03/14/2019 patient remains stable. No changes. Discussed case with social work multiple times have been made to place patient in AFC facility in [facility] tomorrow Objective - Vital Signs Vital signs: Vital Signs Temp 98.0 F 03/14/19 05:15 Pulse 52 L 03/14/19 05:15 Resp 16 03/14/19 05:15 BP 100/63 03/14/19 05:15 Pulse Ox 97 03/14/19 05:15 Intake & Output 03/13/19 03/14/19 03/14/19 18:59 06:59 18:59 Weight 52 kg 52 kg Other: Voiding Method Toilet # Voids 2 2 4 # Bowel Movements 3 - Exam Head normocephalic Neck supple Lungs clear to auscultation bilaterally no wheezing or crackles Heart regular rate and rhythm S1-S2, no rub or gallop Abdomen is soft nontender nondistended positive bowel sounds no hepatosplenom egaly Extremities no edema Neuro slurred speech. Poor historian. Alert and oriented 2. Able to follow commands - Labs CBC & Chem 7: 03/13/19 10:33 03/13/19 10:33 Assessment and Plan Assessment: 1. Fall with altered mental status related to multiple CVAs in bilateral anterior and posterior circulations. Head and cervical spine CT completed showing no acute fracture-dislocation evident in the cervical spine. Subacute infarct. Underlying chronic small vessel ischemia with areas multiple prior infarction. Neurology services have been consulted. MRI cannot be obtained due to AICD. CTA completed showing the nondominant left retrievable artery shows moderate to severe segmental narrowing of the V4 intracranial segment otherwise no large vessel intracranial arterial occlusion or aneurysmal changes seen. 2-D echo completed showing an EF between 20 and 25%. EKG completed showing normal awake EEG without background asymmetry or epileptiform discharges. Per neurology probably vascular dementia seen on head CT. Patient has been cleared for discharge from neurology standpoint. Patient to follow-up with neurology services 1-2 weeks after discharge 2. History of previous CVA with residual expressive aphasia. Maintained on Plavix 3. History of coronary artery disease 4. History of closed head injury 5. History of seizures. Continue Keppra. 6. Generalized anxiety disorder continue Xanax 7. History of a AICD for cardiomyopathy. Per cardiology device interrogated no arrhythmias found continue aspirin and Plavix and Lipitor 8. History of previous IV drug abuse 9. History of hepatitis B 10. History of hyperlipidemia maintained on statin 11. History of essential hypertension 12. History of closed head injury 13. Urinary tract infection. Urine culture was positive for Klebsiella. Patient pleaded treatment with 5 days of Bactrim 14. Bilateral knee pain. X-ray of bilateral knees completed consideration for crystal deposition arthroplasty, osteoarthritis. Uric acid level 5.8 15. Chronic systolic congestive heart failure. 2-D echo completed showing an EF of 20-25% with global hypokinesis 16. Depression with Suicidal ideation. Patient was reevaluated by psychiatry services suicide precautions DC'd. Patient does not meet criteria for inpatient psych 17. Acute kidney injury. Initial creatinine elevated at 1.49 has improved lisinopril DC'd. Creatinine improving to 0.85 bun 30 18. Hyperkalemia. Potassium 5.6. Patient did receive Kayexalate repeat potassium 4.6 19. Elevated liver enzymes. Lipitor decreased to 10 mg daily. Liver enzymes are trending down DVT prophylaxis heparin. GI prophylaxis Pepcid Discussed case with Latrice social media sr strategy manager possible emergent AFC placement in the works. Possible placement tomorrow at [facility] with AFC facility I performed an examination of the patient and discussed their management with the Nurse Practitioner. I have reviewed the Nurse Practitioner's notes and agree with the documented findings and plan of care
[2019-03-14] MEDS: ATORVASTATIN 10 MG TAB PO SCH (21:52)
[2019-03-15] MEDS: FAMOTIDINE 20 MG TAB PO SCH (07:49)
[2019-03-15] MEDS: CARVEDILOL 6.25 MG TAB PO SCH ×2 (07:49→15:30)
[2019-03-15] MEDS: HEPARIN SODIUM,PORCINE 5,000 UNIT/ML 1 ML VIAL SQ SCH ×2 (07:49→21:19)
[2019-03-15] MEDS: CLOPIDOGREL 75 MG TAB PO SCH (07:49)
[2019-03-15] MEDS: OLANZapine 2.5 MG TAB PO SCH ×2 (07:49→21:20)
[2019-03-15] MEDS: ASPIRIN 81 MG PO SCH (07:49)
[2019-03-15] MEDS: NICOTINE 21MG/24HR PATCH TRANSDERM SCH (07:50)
--- NOTE | 2019-03-15 11:11 | P.PN ---
Subjective Progress Note Date: 03/15/19 This is a 68-year-old male patient who presented with complaints of fall and slurred speech. Patient is a poor historian. According to ER report patient was crossing the street when a bystander witnessed him fall to his knees. Patient was brought to the ER for further evaluation. Patient does have a significant past medical history for CVA, seizure disorder, heart failure, previous IV drug abuser, coronary artery disease, hyperlipidemia, hypertension, myocardial infections, osteoporosis, pneumonia, AICD and ex-smoker. CT of head and cervical spine completed showing no acute fracture or dislocation evident in the cervical spine. Showed subacute infarct. Underlying chronic small vessel ischemia with areas multiple prior infarction. Pelvis x-ray completed showing no acute fracture. Chest x-ray completed using COPD. EKG completed showing normal sinus rhythm, left axis. Incomplete left bundle branch block. This time patient is resting comfortably in bed. Difficult to obtain history of ovarian due to patient's known baseline of slurred speech per PCP. At this time patient denies any chest pain or shortness of breath. Patient denies nausea vomiting or diarrhea. Patient denies any urinary burning or frequency. Neurology services have been consulted. On 02/15/2019 patient is currently resting comfortably in bed. Patient is awake and alert. UA positive for urinary tract infection patient started on Rocephin urine culture ordered. Neurology recommending cardiology consult to address possible embolic phenomenon causing strokes. At this time patient is complaining of bilateral knee discomfort. X-rays will be ordered. Patient denies chest pain or shortness breath. Patient denies nausea vomiting diarrhea. Social work is on consult possible guardianship in [facility] 02/16-02/25 On 02/26/2019 patient is currently resting comfortably in bed. candy maker helper is at bedside. Patient is being followed by site due to suicidal ideation. C reatinine did improve to 1.08 and bun 47. Potassium 4.6 at this time patient denies chest pain or shortness of breath. Patient denies nausea vomiting or diarrhea. Patient denies any urinary burning or frequency On 02/27/2019 patient is resting comfortably in bed. candy maker helper remains at bedside. Discussed case with social media marketing manager Latrice. Per social media marketing manager awaiting legal guardian to find placement for patient. Also awaiting psych to evaluate for possible inpatient psychiatry services. This time patient denies chest pain or shortness of breath. Patient denies nausea vomiting or diarrhea. Patient denies any urinary burning or frequency. On 02/28/2019 patient was reevaluated by psychiatry services. Suicide precautions removed. Patient has been cleared by psych. Awaiting social work and DPOAE for placement for discharge. Patient denies any chest pain or shortness of breath. Patient denies nausea vomiting or diarrhea. Patient denies any urinary burning or frequency. On 03/01/2019 patient is currently resting comfortably in bed cuff case with social media marketing manager still awaiting placement at [facility] facility per legal guardian. Patient denies chest pain or shortness of breath. Patient denies nausea vomiting or diarrhea. Patient denies any urinary burning or frequency. On 03/02/2019 patient is currently resting comfortably in bed. Patient denies any chest pain or shortness of breath. Patient denies nausea vomiting diarrhea. Patient denies any urinary burning or frequency. Awaiting [facility] placement per legal guardian On 03/03/2019 patient was seen and examined on the medical floor he is laying comfortably in bed he denies any complaints, he is eating well, there is no evidence of pain or discomfort no agitation speech is difficult to understand. On 03/04/2019 patient was seen and examined on the medical floor he is alert responsive in no apparent distress he denies any pain he denies any nausea or vomiting he is tolerating regular diet well there is no fever or chills no headache or dizziness no chest pain no shortness of breath no cough and no urinary symptoms On 03/05/2019 patient is alert and oriented resting comfortably in bed. Patient denies any chest pain or shortness of breath. Patient denies nausea vomiting or diarrhea. Patient denies any urinary burning or frequency. On 03/06/2019 patient is resting comfortably in bed with no complaints. Still awaiting legal guardian placement at [facility] facility. Patient denies chest pain or shortness breath. Patient denies nausea vomiting or diarrhea. Patient denies any urinary burning or frequency. On 03/07/2019 patient stated that he wanted to kill himself history to nursing staff. Patient has been placed on suicide precautions. Patient also refusing to shower or take his medication. Psychiatry services have been consulted. Patient denies any specific complaints. Patient reports that he is concerned about potential side effects from his medications. Educate patient on the importance of taking heart medication in order to prevent stroke and other negative implications. Awaiting psych consult On 03/08/2019 patient was evaluated by psychiatry services, suicide precautions have been DC'd. Patient does not meet criteria for inpatient psych. Still awaiting placement for [facility] facility per legal guardian. This time patient denies any specific complaints. On 03/10/2019 patient was seen and examined on the medical floor he is alert confused in no apparent distress, social media marketing manager and power of photo tube assembler are still working on finding a discharge destination for patient he remains medically stable. On 03/11/2019 patient was seen and examined there is no complaints at this time no change in condition On 03/12/2019 patient is resting comfortably in bed with no complaints. No change in condition patient remained stable for discharge awaiting placement per social work and legal guardian On 03/13/2019 patient resting comfortably in bed. No changes to patient condition. Patient is medically cleared for discharge awaiting placement. Labs reviewed from today. No changes On 03/14/2019 patient remains stable. No changes. Discussed case with social work multiple times have been made to place patient in AFC facility in [place] possible tomorrow On 03/15/2019 patient remains stable resting in bed. Discussed case with social media marketing manager Latrice. No [facility] of beds available in [facility]. Message left for AFC facility in [place] awaiting callback legal guardian also looking for possible placement. Objective - Vital Signs Vital signs: Vital Signs Temp 97.8 F 03/15/19 05:20 Pulse 61 03/15/19 05:20 Resp 20 03/15/19 05:20 BP 113/76 03/15/19 05:20 Pulse Ox 97 03/15/19 05:20 Intake & Output 03/14/19 03/15/19 03/15/19 18:59 06:59 18:59 Intake Total 300 Balance 300 Weight 52 kg 52 kg Intake: Oral 300 Other: Voiding Method Toilet Toilet # Voids 4 1 # Bowel Movements 3 - Exam Head normocephalic Neck supple Lungs clear to auscultation bilaterally no wheezing or crackles Heart regular rate and rhythm S1-S2, no rub or gallop Abdomen is soft nontender nondistended positive bowel sounds no hepatosplenomegaly Extremities no edema Neuro slurred speech. Poor historian. Alert and oriented 2. Able to follow commands - Labs CBC & Chem 7: 03/13/19 10:33 03/13/19 10:33 Assessment and Plan Assessment: 1. Fall with altered mental status related to multiple CVAs in bilateral ante rior and posterior circulations. Head and cervical spine CT completed showing no acute fracture-dislocation evident in the cervical spine. Subacute infarct. Underlying chronic small vessel ischemia with areas multiple prior infarction. Neurology services have been consulted. MRI cannot be obtained due to AICD. CTA completed showing the nondominant left retrievable artery shows moderate to severe segmental narrowing of the V4 intracranial segment otherwise no large vessel intracranial arterial occlusion or aneurysmal changes seen. 2-D echo completed showing an EF between 20 and 25%. EKG completed showing normal awake EEG without background asymmetry or epileptiform discharges. Per neurology probably vascular dementia seen on head CT. Patient has been cleared for discharge from neurology standpoint. Patient to follow-up with neurology services 1-2 weeks after discharge 2. History of previous CVA with residual expressive aphasia. Maintained on Plavix 3. History of coronary artery disease 4. History of closed head injury 5. History of seizures. Continue Keppra. 6. Generalized anxiety disorder continue Xanax 7. History of a AICD for cardiomyopathy. Per cardiology device interrogated no arrhythmias found continue aspirin and Plavix and Lipitor 8. History of previous IV drug abuse 9. History of hepatitis B 10. History of hyperlipidemia maintained on statin 11. History of essential hypertension 12. History of closed head injury 13. Urinary tract infection. Urine culture was positive for Klebsiella. Patient pleaded treatment with 5 days of Bactrim 14. Bilateral knee pain. X-ray of bilateral knees completed consideration for crystal deposition arthroplasty, osteoarthritis. Uric acid level 5.8 15. Chronic systolic congestive heart failure. 2-D echo completed showing an EF of 20-25% with global hypokinesis 16. Depression with Suicidal ideation. Patient was reevaluated by psychiatry services suicide precautions DC'd. Patient does not meet criteria for inpatient psych 17. Acute kidney injury. Initial creatinine elevated at 1.49 has improved lisinopril DC'd. Creatinine improving to 0.85 bun 30 18. Hyperkalemia. Potassium 5.6. Patient did receive Kayexalate repeat potassium 4.6 19. Elevated liver enzymes. Lipitor decreased to 10 mg daily. Liver enzymes are trending down DVT prophylaxis heparin. GI prophylaxis Pepcid Discussed case with Latrice social media marketing manager possible emergent AFC placement in the works. Discussed case with social media marketing manager still awaiting AFC placement call made to AFC facility in [place] awaiting callback I performed an examination of the patient and discussed their management with the Nurse Practitioner. I have reviewed the Nurse Practitioner's notes and agree with the documented findings and plan of care
[2019-03-15] MEDS: ATORVASTATIN 10 MG TAB PO SCH (21:20)
[2019-03-16] MEDS: NICOTINE 21MG/24HR PATCH TRANSDERM SCH (08:05)
[2019-03-16] MEDS: FAMOTIDINE 20 MG TAB PO SCH (08:06)
[2019-03-16] MEDS: ASPIRIN 81 MG PO SCH (08:06)
[2019-03-16] MEDS: CLOPIDOGREL 75 MG TAB PO SCH (08:06)
[2019-03-16] MEDS: CARVEDILOL 6.25 MG TAB PO SCH ×2 (08:06→16:16)
[2019-03-16] MEDS: OLANZapine 2.5 MG TAB PO SCH ×2 (08:07→20:45)
[2019-03-16] MEDS: HEPARIN SODIUM,PORCINE 5,000 UNIT/ML 1 ML VIAL SQ SCH ×2 (08:07→20:45)
--- NOTE | 2019-03-16 09:49 | P.PN ---
Subjective Progress Note Date: 03/16/19 This is a 68-year-old male patient who presented with complaints of fall and slurred speech. Patient is a poor historian. According to ER report patient was crossing the street when a bystander witnessed him fall to his knees. Patient was brought to the ER for further evaluation. Patient does have a significant past medical history for CVA, seizure disorder, heart failure, previous IV drug abuser, coronary artery disease, hyperlipidemia, hypertension, myocardial infections, osteoporosis, pneumonia, AICD and ex-smoker. CT of head and cervical spine completed showing no acute fracture or dislocation evident in the cervical spine. Showed subacute infarct. Underlying chronic small vessel ischemia with areas multiple prior infarction. Pelvis x-ray completed showing no acute fracture. Chest x-ray completed using COPD. EKG completed showing normal sinus rhythm, left axis. Incomplete left bundle branch block. This time patient is resting comfortably in bed. Difficult to obtain history of ovarian due to patient's known baseline of slurred speech per PCP. At this time patient denies any chest pain or shortness of breath. Patient denies nausea vomiting or diarrhea. Patient denies any urinary burning or frequency. Neurology services have been consulted. On 02/15/2019 patient is currently resting comfortably in bed. Patient is awake and alert. UA positive for urinary tract infection patient started on Rocephin urine culture ordered. Neurology recommending cardiology consult to address possible embolic phenomenon causing strokes. At this time patient is complaining of bilateral knee discomfort. X-rays will be ordered. Patient denies chest pain or shortness breath. Patient denies nausea vomiting diarrhea. Social work is on consult possible guardianship in [facility] 02/16-02/25 On 02/26/2019 patient is currently resting comfortably in bed. jewel grinder is at bedside. Patient is being followed by site due to suicidal ideation. C reatinine did improve to 1.08 and bun 47. Potassium 4.6 at this time patient denies chest pain or shortness of breath. Patient denies nausea vomiting or diarrhea. Patient denies any urinary burning or frequency On 02/27/2019 patient is resting comfortably in bed. jewel grinder remains at bedside. Discussed case with pediatric social worker Latrice. Per pediatric social worker awaiting legal guardian to find placement for patient. Also awaiting psych to evaluate for possible inpatient psychiatry services. This time patient denies chest pain or shortness of breath. Patient denies nausea vomiting or diarrhea. Patient denies any urinary burning or frequency. On 02/28/2019 patient was reevaluated by psychiatry services. Suicide precautions removed. Patient has been cleared by psych. Awaiting social work and DPOAE for placement for discharge. Patient denies any chest pain or shortness of breath. Patient denies nausea vomiting or diarrhea. Patient denies any urinary burning or frequency. On 03/01/2019 patient is currently resting comfortably in bed cuff case with pediatric social worker still awaiting placement at [facility] facility per legal guardian. Patient denies chest pain or shortness of breath. Patient denies nausea vomiting or diarrhea. Patient denies any urinary burning or frequency. On 03/02/2019 patient is currently resting comfortably in bed. Patient denies any chest pain or shortness of breath. Patient denies nausea vomiting diarrhea. Patient denies any urinary burning or frequency. Awaiting [facility] placement per legal guardian On 03/03/2019 patient was seen and examined on the medical floor he is laying comfortably in bed he denies any complaints, he is eating well, there is no evidence of pain or discomfort no agitation speech is difficult to understand. On 03/04/2019 patient was seen and examined on the medical floor he is alert responsive in no apparent distress he denies any pain he denies any nausea or vomiting he is tolerating regular diet well there is no fever or chills no headache or dizziness no chest pain no shortness of breath no cough and no urinary symptoms On 03/05/2019 patient is alert and oriented resting comfortably in bed. Patient denies any chest pain or shortness of breath. Patient denies nausea vomiting or diarrhea. Patient denies any urinary burning or frequency. On 03/06/2019 patient is resting comfortably in bed with no complaints. Still awaiting legal guardian placement at [facility] facility. Patient denies chest pain or shortness breath. Patient denies nausea vomiting or diarrhea. Patient denies any urinary burning or frequency. On 03/07/2019 patient stated that he wanted to kill himself history to nursing staff. Patient has been placed on suicide precautions. Patient also refusing to shower or take his medication. Psychiatry services have been consulted. Patient denies any specific complaints. Patient reports that he is concerned about potential side effects from his medications. Educate patient on the importance of taking heart medication in order to prevent stroke and other negative implications. Awaiting psych consult On 03/08/2019 patient was evaluated by psychiatry services, suicide precautions have been DC'd. Patient does not meet criteria for inpatient psych. Still awaiting placement for [facility] facility per legal guardian. This time patient denies any specific complaints. On 03/10/2019 patient was seen and examined on the medical floor he is alert confused in no apparent distress, pediatric social worker and power of erisa attorney are still working on finding a discharge destination for patient he remains medically stable. On 03/11/2019 patient was seen and examined there is no complaints at this time no change in condition On 03/12/2019 patient is resting comfortably in bed with no complaints. No change in condition patient remained stable for discharge awaiting placement per social work and legal guardian On 03/13/2019 patient resting comfortably in bed. No changes to patient condition. Patient is medically cleared for discharge awaiting placement. Labs reviewed from today. No changes On 03/14/2019 patient remains stable. No changes. Discussed case with social work multiple times have been made to place patient in AFC facility in [place] possible tomorrow On 03/15/2019 patient remains stable resting in bed. Discussed case with pediatric social worker Latrice. No A[facility] of beds available in [facility]. Message left for AFC facility in [place] awaiting callback legal guardian also looking for possible placement. On 03/16/2019 patient remains stable medically cleared for discharge. Discussed case with pediatric social worker Latrice looking at potential room and board but patient was reevaluated by physical therapy yesterday was determined unable to do stairs. Per pediatric social worker emails descending to facility and legal guardian to see if adjustments can be made it so patient can be placed in a ground-level room. Awaiting further updates Objective - Vital Signs Vital signs: Vital Signs Temp 98 F 03/16/19 04:50 Pulse 70 03/16/19 04:50 Resp 20 03/16/19 04:50 BP 123/80 03/16/19 04:50 Pulse Ox 96 03/16/19 04:50 Intake & Output 03/15/19 03/16/19 03/16/19 18:59 06:59 18:59 Intake Total 450 300 Balance 450 300 Weight 52 kg Intake: Oral 450 300 Other: Voiding Method Toilet Toilet # Voids 1 1 - Exam Head normocephalic Neck supple Lungs clear to auscultation bilaterally no wheezing or crackles Heart regular rate and rhythm S1-S2, no rub or gallop Abdomen is soft nontender nondistended positive bowel sounds no hepatosplenomegaly Extremities no edema Neuro slurred speech. Poor historian. Alert and oriented 2. Able to follow commands - Labs CBC & Chem 7: 03/13/19 10:33 03/13/19 10:33 Assessment and Plan Assessment: 1. Fall with altered mental status related to multiple CVAs in bilateral anteri or and posterior circulations. Head and cervical spine CT completed showing no acute fracture-dislocation evident in the cervical spine. Subacute infarct. Underlying chronic small vessel ischemia with areas multiple prior infarction. Neurology services have been consulted. MRI cannot be obtained due to AICD. CTA completed showing the nondominant left retrievable artery shows moderate to severe segmental narrowing of the V4 intracranial segment otherwise no large vessel intracranial arterial occlusion or aneurysmal changes seen. 2-D echo completed showing an EF between 20 and 25%. EKG completed showing normal awake EEG without background asymmetry or epileptiform discharges. Per neurology probably vascular dementia seen on head CT. Patient has been cleared for discharge from neurology standpoint. Patient to follow-up with neurology services 1-2 weeks after discharge 2. History of previous CVA with residual expressive aphasia. Maintained on Plavix 3. History of coronary artery disease 4. History of closed head injury 5. History of seizures. Continue Keppra. 6. Generalized anxiety disorder continue Xanax 7. History of a AICD for cardiomyopathy. Per cardiology device interrogated no arrhythmias found continue aspirin and Plavix and Lipitor 8. History of previous IV drug abuse 9. History of hepatitis B 10. History of hyperlipidemia maintained on statin 11. History of essential hypertension 12. History of closed head injury 13. Urinary tract infection. Urine culture was positive for Klebsiella. Patient pleaded treatment with 5 days of Bactrim 14. Bilateral knee pain. X-ray of bilateral knees completed consideration for crystal deposition arthroplasty, osteoarthritis. Uric acid level 5.8 15. Chronic systolic congestive heart failure. 2-D echo completed showing an EF of 20-25% with global hypokinesis 16. Depression with Suicidal ideation. Patient was reevaluated by psychiatry services suicide precautions DC'd. Patient does not meet criteria for inpatient psych 17. Acute kidney injury. Initial creatinine elevated at 1.49 has improved lisinopril DC'd. Creatinine improving to 0.85 bun 30 18. Hyperkalemia. Potassium 5.6. Patient did receive Kayexalate repeat potassium 4.6 19. Elevated liver enzymes. Lipitor decreased to 10 mg daily. Liver enzymes are trending down DVT prophylaxis heparin. GI prophylaxis Pepcid Discussed case with Latrice forbespediatric social worker possible emergent AFC placement in the works. Discussed case with pediatric social worker still awaiting AFC placement call made to AFC facility in [place] awaiting callback I performed an examination of the patient and discussed their management with [facility] Nurse Practitioner. I have reviewed the Nurse Practitioner's notes and agree with the documented findings and plan of care
[2019-03-16] MEDS: ATORVASTATIN 10 MG TAB PO SCH (20:44)
[2019-03-17] MEDS: HEPARIN SODIUM,PORCINE 5,000 UNIT/ML 1 ML VIAL SQ SCH ×2 (07:02→21:50)
[2019-03-17] MEDS: NICOTINE 21MG/24HR PATCH TRANSDERM SCH (07:14)
[2019-03-17] MEDS: OLANZapine 2.5 MG TAB PO SCH ×2 (07:14→21:49)
[2019-03-17] MEDS: CARVEDILOL 6.25 MG TAB PO SCH ×2 (07:15→17:18)
[2019-03-17] MEDS: FAMOTIDINE 20 MG TAB PO SCH (07:15)
[2019-03-17] MEDS: CLOPIDOGREL 75 MG TAB PO SCH (07:15)
[2019-03-17] MEDS: ASPIRIN 81 MG PO SCH (07:15)
--- NOTE | 2019-03-17 14:23 | P.PN ---
Subjective Progress Note Date: 03/17/19 This is a 68-year-old male patient who presented with complaints of fall and slurred speech. Patient is a poor historian. According to ER report patient was crossing the street when a bystander witnessed him fall to his knees. Patient was brought to the ER for further evaluation. Patient does have a significant past medical history for CVA, seizure disorder, heart failure, previous IV drug abuser, coronary artery disease, hyperlipidemia, hypertension, myocardial infections, osteoporosis, pneumonia, AICD and ex-smoker. CT of head and cervical spine completed showing no acute fracture or dislocation evident in the cervical spine. Showed subacute infarct. Underlying chronic small vessel ischemia with areas multiple prior infarction. Pelvis x-ray completed showing no acute fracture. Chest x-ray completed using COPD. EKG completed showing normal sinus rhythm, left axis. Incomplete left bundle branch block. This time patient is resting comfortably in bed. Difficult to obtain history of ovarian due to patient's known baseline of slurred speech per PCP. At this time patient denies any chest pain or shortness of breath. Patient denies nausea vomiting or diarrhea. Patient denies any urinary burning or frequency. Neurology services have been consulted. On 02/15/2019 patient is currently resting comfortably in bed. Patient is awake and alert. UA positive for urinary tract infection patient started on Rocephin urine culture ordered. Neurology recommending cardiology consult to address possible embolic phenomenon causing strokes. At this time patient is complaining of bilateral knee discomfort. X-rays will be ordered. Patient denies chest pain or shortness breath. Patient denies nausea vomiting diarrhea. Social work is on consult possible guardianship in [facility] 02/16-02/25 On 02/26/2019 patient is currently resting comfortably in bed. before school babysitter is at bedside. Patient is being followed by site due to suicidal ideation. C reatinine did improve to 1.08 and bun 47. Potassium 4.6 at this time patient denies chest pain or shortness of breath. Patient denies nausea vomiting or diarrhea. Patient denies any urinary burning or frequency On 02/27/2019 patient is resting comfortably in bed. before school babysitter remains at bedside. Discussed case with professor of social work Latrice. Per professor of social work awaiting legal guardian to find placement for patient. Also awaiting psych to evaluate for possible inpatient psychiatry services. This time patient denies chest pain or shortness of breath. Patient denies nausea vomiting or diarrhea. Patient denies any urinary burning or frequency. On 02/28/2019 patient was reevaluated by psychiatry services. Suicide precautions removed. Patient has been cleared by psych. Awaiting social work and DPOAE for placement for discharge. Patient denies any chest pain or shortness of breath. Patient denies nausea vomiting or diarrhea. Patient denies any urinary burning or frequency. On 03/01/2019 patient is currently resting comfortably in bed cuff case with professor of social work still awaiting placement at [facility] facility per legal guardian. Patient denies chest pain or shortness of breath. Patient denies nausea vomiting or diarrhea. Patient denies any urinary burning or frequency. On 03/02/2019 patient is currently resting comfortably in bed. Patient denies any chest pain or shortness of breath. Patient denies nausea vomiting diarrhea. Patient denies any urinary burning or frequency. Awaiting [facility] placement per legal guardian On 03/03/2019 patient was seen and examined on the medical floor he is laying comfortably in bed he denies any complaints, he is eating well, there is no evidence of pain or discomfort no agitation speech is difficult to understand. On 03/04/2019 patient was seen and examined on the medical floor he is alert responsive in no apparent distress he denies any pain he denies any nausea or vomiting he is tolerating regular diet well there is no fever or chills no headache or dizziness no chest pain no shortness of breath no cough and no urinary symptoms. On 03/05/2019 patient is alert and oriented resting comfortably in bed. Patient denies any chest pain or shortness of breath. Patient denies nausea vomiting or diarrhea. Patient denies any urinary burning or frequency. On 03/06/2019 patient is resting comfortably in bed with no complaints. Still awaiting legal guardian placement at [facility] facility. Patient denies chest pain or shortness breath. Patient denies nausea vomiting or diarrhea. Patient denies any urinary burning or frequency. On 03/07/2019 patient stated that he wanted to kill himself history to nursing staff. Patient has been placed on suicide precautions. Patient also refusing to shower or take his medication. Psychiatry services have been consulted. Patient denies any specific complaints. Patient reports that he is concerned about potential side effects from his medications. Educate patient on the impor tance of taking heart medication in order to prevent stroke and other negative implications. Awaiting psych consult On 03/08/2019 patient was evaluated by psychiatry services, suicide precautions have been DC'd. Patient does not meet criteria for inpatient psych. Still awaiting placement for AFC facility per legal guardian. This time patient denies any specific complaints. On 03/09/2019 patient is medically stable and cleared for discharge discharge summary was done awaiting resolution of social issue to transfer patient to an AFC. On 03/10/2019 patient was seen and examined on the medical floor he is alert confused in no apparent distress, professor of social work and power of baggage agent supervisor are still working on finding a discharge destination for patient he remains medically stable. On 03/11/2019 patient was seen and examined there is no complaints at this time no change in condition On 03/12/2019 patient is resting comfortably in bed with no complaints. No change in condition patient remained stable for discharge awaiting placement per social work and legal guardian On 03/13/2019 patient resting comfortably in bed. No changes to patient condition. Patient is medically cleared for discharge awaiting placement. Labs reviewed from today. No changes On 03/14/2019 patient remains stable. No changes. Discussed case with social work multiple times have been made to place patient in AFC facility in [place] possible tomorrow On 03/15/2019 patient remains stable resting in bed. Discussed case with professor of social work Latrice. No AFC of beds available in [facility]. Message left for AFC facility in [place] awaiting callback legal guardian also looking for possible placement. On 03/16/2019 patient remains stable medically cleared for discharge. Discussed case with professor of social work Latrice looking at potential room and board but patient was reevaluated by physical therapy yesterday was determined unable to do stairs. Per professor of social work emails descending to facility and legal guardian to see if adjustments can be made it so patient can be placed in a ground-level room. Awaiting further updates On 03/17/2019 patient is alert responsive in no apparent distress he denies any complaints at this time he is cleared medically for discharge awaiting professor of social work input for discharge destination Objective - Vital Signs Vital signs: Vital Signs Temp 98.0 F 03/17/19 05:25 Pulse 67 03/17/19 05:25 Resp 16 03/17/19 08:00 BP 107/71 03/17/19 05:25 Pulse Ox 96 03/17/19 05:25 Intake & Output 03/16/19 03/17/19 03/17/19 18:59 06:59 18:59 Weight 52 kg Other: Voiding Method Toilet # Voids 2 1 3 - Exam In general patient is alert responsive, speech is different to understand, which is chronic Head normocephalic and atraumatic Neck supple no JVD no goiter Lungs clear to auscultation bilaterally no wheezing or crackles Heart regular rate and rhythm S1-S2, no rub or gallop Abdomen is soft nontender nondistended positive bowel sounds no hepatosplenomegaly Extremities no edema no cyanosis or clubbing Neuro No acute neurological deficit Able to follow commands - Labs CBC & Chem 7: 03/13/19 10:33 03/13/19 10:33 Assessment and Plan Plan: 1. Fall with altered mental status related to multiple CVAs in bilateral anter ior and posterior circulations. Head and cervical spine CT completed showing no acute fracture-dislocation evident in the cervical spine. Subacute infarct. Underlying chronic small vessel ischemia with areas multiple prior infarction. Neurology services have been consulted. MRI cannot be obtained due to AICD. CTA completed showing the nondominant left retrievable artery shows moderate to severe segmental narrowing of the V4 intracranial segment otherwise no large vessel intracranial arterial occlusion or aneurysmal changes seen. 2-D echo completed showing an EF between 20 and 25%. EKG completed showing normal awake EEG without background asymmetry or epileptiform discharges. Per neurology probably vascular dementia seen on head CT. Patient has been cleared for discharge from neurology standpoint. Patient to follow-up with neurology services 1-2 weeks after discharge 2. History of previous CVA with residual expressive aphasia. Maintained on Plavix 3. History of coronary artery disease 4. History of closed head injury 5. History of seizures. Continue Keppra. 6. Generalized anxiety disorder continue Xanax 7. History of a AICD for cardiomyopathy. Per cardiology device interrogated no arrhythmias found continue aspirin and Plavix and Lipitor 8. History of previous IV drug abuse 9. History of hepatitis B 10. History of hyperlipidemia maintained on statin 11. History of essential hypertension 12. History of closed head injury 13. Urinary tract infection. Urine culture was positive for Klebsiella. Patient pleaded treatment with 5 days of Bactrim 14. Bilateral knee pain. X-ray of bilateral knees completed consideration for crystal deposition arthroplasty, osteoarthritis. Uric acid level 5.8 15. Chronic systolic congestive heart failure. 2-D echo completed showing an EF of 20-25% with global hypokinesis 16. Depression with Suicidal ideation. Patient was reevaluated by psychiatry services suicide precautions DC'd. Patient does not meet criteria for inpatient psych 17. Acute kidney injury. Initial creatinine elevated at 1.49 has improved lisinopril DC'd. Creatinine improving to 0.85 bun 30 18. Hyperkalemia. Potassium 5.6. Patient did receive Kayexalate repeat potassium 4.6 19. Elevated liver enzymes. Lipitor decreased to 10 mg daily. Liver enzymes are trending down
[2019-03-17] MEDS: ATORVASTATIN 10 MG TAB PO SCH (21:50)
[2019-03-18] MEDS: CLOPIDOGREL 75 MG TAB PO SCH (07:43)
[2019-03-18] MEDS: FAMOTIDINE 20 MG TAB PO SCH (07:43)
[2019-03-18] MEDS: CARVEDILOL 6.25 MG TAB PO SCH ×2 (07:43→17:41)
[2019-03-18] MEDS: NICOTINE 21MG/24HR PATCH TRANSDERM SCH (07:43)
[2019-03-18] MEDS: OLANZapine 2.5 MG TAB PO SCH ×2 (07:44→21:35)
[2019-03-18] MEDS: HEPARIN SODIUM,PORCINE 5,000 UNIT/ML 1 ML VIAL SQ SCH ×2 (07:45→21:32)
[2019-03-18] MEDS: ASPIRIN 81 MG PO SCH (07:45)
--- NOTE | 2019-03-18 14:09 | P.PN ---
Subjective Progress Note Date: 03/18/19 This is a 68-year-old male patient who presented with complaints of fall and slurred speech. Patient is a poor historian. According to ER report patient was crossing the street when a bystander witnessed him fall to his knees. Patient was brought to the ER for further evaluation. Patient does have a significant past medical history for CVA, seizure disorder, heart failure, previous IV drug abuser, coronary artery disease, hyperlipidemia, hypertension, myocardial infections, osteoporosis, pneumonia, AICD and ex-smoker. CT of head and cervical spine completed showing no acute fracture or dislocation evident in the cervical spine. Showed subacute infarct. Underlying chronic small vessel ischemia with areas multiple prior infarction. Pelvis x-ray completed showing no acute fracture. Chest x-ray completed using COPD. EKG completed showing normal sinus rhythm, left axis. Incomplete left bundle branch block. This time patient is resting comfortably in bed. Difficult to obtain history of ovarian due to patient's known baseline of slurred speech per PCP. At this time patient denies any chest pain or shortness of breath. Patient denies nausea vomiting or diarrhea. Patient denies any urinary burning or frequency. Neurology services have been consulted. On 02/15/2019 patient is currently resting comfortably in bed. Patient is awake and alert. UA positive for urinary tract infection patient started on Rocephin urine culture ordered. Neurology recommending cardiology consult to address possible embolic phenomenon causing strokes. At this time patient is complaining of bilateral knee discomfort. X-rays will be ordered. Patient denies chest pain or shortness breath. Patient denies nausea vomiting diarrhea. Social work is on consult possible guardianship in [facility] 02/16-02/25 On 02/26/2019 patient is currently resting comfortably in bed. studio camera operator is at bedside. Patient is being followed by site due to suicidal ideation. C reatinine did improve to 1.08 and bun 47. Potassium 4.6 at this time patient denies chest pain or shortness of breath. Patient denies nausea vomiting or diarrhea. Patient denies any urinary burning or frequency On 02/27/2019 patient is resting comfortably in bed. studio camera operator remains at bedside. Discussed case with psychosocial rehabilitation counselor Latrice. Per psychosocial rehabilitation counselor awaiting legal guardian to find placement for patient. Also awaiting psych to evaluate for possible inpatient psychiatry services. This time patient denies chest pain or shortness of breath. Patient denies nausea vomiting or diarrhea. Patient denies any urinary burning or frequency. On 02/28/2019 patient was reevaluated by psychiatry services. Suicide precautions removed. Patient has been cleared by psych. Awaiting social work and DPOAE for placement for discharge. Patient denies any chest pain or shortness of breath. Patient denies nausea vomiting or diarrhea. Patient denies any urinary burning or frequency. On 03/01/2019 patient is currently resting comfortably in bed cuff case with psychosocial rehabilitation counselor still awaiting placement at [facility] facility per legal guardian. Patient denies chest pain or shortness of breath. Patient denies nausea vomiting or diarrhea. Patient denies any urinary burning or frequency. On 03/02/2019 patient is currently resting comfortably in bed. Patient denies any chest pain or shortness of breath. Patient denies nausea vomiting diarrhea. Patient denies any urinary burning or frequency. Awaiting [facility] placement per legal guardian On 03/03/2019 patient was seen and examined on the medical floor he is laying comfortably in bed he denies any complaints, he is eating well, there is no evidence of pain or discomfort no agitation speech is difficult to understand. On 03/04/2019 patient was seen and examined on the medical floor he is alert responsive in no apparent distress he denies any pain he denies any nausea or vomiting he is tolerating regular diet well there is no fever or chills no headache or dizziness no chest pain no shortness of breath no cough and no urinary symptoms. On 03/05/2019 patient is alert and oriented resting comfortably in bed. Patient denies any chest pain or shortness of breath. Patient denies nausea vomiting or diarrhea. Patient denies any urinary burning or frequency. On 03/06/2019 patient is resting comfortably in bed with no complaints. Still awaiting legal guardian placement at [facility] facility. Patient denies chest pain or shortness breath. Patient denies nausea vomiting or diarrhea. Patient denies any urinary burning or frequency. On 03/07/2019 patient stated that he wanted to kill himself history to nursing staff. Patient has been placed on suicide precautions. Patient also refusing to shower or take his medication. Psychiatry services have been consulted. Patient denies any specific complaints. Patient reports that he is concerned about potential side effects from his medications. Educate patient on the impor tance of taking heart medication in order to prevent stroke and other negative implications. Awaiting psych consult On 03/08/2019 patient was evaluated by psychiatry services, suicide precautions have been DC'd. Patient does not meet criteria for inpatient psych. Still awaiting placement for [facility] facility per legal guardian. This time patient denies any specific complaints. On 03/09/2019 patient is medically stable and cleared for discharge discharge summary was done awaiting resolution of social issue to transfer patient to an AFC. On 03/10/2019 patient was seen and examined on the medical floor he is alert confused in no apparent distress, psychosocial rehabilitation counselor and power of trademark attorney are still working on finding a discharge destination for patient he remains medically stable. On 03/11/2019 patient was seen and examined there is no complaints at this time no change in condition On 03/12/2019 patient is resting comfortably in bed with no complaints. No change in condition patient remained stable for discharge awaiting placement per social work and legal guardian On 03/13/2019 patient resting comfortably in bed. No changes to patient condition. Patient is medically cleared for discharge awaiting placement. Labs reviewed from today. No changes On 03/14/2019 patient remains stable. No changes. Discussed case with social work multiple times have been made to place patient in AFC facility in [place] possible tomorrow On 03/15/2019 patient remains stable resting in bed. Discussed case with psychosocial rehabilitation counselor Latrice. No A[facility] of beds available in [facility]. Message left for AFC facility in [place] awaiting callback legal guardian also looking for possible placement. On 03/16/2019 patient remains stable medically cleared for discharge. Discussed case with psychosocial rehabilitation counselor Latrice looking at potential room and board but patient was reevaluated by physical therapy yesterday was determined unable to do stairs. Per psychosocial rehabilitation counselor emails descending to facility and legal guardian to see if adjustments can be made it so patient can be placed in a ground-level room. Awaiting further updates On 03/17/2019 patient is alert responsive in no apparent distress he denies any complaints at this time he is cleared medically for discharge awaiting psychosocial rehabilitation counselor input for discharge destination On 03/18/2019 patient was seen and examined on the medical floor he is medically stable he denies any complaints he is cleared medically for discharge we are awaiting psychosocial rehabilitation counselor to arrange for discharge home for hip Objective - Vital Signs Vital signs: Vital Signs Temp 97.7 F 03/18/19 04:39 Pulse 60 03/18/19 04:39 Resp 14 03/18/19 04:39 BP 112/73 03/18/19 04:39 Pulse Ox 97 03/18/19 04:39 Intake & Output 03/17/19 03/18/19 03/18/19 18:59 06:59 18:59 Weight 52 kg Other: Voiding Method Toilet # Voids 3 2 1 - Exam In general patient is alert responsive, speech is different to understand, which is chronic Head normocephalic and atraumatic Neck supple no JVD no goiter Lungs clear to auscultation bilaterally no wheezing or crackles Heart regular rate and rhythm S1-S2, no rub or gallop Abdomen is soft nontender nondistended positive bowel sounds no hepatosplenomegaly Extremities no edema no cyanosis or clubbing Neuro No acute neurological deficit Able to follow commands - Labs CBC & Chem 7: 03/13/19 10:33 03/13/19 10:33 Assessment and Plan Plan: 1. Fall with altered mental status related to multiple CVAs in bilateral anterior and posterior circulations. Head and cervical spine CT completed showing no acute fracture-dislocation evident in the cervical spine. Subacute infarct. Underlying chronic small vessel ischemia with areas multiple prior infarction. Neurology services have been consulted. MRI cannot be obtained due to AICD. CTA completed showing the nondominant left retrievable artery shows moderate to severe segmental narrowing of the V4 intracranial segment otherwise no large vessel intracranial arterial occlusion or aneurysmal changes seen. 2-D echo completed showing an EF between 20 and 25%. EKG completed showing normal awake EEG without background asymmetry or epileptiform discharges. Per neurology probably vascular dementia seen on head CT. Patient has been cleared for discharge from neurology standpoint. Patient to follow-up with neurology services 1-2 weeks after discharge 2. History of previous CVA with residual expressive aphasia. Maintained on Plavix 3. History of coronary artery disease 4. History of closed head injury 5. History of seizures. Continue Keppra. 6. Generalized anxiety disorder continue Xanax 7. History of a AICD for cardiomyopathy. Per cardiology device interrogated no arrhythmias found continue aspirin and Plavix and Lipitor 8. History of previous IV drug abuse 9. History of hepatitis B 10. History of hyperlipidemia maintained on statin 11. History of essential hypertension 12. History of closed head injury 13. Urinary tract infection. Urine culture was positive for Klebsiella. Patient pleaded treatment with 5 days of Bactrim 14. Bilateral knee pain. X-ray of bilateral knees completed consideration for crystal deposition arthroplasty, osteoarthritis. Uric acid level 5.8 15. Chronic systolic congestive heart failure. 2-D echo completed showing an EF of 20-25% with global hypokinesis 16. Depression with Suicidal ideation. Patient was reevaluated by psychiatry services suicide precautions DC'd. Patient does not meet criteria for inpatient psych 17. Acute kidney injury. Initial creatinine elevated at 1.49 has improved lisinopril DC'd. Creatinine improving to 0.85 bun 30 18. Hyperkalemia. Potassium 5.6. Patient did receive Kayexalate repeat potassium 4.6 19. Elevated liver enzymes. Lipitor decreased to 10 mg daily. Liver enzymes are trending down
[2019-03-18] MEDS: ATORVASTATIN 10 MG TAB PO SCH (21:31)
[2019-03-19] MEDS: CLOPIDOGREL 75 MG TAB PO SCH (08:34)
[2019-03-19] MEDS: FAMOTIDINE 20 MG TAB PO SCH (08:34)
[2019-03-19] MEDS: NICOTINE 21MG/24HR PATCH TRANSDERM SCH (08:34)
[2019-03-19] MEDS: ASPIRIN 81 MG PO SCH (08:35)
[2019-03-19] MEDS: CARVEDILOL 6.25 MG TAB PO SCH ×2 (08:35→18:17)
[2019-03-19] MEDS: HEPARIN SODIUM,PORCINE 5,000 UNIT/ML 1 ML VIAL SQ SCH ×2 (08:36→21:42)
[2019-03-19] MEDS: OLANZapine 2.5 MG TAB PO SCH ×2 (08:38→23:30)
--- NOTE | 2019-03-19 10:58 | P.PN ---
Subjective Progress Note Date: 03/19/19 This is a 68-year-old male patient who presented with complaints of fall and slurred speech. Patient is a poor historian. According to ER report patient was crossing the street when a bystander witnessed him fall to his knees. Patient was brought to the ER for further evaluation. Patient does have a significant past medical history for CVA, seizure disorder, heart failure, previous IV drug abuser, coronary artery disease, hyperlipidemia, hypertension, myocardial infections, osteoporosis, pneumonia, AICD and ex-smoker. CT of head and cervical spine completed showing no acute fracture or dislocation evident in the cervical spine. Showed subacute infarct. Underlying chronic small vessel ischemia with areas multiple prior infarction. Pelvis x-ray completed showing no acute fracture. Chest x-ray completed using COPD. EKG completed showing normal sinus rhythm, left axis. Incomplete left bundle branch block. This time patient is resting comfortably in bed. Difficult to obtain history of ovarian due to patient's known baseline of slurred speech per PCP. At this time patient denies any chest pain or shortness of breath. Patient denies nausea vomiting or diarrhea. Patient denies any urinary burning or frequency. Neurology services have been consulted. On 02/15/2019 patient is currently resting comfortably in bed. Patient is awake and alert. UA positive for urinary tract infection patient started on Rocephin urine culture ordered. Neurology recommending cardiology consult to address possible embolic phenomenon causing strokes. At this time patient is complaining of bilateral knee discomfort. X-rays will be ordered. Patient denies chest pain or shortness breath. Patient denies nausea vomiting diarrhea. Social work is on consult possible guardianship in [facility] 02/16-02/25 On 02/26/2019 patient is currently resting comfortably in bed. inseam trimming machine operator is at bedside. Patient is being followed by site due to suicidal ideation. C reatinine did improve to 1.08 and bun 47. Potassium 4.6 at this time patient denies chest pain or shortness of breath. Patient denies nausea vomiting or diarrhea. Patient denies any urinary burning or frequency On 02/27/2019 patient is resting comfortably in bed. inseam trimming machine operator remains at bedside. Discussed case with social science instructor Latrice. Per social science instructor awaiting legal guardian to find placement for patient. Also awaiting psych to evaluate for possible inpatient psychiatry services. This time patient denies chest pain or shortness of breath. Patient denies nausea vomiting or diarrhea. Patient denies any urinary burning or frequency. On 02/28/2019 patient was reevaluated by psychiatry services. Suicide precautions removed. Patient has been cleared by psych. Awaiting social work and DPOAE for placement for discharge. Patient denies any chest pain or shortness of breath. Patient denies nausea vomiting or diarrhea. Patient denies any urinary burning or frequency. On 03/01/2019 patient is currently resting comfortably in bed cuff case with social science instructor still awaiting placement at [facility] facility per legal guardian. Patient denies chest pain or shortness of breath. Patient denies nausea vomiting or diarrhea. Patient denies any urinary burning or frequency. On 03/02/2019 patient is currently resting comfortably in bed. Patient denies any chest pain or shortness of breath. Patient denies nausea vomiting diarrhea. Patient denies any urinary burning or frequency. Awaiting [facility] placement per legal guardian On 03/03/2019 patient was seen and examined on the medical floor he is laying comfortably in bed he denies any complaints, he is eating well, there is no evidence of pain or discomfort no agitation speech is difficult to understand. On 03/04/2019 patient was seen and examined on the medical floor he is alert responsive in no apparent distress he denies any pain he denies any nausea or vomiting he is tolerating regular diet well there is no fever or chills no headache or dizziness no chest pain no shortness of breath no cough and no urinary symptoms. On 03/05/2019 patient is alert and oriented resting comfortably in bed. Patient denies any chest pain or shortness of breath. Patient denies nausea vomiting or diarrhea. Patient denies any urinary burning or frequency. On 03/06/2019 patient is resting comfortably in bed with no complaints. Still awaiting legal guardian placement at [facility] facility. Patient denies chest pain or shortness breath. Patient denies nausea vomiting or diarrhea. Patient denies any urinary burning or frequency. On 03/07/2019 patient stated that he wanted to kill himself history to nursing staff. Patient has been placed on suicide precautions. Patient also refusing to shower or take his medication. Psychiatry services have been consulted. Patient denies any specific complaints. Patient reports that he is concerned about potential side effects from his medications. Educate patient on the impor tance of taking heart medication in order to prevent stroke and other negative implications. Awaiting psych consult On 03/08/2019 patient was evaluated by psychiatry services, suicide precautions have been DC'd. Patient does not meet criteria for inpatient psych. Still awaiting placement for A[facility] facility per legal guardian. This time patient denies any specific complaints. On 03/09/2019 patient is medically stable and cleared for discharge discharge summary was done awaiting resolution of social issue to transfer patient to an AFC. On 03/10/2019 patient was seen and examined on the medical floor he is alert confused in no apparent distress, social science instructor and power of [place] attorney are still working on finding a discharge destination for patient he remains medically stable. On 03/11/2019 patient was seen and examined there is no complaints at this time no change in condition On 03/12/2019 patient is resting comfortably in bed with no complaints. No change in condition patient remained stable for discharge awaiting placement per social work and legal guardian On 03/13/2019 patient resting comfortably in bed. No changes to patient condition. Patient is medically cleared for discharge awaiting placement. Labs reviewed from today. No changes On 03/14/2019 patient remains stable. No changes. Discussed case with social work multiple times have been made to place patient in AFC facility in [place] possible tomorrow On 03/15/2019 patient remains stable resting in bed. Discussed case with social science instructor Latrice. No AFC of beds available in [facility]. Message left for AFC facility in [place] awaiting callback legal guardian also looking for possible placement. On 03/16/2019 patient remains stable medically cleared for discharge. Discussed case with social science instructor Latrice looking at potential room and board but patient was reevaluated by physical therapy yesterday was determined unable to do stairs. Per social science instructor emails descending to facility and legal guardian to see if adjustments can be made it so patient can be placed in a ground-level room. Awaiting further updates On 03/17/2019 patient is alert responsive in no apparent distress he denies any complaints at this time he is cleared medically for discharge awaiting social science instructor input for discharge destination On 03/18/2019 patient was seen and examined on the medical floor he is medically stable he denies any complaints he is cleared medically for discharge we are awaiting social science instructor to arrange for discharge home for hip On 03/19/2018 patient is currently resting in bed with no complaints. Patient has been medically cleared for discharge awaiting AFC placement per social work and legal guardian Objective - Vital Signs Vital signs: Vital Signs Temp 98.1 F 03/19/19 05:50 Pulse 65 03/19/19 05:50 Resp 18 03/19/19 05:50 BP 118/77 03/19/19 05:50 Pulse Ox 96 03/19/19 05:50 Intake & Output 03/18/19 03/19/19 03/19/19 18:59 06:59 18:59 Intake Total 540 200 Output Total 1 Balance 540 199 Intake: Oral 540 200 Output: Urine 1 Other: Voiding Method Toilet # Voids 2 0 # Bowel Movements 1 0 - Exam Head normocephalic Neck supple Lungs clear to auscultation bilaterally no wheezing or crackles Heart regular rate and rhythm S1-S2, no rub or gallop Abdomen is soft nontender nondistended positive bowel sounds no hepatosplenomegaly Extremities no edema Neuro slurred speech. Poor historian. Alert and oriented 2. Able to follow commands - Labs CBC & Chem 7: 03/13/19 10:33 03/13/19 10:33 Assessment and Plan Assessment: 1. Fall with altered mental status related to multiple CVAs in bilateral anterior and posterior circulations. Head and cervical spine CT completed showing no acute fracture-dislocation evident in the cervical spine. Subacute infarct. Underlying chronic small vessel ischemia with areas multiple prior infarction. Neurology services have been consulted. MRI cannot be obtained due to AICD. CTA completed showing the nondominant left retrievable artery shows mo derate to severe segmental narrowing of the V4 intracranial segment otherwise no large vessel intracranial arterial occlusion or aneurysmal changes seen. 2-D echo completed showing an EF between 20 and 25%. EKG completed showing normal awake EEG without background asymmetry or epileptiform discharges. Per neurology probably vascular dementia seen on head CT. Patient has been cleared for discharge from neurology standpoint. Patient to follow-up with neurology services 1-2 weeks after discharge 2. History of previous CVA with residual expressive aphasia. Maintained on Plavix 3. History of coronary artery disease 4. History of closed head injury 5. History of seizures. Continue Keppra. 6. Generalized anxiety disorder continue Xanax 7. History of a AICD for cardiomyopathy. Per cardiology device interrogated no arrhythmias found continue aspirin and Plavix and Lipitor 8. History of previous IV drug abuse 9. History of hepatitis B 10. History of hyperlipidemia maintained on statin 11. History of essential hypertension 12. History of closed head injury 13. Urinary tract infection. Urine culture was positive for Klebsiella. Patient pleaded treatment with 5 days of Bactrim 14. Bilateral knee pain. X-ray of bilateral knees completed consideration for crystal deposition arthroplasty, osteoarthritis. Uric acid level 5.8 15. Chronic systolic congestive heart failure. 2-D echo completed showing an EF of 20-25% with global hypokinesis 16. Depression with Suicidal ideation. Patient was reevaluated by psychiatry services suicide precautions DC'd. Patient does not meet criteria for inpatient psych 17. Acute kidney injury. Initial creatinine elevated at 1.49 has improved lisinopril DC'd. Creatinine improving to 0.85 bun 30 18. Hyperkalemia. Potassium 5.6. Patient did receive Kayexalate repeat potassium 4.6 19. Elevated liver enzymes. Lipitor decreased to 10 mg daily. Liver enzymes are trending down DVT prophylaxis heparin. GI prophylaxis Pepcid Discussed case with Latrice social science instructor possible emergent AFC placement in the works. Discussed case with social science instructor still awaiting AFC placement call made to AFC facility in [place] awaiting callback I performed an examination of the patient and discussed their management with the Nurse Practitioner. I have reviewed the Nurse Practitioner's notes and agree with the documented findings and plan of care
[2019-03-19] MEDS: ATORVASTATIN 10 MG TAB PO SCH (23:30)
[2019-03-20] MEDS: NICOTINE 21MG/24HR PATCH TRANSDERM SCH (07:59)
[2019-03-20] MEDS: ASPIRIN 81 MG PO SCH (08:00)
[2019-03-20] MEDS: CLOPIDOGREL 75 MG TAB PO SCH (08:00)
[2019-03-20] MEDS: CARVEDILOL 6.25 MG TAB PO SCH ×2 (08:00→16:55)
[2019-03-20] MEDS: FAMOTIDINE 20 MG TAB PO SCH (08:00)
[2019-03-20] MEDS: OLANZapine 2.5 MG TAB PO SCH ×2 (08:01→20:14)
[2019-03-20] MEDS: HEPARIN SODIUM,PORCINE 5,000 UNIT/ML 1 ML VIAL SQ SCH ×2 (08:01→20:15)
[2019-03-20 08:42] LABS: Basophils % (A) 1 %; Eosinophils # (A) 0.1 k/uL (0-0.7); Eosinophils % (A) 2 %; HCT 43.3 % (39.0-53.0); HGB 14.2 gm/dL (13.0-17.5); Lymphocytes # (A) 1.6 k/uL (1.0-4.8); Lymphocytes % (A) 27 %; MCH 31.8 pg (25.0-35.0); MCHC 32.8 g/dL (31.0-37.0); Mean Platelet Volume 7.8; Monocytes # (A) 0.4 k/uL (0-1.0); Monocytes % (A) 7 %; Neutrophils # (A) 3.4 k/uL (1.3-7.7); Neutrophils % (A) 59 %; Platelet Count 112 k/uL (150-450); RBC 4.46 m/uL (4.30-5.90); RDW 14.5 % (11.5-15.5); WBC 5.7 k/uL (3.8-10.6)
[2019-03-20 08:44] LABS: ALT 85 U/L (21-72); AST 63 U/L (17-59); African American GFR (CKD) >90 (>60 ml/min/1.73 sqM); Albumin 4.4 g/dL (3.5-5.0); Alkaline Phosphatase 72 U/L (38-126); Anion Gap 9 mmol/L; Blood Urea Nitrogen 38 mg/dL (9-20); Carbon Dioxide 31 mmol/L (22-30); Chloride 103 mmol/L (98-107); Glucose 113 mg/dL (74-99); Potassium 4.1 mmol/L (3.5-5.1); Sodium 143 mmol/L (137-145); Total Bilirubin 0.6 mg/dL (0.2-1.3)
[2019-03-20 09:48] VITALS: BMI 20.7
--- NOTE | 2019-03-20 12:17 | P.PN ---
Subjective Progress Note Date: 03/20/19 This is a 68-year-old male patient who presented with complaints of fall and slurred speech. Patient is a poor historian. According to ER report patient was crossing the street when a bystander witnessed him fall to his knees. Patient was brought to the ER for further evaluation. Patient does have a significant past medical history for CVA, seizure disorder, heart failure, previous IV drug abuser, coronary artery disease, hyperlipidemia, hypertension, myocardial infections, osteoporosis, pneumonia, AICD and ex-smoker. CT of head and cervical spine completed showing no acute fracture or dislocation evident in the cervical spine. Showed subacute infarct. Underlying chronic small vessel ischemia with areas multiple prior infarction. Pelvis x-ray completed showing no acute fracture. Chest x-ray completed using COPD. EKG completed showing normal sinus rhythm, left axis. Incomplete left bundle branch block. This time patient is resting comfortably in bed. Difficult to obtain history of ovarian due to patient's known baseline of slurred speech per PCP. At this time patient denies any chest pain or shortness of breath. Patient denies nausea vomiting or diarrhea. Patient denies any urinary burning or frequency. Neurology services have been consulted. On 02/15/2019 patient is currently resting comfortably in bed. Patient is awake and alert. UA positive for urinary tract infection patient started on Rocephin urine culture ordered. Neurology recommending cardiology consult to address possible embolic phenomenon causing strokes. At this time patient is complaining of bilateral knee discomfort. X-rays will be ordered. Patient denies chest pain or shortness breath. Patient denies nausea vomiting diarrhea. Social work is on consult possible guardianship in [facility] Covering 02/16-02/25 On 02/26/2019 patient is currently resting comfortably in bed. rehabilitation program coordinator is at bedside. Patient is being followed by site due to suicidal ideation. C reatinine did improve to 1.08 and bun 47. Potassium 4.6 at this time patient denies chest pain or shortness of breath. Patient denies nausea vomiting or diarrhea. Patient denies any urinary burning or frequency On 02/27/2019 patient is resting comfortably in bed. rehabilitation program coordinator remains at bedside. Discussed case with social science professor Latrice. Per social science professor awaiting legal guardian to find placement for patient. Also awaiting psych to evaluate for possible inpatient psychiatry services. This time patient denies chest pain or shortness of breath. Patient denies nausea vomiting or diarrhea. Patient denies any urinary burning or frequency. On 02/28/2019 patient was reevaluated by psychiatry services. Suicide precautions removed. Patient has been cleared by psych. Awaiting social work and DPOAE for placement for discharge. Patient denies any chest pain or shortness of breath. Patient denies nausea vomiting or diarrhea. Patient denies any urinary burning or frequency. On 03/01/2019 patient is currently resting comfortably in bed cuff case with social science professor still awaiting placement at [facility] facility per legal guardian. Patient denies chest pain or shortness of breath. Patient denies nausea vomiting or diarrhea. Patient denies any urinary burning or frequency. On 03/02/2019 patient is currently resting comfortably in bed. Patient denies any chest pain or shortness of breath. Patient denies nausea vomiting diarrhea. Patient denies any urinary burning or frequency. Awaiting [facility] placement per legal guardian On 03/03/2019 patient was seen and examined on the medical floor he is laying comfortably in bed he denies any complaints, he is eating well, there is no evidence of pain or discomfort no agitation speech is difficult to understand. On 03/04/2019 patient was seen and examined on the medical floor he is alert responsive in no apparent distress he denies any pain he denies any nausea or vomiting he is tolerating regular diet well there is no fever or chills no headache or dizziness no chest pain no shortness of breath no cough and no urinary symptoms. On 03/05/2019 patient is alert and oriented resting comfortably in bed. Patient denies any chest pain or shortness of breath. Patient denies nausea vomiting or diarrhea. Patient denies any urinary burning or frequency. On 03/06/2019 patient is resting comfortably in bed with no complaints. Still awaiting legal guardian placement at [facility] facility. Patient denies chest pain or shortness breath. Patient denies nausea vomiting or diarrhea. Patient denies any urinary burning or frequency. On 03/07/2019 patient stated that he wanted to kill himself history to nursing staff. Patient has been placed on suicide precautions. Patient also refusing to shower or take his medication. Psychiatry services have been consulted. Patient denies any specific complaints. Patient reports that he is concerned about potential side effects from his medications. Educate patient on the impor tance of taking heart medication in order to prevent stroke and other negative implications. Awaiting psych consult On 03/08/2019 patient was evaluated by psychiatry services, suicide precautions have been DC'd. Patient does not meet criteria for inpatient psych. Still awaiting placement for AFC facility per legal guardian. This time patient denies any specific complaints. On 03/09/2019 patient is medically stable and cleared for discharge discharge summary was done awaiting resolution of social issue to transfer patient to an AFC. On 03/10/2019 patient was seen and examined on the medical floor he is alert confused in no apparent distress, social science professor and power of claim attorney are still working on finding a discharge destination for patient he remains medically stable. On 03/11/2019 patient was seen and examined there is no complaints at this time no change in condition On 03/12/2019 patient is resting comfortably in bed with no complaints. No change in condition patient remained stable for discharge awaiting placement per social work and legal guardian On 03/13/2019 patient resting comfortably in bed. No changes to patient condition. Patient is medically cleared for discharge awaiting placement. Labs reviewed from today. No changes On 03/14/2019 patient remains stable. No changes. Discussed case with social work multiple times have been made to place patient in AFC facility in [place] possible tomorrow On 03/15/2019 patient remains stable resting in bed. Discussed case with social science professor Latrice. No A[facility] of beds available in [facility]. Message left for AFC facility in [place] awaiting callback legal guardian also looking for possible placement. On 03/16/2019 patient remains stable medically cleared for discharge. Discussed case with social science professor Latrice looking at potential room and board but patient was reevaluated by physical therapy yesterday was determined unable to do stairs. Per social science professor emails descending to facility and legal guardian to see if adjustments can be made it so patient can be placed in a ground-level room. Awaiting further updates On 03/17/2019 patient is alert responsive in no apparent distress he denies any complaints at this time he is cleared medically for discharge awaiting social science professor input for discharge destination On 03/18/2019 patient was seen and examined on the medical floor he is medically stable he denies any complaints he is cleared medically for discharge we are awaiting social science professor to arrange for discharge home for hip On 03/19/2018 patient is currently resting in bed with no complaints. Patient has been medically cleared for discharge awaiting AFC placement per social work and legal guardian On 03/20/2019 patient is resting comfortably in bed. Discussed case again with social science professor Latrice no further developments in AFC placement. Labs checked this a.m. slightly elevated liver enzymes will continue to monitor Objective - Vital Signs Vital signs: Vital Signs Temp 97.9 F 03/20/19 05:00 Pulse 60 03/20/19 05:00 Resp 20 03/20/19 05:00 BP 105/69 03/20/19 05:00 Pulse Ox 97 03/20/19 05:00 Intake & Output 03/19/19 03/20/19 03/20/19 18:59 06:59 18:59 Intake Total 300 Output Total 0 Balance 300 Weight 52.5 kg 51.5 kg 51.5 kg Intake: Oral 300 Output: Urine 0 Other: Voiding Method Toilet Toilet # Voids 2 2 # Bowel Movements 0 - Exam Head normocephalic Neck supple Lungs clear to auscultation bilaterally no wheezing or crackles Heart regular rate and rhythm S1-S2, no rub or gallop Abdomen is soft nontender nondistended positive bowel sounds no hepatosple nomegaly Extremities no edema Neuro slurred speech. Poor historian. Alert and oriented 2. Able to follow commands - Labs CBC & Chem 7: 03/20/19 08:04 03/20/19 08:04 Labs: Abnormal Lab Results - Last 24 Hours (Table) 03/20/19 03/20/19 Range/Units 08:04 08:04 Plt Count 112 L (150-450) k/uL Carbon Dioxide 31 H (22-30) mmol/L BUN 38 H (9-20) mg/dL Glucose 113 H (74-99) mg/dL AST 63 H (17-59) U/L ALT 85 H (21-72) U/L Assessment and Plan Assessment: 1. Fall with altered mental status related to multiple CVAs in bilateral anterior and posterior circulations. Head and cervical spine CT completed showing no acute fracture-dislocation evident in the cervical spine. Subacute infarct. Underlying chronic small vessel ischemia with areas multiple prior infarction. Neurology services have been consulted. MRI cannot be obtained due to AICD. CTA completed showing the nondominant left retrievable artery shows moderate to severe segmental narrowing of the V4 intracranial segment otherwise no large vessel intracranial arterial occlusion or aneurysmal changes seen. 2-D echo completed showing an EF between 20 and 25%. EKG completed showing normal awake EEG without background asymmetry or epileptiform discharges. Per neurology probably vascular dementia seen on head CT. Patient has been cleared for discharge from neurology standpoint. Patient to follow-up with neurology services 1-2 weeks after discharge 2. History of previous CVA with residual expressive aphasia. Maintained on Plavix 3. History of coronary artery disease 4. History of closed head injury 5. History of seizures. Continue Keppra. 6. Generalized anxiety disorder continue Xanax 7. History of a AICD for cardiomyopathy. Per cardiology device interrogated no arrhythmias found continue aspirin and Plavix and Lipitor 8. History of previous IV drug abuse 9. History of hepatitis B 10. History of hyperlipidemia maintained on statin 11. History of essential hypertension 12. History of closed head injury 13. Urinary tract infection. Urine culture was positive for Klebsiella. Patient pleaded treatment with 5 days of Bactrim 14. Bilateral knee pain. X-ray of bilateral knees completed consideration for crystal deposition arthroplasty, osteoarthritis. Uric acid level 5.8 15. Chronic systolic congestive heart failure. 2-D echo completed showing an EF of 20-25% with global hypokinesis 16. Depression with Suicidal ideation. Patient was reevaluated by psychiatry services suicide precautions DC'd. Patient does not meet criteria for inpatient psych 17. Acute kidney injury. Initial creatinine elevated at 1.49 has improved lisinopril DC'd. Creatinine improving to 0.85 bun 30 18. Hyperkalemia. Potassium 5.6. Patient did receive Kayexalate repeat potassium 4.6 19. Elevated liver enzymes. Lipitor decreased to 10 mg daily. Repeat liver enzymes have been ordered DVT prophylaxis heparin. GI prophylaxis Pepcid Discussed case with Latrice social science professor possible emergent AFC placement in the works. Discussed case with social science professor still awaiting AFC placement call made to AFC facility in [place] awaiting callback I performed an examination of the patient and discussed their management with [facility] Nurse Practitioner. I have reviewed the Nurse Practitioner's notes and agree with the documented findings and plan of care
[2019-03-21] MEDS: HEPARIN SODIUM,PORCINE 5,000 UNIT/ML 1 ML VIAL SQ SCH ×2 (07:20→21:08)
[2019-03-21] MEDS: OLANZapine 2.5 MG TAB PO SCH ×2 (07:54→21:07)
[2019-03-21] MEDS: CARVEDILOL 6.25 MG TAB PO SCH ×2 (07:55→17:47)
[2019-03-21] MEDS: FAMOTIDINE 20 MG TAB PO SCH (07:55)
[2019-03-21] MEDS: CLOPIDOGREL 75 MG TAB PO SCH (07:55)
[2019-03-21] MEDS: NICOTINE 21MG/24HR PATCH TRANSDERM SCH ×2 (07:55→11:54)
[2019-03-21] MEDS: ASPIRIN 81 MG PO SCH (07:55)
[2019-03-21 08:59] LABS: ALT 83 U/L (21-72); AST 57 U/L (17-59); African American GFR (CKD) >90 (>60 ml/min/1.73 sqM); Albumin 4.2 g/dL (3.5-5.0); Alkaline Phosphatase 69 U/L (38-126); Anion Gap 9 mmol/L; Blood Urea Nitrogen 38 mg/dL (9-20); Calcium 9.8 mg/dL (8.4-10.2); Carbon Dioxide 29 mmol/L (22-30); Chloride 104 mmol/L (98-107); Glucose 103 mg/dL (74-99); Potassium 4.1 mmol/L (3.5-5.1); Sodium 142 mmol/L (137-145); Total Bilirubin 0.5 mg/dL (0.2-1.3); Total Protein 7.6 g/dL (6.3-8.2)
--- NOTE | 2019-03-21 11:44 | P.PN ---
Subjective Progress Note Date: 03/21/19 This is a 68-year-old male patient who presented with complaints of fall and slurred speech. Patient is a poor historian. According to ER report patient was crossing the street when a bystander witnessed him fall to his knees. Patient was brought to the ER for further evaluation. Patient does have a significant past medical history for CVA, seizure disorder, heart failure, previous IV drug abuser, coronary artery disease, hyperlipidemia, hypertension, myocardial infections, osteoporosis, pneumonia, AICD and ex-smoker. CT of head and cervical spine completed showing no acute fracture or dislocation evident in the cervical spine. Showed subacute infarct. Underlying chronic small vessel ischemia with areas multiple prior infarction. Pelvis x-ray completed showing no acute fracture. Chest x-ray completed using COPD. EKG completed showing normal sinus rhythm, left axis. Incomplete left bundle branch block. This time patient is resting comfortably in bed. Difficult to obtain history of ovarian due to patient's known baseline of slurred speech per PCP. At this time patient denies any chest pain or shortness of breath. Patient denies nausea vomiting or diarrhea. Patient denies any urinary burning or frequency. Neurology services have been consulted. On 02/15/2019 patient is currently resting comfortably in bed. Patient is awake and alert. UA positive for urinary tract infection patient started on Rocephin urine culture ordered. Neurology recommending cardiology consult to address possible embolic phenomenon causing strokes. At this time patient is complaining of bilateral knee discomfort. X-rays will be ordered. Patient denies chest pain or shortness breath. Patient denies nausea vomiting diarrhea. Social work is on consult possible guardianship in [facility] 02/16-02/25 On 02/26/2019 patient is currently resting comfortably in bed. plant operations coordinator is at bedside. Patient is being followed by site due to suicidal ideation. C reatinine did improve to 1.08 and bun 47. Potassium 4.6 at this time patient denies chest pain or shortness of breath. Patient denies nausea vomiting or diarrhea. Patient denies any urinary burning or frequency On 02/27/2019 patient is resting comfortably in bed. plant operations coordinator remains at bedside. Discussed case with aids social worker Latrice. Per aids social worker awaiting legal guardian to find placement for patient. Also awaiting psych to evaluate for possible inpatient psychiatry services. This time patient denies chest pain or shortness of breath. Patient denies nausea vomiting or diarrhea. Patient denies any urinary burning or frequency. On 02/28/2019 patient was reevaluated by psychiatry services. Suicide precautions removed. Patient has been cleared by psych. Awaiting social work and [facility] for placement for discharge. Patient denies any chest pain or shortness of breath. Patient denies nausea vomiting or diarrhea. Patient denies any urinary burning or frequency. On 03/01/2019 patient is currently resting comfortably in bed cuff case with aids social worker still awaiting placement at [facility] facility per legal guardian. Patient denies chest pain or shortness of breath. Patient denies nausea vomiting or diarrhea. Patient denies any urinary burning or frequency. On 03/02/2019 patient is currently resting comfortably in bed. Patient denies any chest pain or shortness of breath. Patient denies nausea vomiting diarrhea. Patient denies any urinary burning or frequency. Awaiting [facility] placement per legal guardian On 03/03/2019 patient was seen and examined on the medical floor he is laying comfortably in bed he denies any complaints, he is eating well, there is no evidence of pain or discomfort no agitation speech is difficult to understand. On 03/04/2019 patient was seen and examined on the medical floor he is alert responsive in no apparent distress he denies any pain he denies any nausea or vomiting he is tolerating regular diet well there is no fever or chills no headache or dizziness no chest pain no shortness of breath no cough and no urinary symptoms. On 03/05/2019 patient is alert and oriented resting comfortably in bed. Patient denies any chest pain or shortness of breath. Patient denies nausea vomiting or diarrhea. Patient denies any urinary burning or frequency. On 03/06/2019 patient is resting comfortably in bed with no complaints. Still awaiting legal guardian placement at [facility] facility. Patient denies chest pain or shortness breath. Patient denies nausea vomiting or diarrhea. Patient denies any urinary burning or frequency. On 03/07/2019 patient stated that he wanted to kill himself history to nursing staff. Patient has been placed on suicide precautions. Patient also refusing to shower or take his medication. Psychiatry services have been consulted. Patient denies any specific complaints. Patient reports that he is concerned about potential side effects from his medications. Educate patient on the impor tance of taking heart medication in order to prevent stroke and other negative implications. Awaiting psych consult On 03/08/2019 patient was evaluated by psychiatry services, suicide precautions have been DC'd. Patient does not meet criteria for inpatient psych. Still awaiting placement for AFC facility per legal guardian. This time patient denies any specific complaints. On 03/09/2019 patient is medically stable and cleared for discharge discharge summary was done awaiting resolution of social issue to transfer patient to an AFC. On 03/10/2019 patient was seen and examined on the medical floor he is alert confused in no apparent distress, aids social worker and power of air brake operator are still working on finding a discharge destination for patient he remains medically stable. On 03/11/2019 patient was seen and examined there is no complaints at this time no change in condition On 03/12/2019 patient is resting comfortably in bed with no complaints. No change in condition patient remained stable for discharge awaiting placement per social work and legal guardian On 03/13/2019 patient resting comfortably in bed. No changes to patient condition. Patient is medically cleared for discharge awaiting placement. Labs reviewed from today. No changes On 03/14/2019 patient remains stable. No changes. Discussed case with social work multiple times have been made to place patient in AFC facility in [place] possible tomorrow On 03/15/2019 patient remains stable resting in bed. Discussed case with aids social worker Latrice. No A[facility] of beds available in [facility]. Message left for AFC facility in [place] awaiting callback legal guardian also looking for possible placement. On 03/16/2019 patient remains stable medically cleared for discharge. Discussed case with aids social worker Latrice looking at potential room and board but patient was reevaluated by physical therapy yesterday was determined unable to do stairs. Per aids social worker emails descending to facility and legal guardian to see if adjustments can be made it so patient can be placed in a ground-level room. Awaiting further updates On 03/17/2019 patient is alert responsive in no apparent distress he denies any complaints at this time he is cleared medically for discharge awaiting aids social worker input for discharge destination On 03/18/2019 patient was seen and examined on the medical floor he is medically stable he denies any complaints he is cleared medically for discharge we are awaiting aids social worker to arrange for discharge home for hip On 03/19/2018 patient is currently resting in bed with no complaints. Patient has been medically cleared for discharge awaiting AFC placement per social work and legal guardian On 03/20/2019 patient is resting comfortably in bed. Discussed case again with aids social worker Latrice no further developments in AFC placement. Labs checked this a.m. slightly elevated liver enzymes will continue to monitor 03/21/2019 patient is resting comfortably in bed patient did shower. Patient's Lipitor DC'd due to elevated liver enzymes. Discussed with social work, and AFC facility is coming to evaluate patient today for possible placement. Patient denies any specific complaints liver enzymes trending down Objective - Vital Signs Vital signs: Vital Signs Temp 98.1 F 03/21/19 05:40 Pulse 61 03/21/19 05:40 Resp 16 03/21/19 05:40 BP 121/78 03/21/19 05:40 Pulse Ox 97 03/21/19 05:40 Intake & Output 03/20/19 03/21/19 03/21/19 18:59 06:59 18:59 Intake Total 550 Balance 550 Weight 51.5 kg 52 kg Intake: Oral 550 Other: # Voids 2 3 # Bowel Movements 1 - Exam Head normocephalic Neck supple Lungs clear to auscultation bilaterally no wheezing or crackles Heart regular rate and rhythm S1-S2, no rub or gallop Abdomen is soft nontender nondistended positive bowel sounds no hepatosplenomegaly Extremities no edema Neuro slurred speech. Poor historian. Alert and oriented 2. Able to follow commands - Labs CBC & Chem 7: 03/20/19 08:04 03/21/19 07:57 Labs: Abnormal Lab Results - Last 24 Hours (Table) 03/21/19 Range/Units 07:57 BUN 38 H (9-20) mg/dL Glucose 103 H (74-99) mg/dL ALT 83 H (21-72) U/L Assessment and Plan Assessment: 1. Fall with altered mental status related to multiple CVAs in bilateral anterior and posterior circulations. Head and cervical spine CT completed showing no acute fracture-dislocation evident in the cervical spine. Subacute infarct. Underlying chronic small vessel ischemia with areas multiple prior infarction. Neurology services have been consulted. MRI cannot be obtained due to AICD. CTA completed showing the nondominant left retrievable artery shows moderate to severe segmental narrowing of the V4 intracranial segment otherwise no large vessel intracranial arterial occlusion or aneurysmal changes seen. 2-D echo completed showing an EF between 20 and 25%. EKG completed showing normal awake EEG without background asymmetry or epileptiform discharges. Per neurology probably vascular dementia seen on head CT. Patient has been cleared for discharge from neurology standpoint. Patient to follow-up with neurology services 1-2 weeks after discharge 2. History of previous CVA with residual expressive aphasia. Maintained on Plavix 3. History of coronary artery disease 4. History of closed head injury 5. History of seizures. Continue Keppra. 6. Generalized anxiety disorder continue Xanax 7. History of a AICD for cardiomyopathy. Per cardiology device interrogated no arrhythmias found continue aspirin and Plavix and Lipitor 8. History of previous IV drug abuse 9. History of hepatitis B 10. History of hyperlipidemia maintained on statin 11. History of essential hypertension 12. History of closed head injury 13. Urinary tract infection. Urine culture was positive for Klebsiella. Patient pleaded treatment with 5 days of Bactrim 14. Bilateral knee pain. X-ray of bilateral knees completed consideration for crystal deposition arthroplasty, osteoarthritis. Uric acid level 5.8 15. Chronic systolic congestive heart failure. 2-D echo completed showing an EF of 20-25% with global hypokinesis 16. Depression with Suicidal ideation. Patient was reevaluated by psychiatry services suicide precautions DC'd. Patient does not meet criteria for inpatient psych 17. Acute kidney injury. Initial creatinine elevated at 1.49 has improved lis inopril DC'd. Creatinine improving to 0.85 bun 30 18. Hyperkalemia. Potassium 5.6. Patient did receive Kayexalate repeat potassium 4.6 19. Elevated liver enzymes. Lipitor decreased to 10 mg daily. Lipitor DC'd. Repeat liver enzymes improved DVT prophylaxis heparin. GI prophylaxis Pepcid Discussed case with Latrice aids social worker possible emergent AFC placement in the works. Discussed case with aids social worker still awaiting AFC placement call made to AFC facility in [place] awaiting callback AFC evaluation today for possible placement I performed an examination of the patient and discussed their management with the Nurse Practitioner. I have reviewed the Nurse Practitioner's notes and agree with the documented findings and plan of care
[2019-03-22] MEDS: CARVEDILOL 6.25 MG TAB PO SCH ×2 (08:34→16:36)
[2019-03-22] MEDS: FAMOTIDINE 20 MG TAB PO SCH (08:34)
[2019-03-22] MEDS: ASPIRIN 81 MG PO SCH (08:34)
[2019-03-22] MEDS: CLOPIDOGREL 75 MG TAB PO SCH (08:34)
[2019-03-22] MEDS: OLANZapine 2.5 MG TAB PO SCH (08:34)
[2019-03-22] MEDS: NICOTINE 21MG/24HR PATCH TRANSDERM SCH (08:35)
[2019-03-22] MEDS: HEPARIN SODIUM,PORCINE 5,000 UNIT/ML 1 ML VIAL SQ SCH (08:35)
--- NOTE | 2019-03-22 12:41 | P.DS ---
Providers Date of admission: 02/14/19 12:05 Expected date of discharge: 03/22/19 Attending physician: Reyes Knight Consults: 02/13/19 18:59 Consult Physician Routine Consulting Provider: Dang Foster Consult Reason/Comments: altered mental status Do you want consulting provider notified?: Yes 02/15/19 08:36 Consult Physician Routine Consulting Provider: Sho Cotto Consult Reason/Comments: r/o proximal embolic phenomenen. r/o PAF Do you want consulting provider notified?: Yes 02/24/19 10:09 Consult Physician Routine Consulting Provider: Silvano Howell Consult Reason/Comments: Possible depression Do you want consulting provider notified?: Yes 03/06/19 15:00 Consult Physician Routine Consulting Provider: Silvano Howell Consult Reason/Comments: suicide comments Do you want consulting provider notified?: Yes Primary care physician: [facility] Course: Discharge diagnosis sessment: 1. Fall with altered mental status related to multiple CVAs in bilateral anterior and posterior circulations. Head and cervical spine CT completed showing no acute fracture-dislocation evident in the cervical spine. Subacute infarct. Underlying chronic small vessel ischemia with areas multiple prior infarction. Neurology services have been consulted. MRI cannot be obtained due to AICD. CTA completed showing the nondominant left retrievable artery shows moderate to severe segmental narrowing of the V4 intracranial segment otherwise no large vessel intracranial arterial occlusion or aneurysmal changes seen. 2-D echo completed showing an EF between 20 and 25%. EKG completed showing normal awake EEG without background asymmetry or epileptiform discharges. Per neurology probably vascular dementia seen on head CT. Patient has been cleared for discharge from neurology standpoint. Patient to follow-up with neurology services 1-2 weeks after discharge 2. History of previous CVA with residual expressive aphasia. Maintained on Plavix 3. History of coronary artery disease 4. History of closed head injury 5. History of seizures. Continue Keppra. 6. Generalized anxiety disorder continue Xanax 7. History of a AICD for cardiomyopathy. Per cardiology device interrogated no arrhythmias found continue aspirin and Plavix and Lipitor 8. History of previous IV drug abuse 9. History of hepatitis B 10. History of hyperlipidemia maintained on statin 11. History of essential hypertension 12. History of closed head injury 13. Urinary tract infection. Urine culture was positive for Klebsiella. Cyrus loomis pleaded treatment with 5 days of Bactrim 14. Bilateral knee pain. X-ray of bilateral knees completed consideration for crystal deposition arthroplasty, osteoarthritis. Uric acid level 5.8 15. Chronic systolic congestive heart failure. 2-D echo completed showing an EF of 20-25% with global hypokinesis 16. Depression with Suicidal ideation. Patient was reevaluated by psychiatry services suicide precautions DC'd. Patient does not meet criteria for inpatient psych 17. Acute kidney injury. Initial creatinine elevated at 1.49 has improved lisinopril DC'd. Creatinine improving to 0.85 bun 30 18. Hyperkalemia. Potassium 5.6. Patient did receive Kayexalate repeat potassium 4.6 19. Elevated liver enzymes. Lipitor decreased to 10 mg daily. Lipitor DC'd. Repeat liver enzymes improved Hospital course This is a 68-year-old male patient who presented with complaints of fall and slurred speech. Patient is a poor historian. According to ER report patient was crossing the street when a bystander witnessed him fall to his knees. Patient was brought to the ER for further evaluation. Patient does have a significant past medical history for CVA, seizure disorder, heart failure, previous IV drug abuser, coronary artery disease, hyperlipidemia, hypertension, myocardial infections, osteoporosis, pneumonia, AICD and ex-smoker. CT of head and cervical spine completed showing no acute fracture or dislocation evident in the cervical spine. Showed subacute infarct. Underlying chronic small vessel ischemia with areas multiple prior infarction. Pelvis x-ray completed showing no acute fracture. Chest x-ray completed using COPD. EKG completed showing normal sinus rhythm, left axis. Incomplete left bundle branch block. This time patient is resting comfortably in bed. Difficult to obtain history of ovarian due to patient's known baseline of slurred speech per PCP. At this time patient denies any chest pain or shortness of breath. Patient denies nausea vomiting or diarrhea. Patient denies any urinary burning or frequency. Neurology services have been consulted. On 02/15/2019 patient is currently resting comfortably in bed. Patient is awake and alert. UA positive for urinary tract infection patient started on Rocephin urine culture ordered. Neurology recommending cardiology consult to address possible embolic phenomenon causing strokes. At this time patient is complaining of bilateral knee discomfort. X-rays will be ordered. Patient denies chest pain or shortness breath. Patient denies nausea vomiting diarrhea. Social work is on consult possible guardianship in [facility] Covering 02/16-02/25 On 02/26/2019 patient is currently resting comfortably in bed. rpg programmer analyst is at bedside. Patient is being followed by site due to suicidal ideation. Creatinine did improve to 1.08 and bun 47. Potassium 4.6 at this time patient denies chest pain or shortness of breath. Patient denies nausea vomiting or diarrhea. Patient denies any urinary burning or frequency On 02/27/2019 patient is resting comfortably in bed. rpg programmer analyst remains at bedside. Discussed case with social security assessor Latrice. Per social security assessor awaiting legal guardian to find placement for patient. Also awaiting psych to evaluate for possible inpatient psychiatry services. This time patient denies chest pain or shortness of breath. Patient denies nausea vomiting or diarrhea. Patient denies any urinary burning or frequency. On 02/28/2019 patient was reevaluated by psychiatry services. Suicide precauti ons removed. Patient has been cleared by psych. Awaiting social work and [facility]PO[facility] for placement for discharge. Patient denies any chest pain or shortness of breath. Patient denies nausea vomiting or diarrhea. Patient denies any urinary burning or frequency. On 03/01/2019 patient is currently resting comfortably in bed cuff case with social security assessor still awaiting placement at [facility] facility per legal guardian. Patient denies chest pain or shortness of breath. Patient denies nausea vomiting or diarrhea. Patient denies any urinary burning or frequency. On 03/02/2019 patient is currently resting comfortably in bed. Patient denies any chest pain or shortness of breath. Patient denies nausea vomiting diarrhea. Patient denies any urinary burning or frequency. Awaiting [facility] placement per prachi diaz guardian On 03/03/2019 patient was seen and examined on the medical floor he is laying comfortably in bed he denies any complaints, he is eating well, there is no evidence of pain or discomfort no agitation speech is difficult to understand. On 03/04/2019 patient was seen and examined on the medical floor he is alert responsive in no apparent distress he denies any pain he denies any nausea or vomiting he is tolerating regular diet well there is no fever or chills no headache or dizziness no chest pain no shortness of breath no cough and no urinary symptoms. On 03/05/2019 patient is alert and oriented resting comfortably in bed. Patient denies any chest pain or shortness of breath. Patient denies nausea vomiting or diarrhea. Patient denies any urinary burning or frequency. On 03/06/2019 patient is resting comfortably in bed with no complaints. Still awaiting legal guardian placement at [facility] facility. Patient denies chest pain or shortness breath. Patient denies nausea vomiting or diarrhea. Patient denies any urinary burning or frequency. On 03/07/2019 patient stated that he wanted to kill himself history to nursing staff. Patient has been placed on suicide precautions. Patient also refusing to shower or take his medication. Psychiatry services have been consulted. Patient denies any specific complaints. Patient reports that he is concerned about potential side effects from his medications. Educate patient on the importance of taking heart medication in order to prevent stroke and other negative implications. Awaiting psych consult On 03/08/2019 patient was evaluated by psychiatry services, suicide precautions have been DC'd. Patient does not meet criteria for inpatient psych. Still awaiting placement for [facility] facility per legal guardian. This time patient denies any specific complaints. On 03/09/2019 patient is medically stable and cleared for discharge discharge summary was done awaiting resolution of social issue to transfer patient to an A[facility]. On 03/10/2019 patient was seen and examined on the medical floor he is alert confused in no apparent distress, social security assessor and power of bankruptcy attorney are still working on finding a discharge destination for patient he remains medically stable. On 03/11/2019 patient was seen and examined there is no complaints at this time no change in condition On 03/12/2019 patient is resting comfortably in bed with no complaints. No change in condition patient remained stable for discharge awaiting placement per social work and legal guardian On 03/13/2019 patient resting comfortably in bed. No changes to patient condition. Patient is medically cleared for discharge awaiting placement. Labs reviewed from today. No changes On 03/14/2019 patient remains stable. No changes. Discussed case with social work multiple times have been made to place patient in AFC facility in [place] possible tomorrow On 03/15/2019 patient remains stable resting in bed. Discussed case with social security assessor Latrice. No [facility] of beds available in [place] or [facility]. Message left for AFC facility in [place] awaiting callback legal guardian also looking for possible placement. On 03/16/2019 patient remains stable medically cleared for discharge. Discussed case with social security assessor Latrice looking at potential room and board but patient was reevaluated by physical therapy yesterday was determined unable to do stairs. Per social security assessor emails descending to facility and legal guardian to see if adjustments can be made it so patient can be placed in a ground-level room. Awaiting further updates On 03/17/2019 patient is alert responsive in no apparent distress he denies any complaints at this time he is cleared medically for discharge awaiting social security assessor input for discharge destination On 03/18/2019 patient was seen and examined on the medical floor he is medically stable he denies any complaints he is cleared medically for discharge we are awaiting social security assessor to arrange for discharge home for hip On 03/19/2018 patient is currently resting in bed with no complaints. Patient has been medically cleared for discharge awaiting [facility] placement per social work and legal guardian On 03/20/2019 patient is resting comfortably in bed. Discussed case again with social security assessor Emily no further developments in A[facility] placement. Labs checked this a.m. slightly elevated liver enzymes will continue to monitor 03/21/2019 patient is resting comfortably in bed patient did shower. Patient's Lipitor DC'd due to elevated liver enzymes. Discussed with social work, and [facility] facility is coming to evaluate patient today for possible placement. Patient denies any specific complaints liver enzymes trending down On 03/22/2019 patient is sitting up in bed comfortably with no complaints. Per social security assessor patient has been accepted at [facility] facility will do discharge inpatient follow-up outpatient with PCP for further management. Patient now has legal guardian in place. Patient denies chest pain or shortness of breath. Patient denies nausea vomiting or diarrhea. Patient denies any urinary burning or frequency I performed an examination of the patient and discussed their management with the Nurse Practitioner. I have reviewed the Nurse Practitioner's notes and agree with the documented findings and plan of care Patient Condition at Discharge: Stable Plan - Discharge Summary New Discharge Prescriptions: No Action Simvastatin [Zocor] 20 mg PO HS Lisinopril [Prinivil] 5 mg PO DAILY Clopidogrel [Plavix] 75 mg PO DAILY #90 tab levETIRAcetam [Keppra] 750 mg PO Q12HR tab ALPRAZolam [Xanax] 0.5 mg PO HS #30 tab ALPRAZolam [Xanax] 0.25 mg PO QAM #30 tab Carvedilol [Coreg] 3.125 mg PO BID Discharge Medication List Lisinopril [Prinivil] 5 mg PO DAILY 07/02/14 [History] Simvastatin [Zocor] 20 mg PO HS 07/02/14 [History] Clopidogrel [Plavix] 75 mg PO DAILY #90 tab 05/01/15 [Rx] ALPRAZolam [Xanax] 0.25 mg PO QAM #30 tab 05/12/17 [Rx] ALPRAZolam [Xanax] 0.5 mg PO HS #30 tab 05/12/17 [Rx] levETIRAcetam [Keppra] 750 mg PO Q12HR tab 05/12/17 [Rx] Carvedilol [Coreg] 3.125 mg PO BID 03/24/18 [History] Follow up Appointment(s)/Referral(s): Reyes Knight MD [Primary Care Provider] - 1-2 days Duglas Ross MD [STAFF PHYSICIAN] - 2 Weeks (make appt prior to d/c) Patient Instructions/Handouts: Encephalopathy (GEN)
[2019-03-22 14:41] VITALS: BP 110/73; PULSE 65; RESP 16; TEMP 98.4
== END 2019-03-22 20:01 | disposition home or self-care (01) | DRG 65 ==
LOC: EC 12:21 → 4MS4W 18:58 → EEVIPCON 02-14 12:05 → OBSVTOIN 02-14 12:05 → 3NMEDONC 02-15 13:51 → 4MS4W 02-26 22:31
PROVIDERS: ADMIT Internal Medicine; ATTEND Internal Medicine
DX: I63.9 Cerebral infarction, unspecified (principal); I50.22 Chronic systolic (congestive) heart failure; N17.9 Acute kidney failure, unspecified; N39.0 Urinary tract infection, site not specified; R45.851 Suicidal ideations; R44.0 Auditory hallucinations; I65.22 Occlusion and stenosis of left carotid artery; D69.6 Thrombocytopenia, unspecified; G93.89 Other specified disorders of brain; I11.0 Hypertensive heart disease with heart failure; I25.82 Chronic total occlusion of coronary artery; E87.5 Hyperkalemia; E86.0 Dehydration; F01.50 Vascular dementia, unspecified severity, without behavioral disturbance, psychotic disturbance, mood disturbance, and anxiety; I69.320 Aphasia following cerebral infarction; J44.9 Chronic obstructive pulmonary disease, unspecified; B96.1 Klebsiella pneumoniae [K. pneumoniae] as the cause of diseases classified elsewhere; D63.8 Anemia in other chronic diseases classified elsewhere; E78.5 Hyperlipidemia, unspecified; F17.210 Nicotine dependence, cigarettes, uncomplicated; F32.9 Major depressive disorder, single episode, unspecified; F41.1 Generalized anxiety disorder; G40.909 Epilepsy, unspecified, not intractable, without status epilepticus; G89.29 Other chronic pain; I25.10 Atherosclerotic heart disease of native coronary artery without angina pectoris; I25.2 Old myocardial infarction; I25.5 Ischemic cardiomyopathy; I44.7 Left bundle-branch block, unspecified; I73.9 Peripheral vascular disease, unspecified; M81.0 Age-related osteoporosis without current pathological fracture; B19.20 Unspecified viral hepatitis C without hepatic coma; M19.90 Unspecified osteoarthritis, unspecified site; M25.562 Pain in left knee; M25.561 Pain in right knee; R44.1 Visual hallucinations; R74.8 Abnormal levels of other serum enzymes; T46.6X5A Adverse effect of antihyperlipidemic and antiarteriosclerotic drugs, initial encounter; Z79.02 Long term (current) use of antithrombotics/antiplatelets; Z79.899 Other long term (current) drug therapy; Z95.810 Presence of automatic (implantable) cardiac defibrillator; Z87.01 Personal history of pneumonia (recurrent); W19.XXXA Unspecified fall, initial encounter; Y92.410 Unspecified street and highway as the place of occurrence of the external cause; Z95.5 Presence of coronary angioplasty implant and graft; Z84.1 Family history of disorders of kidney and ureter
CPT/HCPCS: 36415; 70450; 70496; 70498; 71045; 72125; 72170; 80048; 80053; 80061; 80177; 80320; 81001; 82140; 83605; 83735; 84484; 84550; 85025; 85610; 86850; 86900; 86901; 87077; 87086; 87186; 93005; 93306; 95816; 96360; 96361; 99285